=== PATIENT | female | born 1960 | race Caucasian/White ===

== ENCOUNTER 2018-09-04 12:33 | Inpatient (IN) | payer MEDICARE ==
[2018-09-04] MEDS ORDERED: IPRATROPIUM-ALBUTEROL 3 ML NEB INHALATION STA (12:56)
--- NOTE | 2018-09-04 13:01 | ED ---
General Adult HPI - General Chief complaint: Shortness of Breath Stated complaint: SOB Time Seen by Provider: 09/04/18 12:43 Source: patient, family, RN notes reviewed Mode of arrival: wheelchair Limitations: no limitations - History of Present Illness Initial comments: Patient is a pleasant 57-year-old female presenting to the emergency department with difficulty in breathing. Onset of symptoms was several days ago. Patient did see her primary care physician 3 days ago and was prescribed oxygen for home however they have not receiving at. Patient once had a computed tomography scan showing COPD. Otherwise patient has not been chronically diagnosed with COPD. No calf pain. Patient has been coughing however cough has been mild noncolored sputum. No fevers. No chest pain. Patient does have a history of leukemia that was treated in 2014 and is not active. No current chemotherapy. - Related Data Home Medications Medication Instructions Recorded Confirmed Multivitamin/Iron/Folic Acid 1 tab PO DAILY@0800 //16 09/04/18 [Centrum Complete Multivit Tab] Gabriel/D3/Mag11/Zinc/Trade Marker/Kashif/Bor 1 tab PO BID@0800,1700 09/04/18 09/04/18 [Caltrate 600+D Plus Tablet] Cyclobenzaprine [Flexeril] 10 mg PO Q8H PRN 09/04/18 09/04/18 Hydrocortisone 10 mg PO DAILY@1700 09/04/18 09/04/18 Hydrocortisone 20 mg PO DAILY@0800 09/04/18 09/04/18 Ibuprofen [Motrin] 800 mg PO Q8H PRN 09/04/18 09/04/18 Ipratropium/Albuterol Sulfate 1 puff INHALATION RT-BID PRN 09/04/18 09/04/18 [Combivent Respimat Inhaler] LORazepam [Ativan] 0.5 mg PO Q46H PRN 09/04/18 09/04/18 Pentoxifylline [TRENtal] 400 mg PO BID@0800,1700 09/04/18 09/04/18 Vitamin E (Dl,Tocopheryl Acet) 400 unit PO BID@0800,1700 09/04/18 09/04/18 [Vitamin E] Zolpidem [Ambien] 10 mg PO HS PRN 09/04/18 09/04/18 Allergies Allergy/AdvReac Type Severity Reaction Status Date / Time cefepime Allergy Unknown Face Verified 09/04/18 14:06 Swelling, Rash chlorhexidine Allergy Unknown Verified 09/04/18 14:06 Penicillins Allergy Unknown Verified 09/04/18 14:06 Childhood Review of Systems ROS Statement: Those systems with pertinent positive or pertinent negative responses have been documented in the HPI. ROS Other: All systems not noted in ROS Statement are negative. 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 WARD IV ACCESS RIGHT CHEST. RASH ON BACK FROM CHEMO. Grade I Gastric GVHD. History of Any Multi-Drug Resistant Organisms: None Reported Past Surgical History: Orthopedic Surgery, Tubal Ligation Additional Past Surgical History / Comment(s): Cervical fusion 2005, Bilateral carpal tunnel, BONE MARROW BX. 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 Mother Family Medical History: Cancer Additional Family Medical History / Comment(s): Mother at age 49yrs of uterine cancer. Pt's several aunts all had cancers of various origins as well as her grandmother. General Exam Limitations: no limitations General appearance: alert, in no apparent distress Head exam: Present: atraumatic Eye exam: Present: normal appearance, PERRL ENT exam: Present: normal oropharynx Neck exam: Present: normal inspection Respiratory exam: Present: wheezes, rales Cardiovascular Exam: Present: tachycardia GI/Abdominal exam: Present: soft. Absent: tenderness Extremities exam: Present: normal inspection. Absent: pedal edema, calf tenderness Neurological exam: Present: alert Psychiatric exam: Present: normal affect, normal mood Skin exam: Present: normal color Course Vital Signs 09/04/18 09/04/18 09/04/18 12:39 13:32 13:42 Temperature 98.1 F Pulse Rate 117 H 109 H 107 H Respiratory 26 H Rate Blood Pressure 135/82 O2 Sat by Pulse 84 L Oximetry EKG Findings - EKG Comments: EKG Findings:: Sinus tachycardia 106. ME 182. QRS 84. QT 336. QTc 446. Norm al axis. Normal QRS. No acute ST change. Medical Decision Making - Medical Decision Making Patient reevaluated and resting comfortably in bed. Vital signs improving with oxygen. Patient states she did receive some improvement with nebulizer t reatment. Patient family updated on results and need for follow-up. Case was discussed in detail with Dr. Rolle, covering for Dr. Ricci, who will admit. - Lab Data Result diagrams: 09/04/18 13:17 09/04/18 13:17 Lab Results 09/04/18 09/04/18 09/04/18 Range/Units 13:17 13:17 13:17 WBC 13.0 H (3.8-10.6) k/uL RBC 5.10 (3.80-5.40) m/uL Hgb 17.0 H (11.4-16.0) gm/dL Hct 51.4 H (34.0-46.0) % MCV 100.8 H (80.0-100.0) fL MCH 33.3 (25.0-35.0) pg MCHC 33.1 (31.0-37.0) g/dL RDW 15.0 (11.5-15.5) % Plt Count 307 (150-450) k/uL Neutrophils % 90 % Lymphocytes % 5 % Monocytes % 3 % Eosinophils % 1 % Basophils % 0 % Neutrophils # 11.7 H (1.3-7.7) k/uL Lymphocytes # 0.7 L (1.0-4.8) k/uL Monocytes # 0.4 (0-1.0) k/uL Eosinophils # 0.1 (0-0.7) k/uL Basophils # 0.0 (0-0.2) k/uL Macrocytosis Slight PT 9.9 (9.0-12.0) sec INR 0.9 (<1.2) APTT 23.3 (22.0-30.0) sec Sodium 136 L (137-145) mmol/L Potassium 4.5 (3.5-5.1) mmol/L Chloride 95 L (98-107) mmol/L Carbon Dioxide 35 H (22-30) mmol/L Anion Gap 6 mmol/L BUN 12 (7-17) mg/dL Creatinine 0.22 L (0.52-1.04) mg/dL Est GFR (CKD-EPI)AfAm >90 (>60 ml/min/1.73 sqM) Est GFR (CKD-EPI)NonAf >90 (>60 ml/min/1.73 sqM) Glucose 128 H (74-99) mg/dL Calcium 10.1 (8.4-10.2) mg/dL Total Bilirubin 0.8 (0.2-1.3) mg/dL AST 69 H (14-36) U/L ALT 84 H (9-52) U/L Alkaline Phosphatase 372 H (38-126) U/L Troponin I (0.000-0.034) ng/mL NT-Pro-B Natriuret Pep pg/mL Total Protein 7.3 (6.3-8.2) g/dL Albumin 4.0 (3.5-5.0) g/dL 09/04/18 09/04/18 Range/Units 13:17 13:17 WBC (3.8-10.6) k/uL RBC (3.80-5.40) m/uL Hgb (11.4-16.0) gm/dL Hct (34.0-46.0) % MCV (80.0-100.0) fL MCH (25.0-35.0) pg MCHC (31.0-37.0) g/dL RDW (11.5-15.5) % Plt Count (150-450) k/uL Neutrophils % % Lymphocytes % % Monocytes % % Eosinophils % % Basophils % % Neutrophils # (1.3-7.7) k/uL Lymphocytes # (1.0-4.8) k/uL Monocytes # (0-1.0) k/uL Eosinophils # (0-0.7) k/uL Basophils # (0-0.2) k/uL Macrocytosis PT (9.0-12.0) sec INR (<1.2) APTT (22.0-30.0) sec Sodium (137-145) mmol/L Potassium (3.5-5.1) mmol/L Chloride (98-107) mmol/L Carbon Dioxide (22-30) mmol/L Anion Gap mmol/L BUN (7-17) mg/dL Creatinine (0.52-1.04) mg/dL Est GFR (CKD-EPI)AfAm (>60 ml/min/1.73 sqM) Est GFR (CKD-EPI)NonAf (>60 ml/min/1.73 sqM) Glucose (74-99) mg/dL Calcium (8.4-10.2) mg/dL Total Bilirubin (0.2-1.3) mg/dL AST (14-36) U/L ALT (9-52) U/L Alkaline Phosphatase (38-126) U/L Troponin I <0.012 (0.000-0.034) ng/mL NT-Pro-B Natriuret Pep 240 pg/mL Total Protein (6.3-8.2) g/dL Albumin (3.5-5.0) g/dL - Radiology Data Radiology results: image reviewed (Chest x-ray shows large right effusion) Disposition Clinical Impression: Pleural effusion, Dyspnea Disposition: ADMITTED IP TO THIS HOSP Is patient prescribed a controlled substance at d/c from ED?: No Referrals: Kristi Ricci DO [Primary Care Provider] - 1-2 days Decision Time: 14:43
[2018-09-04 13:34] LABS: Basophils % (A) 0 %; Eosinophils # (A) 0.1 k/uL (0-0.7); Eosinophils % (A) 1 %; HCT 51.4 % (34.0-46.0); Lymphocytes # (A) 0.7 k/uL (1.0-4.8); Lymphocytes % (A) 5 %; MCH 33.3 pg (25.0-35.0); MCHC 33.1 g/dL (31.0-37.0); MCV 100.8 fL (80.0-100.0); Macrocytosis Slight; Mean Platelet Volume 7.6; Monocytes # (A) 0.4 k/uL (0-1.0); Monocytes % (A) 3 %; Neutrophils # (A) 11.7 k/uL (1.3-7.7); Neutrophils % (A) 90 %; Platelet Count 307 k/uL (150-450)
[2018-09-04 13:43] LABS: INR 0.9 (<1.2); Partial Thromboplastin Time 23.3 sec (22.0-30.0); Prothrombin Time 9.9 sec (9.0-12.0)
[2018-09-04 13:44] LABS: ALT 84 U/L (9-52); AST 69 U/L (14-36); Alkaline Phosphatase 372 U/L (38-126); Anion Gap 6 mmol/L; Blood Urea Nitrogen 12 mg/dL (7-17); Calcium 10.1 mg/dL (8.4-10.2); Carbon Dioxide 35 mmol/L (22-30); Chloride 95 mmol/L (98-107); Glucose 128 mg/dL (74-99); Potassium 4.5 mmol/L (3.5-5.1); Sodium 136 mmol/L (137-145); Total Bilirubin 0.8 mg/dL (0.2-1.3); Total Protein 7.3 g/dL (6.3-8.2)
--- NOTE | 2018-09-04 14:14 | XR ---
EXAMINATION TYPE: XR chest 2V DATE OF EXAM: 09/04/2018 COMPARISON: 11/06/2015 HISTORY: Short of breath TECHNIQUE: Frontal and lateral views of the chest are obtained. FINDINGS: There is a very large right pleural effusion. Trachea is midline. Left lung is clear of in filtrate. There is no heart failure. Bony thorax is intact. There are chest leads. Mediastinum appear s normal. IMPRESSION: Large right pleural effusion is a change compared to old exam. Follow-up recommended.
[2018-09-04] MEDS: IPRATROPIUM-ALBUTEROL 3 ML NEB INHALATION SCH ×2 (15:13→19:38)
[2018-09-04] MEDS ORDERED: CYCLOBENZAPRINE 10 MG TAB PO PRN (16:37)
--- NOTE | 2018-09-04 16:46 | P.HPIM ---
History of Present Illness Patient is a 57-year-old female known history of smoking used to smoke a pack per day, taking down recent lately came in with compensative short of breath patient was seen in PCPs office is found to have saturations of 84% was given steroids and oxygen was discharged home came back here again with worsening shortness of breath. Patient was hypoxic as well here. Patient denied any fever chills is comparing of cough without any significant sputum production. Patient is found to have large pleural effusion on the right side. Patient does have history of leukemia of for which patient received chemotherapy in 2015. Patient doesn't have any significant wheezing absent breath sounds on the right side which explains pleural effusion decreased air entry into the left side be no significant wheezing was appreciated patient was also told that she has emphysema never has seen a lung doctor. Patient denied any fever chills no evidence of pneumonia although parapneumonic effusion cannot be completely ruled out patient will be started on IV antibiotics. Patient will need a diagnostic and therapeutic thoracocentesis. Patient denied any dysuria Review of Systems REVIEW OF SYSTEMS: CONSTITUTIONAL: No fever, no malaise, no fatigue. HEENT: No recent visual problems or hearing problems. Denied any sore throat. CARDIOVASCULAR: No chest pain, orthopnea, PND, no palpitations, no syncope. PULMONARY: no hemoptysis. GASTROINTESTINAL: No diarrhea, no nausea, no vomiting, no abdominal pain. NEUROLOGICAL: No headaches, no weakness, no numbness. HEMATOLOGICAL: Denies any bleeding or petechiae. GENITOURINARY: Denies any burning micturition, frequency, or urgency. MUSCULOSKELETAL/RHEUMATOLOGICAL: Denies any joint pain, swelling, or any muscle pain. ENDOCRINE: Denies any polyuria or polydipsia. The rest of the 14-point review of systems is negative. 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 WARD IV ACCESS RIGHT CHEST. RASH ON BACK FROM CHEMO. Grade I Gastric GVHD. History of Any Multi-Drug Resistant Organisms: None Reported Past Surgical History: Orthopedic Surgery, Tubal Ligation Additional Past Surgical History / Comment(s): Cervical fusion 2005, Bilateral carpal tunnel, BONE MARROW BX. 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 Mother Family Medical History: Cancer Additional Family Medical History / Comment(s): Mother at age 49yrs of uterine cancer. Pt's several aunts all had cancers of various origins as well as her grandmother. Medications and Allergies Home Medications Medication Instructions Recorded Confirmed Type Multivitamin/Iron/Folic Acid 1 tab PO DAILY@0800 11/06/15 09/04/18 History [Centrum Complete Multivit Tab] Gabriel/D3/Mag11/Zinc/Saddle Lining Stitcher/Kashif/Bor 1 tab PO BID@0800,1700 09/04/18 09/04/18 History [Caltrate 600+D Plus Tablet] Cyclobenzaprine [Flexeril] 10 mg PO Q8H PRN 09/04/18 09/04/18 History Hydrocortisone 10 mg PO DAILY@1700 09/04/18 09/04/18 History Hydrocortisone 20 mg PO DAILY@0800 09/04/18 09/04/18 History Ibuprofen [Motrin] 800 mg PO Q8H PRN 09/04/18 09/04/18 History Ipratropium/Albuterol Sulfate 1 puff INHALATION RT-BID PRN 09/04/18 09/04/18 History [Combivent Respimat Inhaler] LORazepam [Ativan] 0.5 mg PO Q46H PRN 09/04/18 09/04/18 History Pentoxifylline [TRENtal] 400 mg PO BID@0800,1700 09/04/18 09/04/18 History Vitamin E (Dl,Tocopheryl Acet) 400 unit PO BID@0800,1700 09/04/18 09/04/18 History [Vitamin E] Zolpidem [Ambien] 10 mg PO HS PRN 09/04/18 09/04/18 History Allergies Allergy/AdvReac Type Severity Reaction Status Date / Time cefepime Allergy Unknown Face Verified 09/04/18 14:06 Swelling, Rash chlorhexidine Allergy Unknown Verified 09/04/18 14:06 Penicillins Allergy Unknown Verified 09/04/18 14:06 Childhood Physical Exam Vitals: Vital Signs Temp Pulse Resp BP Pulse Ox 09/04/18 15:26 108 H 09/04/18 15:13 107 H 09/04/18 15:00 95 134/84 94 L 09/04/18 14:30 99 28 H 134/84 95 09/04/18 13:42 107 H 09/04/18 13:32 109 H 09/04/18 13:00 105 H 26 H 141/87 96 09/04/18 12:39 98.1 F 117 H 26 H 135/82 84 L Intake and Output 09/04/18 09/04/18 09/04/18 06:59 14:59 22:59 Other: Weight 45.359 kg PHYSICAL EXAMINATION: GENERAL: The patient is alert and oriented x3, not in any acute distress. Thin built her denied any recent weight loss HEENT: Pupils are round and equally reacting to light. EOMI. No scleral icterus. No conjunctival pallor. Normocephalic, atraumatic. No pharyngeal erythema. No thyromegaly. CARDIOVASCULAR: S1 and S2 present. No murmurs, rubs, or gallops. PULMONARY: Absent breath sounds in the right posterior lung rodriguez decreased air entry and left side no wheezing was appreciated no crackles were appreciated ABDOMEN: Soft, nontender, nondistended, normoactive bowel sounds. No palpable organomegaly. MUSCULOSKELETAL: No joint swelling or deformity. EXTREMITIES: No cyanosis, clubbing, or pedal edema. NEUROLOGICAL: Gross neurological examination did not reveal any focal deficits. SKIN: No rashes. Results CBC & Chem 7: 09/04/18 13:17 09/04/18 13:17 Labs: Abnormal Lab Results - Last 24 Hours (Table) 09/04/18 09/04/18 Range/Units 13:17 13:17 WBC 13.0 H (3.8-10.6) k/uL Hgb 17.0 H (11.4-16.0) gm/dL Hct 51.4 H (34.0-46.0) % MCV 100.8 H (80.0-100.0) fL Neutrophils # 11.7 H (1.3-7.7) k/uL Lymphocytes # 0.7 L (1.0-4.8) k/uL Sodium 136 L (137-145) mmol/L Chloride 95 L (98-107) mmol/L Carbon Dioxide 35 H (22-30) mmol/L Creatinine 0.22 L (0.52-1.04) mg/dL Glucose 128 H (74-99) mg/dL AST 69 H (14-36) U/L ALT 84 H (9-52) U/L Alkaline Phosphatase 372 H (38-126) U/L Assessment and Plan Plan: Acute hypoxic respiratory failure and shortness of breath: Secondary to right- sided pleural effusion etiology of pleural effusion is not clear possibly a parapneumonic effusion is low but I cannot completely rule out because of which patient will be started on antibiotics malignant pleural effusion need to be ruled out patient clinically doesn't have any heart failure BNP is only 200. Patient will be started on IV fluids -Tachycardia secondary to hypoxemia patient was started on IV fluids continue with respiratory support breathing treatments and oxygen -COPD with the possible minimal exacerbation although I do not believe patient will need systemic steroids patient will be started on inhaled steroids and in halational treatments -Leukocytosis appears to be reactive in nature -History of leukemia in remission patient last received chemotherapy in 2014 -Severity in the past -Nicotine use: Counseling was provided -Anxiety disorder -Severity in the past Patient will need pharmacologic GI as well as DVT prophylaxis
[2018-09-04] MEDS: SODIUM CHLORIDE 0.9% 1,000 ML IV SCH (17:56)
[2018-09-04] MEDS: HYDROCORTISONE 10 MG TAB PO SCH (18:29)
[2018-09-04] MEDS: PENTOXIFYLLINE 400 MG TABLET.ER PO SCH (18:29)
[2018-09-04] MEDS: NICOTINE 21MG/24HR PATCH TRANSDERM SCH (19:35)
[2018-09-04] MEDS: HEPARIN SODIUM,PORCINE 5,000 UNIT/ML 1 ML VIAL SQ SCH (19:35)
[2018-09-04] MEDS: FAMOTIDINE 20 MG TAB PO SCH (19:35)
[2018-09-04] MEDS: BUDESONIDE 0.5 MG/2 ML NEBU INHALATION SCH (19:38)
[2018-09-05] MEDS: IPRATROPIUM-ALBUTEROL 3 ML NEB INHALATION PRN (02:52)
[2018-09-05 03:02] LABS: Glucose,Whole Blood 102 mg/dL (75-99)
[2018-09-05] MEDS: SODIUM CHLORIDE 0.9% 1,000 ML IV SCH ×3 (03:06→23:01)
[2018-09-05 06:35] LABS: Basophils % (A) 0 %; Eosinophils % (A) 0 %; HCT 47.8 % (34.0-46.0); HGB 15.4 gm/dL (11.4-16.0); Lymphocytes # (A) 1.2 k/uL (1.0-4.8); Lymphocytes % (A) 13 %; MCH 33.1 pg (25.0-35.0); MCHC 32.2 g/dL (31.0-37.0); MCV 102.7 fL (80.0-100.0); Macrocytosis Slight; Mean Platelet Volume 7.8; Monocytes # (A) 0.5 k/uL (0-1.0); Monocytes % (A) 5 %; Neutrophils # (A) 7.9 k/uL (1.3-7.7); Neutrophils % (A) 80 %; Platelet Count 312 k/uL (150-450); RBC 4.65 m/uL (3.80-5.40); RDW 14.8 % (11.5-15.5); WBC 9.9 k/uL (3.8-10.6)
[2018-09-05 06:45] LABS: Anion Gap 1 mmol/L; Blood Urea Nitrogen 8 mg/dL (7-17); Calcium 8.9 mg/dL (8.4-10.2); Carbon Dioxide 37 mmol/L (22-30); Chloride 100 mmol/L (98-107); Glucose 81 mg/dL (74-99); Potassium 4.3 mmol/L (3.5-5.1); Sodium 138 mmol/L (137-145)
[2018-09-05] MEDS: FAMOTIDINE 20 MG TAB PO SCH ×2 (08:08→20:10)
[2018-09-05] MEDS: NICOTINE 21MG/24HR PATCH TRANSDERM SCH (08:08)
[2018-09-05] MEDS: PENTOXIFYLLINE 400 MG TABLET.ER PO SCH ×2 (08:08→17:03)
[2018-09-05] MEDS: HEPARIN SODIUM,PORCINE 5,000 UNIT/ML 1 ML VIAL SQ SCH ×2 (08:08→20:11)
[2018-09-05] MEDS: HYDROCORTISONE 10 MG TAB PO SCH ×2 (08:10→17:04)
[2018-09-05] MEDS: BUDESONIDE 0.5 MG/2 ML NEBU INHALATION SCH ×2 (08:33→19:53)
[2018-09-05] MEDS: IPRATROPIUM-ALBUTEROL 3 ML NEB INHALATION SCH ×4 (08:33→19:53)
--- NOTE | 2018-09-05 10:18 | P.PN ---
Subjective 57-year-old admitted with right-sided pleural effusion etiology of pleural effusion is unknown possibly parapneumonic effusion is low we will order a ultrasound guided thoracocentesis diagnostic and therapeutic. Respiratory status remains the same Constitutional: Denied any fatigue denied any fever. Cardio vascular: denied any chest pain, palpitations Gastrointestinal denied any nausea vomiting Pulmonary: as mentioned in HPI Neurologic denied any new focal deficits All inpatient medications were reviewed and appropriate changes in these med ications as dictated in the interval history and assessment and plan. Objective - Vital Signs Vital signs: Vital Signs Temp 98.1 F 09/05/18 08:00 Pulse 86 09/05/18 08:47 Resp 18 09/05/18 08:00 BP 141/77 09/05/18 08:00 Pulse Ox 97 09/05/18 08:33 Intake & Output 09/04/18 09/05/18 09/05/18 18:59 06:59 18:59 Intake Total 1500 Balance 1500 Weight 45.359 kg 49.4 kg Intake: Intake, IV Titration 1100 Amount Sodium Chloride 0.9% 1, 1100 000 ml @ 100 mls/hr IV . Q10H [facility] Rx#:[id number] Oral 400 Other: Voiding Method Toilet Toilet # Voids 1 3 1 - Exam PHYSICAL EXAMINATION: GENERAL: The patient is alert and oriented x3, not in any acute distress. Thin built her denied any recent weight loss HEENT: Pupils are round and equally reacting to light. EOMI. No scleral icterus. No conjunctival pallor. Normocephalic, atraumatic. No pharyngeal erythema. No thyromegaly. CARDIOVASCULAR: S1 and S2 present. No murmurs, rubs, or gallops. PULMONARY: Absent breath sounds in the right posterior lung rodriguez decreased air entry and left side no wheezing was appreciated no crackles were appreciated ABDOMEN: Soft, nontender, nondistended, normoactive bowel sounds. No palpable organomegaly. MUSCULOSKELETAL: No joint swelling or deformity. EXTREMITIES: No cyanosis, clubbing, or pedal edema. NEUROLOGICAL: Gross neurological examination did not reveal any focal deficits. SKIN: No rashes. - Labs CBC & Chem 7: 09/05/18 05:49 09/05/18 05:49 Labs: Abnormal Lab Results - Last 24 Hours (Table) 09/04/18 09/04/18 09/05/18 Range/Units 13:17 13:17 02:42 WBC 13.0 H (3.8-10.6) k/uL Hgb 17.0 H (11.4-16.0) gm/dL Hct 51.4 H (34.0-46.0) % MCV 100.8 H (80.0-100.0) fL Neutrophils # 11.7 H (1.3-7.7) k/uL Lymphocytes # 0.7 L (1.0-4.8) k/uL Sodium 136 L (137-145) mmol/L Chloride 95 L (98-107) mmol/L Carbon Dioxide 35 H (22-30) mmol/L Creatinine 0.22 L (0.52-1.04) mg/dL Glucose 128 H (74-99) mg/dL POC Glucose (mg/dL) 102 H (75-99) mg/dL AST 69 H (14-36) U/L ALT 84 H (9-52) U/L Alkaline Phosphatase 372 H (38-126) U/L 09/05/18 09/05/18 Range/Units 05:49 05:49 WBC (3.8-10.6) k/uL Hgb (11.4-16.0) gm/dL Hct 47.8 H (34.0-46.0) % MCV 102.7 H (80.0-100.0) fL Neutrophils # 7.9 H (1.3-7.7) k/uL Lymphocytes # (1.0-4.8) k/uL Sodium (137-145) mmol/L Chloride (98-107) mmol/L Carbon Dioxide 37 H (22-30) mmol/L Creatinine 0.22 L (0.52-1.04) mg/dL Glucose (74-99) mg/dL POC Glucose (mg/dL) (75-99) mg/dL AST (14-36) U/L ALT (9-52) U/L Alkaline Phosphatase (38-126) U/L Assessment and Plan Plan: Acute hypoxic respiratory failure and shortness of breath: Secondary to right- sided pleural effusion etiology of pleural effusion is not clear possibly a parapneumonic effusion is low but I cannot completely rule out because of which patient will be started on antibiotics malignant pleural effusion need to be ruled out patient clinically doesn't have any heart failure BNP is only 200. Ultrasound at the -Tachycardia secondary to hypoxemia patient was started on IV fluids continue with respiratory support breathing treatments and oxygen -COPD with the possible minimal exacerbation although I do not believe patient will need systemic steroids patient will be started on inhaled steroids and inhalational treatments -Leukocytosis appears to be reactive in nature -History of leukemia in remission patient last received chemotherapy in 2014 -Severity in the past -Nicotine use: Counseling was provided -Anxiety disorder -Severity in the past Patient will need pharmacologic GI as well as DVT prophylaxis
[2018-09-05] MEDS ORDERED: LIDOCAINE 1% INJ 10MG/ML (20 ML MDV) SQ ONE (11:01)
--- NOTE | 2018-09-05 11:53 | US ---
EXAMINATION TYPE: US chest DATE OF EXAM: 09/05/2018 COMPARISON: Chest x-ray 09/04/2018 CLINICAL HISTORY: Markings for thoracentesis by pulmonary staff. Pleural effusion TECHNIQUE: Targeted ultrasound of the posterior lower bilateral hemithoraces EXAM MEASUREMENTS: Right Pleural Effusion pocket size: 9.5 cm Right skin surface to fluid distance: 1.3 cm Left Pleural Effusion pocket size: 0 cm Right side marked for possible thoracentesis outside the dept. Pulmonologists are able to review the images in the patient?s EMR. IMPRESSIONS: Large right pleural effusion
--- NOTE | 2018-09-05 12:16 | CONS ---
CONSULTATION PULMONARY/CRITICAL CARE CONSULTATION: DATE OF CONSULTATION: September 05, 2018 This is a 57-year-old female who apparently presents to the emergency room with complaints of difficulty breathing. It apparently occurred a couple days prior to her admission there. She apparently did see her primary care physician 3 days ago and oxygen was prescribed. Unfortunately, the patient has not received it as yet. The patient apparently was evaluated and found to have a large right-sided pleural effusion for which we were consulted. She states that she has never had anything like this before. The patient denies chest pain. Denies any fever. She has had a bit of a cough. Not producing much phlegm. No nausea, vomiting. No chest pain or chest discomfort. She has a history of leukemia in the past but was treated and apparently is in remission. Other than the shortness of breath, she really does not have much in the way of complaints. We did ask for ultrasound to do a marking. Our plan is to go ahead and do a right-sided thoracentesis today and send the fluid off for analysis. This may allow us to know why the fluid is there. Her primary care physician is Dr. Silvestre in [place]. HOME MEDICATIONS: Her home medications included multivitamins, Flexeril, hydrocortisone 20 mg in the morning, 10 mg in the evening, ibuprofen, Combivent inhaler, Ativan, Trental, vitamin E, and Ambien. ALLERGIES: Allergies include CEFEPIME, CHLORHEXIDINE, and PENICILLINS. MEDICAL HISTORY: Her medical history is positive for CVA, pneumonia, syncope, acute myeloid leukemia, status post chemotherapy and bone marrow transplant, anemia, Maier catheter insertion, and mild xbonc-zcywap-coeb disease. SURGICAL HISTORY: Surgical history includes among other things, tubal ligation, cervical fusion, bilateral carpal tunnel surgery, bone marrow biopsy, allogeneic stem cell transplant. SOCIAL HISTORY: Social history is positive for ongoing tobacco use. She apparently does not drink alcohol and there is no history of illicit drug use. FAMILY HISTORY: Family history is not too remarkable save for uterine cancer. REVIEW OF SYSTEMS: CONSTITUTIONAL: Weakness. NEUROLOGIC: Negative. HEENT: Negative. CARDIOVASCULAR: Negative. PULMONARY: Shortness of breath. Mild cough, minimal phlegm production. GI: Negative. : Negative. RHEUMATOLOGIC: Negative. IMMUNOLOGIC: Negative. ENDOCRINOLOGIC: Negative. DERMATOLOGIC: Negative. PHYSICAL EXAMINATION: Current vital signs are reviewed. Temperature 98.1, heart rate 86, respiratory rate 18, blood pressure 141/77, mean 98 and 4 L saturation 97%. Appears in no acute distress. HEENT: Examination is grossly unremarkable. Mucous membranes are moist. Nasal O2 in place. NECK: Supple. Full range of motion. No adenopathy. Neck veins are flat. CARDIOVASCULAR: Examination reveals regular rhythm and rate. S1, S2 normal. Heart rate 85 beats per minute. No murmur. LUNGS: Reveal severely diminished breath sounds on the right chest. There is also dullness in the right chest. No wheezes. No crackles. ABDOMEN: Soft. Bowel sounds are heard. EXTREMITIES: Are intact. No cyanosis, clubbing, or edema. SKIN: Without rash. NEUROLOGIC: Examination is brief but nonfocal. Labs are reviewed. White count 9.9, hemoglobin 15.4, hematocrit 47.8, platelet count normal. Sodium and potassium normal. Chloride 100. CO2 of 37. Anion gap is 1. BUN and creatinine were 8 and 0.22. AST 69, ALT 84, alkaline phosphatase 372. Troponins were negative. N terminal proBNP was normal. PT, INR and PTT all normal. Chest x-ray shows a large right-sided pleural effusion that was compared to an exam in October 2015 which apparently was clear. Ultrasound was done but not officially read as yet. The plan is to do a thoracentesis today. Medications are reviewed. She is on Pulmicort, Rocephin and updrafts. ASSESSMENT: 1. Large right-sided pleural effusion, of unclear etiology. With the patient's history of tobacco use, rule out malignancy. 2. Previous history of acute myeloid leukemia, apparently in remission, status post allogeneic bone marrow transplant. 3. Probable chronic obstructive pulmonary disease. 4. Adrenal insufficiency. 5. History of cerebrovascular accident. 6. History of pneumonia. 7. History of syncope. 8. History of degenerative joint disease. PLAN: The plan is to do a thoracentesis later today. Ultrasound was done to landy the right chest. Additional recommendations and suggestions are forthcoming. The fluid will be sent for cytology, chemistry and microbiology. Additional recommendations and suggestions are forthcoming. We counseled the patient about the importance of smoking cessation. MMODL / IJN: [id number] /
--- NOTE | 2018-09-05 13:46 | XR ---
EXAMINATION TYPE: XR chest 1V portable DATE OF EXAM: 09/05/2018 Comparison: 09/04/2018 Clinical History: 57-year-old female status post right sided thoracentesis Findings: Right heart margin remains obscured by adjacent pleural parenchymal opacity. ACDF hardware. A moderat e to large right pleural effusion remains despite decrease as compared to recent prior. A small right apical pneumothorax is demonstrated measuring 1.3 cm from the apical margin. Left lung and pleural s pace appear clear. Impression: 1. Small right apical pneumothorax measuring 1.3 cm following thoracentesis. Finding called to Nurse Bravo on [facility] at 1:44 PM. 2. Residual moderate to large right pleural effusion, decreased from prior.
[2018-09-05 15:31] LABS: Color,BF Orange
[2018-09-05 15:32] LABS: Appearance,BF Hazy
[2018-09-05 15:45] LABS: Nucleated Cells, Body Fluid 315 /uL; RBC, Body Fluid 3620 /uL
[2018-09-05 15:46] LABS: Mononuclear WBC,Body Fluid 28 %; Polynuclear WBC,Body Fluid 71 %; Total Cells Counted,Body Fluid 100
[2018-09-05] MEDS: KETOROLAC 30 MG/ML 1 ML VIAL IVP PRN (19:06)
[2018-09-05 21:41] LABS: Total Protein, Body Fluid 4100 mg/dL
--- NOTE | 2018-09-05 23:05 | PCN ---
PROCEDURE NOTE Indication Pleural effusion. A time-out was completed verifying correct patient, procedure, site, positioning , and implant (s) or special equipment if applicable. Ultrasound guidance was used and appropriate fluid pocket was identified and marked. Patient was positioned, prepped and draped in usual sterile fashion. Lidocaine was used to anesthetize the area. A Thoracentesis catheter was introduced into the pleural space and fluid was removed. Blood loss was none. A chest x-ray was ordered to evaluate for pneumothorax. Total Fluid Removed: 1300 mL Color of Fluid @@ Fluid was sent for appropriate laboratory tests. Patient tolerated the procedure well and there were no complications. The patient tolerated the procedure well. Chest x-ray was ordered to rule out pneumothorax. 1300 mL of fluid was removed. There was informed consent and universal timeout. The patient tolerated the procedure well. Again, a chest x-ray was ordered after the thoracentesis to make sure there was no pneumothorax. MMODL / IJN: [id number] /
[2018-09-06] MEDS: KETOROLAC 30 MG/ML 1 ML VIAL IVP PRN ×2 (03:27→12:15)
[2018-09-06] MEDS: IPRATROPIUM-ALBUTEROL 3 ML NEB INHALATION PRN (04:40)
[2018-09-06 06:44] LABS: Basophils % (A) 0 %; Eosinophils # (A) 0.1 k/uL (0-0.7); Eosinophils % (A) 1 %; HCT 47.9 % (34.0-46.0); HGB 14.7 gm/dL (11.4-16.0); Lymphocytes # (A) 1.2 k/uL (1.0-4.8); Lymphocytes % (A) 13 %; MCH 31.6 pg (25.0-35.0); MCHC 30.6 g/dL (31.0-37.0); MCV 103.3 fL (80.0-100.0); Macrocytosis Slight; Mean Platelet Volume 7.6; Monocytes # (A) 0.5 k/uL (0-1.0); Monocytes % (A) 5 %; Neutrophils # (A) 7.4 k/uL (1.3-7.7); Neutrophils % (A) 80 %; Platelet Count 308 k/uL (150-450); RBC 4.64 m/uL (3.80-5.40); RDW 14.6 % (11.5-15.5); WBC 9.3 k/uL (3.8-10.6)
[2018-09-06 06:50] LABS: Anion Gap 2 mmol/L; Blood Urea Nitrogen 5 mg/dL (7-17); Calcium 8.8 mg/dL (8.4-10.2); Carbon Dioxide 37 mmol/L (22-30); Chloride 102 mmol/L (98-107); Glucose 83 mg/dL (74-99); Sodium 141 mmol/L (137-145)
[2018-09-06] MEDS: IPRATROPIUM-ALBUTEROL 3 ML NEB INHALATION SCH ×4 (08:03→20:53)
[2018-09-06] MEDS: BUDESONIDE 0.5 MG/2 ML NEBU INHALATION SCH ×2 (08:03→20:53)
[2018-09-06] MEDS: NICOTINE 21MG/24HR PATCH TRANSDERM SCH (08:45)
[2018-09-06] MEDS: HEPARIN SODIUM,PORCINE 5,000 UNIT/ML 1 ML VIAL SQ SCH ×2 (08:46→20:17)
[2018-09-06] MEDS: PENTOXIFYLLINE 400 MG TABLET.ER PO SCH ×2 (08:46→16:19)
[2018-09-06] MEDS: HYDROCORTISONE 10 MG TAB PO SCH ×2 (08:46→16:19)
[2018-09-06] MEDS: FAMOTIDINE 20 MG TAB PO SCH ×2 (08:47→20:17)
[2018-09-06] MEDS: SODIUM CHLORIDE 0.9% 1,000 ML IV SCH ×2 (08:48→16:19)
[2018-09-06] MEDS ORDERED: RX INFO: IV CONTRAST WAS GIVEN 1 EACH MISC MISCELLANE PRN (10:12)
--- NOTE | 2018-09-06 10:22 | P.PN ---
Subjective Progress Note Date: 09/06/18 Principal diagnosis: Large right-sided pleural effusion of unclear etiology On 09/06/2018 patient seen in follow-up on selective care unit, she is awake and alert, in no acute distress, she status post right-sided thoracentesis would removal of 1.3 L of pleural fluid, and pleural fluid analysis showed exudative fluid. Today's exam patient remains on supplemental oxygen currently at 3 L with a pulse ox of 96%, hemodynamically stable, patient is afebrile, pleural fluid cytology is pending, cultures are pending, preliminary Gram stain showed no organisms. No acute events overnight, patient is quite cachectic, and weak, but no acute distress, physical examination reveals diminished breath sounds over right lower base, follow-up chest x-ray yesterday after the procedure showed residual moderate to large right pleural effusion which was decreased from prior exam. Today's labs have been reviewed, showed blood cell count of 9.3, hemoglobin 14.7, sodium is 141, potassium is 4.0, chloride is 102, CO2 is 37, BUN is 5, creatinine is 0.19. Remains on breathing treatments, and empiric antibiotics. Objective - Vital Signs Vital signs: Vital Signs Temp 98.3 F 09/06/18 03:29 Pulse 91 09/06/18 08:44 Resp 18 09/06/18 08:44 BP 121/72 09/06/18 08:44 Pulse Ox 96 09/06/18 08:44 Intake & Output 09/05/18 09/06/18 09/06/18 18:59 06:59 18:59 Intake Total 720 1920 180 Balance 720 1920 180 Weight 49.4 kg 49.3 kg Intake: Intake, IV Titration 1100 Amount Sodium Chloride 0.9% 1, 1100 000 ml @ 100 mls/hr IV . Q10H [facility] Rx#:[id number] Oral 720 820 180 Other: Voiding Method Toilet Toilet # Voids 1 1 1 - Exam GENERAL EXAM: Alert, pleasant, 57-year-old white female, cachectic 3 L of o xygen, comfortable in no apparent distress. HEAD: Normocephalic/atraumatic. EYES: Normal reaction of pupils, equal size. Conjunctiva pink, sclera white. NOSE: Clear with pink turbinates. THROAT: No erythema or exudates. NECK: No masses, no JVD, no thyroid enlargement, no adenopathy. CHEST: No chest wall deformity. Symmetrical expansion. LUNGS: Equal air entry with sounds, with dullness at the right base CVS: Regular rate and rhythm, normal S1 and S2, no gallops, no murmurs, no rubs ABDOMEN: Soft, nontender. No hepatosplenomegaly, normal bowel sounds, no guarding or rigidity. EXTREMITIES: No clubbing, no edema, no cyanosis, 2+ pulses and upper and lower extremities. MUSCULOSKELETAL: Muscle strength and tone normal. SPINE: No scoliosis or deformity SKIN: No rashes CENTRAL NERVOUS SYSTEM: Alert and oriented -3. No focal deficits, tone is normal in all 4 extremities. PSYCHIATRIC: Alert and oriented -3. Appropriate affect. Intact judgment and insight. - Labs CBC & Chem 7: 09/06/18 06:00 09/06/18 06:00 Labs: Abnormal Lab Results - Last 24 Hours (Table) 09/06/18 09/06/18 Range/Units 06:00 06:00 Hct 47.9 H (34.0-46.0) % MCV 103.3 H (80.0-100.0) fL MCHC 30.6 L (31.0-37.0) g/dL Carbon Dioxide 37 H (22-30) mmol/L BUN 5 L (7-17) mg/dL Creatinine 0.19 L (0.52-1.04) mg/dL Microbiology - Last 24 Hours (Table) 09/05/18 12:00 Gram Stain - Preliminary Pleural Fluid Body Fluid Culture - Preliminary 09/05/18 12:00 Anaerobic Culture - Preliminary Pleural Fluid Assessment and Plan Plan: Assessment: #1. Large right-sided pleural effusion, of unclear etiology, rule out malignancy, status post right-sided thoracentesis would removal of 1.3 L of pleural fluid which showed exudate, cytology is pending at this time #2. Previous history of acute myeloid leukemia, currently in remission, status post allogeneic bone marrow transplant #3. Probable COPD #4. Renal insufficiency #5. History of CVA #6. Previous history of pneumonia #7. History of syncope #8. History of DJD Plan: We'll obtain a CT chest with contrast to rule out any underlying malignancy, cytology of the pleural fluid is still pending, pleural fluid analysis showed exudate. There is still some residual fluid in the pleural space, but clinically patient is breathing easier. She potentially could be considered for discharge home today, with outpatient follow-up, and potential repeat thoracentesis on an outpatient basis. She will need to follow-up with Dr. Cervantes in 7-10 days I performed a history & physical examination of the patient and discussed their management with my nurse practitioner, Linda Macias. I reviewed the nurse practitioner's note and agree with the documented findings and plan of care. Lung sounds are positive for diminished breath sounds and dullness at the right base. The findings and the impression was discussed with the patient. I attest to the documentation by the nurse practitioner. Time with Patient: Less than 30
--- NOTE | 2018-09-06 12:09 | CT ---
EXAMINATION TYPE: CT chest w con DATE OF EXAM: 09/06/2018 COMPARISON: 05/01/2014 HISTORY: 57-year-old female History of acute myeloid leukemia. Rule out lung malignancy, nodules, mas ses. Difficulty breathing, pleural effusion. TECHNIQUE: Contiguous axial scanning of the chest after the administration of 100 mL of Isovue 300. Coronal/sagittal reconstructions performed. CT DLP: 176.1mGycm. Automatic exposure control utilized for a dose reduction. FINDINGS: Heart normal size with trace pericardial fluid. There seems to be some slight deviation of the heart towards the left. Aorta normal caliber with conventional arch vessel branching anatomy. There is endobronchial opacification involving the bronchus intermedius and subsequent right middle l obe and right lower lobe branches with extensive collapse demonstrated. A well-defined mass is not cl early appreciated though endobronchial lesion is not excluded at this time. Questionable lobulated soft tissue thickening of the visceral pleura versus atelectasis at the level of the right middle lobe, refer to axial image 34 and sagittal image 45. Moderate to large right pleural effusion and a moderate-sized pneumothorax measuring approximately 2. 7 cm at the anterior base and 3.2 cm at the apex. There seems to be some pleural thickening overlying the right hemidiaphragm and some strandy infiltration of the right paracardiac fat, refer to axial i mages 59 and 56. Some strandy atelectasis at the left base. Some mild endobronchial opacification within segmental lef t lower lobe branches. Background of lsbr-rg-[id number] emphysema. Visualized upper abdomen shows no gross abnormality. Bones: ACDF hardware. No osseous destructive process. IMPRESSION: 1. Right-sided hydropneumothorax. The effusion is moderate to large in size with endobronchial opacif ication of the bronchus intermedius and throughout the right middle and right lower lobe branches wit h extensive lobar collapse. Consider mucoid plugging. Bronchoscopy as clinically indicated. 2. Moderate-sized pneumothorax measuring 2.2 cm at the apex and 2.7 cm at the anterior base. Overall mass effect from the effusion and pneumothorax causes leftward deviation of the heart. NO SHE SVC C OLLAPSE. PATIENT SHOULD BE CLOSELY MONITORED FOR TENSION. 3. Questionable pleural thickening along the right hemidiaphragm and also some lobulated thickening a long the anterior visceral pleura of the right middle lobe. Correlate with pleural fluid analysis and cytology. 4. Background of COPD with mild to moderate emphysema.
--- NOTE | 2018-09-06 17:26 | P.PN ---
Subjective 57-year-old admitted with right-sided pleural effusion etiology of pleural effusion is unknown possibly parapneumonic effusion is low we will order a ultrasound guided thoracocentesis diagnostic and therapeutic. Respiratory status remains the same. 09/06/2018 Patient had the thoracocentesis yesterday with removal of around 1.4 L of exudative fluid. Patient felt better but patient is still on 3 L desaturates without oxygen CAT scan was obtained which showed moderate size pneumothorax significant atelectasis and a possible mucous plug along with the some moderate pleural effusion at this time. patient need to be closely monitored and these findings that were made today with 2 pulmonology group when nursing staff. Constitutional: Denied any fatigue denied any fever. Cardio vascular: denied any chest pain, palpitations Gastrointestinal denied any nausea vomiting Pulmonary: as mentioned in HPI Neurologic denied any new focal deficits All inpatient medications were reviewed and appropriate changes in these medications as dictated in the interval history and assessment and plan. Objective - Vital Signs Vital signs: Vital Signs Temp 98.3 F 09/06/18 15:18 Pulse 88 09/06/18 16:47 Resp 18 09/06/18 16:00 BP 148/74 09/06/18 15:18 Pulse Ox 92 L 09/06/18 15:18 Intake & Output 09/05/18 09/06/18 09/06/18 18:59 06:59 18:59 Intake Total 720 1920 920 Balance 720 1920 920 Weight 49.4 kg 49.3 kg Intake: IV 30 Invasive Line 2 30 Intake, IV Titration 1100 Amount Sodium Chloride 0.9% 1, 1100 000 ml @ 100 mls/hr IV . Q10H [facility] Rx#:[id number] Oral 720 820 890 Other: Voiding Method Toilet Toilet Toilet # Voids 1 1 2 - Exam PHYSICAL EXAMINATION: GENERAL: The patient is alert and oriented x3, not in any acute distress. Thin built her denied any recent weight loss HEENT: Pupils are round and equally reacting to light. EOMI. No scleral icterus. No conjunctival pallor. Normocephalic, atraumatic. No pharyngeal erythema. No thyromegaly. CARDIOVASCULAR: S1 and S2 present. No murmurs, rubs, or gallops. PULMONARY: Absent breath sounds in the right posterior lung rodriguez decreased air entry and left side no wheezing was appreciated no crackles were appreciated, I still didn't appreciate much of a movement on the right side posteriorly ABDOMEN: Soft, nontender, nondistended, normoactive bowel sounds. No palpable organomegaly. MUSCULOSKELETAL: No joint swelling or deformity. EXTREMITIES: No cyanosis, clubbing, or pedal edema. NEUROLOGICAL: Gross neurological examination did not reveal any focal deficits. SKIN: No rashes. - Labs CBC & Chem 7: 09/06/18 06:00 09/06/18 06:00 Labs: Abnormal Lab Results - Last 24 Hours (Table) 09/06/18 09/06/18 Range/Units 06:00 06:00 Hct 47.9 H (34.0-46.0) % MCV 103.3 H (80.0-100.0) fL MCHC 30.6 L (31.0-37.0) g/dL Carbon Dioxide 37 H (22-30) mmol/L BUN 5 L (7-17) mg/dL Creatinine 0.19 L (0.52-1.04) mg/dL Microbiology - Last 24 Hours (Table) 09/05/18 12:00 Gram Stain - Preliminary Pleural Fluid Body Fluid Culture - Preliminary 09/05/18 12:00 Anaerobic Culture - Preliminary Pleural Fluid Assessment and Plan Plan: Acute hypoxic respiratory failure and shortness of breath: Secondary to right- sided pleural effusion etiology of pleural effusion is not clear possibly a parapneumonic effusion is low , patient has exudative effusion patient had 1.5 a liter removal of fluid from the right thorax patient had pneumothorax moderate patient does have severe emphysema and very high risk for pneumothorax, patient appears to have a mucous plug with atelectasis and still has moderate effusion after thoracocentesis. Cytology is pending -Tachycardia secondary to hypoxemia patient was started on IV fluids continue with respiratory support breathing treatments and oxygen. Tachycardia improved but patient is still requiring oxygen -COPD with the possible minimal exacerbation although I do not believe patient patient is on inhalational treatments and inhaled steroids -Leukocytosis appears to be reactive in nature -History of leukemia in remission patient last received chemotherapy in 2014 -Severity in the past -Nicotine use: Counseling was provided -Anxiety disorder Patient will need pharmacologic GI as well as DVT prophylaxis
[2018-09-06] MEDS: ZOLPIDEM 10 MG TAB PO PRN (22:44)
[2018-09-07] MEDS: SODIUM CHLORIDE 0.9% 1,000 ML IV SCH ×2 (05:58→15:04)
[2018-09-07] MEDS: KETOROLAC 30 MG/ML 1 ML VIAL IVP PRN ×2 (08:42→21:26)
[2018-09-07] MEDS: HEPARIN SODIUM,PORCINE 5,000 UNIT/ML 1 ML VIAL SQ SCH ×2 (08:42→21:26)
[2018-09-07] MEDS: NICOTINE 21MG/24HR PATCH TRANSDERM SCH (08:42)
[2018-09-07] MEDS: HYDROCORTISONE 10 MG TAB PO SCH ×2 (08:43→17:21)
[2018-09-07] MEDS: FAMOTIDINE 20 MG TAB PO SCH ×2 (08:43→21:26)
[2018-09-07] MEDS: IPRATROPIUM-ALBUTEROL 3 ML NEB INHALATION SCH ×4 (08:44→22:51)
[2018-09-07] MEDS: PENTOXIFYLLINE 400 MG TABLET.ER PO SCH ×2 (08:44→17:21)
[2018-09-07] MEDS: BUDESONIDE 0.5 MG/2 ML NEBU INHALATION SCH ×2 (08:44→22:51)
[2018-09-07] MEDS ORDERED: LIDOCAINE 2% INJ 20 MG/ML (20 ML MDV) ONE (14:10)
--- NOTE | 2018-09-07 14:24 | P.PN ---
Subjective 57-year-old admitted with right-sided pleural effusion etiology of pleural effusion is unknown possibly parapneumonic effusion is low we will order a ultrasound guided thoracocentesis diagnostic and therapeutic. Respiratory status remains the same. 09/06/2018 Patient had the thoracocentesis yesterday with removal of around 1.4 L of exudative fluid. Patient felt better but patient is still on 3 L desaturates without oxygen CAT scan was obtained which showed moderate size pneumothorax significant atelectasis and a possible mucous plug along with the some moderate pleural effusion at this time. patient need to be closely monitored and these findings that were made today with 2 pulmonology group when nursing staff. 09/07/2018 Discussed with pulmonology. We're awaiting on the cytology reports from the pleural fluid and if it turns out to be cancerous patient will need a pigtail catheter or pulmonology is planning another thoracocentesis if cytology is negative for any cancer. Her respiratory status remains the same. Constitutional: Denied any fatigue denied any fever. Cardio vascular: denied any chest pain, palpitations Gastrointestinal denied any nausea vomiting Pulmonary: as mentioned in HPI Neurologic denied any new focal deficits All inpatient medications were reviewed and appropriate changes in these medications as dictated in the interval history and assessment and plan. Objective - Vital Signs Vital signs: Vital Signs Temp 96.7 F L 09/07/18 11:39 Pulse 90 09/07/18 11:56 Resp 20 09/07/18 11:42 BP 126/79 09/07/18 11:39 Pulse Ox 97 09/07/18 11:39 Intake & Output 09/06/18 09/07/18 09/07/18 18:59 06:59 18:59 Intake Total 1160 10 400 Output Total 0 Balance 1160 10 400 Weight 51 kg Intake: IV 30 10 Invasive Line 2 30 10 Oral 1130 400 Output: Urine 0 Other: Voiding Method Toilet Toilet Toilet # Voids 2 - Exam PHYSICAL EXAMINATION: GENERAL: The patient is alert and oriented x3, not in any acute distress. Thin built her denied any recent weight loss HEENT: Pupils are round and equally reacting to light. EOMI. No scleral icterus. No conjunctival pallor. Normocephalic, atraumatic. No pharyngeal erythema. No thyromegaly. CARDIOVASCULAR: S1 and S2 present. No murmurs, rubs, or gallops. PULMONARY: Absent breath sounds in the right posterior lung rodriguez decreased air entry and left side no wheezing was appreciated no crackles were appreciated, I still didn't appreciate much of a movement on the right side posteriorly ABDOMEN: Soft, nontender, nondistended, normoactive bowel sounds. No palpable organomegaly. MUSCULOSKELETAL: No joint swelling or deformity. EXTREMITIES: No cyanosis, clubbing, or pedal edema. NEUROLOGICAL: Gross neurological examination did not reveal any focal deficits. SKIN: No rashes. - Labs CBC & Chem 7: 09/06/18 06:00 09/06/18 06:00 Labs: Microbiology - Last 24 Hours (Table) 09/05/18 12:00 Gram Stain - Preliminary Pleural Fluid Body Fluid Culture - Preliminary Assessment and Plan Plan: Acute hypoxic respiratory failure and shortness of breath: Secondary to right- sided pleural effusion etiology of pleural effusion is not clear possibly a parapneumonic effusion is low , patient has exudative effusion patient had 1.5 a liter removal of fluid from the right thorax patient had pneumothorax moderate patient does have severe emphysema and very high risk for pneumothorax, patient appears to have a mucous plug with atelectasis and still has moderate effusion after thoracocentesis. Cytology is pending. Further plan detail catheter versus repeat thoracocentesis as per cytology results -Tachycardia secondary to hypoxemia patient was started on IV fluids continue with respiratory support breathing treatments and oxygen. Tachycardia improved but patient is still requiring oxygen -COPD with the possible minimal exacerbation although I do not believe patient patient is on inhalational treatments and inhaled steroids -Leukocytosis appears to be reactive in nature -History of leukemia in remission patient last received chemotherapy in 2014 -Severity in the past -Nicotine use: Counseling was provided -Anxiety disorder Patient will need pharmacologic GI as well as DVT prophylaxis
[2018-09-07 14:26] VITALS: BMI 17.1
[2018-09-07] MEDS ORDERED: HYDROmorphone 1 MG/ML 1 ML SYRINGE IVP STA (14:55)
--- NOTE | 2018-09-07 15:17 | XR ---
EXAMINATION TYPE: XR chest 1V portable DATE OF EXAM: 09/07/2018 COMPARISON: 09/05/2018 HISTORY: Follow-up for pneumothorax. Status post thoracentesis. TECHNIQUE: Single frontal view of the chest is obtained. FINDINGS: There is slight interval increase in size of the right apical pneumothorax with loculated component laterally. Previous right apical maximal pleural separation of 1.3 cm with current maximal pleural separation of approximately 1.7 cm and additional new right lateral component. Curvilinear op acity in the right midlung near the right minor fissure indicates partial collapse of the lingula. Sm all layering right pleural effusion is also seen and is overall hydropneumothorax. Left lung remains well aerated and are very minimal atelectasis near the costophrenic angle. Cardiomediastinal silhouet te is within normal limits. Underlying emphysematous changes are suspected. IMPRESSION: Increasing size of the slightly loculated hydropneumothorax with lingular atelectasis an d compressive atelectasis of the right lung base.
--- NOTE | 2018-09-07 15:58 | P.PN ---
Subjective Progress Note Date: 09/07/18 Principal diagnosis: Large right-sided pleural effusion of unclear etiology On 09/06/2018 patient seen in follow-up on selective care unit, she is awake and alert, in no acute distress, she status post right-sided thoracentesis would removal of 1.3 L of pleural fluid, and pleural fluid analysis showed exudative fluid. Today's exam patient remains on supplemental oxygen currently at 3 L with a pulse ox of 96%, hemodynamically stable, patient is afebrile, pleural fluid cytology is pending, cultures are pending, preliminary Gram stain showed no organisms. No acute events overnight, patient is quite cachectic, and weak, but no acute distress, physical examination reveals diminished breath sounds over right lower base, follow-up chest x-ray yesterday after the procedure showed residual moderate to large right pleural effusion which was decreased from prior exam. Today's labs have been reviewed, showed blood cell count of 9.3, hemoglobin 14.7, sodium is 141, potassium is 4.0, chloride is 102, CO2 is 37, BUN is 5, creatinine is 0.19. Remains on breathing treatments, and empiric antibiotics. On 09/07/2016 patient seen in follow-up on selective care unit. She is awake and alert, in no acute distress, lung sounds are very diminished with dullness to percussion over right mid and lower lung, and there has been reaccumulation of the right-sided pleural effusion. We proceeded with repeat right-sided thoracentesis by Dr. Orr today at the bedside, with removal of 1650 mL of pleural fluid. We spoke to the pathology, Dr. Kaur today in regards to the results of the previous pleural fluid cytology, and flow cytometry has been ordered in view of patient's history of AML, results should be available sometime later this afternoon. She tolerated the procedure very well, 7 some right-sided chest comfort, likely related to retention of the right lung, foll ow-up chest x-ray as been reviewed following the procedure, and there has been a sliding interval increase in the size of the right apical pneumothorax with loculated component laterally, with the lingular atelectasis, and compressive atelectasis of the right lung base. Objective - Vital Signs Vital signs: Vital Signs Temp 96.7 F L 09/07/18 11:39 Pulse 90 09/07/18 11:56 Resp 20 09/07/18 11:42 BP 126/79 09/07/18 11:39 Pulse Ox 97 09/07/18 11:39 Intake & Output 09/06/18 09/07/18 09/07/18 18:59 06:59 18:59 Intake Total 1160 10 400 Output Total 1650 Balance 1160 10 -1250 Weight 51 kg 51 kg Intake: IV 30 10 Invasive Line 2 30 10 Oral 1130 400 Output: Urine 0 Other 1650 Other: Voiding Method Toilet Toilet Toilet # Voids 2 - Exam GENERAL EXAM: Alert, pleasant, 57-year-old white female, cachectic 3 L of oxygen, comfortable in no apparent distress. HEAD: Normocephalic/atraumatic. EYES: Normal reaction of pupils, equal size. Conjunctiva pink, sclera white. NOSE: Clear with pink turbinates. THROAT: No erythema or exudates. NECK: No masses, no JVD, no thyroid enlargement, no adenopathy. CHEST: No chest wall deformity. Symmetrical expansion. LUNGS: Equal air entry with sounds, with dullness at the right base CVS: Regular rate and rhythm, normal S1 and S2, no gallops, no murmurs, no rubs ABDOMEN: Soft, nontender. No hepatosplenomegaly, normal bowel sounds, no guarding or rigidity. EXTREMITIES: No clubbing, no edema, no cyanosis, 2+ pulses and upper and lower extremities. MUSCULOSKELETAL: Muscle strength and tone normal. SPINE: No scoliosis or deformity SKIN: No rashes CENTRAL NERVOUS SYSTEM: Alert and oriented -3. No focal deficits, tone is normal in all 4 extremities. PSYCHIATRIC: Alert and oriented -3. Appropriate affect. Intact judgment and insight. - Labs CBC & Chem 7: 09/06/18 06:00 09/06/18 06:00 Labs: Microbiology - Last 24 Hours (Table) 09/05/18 12:00 Gram Stain - Preliminary Pleural Fluid Body Fluid Culture - Preliminary Assessment and Plan Plan: Assessment: #1. Large right-sided pleural effusion, of unclear etiology, rule out malignancy, status post right-sided thoracentesis would removal of 1.3 L of pleural fluid which showed exudate, cytology is pending at this time #2. Previous history of acute myeloid leukemia, currently in remission, status post allogeneic bone marrow transplant #3. Probable COPD #4. Renal insufficiency #5. History of CVA #6. Previous history of pneumonia #7. History of syncope #8. History of DJD Plan: Repeat thoracentesis was done at the bedside today, patient tolerated procedure well, and there has been additional 1650 mL of pleural fluid removed, fluid was sent for analysis again. We spoke to the pathologist, and the results of the previous pleural fluid cytology should be available sometime this afternoon. Chest x-ray results postprocedure were noted, slight interval increase in the size of the right apical pneumothorax, clinically patient is stable, will continue monitoring. Will await the results of the cytology. I performed a history & physical examination of the patient and discussed their management with my nurse practitioner, Linda Macias. I reviewed the nurse jermaine ybarra's note and agree with the documented findings and plan of care. Lung sounds are positive for diminished breath sounds and dullness at the right base. The findings and the impression was discussed with the patient. I attest to the documentation by the nurse practitioner. Time with Patient: Less than 30
[2018-09-07] MEDS: MEGESTROL 40 MG TAB PO SCH ×2 (17:21→21:26)
[2018-09-07 20:53] LABS: Appearance,BF Cloudy; Nucleated Cells, Body Fluid 130 /uL; RBC, Body Fluid 3770 /uL
[2018-09-07 20:55] LABS: Mononuclear WBC,Body Fluid 64 %; Polynuclear WBC,Body Fluid 36 %; Total Cells Counted,Body Fluid 100
[2018-09-07] MEDS: LORazepam 0.5 MG TAB PO PRN (21:26)
[2018-09-07] MEDS: ZOLPIDEM 10 MG TAB PO PRN (23:01)
[2018-09-08 01:09] LABS: Total Protein, Body Fluid 3560 mg/dL
[2018-09-08] MEDS: SODIUM CHLORIDE 0.9% 1,000 ML IV SCH ×3 (02:02→21:33)
[2018-09-08 06:18] LABS: HCT 43.6 % (34.0-46.0); HGB 13.7 gm/dL (11.4-16.0); Hypochromasia Slight; MCH 32.7 pg (25.0-35.0); MCHC 31.5 g/dL (31.0-37.0); MCV 103.8 fL (80.0-100.0); Macrocytosis Slight; Mean Platelet Volume 8.1; Platelet Count 275 k/uL (150-450); RDW 14.4 % (11.5-15.5); WBC 8.4 k/uL (3.8-10.6)
[2018-09-08 06:20] LABS: Blood Urea Nitrogen 7 mg/dL (7-17); Calcium 8.8 mg/dL (8.4-10.2); Chloride 101 mmol/L (98-107); Glucose 78 mg/dL (74-99); Potassium 3.8 mmol/L (3.5-5.1); Sodium 139 mmol/L (137-145)
[2018-09-08 06:26] LABS: Anion Gap 0 mmol/L; Carbon Dioxide 38 mmol/L (22-30)
--- NOTE | 2018-09-08 06:57 | XR ---
EXAM: XR Chest, 2 Views CLINICAL HISTORY: ITS.REASON XR Reason: hydropneumothorax TECHNIQUE: Frontal and lateral views of the chest. COMPARISON: CXR 09/07/18 FINDINGS: Lungs: Compressive right lower lobe atelectasis is seen. Basilar aspect of the right upper lobe, right middle lobe and right lower lobe alveolar opacities may reflect a superimposed process such as pulmonary edema or pneumonia. Pleural space: There is once again a right-sided hydropneumothorax. Accounting for differences in technique, the fluid appears slightly increased in size. The pneumothorax appears stable. No evidence of enlarging pneumothorax. Heart: Unremarkable. No cardiomegaly. Mediastinum: Unremarkable. Bones/joints: Unremarkable. IMPRESSION: 1. There is once again a right-sided hydropneumothorax. Accounting for differences in technique, the fluid appears slightly increased in size. The pneumothorax appears stable. No evidence of enlarging pneumothorax. 2. Compressive right lower lobe atelectasis is seen. Basilar aspect of the right upper lobe, right middle lobe and right lower lobe alveolar opacities may reflect a superimposed process such as pulmonary edema or pneumonia.
--- NOTE | 2018-09-08 07:18 | PCN ---
PROCEDURE NOTE OPERATORS: Dr. Orr and Inge Macias. PROCEDURE: Right thoracentesis. There was informed consent. There was universal timeout. The patient's right chest was previously marked; 1650 mL of fluid was removed. It will be sent for evaluation to the laboratory. There was no immediate complication. A single-view chest x-ray was ordered. The patient tolerated the procedure well. No additional recommendations are made. MMODL / IJN: [id number] /
[2018-09-08] MEDS: BUDESONIDE 0.5 MG/2 ML NEBU INHALATION SCH ×2 (07:44→20:46)
[2018-09-08] MEDS: IPRATROPIUM-ALBUTEROL 3 ML NEB INHALATION SCH ×4 (07:44→20:46)
[2018-09-08] MEDS: FAMOTIDINE 20 MG TAB PO SCH ×2 (08:41→21:57)
[2018-09-08] MEDS: HYDROCORTISONE 10 MG TAB PO SCH ×2 (08:41→18:35)
[2018-09-08] MEDS: NICOTINE 21MG/24HR PATCH TRANSDERM SCH (08:42)
[2018-09-08] MEDS: MEGESTROL 40 MG TAB PO SCH ×4 (08:42→21:57)
--- NOTE | 2018-09-08 10:42 | P.PN ---
Subjective 57-year-old admitted with right-sided pleural effusion etiology of pleural effusion is unknown possibly parapneumonic effusion is low we will order a ultrasound guided thoracocentesis diagnostic and therapeutic. Respiratory status remains the same. 09/06/2018 Patient had the thoracocentesis yesterday with removal of around 1.4 L of exudative fluid. Patient felt better but patient is still on 3 L desaturates without oxygen CAT scan was obtained which showed moderate size pneumothorax significant atelectasis and a possible mucous plug along with the some moderate pleural effusion at this time. patient need to be closely monitored and these findings that were made today with 2 pulmonology group when nursing staff. 09/07/2018 Discussed with pulmonology. We're awaiting on the cytology reports from the pleural fluid and if it turns out to be cancerous patient will need a pigtail catheter or pulmonology is planning another thoracocentesis if cytology is negative for any cancer. Her respiratory status remains the same. 09/08/2018 Patient's fluid is reaccumulating cytologies did not show any malignancy although this cannot be completely ruled out all discussed with oncology regarding any further workup that is needed as an outpatient but patient probably will need outpatient workup. Patient was ordered regarding thoracic surgery they're thinking of pigtail catheter although patient does have pneumothorax as well when the parathoracic surgery was made aware of that has respiratory status remains the same Constitutional: Denied any fatigue denied any fever. Cardio vascular: denied any chest pain, palpitations Gastrointestinal denied any nausea vomiting Pulmonary: as mentioned in HPI Neurologic denied any new focal deficits All inpatient medications were reviewed and appropriate changes in these medications as dictated in the interval history and assessment and plan. Objective - Vital Signs Vital signs: Vital Signs Temp 98.1 F 09/08/18 10:10 Pulse 93 09/08/18 10:10 Resp 20 09/08/18 10:10 BP 138/73 09/08/18 10:10 Pulse Ox 93 L 09/08/18 10:10 Intake & Output 09/07/18 09/08/18 09/08/18 18:59 06:59 18:59 Intake Total 600 580 Output Total 1650 0 Balance -1050 580 Weight 51 kg 49 kg Intake: Intake, IV Titration 100 Amount Sodium Chloride 0.9% 1, 100 000 ml @ 100 mls/hr IV . Q10H [facility] Rx#:[id number] Oral 600 480 Output: Urine 0 0 Other 1650 Other: Voiding Method Toilet Toilet # Voids 2 1 - Exam PHYSICAL EXAMINATION: GENERAL: The patient is alert and oriented x3, not in any acute distress. Thin built her denied any recent weight loss HEENT: Pupils are round and equally reacting to light. EOMI. No scleral icterus. No conjunctival pallor. Normocephalic, atraumatic. No pharyngeal erythema. No thyromegaly. CARDIOVASCULAR: S1 and S2 present. No murmurs, rubs, or gallops. PULMONARY: Absent breath sounds in the right posterior lung rodriguez decreased air entry and left side no wheezing was appreciated no crackles were appreciated, I still didn't appreciate much of a movement on the right side posteriorly ABDOMEN: Soft, nontender, nondistended, normoactive bowel sounds. No palpable or ganomegaly. MUSCULOSKELETAL: No joint swelling or deformity. EXTREMITIES: No cyanosis, clubbing, or pedal edema. NEUROLOGICAL: Gross neurological examination did not reveal any focal deficits. SKIN: No rashes. - Labs CBC & Chem 7: 09/08/18 05:21 09/08/18 05:21 Labs: Abnormal Lab Results - Last 24 Hours (Table) 09/08/18 09/08/18 Range/Units 05:21 05:21 MCV 103.8 H (80.0-100.0) fL Carbon Dioxide 38 H (22-30) mmol/L Creatinine 0.21 L (0.52-1.04) mg/dL Microbiology - Last 24 Hours (Table) 09/07/18 14:20 Gram Stain - Preliminary Pleural Fluid Body Fluid Culture - Preliminary 09/07/18 14:20 Acid Fast Bacilli Culture - Preliminary Pleural Fluid 09/07/18 14:20 Fungal Culture - Preliminary Pleural Fluid 09/05/18 12:00 Anaerobic Culture - Preliminary Pleural Fluid 09/05/18 12:00 Gram Stain - Preliminary Pleural Fluid Body Fluid Culture - Preliminary Assessment and Plan Plan: Acute hypoxic respiratory failure and shortness of breath: Secondary to right- sided pleural effusion etiology of pleural effusion is not clear possibly a parapneumonic effusion is low , patient has exudative effusion patient had 1.5 a liter removal of fluid from the right thorax patient had pneumothorax moderate patient does have severe emphysema and very high risk for pneumothorax, patient appears to have a mucous plug with atelectasis and still has moderate effusion after thoracocentesis. cytologydid not show any malignant cells current thoracic surgery evaluated the patient for possible pleurex catheter placement orchest tube placement -Tachycardia secondary to hypoxemia patient was started on IV fluids continue with respiratory support breathing treatments and oxygen. Tachycardia improved but patient is still requiring oxygen -COPD with the possible minimal exacerbation although I do not believe patient patient is on inhalational treatments and inhaled steroids -Leukocytosis appears to be reactive in nature, improved -History of leukemia in remission patient last received chemotherapy in 2014 -Severity in the past -Nicotine use: Counseling was provided -Anxiety disorder Patient will need pharmacologic GI as well as DVT prophylaxis
[2018-09-08] MEDS ORDERED: CLINDAMYCIN 600 MG in DEXTROSE 5% IN WATER 50 ML IVPB ONE ×2 (12:00)
--- NOTE | 2018-09-08 12:49 | P.PN ---
Subjective Progress Note Date: 09/08/18 Principal diagnosis: Large right-sided pleural effusion of unclear etiology On 09/06/2018 patient seen in follow-up on selective care unit, she is awake and alert, in no acute distress, she status post right-sided thoracentesis would removal of 1.3 L of pleural fluid, and pleural fluid analysis showed exudative fluid. Today's exam patient remains on supplemental oxygen currently at 3 L with a pulse ox of 96%, hemodynamically stable, patient is afebrile, pleural fluid cytology is pending, cultures are pending, preliminary Gram stain showed no organisms. No acute events overnight, patient is quite cachectic, and weak, but no acute distress, physical examination reveals diminished breath sounds over right lower base, follow-up chest x-ray yesterday after the procedure showed residual moderate to large right pleural effusion which was decreased from prior exam. Today's labs have been reviewed, showed blood cell count of 9.3, hemoglobin 14.7, sodium is 141, potassium is 4.0, chloride is 102, CO2 is 37, BUN is 5, creatinine is 0.19. Remains on breathing treatments, and empiric antibiotics. On 09/07/2018 patient seen in follow-up on selective care unit. She is awake and alert, in no acute distress, lung sounds are very diminished with dullness to percussion over right mid and lower lung, and there has been reaccumulation of the right-sided pleural effusion. We proceeded with repeat right-sided thoracentesis by Dr. Orr today at the bedside, with removal of 1650 mL of pleural fluid. We spoke to the pathology, Dr. Kaur today in regards to the results of the previous pleural fluid cytology, and flow cytometry has been ordered in view of patient's history of AML, results should be available sometime later this afternoon. She tolerated the procedure very well, 7 some right-sided chest comfort, likely related to retention of the right lung, foll ow-up chest x-ray as been reviewed following the procedure, and there has been a sliding interval increase in the size of the right apical pneumothorax with loculated component laterally, with the lingular atelectasis, and compressive atelectasis of the right lung base. On 09/08/2018 patient is seen in follow-up on selective care unit, patient is status post repeat right-sided thoracentesis yesterday would removal of 1650 ML of pleural fluid, pleural fluid analysis again showed exudative fluid. Cytology from the right-sided thoracentesis done on Wednesday did not show evidence of a cytologically malignant cells, showed predominantly acute inflammatory cells and scattered mesothelial cells. Cytometry showed no evidence of acute leukemia, and no evidence of a monotypic B-cell population or aberrant T-cell population. Today's chest x-ray shows slightly increased right-sided pleural effusion, no evidence of enlarging pneumothorax, compressive right lower lobe atelectasis. Cardiothoracic surgery has been consulted for placement of right Pleurx catheter. Remains on 3 L of oxygen, with a pulse ox of 93-97%, she is afebrile, hemodynamically stable, lung sounds reveal diminished breath sounds at the right lower base. Patient did bring up the fact that she had a recent fine-needle aspiration biopsy of the right lower lung lesion done at [facility], and she was told that the results were benign. Objective - Vital Signs Vital signs: Vital Signs Temp 98.7 F 09/08/18 11:30 Pulse 84 09/08/18 11:44 Resp 20 09/08/18 11:30 BP 140/82 09/08/18 11:30 Pulse Ox 97 09/08/18 11:30 Intake & Output 09/07/18 09/08/18 09/08/18 18:59 06:59 18:59 Intake Total 600 580 0 Output Total 1650 0 200 Balance -1050 580 -200 Weight 51 kg 49 kg Intake: Intake, IV Titration 100 Amount Sodium Chloride 0.9% 1, 100 000 ml @ 100 mls/hr IV . Q10H [facility] Rx#:[id number] Oral 600 480 0 Output: Urine 0 0 200 Other 1650 Other: Voiding Method Toilet Toilet # Voids 2 1 - Exam GENERAL EXAM: Alert, pleasant, 57-year-old white female, cachectic 3 L of oxygen, comfortable in no apparent distress. HEAD: Normocephalic/atraumatic. EYES: Normal reaction of pupils, equal size. Conjunctiva pink, sclera white. NOSE: Clear with pink turbinates. THROAT: No erythema or exudates. NECK: No masses, no JVD, no thyroid enlargement, no adenopathy. CHEST: No chest wall deformity. Symmetrical expansion. LUNGS: Equal air entry with sounds, with dullness at the right base CVS: Regular rate and rhythm, normal S1 and S2, no gallops, no murmurs, no rubs ABDOMEN: Soft, nontender. No hepatosplenomegaly, normal bowel sounds, no guarding or rigidity. EXTREMITIES: No clubbing, no edema, no cyanosis, 2+ pulses and upper and lower extremities. MUSCULOSKELETAL: Muscle strength and tone normal. SPINE: No scoliosis or deformity SKIN: No rashes CENTRAL NERVOUS SYSTEM: Alert and oriented -3. No focal deficits, tone is normal in all 4 extremities. PSYCHIATRIC: Alert and oriented -3. Appropriate affect. Intact judgment and insight. - Labs CBC & Chem 7: 09/08/18 05:21 09/08/18 05:21 Labs: Abnormal Lab Results - Last 24 Hours (Table) 09/08/18 09/08/18 Range/Units 05:21 05:21 MCV 103.8 H (80.0-100.0) fL Carbon Dioxide 38 H (22-30) mmol/L Creatinine 0.21 L (0.52-1.04) mg/dL Microbiology - Last 24 Hours (Table) 09/05/18 12:00 Gram Stain - Preliminary Pleural Fluid Body Fluid Culture - Preliminary 09/07/18 14:20 Gram Stain - Preliminary Pleural Fluid Body Fluid Culture - Preliminary 09/07/18 14:20 Acid Fast Bacilli Culture - Preliminary Pleural Fluid 09/07/18 14:20 Fungal Culture - Preliminary Pleural Fluid 09/05/18 12:00 Anaerobic Culture - Preliminary Pleural Fluid Assessment and Plan Plan: Assessment: #1. Large right-sided pleural effusion, of unclear etiology, rule out malignancy, status post right-sided thoracentesis would removal of 1.3 L of pleural fluid which showed exudate, cytology results were negative, including the flow cytometry. Patient underwent a repeat right-sided thoracentesis on 09/07/2018 would removal of 1.6 liters of pleural fluid and the cytology is pending. #2. Previous history of acute myeloid leukemia, currently in remission, status post allogeneic bone marrow transplant #3. Probable COPD #4. Renal insufficiency #5. History of CVA #6. Previous history of pneumonia #7. History of syncope #8. History of DJD #9. Recent fine-needle biopsy of the right lower lung lesion done at an outside facility, and were told that biopsy results are negative according to the patient Plan: We'll consult medical oncology in regards to the biopsy results of the fine- needle biopsy and recurrent right-sided pleural effusion. Cardiothoracic surgery has been consulted for placement of Pleurx catheter with the results of the cytology of the repeat right-sided thoracentesis pleural fluid. I performed a history & physical examination of the patient and discussed their management with my nurse practitioner, Linda Macias. I reviewed the nurse practitioner's note and agree with the documented findings and plan of care. Lung sounds are positive for diminished breath sounds and dullness at the right base. The findings and the impression was discussed with the patient. I attest to the documentation by the nurse practitioner. Time with Patient: Less than 30
[2018-09-08] MEDS ORDERED: IV FLUID CONTINUATION 1,000 ML IV ONE (15:34)
[2018-09-08] MEDS ORDERED: LIDOCAINE 1% INJ 10MG/ML (10 ML MDV) SQ ONE ×2 (15:44→16:47)
[2018-09-08] MEDS ORDERED: MIDAZOLAM 2 MG/2 ML VIAL ONE (16:05)
[2018-09-08] MEDS ORDERED: KETAMINE 10 MG/ML 20 ML VIAL ONE (16:05)
[2018-09-08] MEDS ORDERED: PROPOFOL 10 MG/ML 20 ML VIAL IV ONE (16:05)
[2018-09-08] MEDS ORDERED: VECURONIUM 10 MG VIAL IV ONE (16:05)
--- NOTE | 2018-09-08 17:15 | P.GSCN ---
History of Present Illness Consult date: 09/08/18 Reason for Consult: Recurrent right pleural effusion Requesting physician: George Orr History of present illness: This is a 57-year-old female patient who is followed by Dr. Kristi Silvestre on outpatient basis. She has a past medical history significant acute myeloid leukemia status post Maier catheter placement, chemotherapy and bone marrow transplant, CVA/TIA, lung mass status post biopsy, history of syncope, history of degenerative joint disease, chronic nicotine dependence, anemia, and mild [id number] disease. Over the past week the patient has had complaints of shortness of breath, persistent loose cough, a 10 pound weight loss over a 1 month period and chest pain to her right anterior and posterior chest. She reports she has had some bouts of nausea but denies any emesis, recent trauma, d iarrhea or constipation fever or chills. She was recently seen by her primary care physician who prescribed her home oxygen although according to the patient and her they did not receive it prior to presenting to the emergency department. She presented to the emergency department here at [facility] on 09/04/2018 with the above-mentioned symptoms. A chest x-ray was completed which demonstrated a large right pleural effusion and subsequently a chest ultrasound was completed which showed a right pleural effusion pocket measuring 9.5 cm. Due to the patient's presenting symptoms, chest x-ray and ultrasound results Dr. Orr from pulmonary medicine was consulted and the patient underwent a right thoracentesis with 1.3 L of fluid drained. Due to the patient's history of leukemia and her presentation with a right pleural effusion a computed tomography scan of her chest with contrast was ordered post right thoracentesis which demonstrated a right sided hydropneumothorax with a moderate to large right pleural effusion with endobronchial opacification of the bronchus intermedius and throughout the right middle and right lower lobe branches with extensive lobar collapse. It also demonstrated moderate sized pneumothorax measuring 2.2 cm at the apex and 2.7 cm at the anterior base. There was also questionable pleural thickening along the right hemidiaphragm and also some lobulated thickening along the anterior visceral pleura of the right middle lobe. Due to the computed tomography scan results the patient underwent a second right-sided thoracentesis with 1650 mL of fluid drained by Dr. Orr. Subsequently, due to the very collection of the right pleural fluid a consult was placed to Dr. New Adhikari from cardiothoracic surgery for right Pleurx catheter placement. Review of Systems A 14 point review of systems was completed and was negative except as mentioned in the HPI. 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 MAIER IV ACCESS RIGHT CHEST. RASH ON BACK FROM CHEMO. 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 History of Any Multi-Drug Resistant Organisms: None Reported Past Surgical History: Orthopedic Surgery, Tubal Ligation Additional Past Surgical History / Comment(s): Cervical fusion 2005, Bilateral carpal tunnel, BONE MARROW BX. Allogenic stem cell transplant 09/21/14 Past Anesthesia/Blood Transfusion Reactions: No Reported Reaction Additional Past Anesthesia/Blood Transfusion Reaction / Comm: HX- BLOOD TRANSFUSION- NO REACTION Past Psychological History: Anxiety Smoking Status: Current every day smoker Past Alcohol Use History: None Reported Past Drug Use History: None Reported - Past Family History Father Family Medical History: Asthma, Cancer (Lung cancer) Additional Family Medical History / Comment(s): Father is living and is 81 yrs old. Mother Family Medical History: Cancer Additional Family Medical History / Comment(s): Mother at age 49yrs of uterine cancer. Pt's several aunts all had cancers of various origins as well as her grandmother. Medications and Allergies Home Medications Medication Instructions Recorded Confirmed Type Multivitamin/Iron/Folic Acid 1 tab PO DAILY@0800 //16 09/04/18 History [Centrum Complete Multivit Tab] Gabriel/D3/Mag11/Zinc/Superintendent Greens/Kashif/Bor 1 tab PO BID@0800,1700 09/04/18 09/04/18 History [Caltrate 600+D Plus Tablet] Cyclobenzaprine [Flexeril] 10 mg PO Q8H PRN 09/04/18 09/04/18 History Hydrocortisone 10 mg PO DAILY@1700 09/04/18 09/04/18 History Hydrocortisone 20 mg PO DAILY@0800 09/04/18 09/04/18 History Ibuprofen [Motrin] 800 mg PO Q8H PRN 09/04/18 09/04/18 History Ipratropium/Albuterol Sulfate 1 puff INHALATION RT-BID PRN 09/04/18 09/04/18 History [Combivent Respimat Inhaler] LORazepam [Ativan] 0.5 mg PO Q46H PRN 09/04/18 09/04/18 History Pentoxifylline [TRENtal] 400 mg PO BID@0800,1700 09/04/18 09/04/18 History Vitamin E (Dl,Tocopheryl Acet) 400 unit PO BID@0800,1700 09/04/18 09/04/18 History [Vitamin E] Zolpidem [Ambien] 10 mg PO HS PRN 09/04/18 09/04/18 History Allergies Allergy/AdvReac Type Severity Reaction Status Date / Time cefepime Allergy Unknown Face Verified 09/04/18 14:06 Swelling, Rash chlorhexidine Allergy Unknown Verified 09/04/18 14:06 Penicillins Allergy Unknown Verified 09/04/18 14:06 Childhood Surgical - Exam Vital Signs Temp Pulse Resp BP Pulse Ox 98.1 F 117 H 26 H 135/82 84 L 09/04/18 12:39 09/04/18 12:39 09/04/18 12:39 09/04/18 12:39 09/04/18 12:39 - General no pain, cachectic, chronically ill - Eyes PERRL, normal ocular movement - ENT normal pinna, normal nares, normal mucosa, no hearing loss, no congestion - Neck Neck is supple, no lymphadenopathy, no thyroidomegaly no masses, no bruits, trachea midline, no venous distension - Respiratory Lung sounds diminished to her right lower lobe, essentially clear to her left lobes. No wheezing or rhonchi. Respirations are symmetrical and nonlabored. Oxygen saturation are 93% on 3 L nasal cannula. - Cardiovascular Regular rhythm and rate. S1 and S2 present, negative for S3, gallop or murmurs. No edema present. - Abdomen Abdomen is soft, nontender and nondistended. Active bowel sounds all 4 abdominal quadrants. No guarding or rigidity. No organomegaly. - Genitourinary Deferred - Rectum Deferred - Integumentary Skin is warm and dry. No clubbing or cyanosis is present. no rash, no growths, no abnormal pigmentation - Neurologic normal coordination, normal sensation - Musculoskeletal Generalized weakness, strength equally bilaterally - Psychiatric oriented to time, oriented to person, oriented to place, speech is normal, memory intact Results - Labs 09/08/18 05:21 09/08/18 05:21 Abnormal Lab Results - Last 24 Hours (Table) 09/08/18 09/08/18 Range/Units 05:21 05:21 MCV 103.8 H (80.0-100.0) fL Carbon Dioxide 38 H (22-30) mmol/L Creatinine 0.21 L (0.52-1.04) mg/dL Microbiology - Last 24 Hours (Table) 09/07/18 14:20 Gram Stain - Preliminary Pleural Fluid Body Fluid Culture - Preliminary 09/07/18 14:20 Acid Fast Bacilli Culture - Preliminary Pleural Fluid 09/07/18 14:20 Fungal Culture - Preliminary Pleural Fluid 09/05/18 12:00 Anaerobic Culture - Preliminary Pleural Fluid 09/05/18 12:00 Gram Stain - Preliminary Pleural Fluid Body Fluid Culture - Preliminary Diabetes panel 09/08/18 Range/Units 05:21 Sodium 139 (137-145) mmol/L Potassium 3.8 (3.5-5.1) mmol/L Chloride 101 (98-107) mmol/L Carbon Dioxide 38 H (22-30) mmol/L BUN 7 (7-17) mg/dL Creatinine 0.21 L (0.52-1.04) mg/dL Glucose 78 (74-99) mg/dL Calcium 8.8 (8.4-10.2) mg/dL Calcium panel 09/08/18 Range/Units 05:21 Calcium 8.8 (8.4-10.2) mg/dL Pituitary panel 09/08/18 Range/Units 05:21 Sodium 139 (137-145) mmol/L Potassium 3.8 (3.5-5.1) mmol/L Chloride 101 (98-107) mmol/L Carbon Dioxide 38 H (22-30) mmol/L BUN 7 (7-17) mg/dL Creatinine 0.21 L (0.52-1.04) mg/dL Glucose 78 (74-99) mg/dL Calcium 8.8 (8.4-10.2) mg/dL Adrenal panel 09/08/18 Range/Units 05:21 Sodium 139 (137-145) mmol/L Potassium 3.8 (3.5-5.1) mmol/L Chloride 101 (98-107) mmol/L Carbon Dioxide 38 H (22-30) mmol/L BUN 7 (7-17) mg/dL Creatinine 0.21 L (0.52-1.04) mg/dL Glucose 78 (74-99) mg/dL Calcium 8.8 (8.4-10.2) mg/dL - Imaging Chest x-ray: report reviewed, image reviewed CT scan - chest: report reviewed, image reviewed Assessment and Plan Assessment: 1. Large recurrent right-sided pleural effusion 2. History of acute myeloid leukemia, apparently in remission, status post bone marrow transplant 3. Adrenal insufficiency 4. History of cerebrovascular accident 5. History of pneumonia 6. History of syncope 7. History of degenerative joint disease 8. History of right lung mass, status post recent lung biopsy Plan: The patient was seen and examined on the cardiac stepdown unit. Her chart diagnostics were reviewed. Her case was discussed between Dr. Adhikari from cardiothoracic surgery and Dr. Orr from pulmonary medicine. Dr. Adhikari evaluated the patient, discussed the risks and benefits of a Pleurx catheter procedure. The patient wishes to proceed with a Pleurx catheter placement. She has been placed nothing by mouth. The patient will be scheduled for a right Pleurx catheter placement for today 09/08/2018. Thank you Dr. Orr for this consult and we look forward to working with you in the care of your patient. Time with Patient: Greater than 30
--- NOTE | 2018-09-08 17:17 | P.OP ---
Date of Procedure: 09/08/18 Preoperative Diagnosis: Recurrent right pleural effusion Postoperative Diagnosis: Same Procedure(s) Performed: Right Pleurx catheter placement Implants: Pleurx catheter implanted and right chest Anesthesia: MAC Surgeon: New Adhikari Estimated Blood Loss (ml): 3 IV fluids (ml): 100 Pathology: other (1100 mL of right pleural fluid sent for cytology) Condition: stable Disposition: PACU Indications for Procedure: Recurrent right pleural effusion Operative Findings: Large free right pleural effusion encountered, 1100 mL of serous fluid drained Description of Procedure: Patient was brought to the operating room, placed supine on the operating table. Right chest and upper abdomen were sterilely prepped and draped. The area the pleural fluid was identified with percussion. One percent lidocaine was used for anesthesia. IV sedation was also given. The right pleural space was punctured in the anterior axillary line in the sixth interspace and serous fluid was identified. After instillation of lidocaine and 18-gauge needle was placed and a guidewire threaded into the right pleural space under fluoroscopic guidance. Small counterincision was made at the costal margin in the right upper quadrant after instillation of lidocaine and the previous puncture site with the guidewire was enlarged with a knife. Pleurx catheter was tunneled from the counterincision to the primary incision and the cuff of the catheter positioned under the skin at the exit site. Over the guidewire introducer and dilator were placed into the pleural space under fluoroscopic guidance and through the introducer sheath the Pleurx catheter was introduced into the chest under fluoroscopic guidance introducer sheath was removed Pleurx catheter was connected to suction and 1100 mL of serous fluid was drained. This was sent for cytology. The entry site was closed with 4-0 Prolene and skin glue and the Pleurx catheter secured at the exit site with a 2-0 silk and 8 dressing was appl ied. Patient was transported to recovery room in stable condition. Fluoroscopy at completion of the procedure showed near complete reexpansion of the lung with a small residual fluid in the right costophrenic angle.
--- NOTE | 2018-09-08 17:37 | XR ---
EXAMINATION TYPE: XR chest 1V DATE OF EXAM: 09/08/2018 COMPARISON: 09/08/2018 HISTORY: Catheter placement TECHNIQUE: Single frontal view of the chest is obtained. FINDINGS: Heart is enlarged. There is blunting of the costophrenic angles and more on the right side . There is infiltrate right lower lobe. There is apparent right-sided chest tube. There is no pneumot horax. There is no overt heart failure. IMPRESSION: There is decreased right pleural fluid compared to exam earlier today. There is an appar ent right chest tube with the tip in the right midlung field. No pneumothorax. Small left pleural eff usion. 2 cm nodule right midlung unchanged.
[2018-09-08] MEDS: HYDROmorphone 1 MG/ML 1 ML SYRINGE IVP ONE ×2 (17:39→17:46)
[2018-09-08] MEDS: KETOROLAC 30 MG/ML 1 ML VIAL IVP PRN (21:57)
[2018-09-08] MEDS: LORazepam 0.5 MG TAB PO PRN (21:57)
[2018-09-09] MEDS: SODIUM CHLORIDE 0.9% 1,000 ML IV SCH (06:45)
[2018-09-09] MEDS: IPRATROPIUM-ALBUTEROL 3 ML NEB INHALATION SCH ×4 (07:23→19:17)
[2018-09-09] MEDS: BUDESONIDE 0.5 MG/2 ML NEBU INHALATION SCH (07:23)
--- NOTE | 2018-09-09 07:37 | FL ---
EXAMINATION TYPE: FL chest tube insertion DATE OF EXAM: 09/08/2018 COMPARISON: NONE HISTORY: Pleurx catheter insertion Fluoroscopy support supplied to the referring clinician. See dictated report from cardiothoracic jeovany melany, 19 seconds fluoroscopy time, single intraoperative C-arm image documents the procedure
[2018-09-09] MEDS: FAMOTIDINE 20 MG TAB PO SCH ×2 (08:06→22:03)
[2018-09-09] MEDS: NICOTINE 21MG/24HR PATCH TRANSDERM SCH (08:06)
[2018-09-09] MEDS: HYDROCORTISONE 10 MG TAB PO SCH ×2 (08:06→17:07)
[2018-09-09] MEDS: MEGESTROL 40 MG TAB PO SCH ×4 (08:07→22:03)
[2018-09-09] MEDS: KETOROLAC 30 MG/ML 1 ML VIAL IVP PRN ×2 (08:12→15:10)
[2018-09-09] MEDS ORDERED: IOPAMIDOL-300 CONTRAST 30 ML VIAL (ORAL USE) PO PRN (09:40)
--- NOTE | 2018-09-09 11:08 | P.PN ---
Subjective Progress Note Date: 09/09/18 Principal diagnosis: Large right-sided pleural effusion of unclear etiology On 09/06/2018 patient seen in follow-up on selective care unit, she is awake and alert, in no acute distress, she status post right-sided thoracentesis would removal of 1.3 L of pleural fluid, and pleural fluid analysis showed exudative fluid. Today's exam patient remains on supplemental oxygen currently at 3 L with a pulse ox of 96%, hemodynamically stable, patient is afebrile, pleural fluid cytology is pending, cultures are pending, preliminary Gram stain showed no organisms. No acute events overnight, patient is quite cachectic, and weak, but no acute distress, physical examination reveals diminished breath sounds over right lower base, follow-up chest x-ray yesterday after the procedure showed residual moderate to large right pleural effusion which was decreased from prior exam. Today's labs have been reviewed, showed blood cell count of 9.3, hemoglobin 14.7, sodium is 141, potassium is 4.0, chloride is 102, CO2 is 37, BUN is 5, creatinine is 0.19. Remains on breathing treatments, and empiric antibiotics. On 09/07/2018 patient seen in follow-up on selective care unit. She is awake and alert, in no acute distress, lung sounds are very diminished with dullness to percussion over right mid and lower lung, and there has been reaccumulation of the right-sided pleural effusion. We proceeded with repeat right-sided thoracentesis by Dr. Orr today at the bedside, with removal of 1650 mL of pleural fluid. We spoke to the pathology, Dr. Kaur today in regards to the results of the previous pleural fluid cytology, and flow cytometry has been ordered in view of patient's history of AML, results should be available sometime later this afternoon. She tolerated the procedure very well, 7 some right-sided chest comfort, likely related to retention of the right lung, foll ow-up chest x-ray as been reviewed following the procedure, and there has been a sliding interval increase in the size of the right apical pneumothorax with loculated component laterally, with the lingular atelectasis, and compressive atelectasis of the right lung base. On 09/08/2018 patient is seen in follow-up on selective care unit, patient is status post repeat right-sided thoracentesis yesterday would removal of 1650 ML of pleural fluid, pleural fluid analysis again showed exudative fluid. Cytology from the right-sided thoracentesis done on Wednesday did not show evidence of a cytologically malignant cells, showed predominantly acute inflammatory cells and scattered mesothelial cells. Cytometry showed no evidence of acute leukemia, and no evidence of a monotypic B-cell population or aberrant T-cell population. Today's chest x-ray shows slightly increased right-sided pleural effusion, no evidence of enlarging pneumothorax, compressive right lower lobe atelectasis. Cardiothoracic surgery has been consulted for placement of right Pleurx catheter. Remains on 3 L of oxygen, with a pulse ox of 93-97%, she is afebrile, hemodynamically stable, lung sounds reveal diminished breath sounds at the right lower base. Patient did bring up the fact that she had a recent fine-needle aspiration biopsy of the right lower lung lesion done at [facility], and she was told that the results were benign. On 09/09/2018 patient seen in follow-up on selective care unit, she is awake and alert, in no acute distress, sitting up in her bed, remains on supplemental oxygen at 3 L, with a pulse ox of 93%, slightly tachycardic with a heart rate in the 12/25/2009 range, afebrile, patient is status post repeat thoracentesis the day before yesterday, with the removal of 1650 ML of pleural fluid, and pleural fluid analysis again showed a exudate, cytology from the second thoracentesis is pending, yesterday patient underwent placement of the right- sided Pleurx catheter, and there was additional 1100 mL of serous fluid drained. In the cytology is still pending on that fluid as well. This morning there was an additional 550 mL of pleural fluid and by CT surgery [employer]. Yesterday's chest x-ray was reviewed, and there was a small left pleural effusion, no pneumothorax, and there was a 2 cm nodule in the right midlung. Per patient's and her family, this lesion was biopsied last October, and they were told the biopsies were negative, but most recently on the follow-up CAT scan in June 2018 at an outside facility were told that the lesion had increased in size. No repeat biopsy were done according to the family, consulted medical oncology in regards to this lesion. From pulmonary perspective patient is doing fairly well, lung sounds reveal any increased air entry on the right side and right base. Overall patient is debilitated, her appetite is poor, she is very cachectic. His labs have been reviewed, white blood cell count is 8.4, hemoglobin is 13.7, electrolytes are within normal limits with exception of CO2 which is at 38, and feels slightly congested, no significant wheezing was appreciated, nevertheless in view of her smoking history we will add the Symbicort, breathing treatments, patient is on IV antibiotics in the form of Rocephin, she received a dose of Cleocin CT surgery, pleural fluid cultures remain negative thus far. Objective - Vital Signs Vital signs: Vital Signs Temp 98.9 F 09/09/18 10:56 Pulse 110 H 09/09/18 10:56 Resp 16 09/09/18 10:56 BP 140/83 09/09/18 10:56 Pulse Ox 93 L 09/09/18 10:56 Intake & Output 09/08/18 09/09/18 09/09/18 18:59 06:59 18:59 Intake Total 1350 1600 Output Total 203 Balance 1147 1600 Weight 51.1 kg Intake: IV 500 1600 Sodium Chloride 0.9% 1, 1600 000 ml @ 100 mls/hr IV . Q10H [facility] Rx#:[id number] Intake, IV Titration 850 Amount Sodium Chloride 0.9% 1, 800 000 ml @ 100 mls/hr IV . Q10H [facility] Rx#:[id number] cefTRIAXone 1 gm In 50 Sodium Chloride 0.9% 50 ml @ 100 mls/hr IVPB Q24HR [facility] Rx#:[id number] Oral 0 0 Output: Urine 200 Estimated Blood Loss 3 Other: Voiding Method Toilet # Voids 1 - Exam GENERAL EXAM: Alert, pleasant, 57-year-old white female, cachectic 3 L of oxygen, comfortable in no apparent distress. HEAD: Normocephalic/atraumatic. EYES: Normal reaction of pupils, equal size. Conjunctiva pink, sclera white. NOSE: Clear with pink turbinates. THROAT: No erythema or exudates. NECK: No masses, no JVD, no thyroid enlargement, no adenopathy. CHEST: No chest wall deformity. Symmetrical expansion. Right chest Pleurx cath eter is in place LUNGS: Equal air entry with sounds, with diminished breath sounds over right lower lung, but there is improved air entry noted on today's exam CVS: Regular rate and rhythm, normal S1 and S2, no gallops, no murmurs, no rubs ABDOMEN: Soft, nontender. No hepatosplenomegaly, normal bowel sounds, no guarding or rigidity. EXTREMITIES: No clubbing, no edema, no cyanosis, 2+ pulses and upper and lower extremities. MUSCULOSKELETAL: Muscle strength and tone normal. SPINE: No scoliosis or deformity SKIN: No rashes CENTRAL NERVOUS SYSTEM: Alert and oriented -3. No focal deficits, tone is normal in all 4 extremities. PSYCHIATRIC: Alert and oriented -3. Appropriate affect. Intact judgment and insight. - Labs CBC & Chem 7: 09/08/18 05:21 09/08/18 05:21 Labs: Microbiology - Last 24 Hours (Table) 09/05/18 12:00 Gram Stain - Final Pleural Fluid Body Fluid Culture - Final 09/07/18 14:20 Acid Fast Bacilli Smear - Final Pleural Fluid Acid Fast Bacilli Culture - Preliminary 09/07/18 14:20 Gram Stain - Preliminary Pleural Fluid Body Fluid Culture - Preliminary Assessment and Plan Plan: Assessment: #1. Large right-sided pleural effusion, of unclear etiology, rule out malignancy, status post right-sided thoracentesis would removal of 1.3 L of pleu ral fluid which showed exudate, cytology results were negative, including the flow cytometry. Patient underwent a repeat right-sided thoracentesis on 09/07/2018 would removal of 1.6 liters of pleural fluid and the cytology is pending. Patient is status post right Pleurx catheter placement for recurrent pleural effusion postop day 1. There was an additional 1100 mL of pleural fluid drained immediately after Pleurx catheter insertion on 09/08/2018 #2. Previous history of acute myeloid leukemia, currently in remission, status post allogeneic bone marrow transplant #3. Probable COPD #4. Renal insufficiency #5. History of CVA #6. Previous history of pneumonia #7. History of syncope #8. History of DJD #9. Fine-needle biopsy of the right mid lung lesion done at an outside facility in October 2017, and were told that biopsy results are negative according to the patient, but most recently in June 2018 patient was told that the lesion was increasing in size, and no biopsy was done Plan: We will order a CT chest abdomen and pelvis with and without contrast, right midlung lesion according to the patient had recently increased in size as she was told by her treating oncologist in the June 2018, previous FNA biopsy negative in October 2017. We will add Symbicort, will continue breathing treatments. Deep breathing and coughing, patient is very cachectic, she has poor appetite, and the suspicions for underlying malignancy still remains. We will consult medical oncology, and will await the results of the CT chest abdomen and pelvis, and the pleural fluid cytology results. I performed a history & physical examination of the patient and discussed their management with my nurse practitioner, Linda Macias. I reviewed the nurse practitioner's note and agree with the documented findings and plan of care. Lung sounds are positive for diminished breath sounds and dullness at the right base. The findings and the impression was discussed with the patient. I attest to the documentation by the nurse practitioner. Time with Patient: Less than 30
--- NOTE | 2018-09-09 12:37 | CT ---
EXAMINATION TYPE: CT ChestAbdPelvis wo/w con DATE OF EXAM: 09/09/2018 COMPARISON: NONE HISTORY: Follow up scan per patient . Right sided upper abdominal and chest pain CT DLP: 893.2 mGycm. Automated Exposure Control for Dose Reduction was Utilized. CONTRAST: CT scan of the thorax, abdomen and pelvis is performed without and with IV Contrast, patient injected with 100 mL of Isovue 300. FINDINGS: LUNGS: There is a small residual hemopneumothorax with maximal pleural separation at the lung bases o f 2.0 cm, this has improved from the prior although redistribution is seen. There is improved aeratio n of the anterior right upper lobe and underlying pulmonary nodule is now noted measuring 1.0 x 1.9 c m. This is marked on image 29. Other scattered areas of consolidation throughout the lungs have sligh tly improved from the prior with consideration of underlying right basilar pulmonary mass, pulmonary hemorrhage or pneumonia. Small bilateral pleural effusions are present. Mild emphysematous changes th e lungs are noted. Right-sided chest tube is in place terminating towards the right lung apex mediall y. MEDIASTINUM: There are no greater than 1 cm hilar or mediastinal lymph nodes. Again there is slight leftward deviation of the heart however there is no impression upon the superior nor inferior vena ca va from the right-sided pneumothorax. No pericardial effusion is seen. LIVER/GB: The liver is enlarged extending beyond the iliac crest. No suspicious hepatic mass is seen. PANCREAS: There is slight prominence of the pancreatic duct however no discrete pancreatic lesion is seen. SPLEEN: Spleen is slightly atrophic. ADRENALS: No significant abnormality is seen. KIDNEYS: No hydronephrosis. Nonobstructing punctate right upper pole renal calculus is seen.. BOWEL: Duodenal diverticulum is incidentally noted. Large degree fecal stasis limits evaluation of th e bowel. Oral contrast does not extend to the large bowel is somewhat limiting evaluation. No dilated large or small bowel are seen LYMPH NODES: No greater than 1cm abdominal or pelvic lymph nodes are appreciated. OSSEOUS STRUCTURES: Cervical fusion hardware partially visualized. There is mild osseous demineraliza tion appreciated in the pelvis. Sclerotic focus of the left femoral head and right superior pubic juany us are favored to represent small bone islands. Moderate degenerative changes of the femoral acetabul ar joints are seen. Nonspecific sclerotic focus of the left iliac bone is seen on image 102. OTHER: There is small volume ascites collecting dependently within the pelvis and surrounding the abd ominal viscera. Extensive atherosclerosis of the abdominal aorta and its branches are noted. Anasarca is also noted. IMPRESSION: 1. Improved right hydropneumothorax, overall estimated at approximately 20%. 2. Improved right upper lung segmental collapse with right upper lobe 1.8 cm pulmonary nodule now vis ualized suspicious for neoplasm. 3. Although there is slight improved aeration of the right lung base there is a consolidation remaini ng in the represent atelectasis and/or pneumonia and additional underlying pulmonary nodule cannot ap pendectomy excluded. Continued short-term follow-up is recommended. 4. No evidence of metastasis within the abdomen or pelvis.
--- NOTE | 2018-09-09 13:52 | P.CONS ---
History of Present Illness - Reason for Consult Consult date: 09/09/18 hx: AML, Recurrent Effusion Requesting physician: George Orr - Chief Complaint SOB - History of Present Illness Veronika was initially evaluated in April [address] Sarabia found to have pancytopenia after C/O weakness and loss of stamina before routinr exam by Dr Ricci. She was hospitalized at [facility], Bone marrow study done AML Final Bone Marrow : AML. Cytogenetics could not be performed. She was quickly admitted to [facility] inpatient where she underwent inpatient treatment and continued her care through outside hospital. We have not seen her back since. 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 WARD IV ACCESS RIGHT CHEST. RASH ON BACK FROM CHEMO. 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 History of Any Multi-Drug Resistant Organisms: None Reported Past Surgical History: Orthopedic Surgery, Tubal Ligation Additional Past Surgical History / Comment(s): Cervical fusion 2005, Bilateral carpal tunnel, BONE MARROW BX. Allogenic stem cell transplant 09/21/14 Past Anesthesia/Blood Transfusion Reactions: No Reported Reaction Additional Past Anesthesia/Blood Transfusion Reaction / Comm: HX- BLOOD TRANSFUSION- NO REACTION Past Psychological History: Anxiety Smoking Status: Current every day smoker Past Alcohol Use History: None Reported Past Drug Use History: None Reported - Past Family History Father Family Medical History: Asthma, Cancer (Lung cancer) Additional Family Medical History / Comment(s): Father is living and is 81 yrs old. Mother Family Medical History: Cancer Additional Family Medical History / Comment(s): Mother at age 49yrs of uterine cancer. Pt's several aunts all had cancers of various origins as well as her grandmother. Medications and Allergies Home Medications Medication Instructions Recorded Confirmed Type Multivitamin/Iron/Folic Acid 1 tab PO DAILY@0800 11/06/15 09/04/18 History [Centrum Complete Multivit Tab] Gabriel/D3/Mag11/Zinc/Hi Lo Driver/Kashif/Bor 1 tab PO BID@0800,1700 09/04/18 09/04/18 History [Caltrate 600+D Plus Tablet] Cyclobenzaprine [Flexeril] 10 mg PO Q8H PRN 09/04/18 09/04/18 History Hydrocortisone 10 mg PO DAILY@1700 09/04/18 09/04/18 History Hydrocortisone 20 mg PO DAILY@0800 09/04/18 09/04/18 History Ibuprofen [Motrin] 800 mg PO Q8H PRN 09/04/18 09/04/18 History Ipratropium/Albuterol Sulfate 1 puff INHALATION RT-BID PRN 09/04/18 09/04/18 History [Combivent Respimat Inhaler] LORazepam [Ativan] 0.5 mg PO Q46H PRN 09/04/18 09/04/18 History Pentoxifylline [TRENtal] 400 mg PO BID@0800,1700 09/04/18 09/04/18 History Vitamin E (Dl,Tocopheryl Acet) 400 unit PO BID@0800,1700 09/04/18 09/04/18 History [Vitamin E] Zolpidem [Ambien] 10 mg PO HS PRN 09/04/18 09/04/18 History Allergies Allergy/AdvReac Type Severity Reaction Status Date / Time cefepime Allergy Unknown Face Verified 09/04/18 14:06 Swelling, Rash chlorhexidine Allergy Unknown Verified 09/04/18 14:06 Penicillins Allergy Unknown Verified 09/04/18 14:06 Childhood Physical Exam Vitals: Vital Signs Temp Pulse Pulse Pulse Resp BP Pulse Ox 09/09/18 11:34 82 09/09/18 11:27 86 09/09/18 11:12 110 H 16 09/09/18 10:56 98.9 F 110 H 16 140/83 93 L 09/09/18 07:59 109 H 18 09/09/18 07:52 98.4 F 109 H 18 142/79 96 09/09/18 07:42 88 09/09/18 07:23 82 09/09/18 04:00 98.9 F 101 H 17 131/72 98 09/09/18 00:00 98.9 F 102 H 16 128/68 95 09/08/18 21:01 80 09/08/18 20:46 84 09/08/18 20:00 97.8 F 92 19 116/59 97 05/16/19 18:47 93 20 108/60 97 09/08/18 18:32 94 20 118/65 98 09/08/18 18:20 98.5 F 94 20 125/64 96 09/08/18 18:01 90 16 112/70 97 09/08/18 17:46 92 18 118/72 98 09/08/18 17:32 93 16 119/71 98 09/08/18 17:15 92 12 118/73 97 09/08/18 16:58 97.9 F 106 H 16 118/75 97 09/08/18 15:35 97.8 F 104 H 18 127/76 95 Intake and Output 09/08/18 09/09/18 09/09/18 22:59 06:59 14:59 Intake Total 1300 800 Output Total 3 Balance 1297 800 Intake: IV 1300 800 Sodium Chloride 0.9% 1, 800 800 000 ml @ 100 mls/hr IV . Q10H RICO Rx#:[id number] Oral 0 Output: Estimated Blood Loss 3 Other: Voiding Method Toilet Toilet # Voids 1 1 Weight 51.1 kg Gen: Alert: poor historian but a o x3, NAD Head: NCNT Neck: Supple Heart: RRR, S1s2 Lungs: R diminished greaterthan Left, bibasilar bilaterall, mild increase effort Abdomen: S, ND, NT Ext: No Edema Skin No Rash No palpable lymphadenopathy cervical, supraclavicular, axilalry Neuro: No sensory or motor deficits Results CBC & Chem 7: 09/08/18 05:21 09/09/18 14:01 Labs: Microbiology - Last 24 Hours (Table) 09/05/18 12:00 Gram Stain - Final Pleural Fluid Body Fluid Culture - Final 09/07/18 14:20 Acid Fast Bacilli Smear - Final Pleural Fluid Acid Fast Bacilli Culture - Preliminary 09/07/18 14:20 Gram Stain - Preliminary Pleural Fluid Body Fluid Culture - Preliminary Assessment and Plan Plan: Assessment and Recommendation: 1. Recurrent PLeural Effusion: - Awaiting Cytology and sent for FLow with history of AML - Pulmonary Following - Status post right-sided thoracentesis removal of 1.3 L of pleural fluid which showed exudate, cytology results were negative, including the flow cytometry. - Patient underwent a repeat right-sided thoracentesis on 09/07/2018 would removal of 1.6 liters of pleural fluid and the cytology is pending. - Patient is status post right Pleurx catheter placement for recurrent pleural effusion postop day 1. - There was an additional 1100 mL of pleural fluid drained immediately after Pleurx catheter insertion on 09/08/2018 2. Lung Nodule: - Apparently this was biopsied at outside facility in October of 2017, and results were negative, although patient is a poor historian and I have asked for records 3. HX: AML: - Currently Presumed Remission - Induction Chemotherapy followed by Stem Cell Transplant in 2015 4. Increased Liver Function: - Possible component GH, recheck in cmp ordered for am Discussed with Pulmonary and await cytology Bone Scan ordered Physician Attestation: I have completed the full history and physical and developed the complete impression and plan, agree with dictation, dictated as a scribe
--- NOTE | 2018-09-09 13:53 | P.PN ---
Subjective 57-year-old admitted with right-sided pleural effusion etiology of pleural effusion is unknown possibly parapneumonic effusion is low we will order a ultrasound guided thoracocentesis diagnostic and therapeutic. Respiratory status remains the same. 09/06/2018 Patient had the thoracocentesis yesterday with removal of around 1.4 L of exudative fluid. Patient felt better but patient is still on 3 L desaturates without oxygen CAT scan was obtained which showed moderate size pneumothorax significant atelectasis and a possible mucous plug along with the some moderate pleural effusion at this time. patient need to be closely monitored and these findings that were made today with 2 pulmonology group when nursing staff. 09/07/2018 Discussed with pulmonology. We're awaiting on the cytology reports from the pleural fluid and if it turns out to be cancerous patient will need a pigtail catheter or pulmonology is planning another thoracocentesis if cytology is negative for any cancer. Her respiratory status remains the same. 09/08/2018 Patient's fluid is reaccumulating cytologies did not show any malignancy although this cannot be completely ruled out all discussed with oncology regarding any further workup that is needed as an outpatient but patient probably will need outpatient workup. Patient was ordered regarding thoracic surgery they're thinking of pigtail catheter although patient does have pneumothorax as well when the parathoracic surgery was made aware of that has respiratory status remains the same. 09/09/2018 Patient had improvement in hydropneumothorax after Pleurx catheter placement and overall estimated the hydropneumothorax is about 20%. A new pulmonary nodule was appreciable now her pleural effusion is better which was in the right upper lobe about 1.8 cm suspicious for neoplasm. Discussed with the pulmonology pulmonology will evaluate the patient to see if that can be biopsied via bronchoscopy. Patient is still requiring 3 L of oxygen Constitutional: Denied any fatigue denied any fever. Cardio vascular: denied any chest pain, palpitations Gastrointestinal denied any nausea vomiting Pulmonary: as mentioned in HPI Neurologic denied any new focal deficits All inpatient medications were reviewed and appropriate changes in these medications as dictated in the interval history and assessment and plan. Objective - Vital Signs Vital signs: Vital Signs Temp 98.9 F 09/09/18 10:56 Pulse 82 09/09/18 11:34 Resp 16 09/09/18 11:12 BP 140/83 09/09/18 10:56 Pulse Ox 93 L 09/09/18 10:56 Intake & Output 09/08/18 09/09/18 09/09/18 18:59 06:59 18:59 Intake Total 1350 1600 320 Output Total 203 Balance 1147 1600 320 Weight 51.1 kg 51.1 kg Intake: IV 500 1600 Sodium Chloride 0.9% 1, 1600 000 ml @ 100 mls/hr IV . Q10H RICO Rx#:[id number] Intake, IV Titration 850 Amount Sodium Chloride 0.9% 1, 800 000 ml @ 100 mls/hr IV . Q10H RICO Rx#:[id number] cefTRIAXone 1 gm In 50 Sodium Chloride 0.9% 50 ml @ 100 mls/hr IVPB Q24HR RICO Rx#:[id number] Oral 0 0 320 Output: Urine 200 Estimated Blood Loss 3 Other: Voiding Method Toilet # Voids 1 - Exam PHYSICAL EXAMINATION: GENERAL: The patient is alert and oriented x3, not in any acute distress. Thin built her denied any recent weight loss HEENT: Pupils are round and equally reacting to light. EOMI. No scleral icterus. No conjunctival pallor. Normocephalic, atraumatic. No pharyngeal erythema. No thyromegaly. CARDIOVASCULAR: S1 and S2 present. No murmurs, rubs, or gallops. PULMONARY:still diminished air entry into right posterior inferior lung rodriguez better than yesterday ABDOMEN: Soft, nontender, nondistended, normoactive bowel sounds. No palpable organomegaly. MUSCULOSKELETAL: No joint swelling or deformity. EXTREMITIES: No cyanosis, clubbing, or pedal edema. NEUROLOGICAL: Gross neurological examination did not reveal any focal deficits. SKIN: No rashes. - Labs CBC & Chem 7: 09/08/18 05:21 09/08/18 05:21 Labs: Microbiology - Last 24 Hours (Table) 09/05/18 12:00 Gram Stain - Final Pleural Fluid Body Fluid Culture - Final 09/07/18 14:20 Acid Fast Bacilli Smear - Final Pleural Fluid Acid Fast Bacilli Culture - Preliminary 09/07/18 14:20 Gram Stain - Preliminary Pleural Fluid Body Fluid Culture - Preliminary Assessment and Plan Plan: Acute hypoxic respiratory failure and shortness of breath: Secondary to right- sided pleural effusion etiology of pleural effusion VS be secondary to malignancy patient has a nodule of 1.8 cm, per neurology will evaluate if this can be biopsied via bronchoscopy. Patient has a Pleurx catheter placement and the pleural fluid otologyis negative for any malignancysedated 2 no evidence of pneumonia at this time -Tachycardia secondary to hypoxemia patientimproved with IV fluids -COPD with the possible minimal exacerbation although I do not believe patient patient is on inhalational treatments and inhaled steroids -Leukocytosis appears to be reactive in nature, improved -History of leukemia in remission patient last received chemotherapy in 2014 -Severity in the past -Nicotine use: Counseling was provided -Anxiety disorder Patient will need pharmacologic GI as well as DVT prophylaxis
[2018-09-09 14:36] LABS: Potassium 4.2 mmol/L (3.5-5.1)
[2018-09-09 14:37] LABS: ALT 82 U/L (9-52); AST 56 U/L (14-36); Albumin 3.1 g/dL (3.5-5.0); Alkaline Phosphatase 209 U/L (38-126); Blood Urea Nitrogen 8 mg/dL (7-17); Calcium 8.9 mg/dL (8.4-10.2); Chloride 97 mmol/L (98-107); Glucose 141 mg/dL (74-99); Sodium 139 mmol/L (137-145); Total Bilirubin 0.5 mg/dL (0.2-1.3); Total Protein 5.8 g/dL (6.3-8.2)
[2018-09-09 14:43] LABS: Anion Gap 1 mmol/L
[2018-09-09 14:45] LABS: Carbon Dioxide 41 mmol/L (22-30)
--- NOTE | 2018-09-09 16:45 | P.PN ---
Subjective Progress Note Date: 09/09/18 Principal diagnosis: Recurrent right pleural effusion, history of acute myeloid leukemia status post Maier catheter placement, chemotherapy and bone marrow transplant, history of CVA/TIA, lung mass status post fine-needle biopsy, history of degenerative joint disease, chronic nicotine dependence, anemia, and graft versus host disease. The patient is laying in bed in no acute distress. She is awake, alert and oriented 3. Her is at her bedside. Currently the patient denies any complaints of pain or shortness of breath. She had a right-sided Pleurx catheter placed yesterday for recurrent right pleural effusion. Pleurx teaching completed with the patient and her , walk through instructions were talked to the patient and her for Pleurx catheter drainage. She had 500 mL drained from her Pleurx catheter today. Objective - Vital Signs Vital signs: Vital Signs Temp 98.9 F 09/09/18 15:04 Pulse 104 H 09/09/18 15:35 Resp 16 09/09/18 15:23 BP 139/83 09/09/18 15:04 Pulse Ox 91 L 09/09/18 15:04 Intake & Output 09/08/18 09/09/18 09/09/18 18:59 06:59 18:59 Intake Total 1350 1600 320 Output Total 203 Balance 1147 1600 320 Weight 51.1 kg 51.1 kg Intake: IV 500 1600 Sodium Chloride 0.9% 1, 1600 000 ml @ 100 mls/hr IV . Q10H RICO Rx#:[id number] Intake, IV Titration 850 Amount Sodium Chloride 0.9% 1, 800 000 ml @ 100 mls/hr IV . Q10H RICO Rx#:[id number] cefTRIAXone 1 gm In 50 Sodium Chloride 0.9% 50 ml @ 100 mls/hr IVPB Q24HR RICO Rx#:[id number] Oral 0 0 320 Output: Urine 200 Estimated Blood Loss 3 Other: Voiding Method Toilet # Voids 1 3 - Constitutional General appearance: Present: cooperative, no acute distress, thin - Respiratory Details: Lung sounds diminished bilateral bases right greater than left. Few scattered crackles present. Respirations are symmetrical and nonlabored. - Cardiovascular Details: Regular rhythm and rate. S1 and S2 present, negative for S3, gallop or murmurs. No edema present. - Gastrointestinal Gastrointestinal Comment(s): Abdomen is soft, nontender and nondistended. Active bowel sounds all 4 abdominal quadrants. No guarding or rigidity. No organomegaly. - Genitourinary Genitourinary Comment(s): Voiding clear yellow urine. - Integumentary Integumentary Comment(s): Skin is warm and dry. No clubbing or cyanosis is present. Pleurx catheter dressing is clean, dry and intact. - Neurologic Neurologic: Present: CNII-XII intact - Musculoskeletal Musculoskeletal: Present: generalized weakness, strength equal bilaterally - Psychiatric Psychiatric: Present: A&O x's 3, appropriate affect, intact judgment & insight - Allied health notes Allied health notes reviewed: nursing - Labs CBC & Chem 7: 09/08/18 05:21 09/09/18 14:01 Labs: Abnormal Lab Results - Last 24 Hours (Table) 09/09/18 Range/Units 14:01 Chloride 97 L (98-107) mmol/L Carbon Dioxide 41 H* (22-30) mmol/L Creatinine 0.27 L (0.52-1.04) mg/dL Glucose 141 H (74-99) mg/dL AST 56 H (14-36) U/L ALT 82 H (9-52) U/L Alkaline Phosphatase 209 H (38-126) U/L Total Protein 5.8 L (6.3-8.2) g/dL Albumin 3.1 L (3.5-5.0) g/dL Microbiology - Last 24 Hours (Table) 09/05/18 12:00 Anaerobic Culture - Final Pleural Fluid 09/05/18 12:00 Gram Stain - Final Pleural Fluid Body Fluid Culture - Final 09/07/18 14:20 Acid Fast Bacilli Smear - Final Pleural Fluid Acid Fast Bacilli Culture - Preliminary 09/07/18 14:20 Gram Stain - Preliminary Pleural Fluid Body Fluid Culture - Preliminary - Imaging and Cardiology Chest x-ray: report reviewed, image reviewed Assessment and Plan Assessment: 1. Large recurrent right-sided pleural effusion, status post right Pleurx catheter placement 2. History of acute myeloid leukemia, apparently in remission, status post bone marrow transplant 3. Adrenal insufficiency 4. History of cerebrovascular accident 5. History of pneumonia 6. History of syncope 7. History of degenerative joint disease 8. History of right lung mass, status post recent lung biopsy Plan: 1. Pleurx catheter instructions reviewed and demonstrated with the patient and her . 2. Draining Pleurx catheter every other day and as needed for the first week and then twice a week thereafter. 3. Per cardiothoracic surgery service patient may be discharged home when okayed by primary care service. Time with Patient: Greater than 30
[2018-09-09] MEDS ORDERED: ACETAMINOPHEN TAB 500 MG TAB PO PRN (17:28)
[2018-09-09 18:57] LABS: Folate, Serum 14.3 ng/mL
[2018-09-09] MEDS: SYMBICORT 160-4.5 MCG INHALER INHALATION SCH (19:17)
[2018-09-09] MEDS: ZOLPIDEM 10 MG TAB PO PRN (22:03)
[2018-09-10 06:03] VITALS: TEMP 97.6
[2018-09-10 07:34] LABS: Basophils % (A) 0 %; Eosinophils % (A) 0 %; HCT 47.4 % (34.0-46.0); HGB 14.3 gm/dL (11.4-16.0); Hypochromasia Slight; Lymphocytes # (A) 1.2 k/uL (1.0-4.8); Lymphocytes % (A) 12 %; MCH 31.4 pg (25.0-35.0); MCHC 30.2 g/dL (31.0-37.0); MCV 103.8 fL (80.0-100.0); Macrocytosis Slight; Mean Platelet Volume 7.8; Monocytes # (A) 0.5 k/uL (0-1.0); Monocytes % (A) 6 %; Neutrophils # (A) 7.8 k/uL (1.3-7.7); Neutrophils % (A) 80 %; Platelet Count 267 k/uL (150-450); RBC 4.56 m/uL (3.80-5.40); WBC 9.7 k/uL (3.8-10.6)
[2018-09-10 08:04] LABS: Blood Urea Nitrogen 3 mg/dL (7-17); Calcium 8.8 mg/dL (8.4-10.2); Chloride 96 mmol/L (98-107); Glucose 75 mg/dL (74-99); Potassium 3.5 mmol/L (3.5-5.1); Sodium 140 mmol/L (137-145)
[2018-09-10] MEDS: SYMBICORT 160-4.5 MCG INHALER INHALATION SCH (08:04)
[2018-09-10] MEDS: IPRATROPIUM-ALBUTEROL 3 ML NEB INHALATION SCH ×3 (08:04→15:09)
[2018-09-10 08:11] LABS: Anion Gap 1 mmol/L
[2018-09-10 08:12] LABS: Carbon Dioxide 43 mmol/L (22-30)
[2018-09-10] MEDS: HYDROCORTISONE 10 MG TAB PO SCH (08:19)
[2018-09-10] MEDS: NICOTINE 21MG/24HR PATCH TRANSDERM SCH (08:19)
[2018-09-10] MEDS: FAMOTIDINE 20 MG TAB PO SCH (08:20)
[2018-09-10] MEDS: MEGESTROL 40 MG TAB PO SCH ×2 (08:20→12:40)
[2018-09-10] MEDS ORDERED: PANTOPRAZOLE 40 MG TABLET PO SCH (10:45)
[2018-09-10] MEDS ORDERED: ENOXAPARIN 40 MG/0.4 ML SYRINGE SQ SCH (10:45)
--- NOTE | 2018-09-10 10:48 | NM ---
EXAMINATION TYPE: NM bone scan whole body DATE OF EXAM: 09/10/2018 COMPARISON: NONE HISTORY: Pain in right shoulder and spine Delayed whole-body scanning was performed following the injection of 24.8 mCi Tc 99m MDP. Images acq uired 3 hours post injection. FINDINGS: I suspect an ectopic kidney on the right. There is no abnormal uptake of radiopharmaceutical throughout the skeletal. IMPRESSION: 1. Normal bone scan. 2. 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
[2018-09-10 11:16] VITALS: BP 131/81; RESP 16
--- NOTE | 2018-09-10 12:00 | P.PN ---
Subjective Progress Note Date: 09/10/18 Principal diagnosis: Large right-sided pleural effusion of unclear etiology. The patient is seen today in 09/10/2018 in follow-up on the selective care unit. She is currently sitting up at the bedside. Awake and alert in no acute distress. Maintaining good O2 saturations in the 90s on 3 L/m per nasal cannula. Computed tomography scan of the abdomen and pelvis revealed improved right hydropneumothorax, estimated approximately 20%. Improved right upper lung segmental collapse with right upper lobe 1.8 cm pulmonary nodule now visualized and suspicious for neoplasm. There is slight improvement in aeration in the right lung base there is still consolidation and atelectasis versus pneumonia and underlying pulmonary nodule cannot be excluded. No evidence of metastasis within the abdomen or pelvis. Today's bone scan was reported as normal. Right- sided Pleurx catheter was placed yesterday. 500 ML's drained today. Objective - Vital Signs Vital signs: Vital Signs Temp 97.6 F 09/10/18 08:00 Pulse 96 09/10/18 11:49 Resp 16 09/10/18 11:44 BP 131/81 09/10/18 11:13 Pulse Ox 99 09/10/18 11:13 Intake & Output 09/09/18 09/10/18 09/10/18 18:59 06:59 18:59 Intake Total 500 Balance 500 Weight 51.1 kg 51.3 kg Intake: Oral 500 Other: Voiding Method Toilet # Voids 3 1 - Exam GENERAL EXAM: Alert, pleasant, 57-year-old female, cachectic 3 L of oxygen, comfortable in no apparent distress. HEAD: Normocephalic/atraumatic. EYES: Normal reaction of pupils, equal size. Conjunctiva pink, sclera white. NOSE: Clear with pink turbinates. THROAT: No erythema or exudates. NECK: No masses, no JVD, no thyroid enlargement, no adenopathy. CHEST: No chest wall deformity. Symmetrical expansion. Right chest Pleurx catheter is in place LUNGS: Equal air entry with sounds, with diminished breath sounds over right lower lung, but there is improved air entry noted on today's exam CVS: Regular rate and rhythm, normal S1 and S2, no gallops, no murmurs, no rubs ABDOMEN: Soft, nontender. No hepatosplenomegaly, normal bowel sounds, no guarding or rigidity. EXTREMITIES: No clubbing, no edema, no cyanosis, 2+ pulses and upper and lower extremities. MUSCULOSKELETAL: Muscle strength and tone normal. SPINE: No scoliosis or deformity SKIN: No rashes CENTRAL NERVOUS SYSTEM: No focal deficits, tone is normal in all 4 extremities. PSYCHIATRIC: Alert and oriented -3. Appropriate affect. Intact judgment and insight. - Labs CBC & Chem 7: 09/10/18 06:39 09/10/18 06:39 Labs: Abnormal Lab Results - Last 24 Hours (Table) 09/09/18 09/09/18 09/10/18 Range/Units 14:01 14:01 06:39 Hct 47.4 H (34.0-46.0) % MCV 103.8 H (80.0-100.0) fL MCHC 30.2 L (31.0-37.0) g/dL Neutrophils # 7.8 H (1.3-7.7) k/uL Chloride 97 L (98-107) mmol/L Carbon Dioxide 41 H* (22-30) mmol/L BUN (7-17) mg/dL Creatinine 0.27 L (0.52-1.04) mg/dL Glucose 141 H (74-99) mg/dL AST 56 H (14-36) U/L ALT 82 H (9-52) U/L Alkaline Phosphatase 209 H (38-126) U/L Total Protein 5.8 L (6.3-8.2) g/dL Albumin 3.1 L (3.5-5.0) g/dL Vitamin B12 1372.0 H (200.0-944.0) pg/mL 09/10/18 Range/Units 06:39 Hct (34.0-46.0) % MCV (80.0-100.0) fL MCHC (31.0-37.0) g/dL Neutrophils # (1.3-7.7) k/uL Chloride 96 L (98-107) mmol/L Carbon Dioxide 43 H* (22-30) mmol/L BUN 3 L (7-17) mg/dL Creatinine 0.16 L (0.52-1.04) mg/dL Glucose (74-99) mg/dL AST (14-36) U/L ALT (9-52) U/L Alkaline Phosphatase (38-126) U/L Total Protein (6.3-8.2) g/dL Albumin (3.5-5.0) g/dL Vitamin B12 (200.0-944.0) pg/mL Microbiology - Last 24 Hours (Table) 09/07/18 14:20 Gram Stain - Preliminary Pleural Fluid Body Fluid Culture - Preliminary 09/05/18 12:00 Anaerobic Culture - Final Pleural Fluid 09/05/18 12:00 Gram Stain - Final Pleural Fluid Body Fluid Culture - Final Assessment and Plan Assessment: Assessment: #1. Large right-sided pleural effusion, of unclear etiology, rule out malignancy, status post right-sided thoracentesis would removal of 1.3 L of pleural fluid which showed exudate, cytology results were negative, including the flow cytometry. Patient underwent a repeat right-sided thoracentesis on 09/07/2018 would removal of 1.6 liters of pleural fluid and the cytology is pending. Patient is status post right Pleurx catheter placement for recurrent pleural effusion postop day 1. There was an additional 1100 mL of pleural fluid drained immediately after Pleurx catheter insertion on 09/08/2018 #2. Previous history of acute myeloid leukemia, currently in remission, status post allogeneic bone marrow transplant #3. Probable COPD #4. Renal insufficiency #5. History of CVA #6. Previous history of pneumonia #7. History of syncope #8. History of DJD #9. Fine-needle biopsy of the right mid lung lesion done at an outside facility in October 2017, and were told that biopsy results are negative according to the patient, but most recently in June 2018 patient was told that the lesion was increasing in size, and no biopsy was done Plan: The patient was seen and evaluated by Dr. Orr. Bone scan revealed no evidence of metastasis. She is currently stable from the pulmonary standpoint. Her Pleurx catheter is in place. 500 ML's drained today. She could be discharged home once cleared by medicine. She should follow-up in our office in 1-2 weeks' time. We'll repeat a chest x-ray then. She and her are encouraged to call sooner with any recurrence of symptoms or other questions or concerns. I, the cosigning physician, performed a history & physical examination of the patient. Lungs sounds were excellent bases right greater than left, scattered rhonchi.. Maintaining good O2 saturations in the 90s on 3 L/m per nasal cannula. I discussed the assessment and plan of care with my nurse practitioner, Olga Farias. I attest to the above note as dictated by her.
[2018-09-10 15:10] VITALS: PULSE 92
--- NOTE | 2018-09-10 15:40 | P.PN ---
Subjective Progress Note Date: 09/10/18 Principal diagnosis: Acute hypoxic respiratory failure Ms. Willis is a 57-year-old female with a past medical history of COPD, CVA/TIA, acute myeloid leukemia status post chemo and allo graft currently in remission coming in with a chief complaint of acute respiratory failure secondary to right-sided pleural effusion. Patient had Pleurx placed and having fluid drained out every day. As per the she had 500 mL of fluid removed yesterday. Patient had a pulmonary nod ule in the right upper lobe which is about 1.8 cm that is suspicious for neoplasm. So oncology and pulmonary following the patient to see if it can be biopsied. Today the patient is lying comfortably in the bed. She has minimal difficulty in breathing, better when she came in. She just came back from the PET scan. is at the bedside. Patient states that she is eager to go home. On review of systems Constitutional: Denies fatigue or fever. Cardio vascular: denied any chest pain or palpitations Gastrointestinal : denied any nausea vomiting Pulmonary: as mentioned in HPI Neurologic : denied any new focal deficits Active Medications Acetaminophen (Tylenol Tab) 1,000 mg PO Q6HR PRN PRN Reason: Fever and/ or Pain Last Admin: 09/10/18 08:20 Dose: 1,000 mg Documented by: Albuterol/Ipratropium (Duoneb 0.5 Mg-3 Mg/3 Ml Soln) 3 ml INHALATION RT-QID [facility] Last Admin: 09/10/18 11:38 Dose: 3 ml Documented by: Albuterol/Ipratropium (Duoneb 0.5 Mg-3 Mg/3 Ml Soln) 3 ml INHALATION RT-Q4H PRN PRN Reason: Shortness Of Breath Or Wheezing Last Admin: 09/06/18 04:40 Dose: 3 ml Documented by: Budesonide/Formoterol Fumarate (Symbicort 160-4.5 Mcg Inhaler) 2 puff INHALATION RT-BID [facility] Last Admin: 09/10/18 08:04 Dose: 2 puff Documented by: Cyclobenzaprine HCl (Flexeril) 10 mg PO Q8H PRN PRN Reason: CRAMPS Last Admin: 09/06/18 16:26 Dose: 10 mg Documented by: Enoxaparin Sodium (Lovenox) 40 mg SQ DAILY [facility] Last Admin: 09/10/18 11:17 Dose: 40 mg Documented by: Famotidine (Pepcid) 20 mg PO BID [facility] Last Admin: 09/10/18 08:20 Dose: 20 mg Documented by: Hydrocortisone (Cortef) 10 mg PO DAILY@1700 [facility] Last Admin: 09/09/18 17:07 Dose: 10 mg Documented by: Hydrocortisone (Cortef) 20 mg PO DAILY@0800 [facility] Last Admin: 09/10/18 08:19 Dose: 20 mg Documented by: Ceftriaxone Sodium 1 gm/ (Sodium Chloride) 50 mls @ 100 mls/hr IVPB Q24HR [facility] Last Admin: 09/10/18 08:19 Dose: 100 mls/hr Documented by: Lorazepam (Ativan) 0.5 mg PO Q4H PRN PRN Reason: Anxiety Last Admin: 09/08/18 21:57 Dose: 0.5 mg Documented by: Megestrol Acetate (Megace) 40 mg PO QID [facility] Last Admin: 09/10/18 08:20 Dose: 40 mg Documented by: Nicotine (Habitrol 21mg/24hr Patch) 1 patch TRANSDERM DAILY [facility] Last Admin: 09/10/18 08:19 Dose: 1 patch Documented by: Pantoprazole Sodium (Protonix) 40 mg PO AC-BRKFST [facility] Last Admin: 09/10/18 11:18 Dose: 40 mg Documented by: Sodium Chloride (Saline Flush) 10 ml IV BID [facility] Last Admin: 09/10/18 08:20 Dose: 10 ml Documented by: Zolpidem Tartrate (Ambien) 10 mg PO HS PRN PRN Reason: Insomnia Last Admin: 09/09/18 22:03 Dose: 10 mg Documented by: Objective - Vital Signs Vital signs: Vital Signs Temp 97.6 F 09/10/18 08:00 Pulse 102 H 09/10/18 11:44 Resp 16 09/10/18 11:44 BP 131/81 09/10/18 11:13 Pulse Ox 99 09/10/18 11:13 Intake & Output 09/09/18 09/10/18 09/10/18 18:59 06:59 18:59 Intake Total 500 Balance 500 Weight 51.1 kg 51.3 kg Intake: Oral 500 Other: Voiding Method Toilet # Voids 3 1 - Exam GENERAL: The patient is alert and oriented x3, not in any acute distress. Thin built, Cachectic with temporal wasting HEENT: Pupils are round and equally reacting to light. EOMI. No scleral icterus. No conjunctival pallor. Normocephalic, atraumatic. CARDIOVASCULAR: S1 and S2 present. No murmurs, rubs, or gallops. PULMONARY: diminished air entry into right posterior inferior lung rodriguez. Pleurdex in place. ABDOMEN: Soft, nontender, nondistended, normoactive bowel sounds. No palpable organomegaly. MUSCULOSKELETAL: No joint swelling or deformity. EXTREMITIES: No cyanosis, clubbing, or pedal edema. NEUROLOGICAL: Gross neurological examination did not reveal any focal deficits. SKIN: No rashes. - Labs CBC & Chem 7: 09/10/18 06:39 09/10/18 06:39 Labs: Abnormal Lab Results - Last 24 Hours (Table) 09/09/18 09/09/18 09/10/18 Range/Units 14:01 14:01 06:39 Hct 47.4 H (34.0-46.0) % MCV 103.8 H (80.0-100.0) fL MCHC 30.2 L (31.0-37.0) g/dL Neutrophils # 7.8 H (1.3-7.7) k/uL Chloride 97 L (98-107) mmol/L Carbon Dioxide 41 H* (22-30) mmol/L BUN (7-17) mg/dL Creatinine 0.27 L (0.52-1.04) mg/dL Glucose 141 H (74-99) mg/dL AST 56 H (14-36) U/L ALT 82 H (9-52) U/L Alkaline Phosphatase 209 H (38-126) U/L Total Protein 5.8 L (6.3-8.2) g/dL Albumin 3.1 L (3.5-5.0) g/dL Vitamin B12 1372.0 H (200.0-944.0) pg/mL 09/10/18 Range/Units 06:39 Hct (34.0-46.0) % MCV (80.0-100.0) fL MCHC (31.0-37.0) g/dL Neutrophils # (1.3-7.7) k/uL Chloride 96 L (98-107) mmol/L Carbon Dioxide 43 H* (22-30) mmol/L BUN 3 L (7-17) mg/dL Creatinine 0.16 L (0.52-1.04) mg/dL Glucose (74-99) mg/dL AST (14-36) U/L ALT (9-52) U/L Alkaline Phosphatase (38-126) U/L Total Protein (6.3-8.2) g/dL Albumin (3.5-5.0) g/dL Vitamin B12 (200.0-944.0) pg/mL Microbiology - Last 24 Hours (Table) 09/07/18 14:20 Gram Stain - Preliminary Pleural Fluid Body Fluid Culture - Preliminary 09/05/18 12:00 Anaerobic Culture - Final Pleural Fluid 09/05/18 12:00 Gram Stain - Final Pleural Fluid Body Fluid Culture - Final Assessment and Plan Assessment: ASSESSMENT Acute hypoxic respiratory failure secondary to right-sided pleural effusion Pulmonary nodule of 1.8 centimeters in the right lung COPD- not in acute exacerbation History of leukemia status post chemotherapy and allograft in the past Anxiety disorder Nicotine dependence Cachexia PLAN: Patient has Pleurx catheter in place, she gained around 400 mL last night. Continue with ceftriaxone for now. Pulmonary and oncology on on board following the patient. Cytology of the pleural fluid still pending. Patient had a PET scan done today and report is pending. Overall prognosis is poor. Further recommendations to follow depending on the progress of the patient. Treatment plan was discussed in detail with the patient and her at the bedside today.
--- NOTE | 2018-09-10 15:46 | P.DS ---
Providers Date of admission: 09/04/18 14:43 Expected date of discharge: 09/10/18 Attending physician: Curtis Rolle Consults: 09/04/18 14:45 Consult Physician Urgent Consulting Provider: Estrada Rendon Consult Reason/Comments: Dyspnea, large right pleural effusion Do you want consulting provider notified?: Yes 09/08/18 10:06 Consult Physician Routine Consulting Provider: New Adhikari Consult Reason/Comments: right recurrent pleural effusions, Pleurix cath placement Do you want consulting provider notified?: Yes 09/08/18 11:30 Consult Physician Routine Consulting Provider: Rios Garcia Consult Reason/Comments: Hx of AML, recurrent right pleural effusion Do you want consulting provider notified?: Yes Primary care physician: Kristi Silvestre [facility] Course: Ms. Willis is a 57-year-old female with a past medical history of COPD, CVA/TIA, acute myeloid leukemia status post chemo and allo graft currently in remission coming in with a chief complaint of acute respiratory failure secondary to right-sided pleural effusion. Patient has right sided large pleural effusion that is unclear etiology. She is status post right-sided thoracentesis with removal of 1.3 L of fluid which was showing exudate, cytology results are negative including flow cytometry. She underwent a repeat right-sided thoracentesis on 09/07/2018 with 1.6 L of pleural fluid removed. Patient is status post right Pleurx catheter placement for recurrent pleural effusion. She had an additional 1.1 L of fluid drained on 09/08/2018. Patient had Pleurx placed and having fluid drained out every day. As per the she had 500 mL of fluid removed yesterday. Patient had a pulmonary nodule in the right upper lobe which is about 1.8 cm that is suspicious for neoplasm. So oncology and pulmonary following the patient to see if it can be biopsied. Patient was evaluated by both the services and they recommended outpatient follow up for. Today the patient is lying comfortably in the bed. She has minimal difficulty in breathing, better when she came in. She just came back from the PET scan. is at the bedside. Patient states that she is eager to go home. Patient has been cleared by oncology, pulmonary, CT surgery today. - Vital Signs Vital signs: Vital Signs Temp 97.6 F 05/18/19 08:00 Pulse 102 H 09/10/18 11:44 Resp 16 09/10/18 11:44 BP 131/81 09/10/18 11:13 Pulse Ox 99 09/10/18 11:13 Intake & Output 09/09/18 09/10/18 09/10/18 18:59 06:59 18:59 Intake Total 500 Balance 500 Weight 51.1 kg 51.3 kg Intake: Oral 500 Other: Voiding Method Toilet # Voids 3 1 - Exam GENERAL: The patient is alert and oriented x3, not in any acute distress. Thin built, Cachectic with temporal wasting HEENT: Pupils are round and equally reacting to light. EOMI. No scleral icterus. No conjunctival pallor. Normocephalic, atraumatic. CARDIOVASCULAR: S1 and S2 present. No murmurs, rubs, or gallops. PULMONARY: diminished air entry into right posterior inferior lung rodriguez. Pleurdex in place. ABDOMEN: Soft, nontender, nondistended, normoactive bowel sounds. No palpable organomegaly. MUSCULOSKELETAL: No joint swelling or deformity. EXTREMITIES: No cyanosis, clubbing, or pedal edema. NEUROLOGICAL: Gross neurological examination did not reveal any focal deficits. SKIN: No rashes. DISCHARGE DIAGNOSIS Acute hypoxic respiratory failure secondary to right-sided pleural effusion Pulmonary nodule of 1.8 centimeters in the right lung COPD- not in acute exacerbation History of leukemia status post chemotherapy and allograft in the past Anxiety disorder Nicotine dependence Cachexia PLAN: The patient had a bone scan revealing no evidence of metastasis. Her Pleurx catheter is in place. She has been cleared by pulmonary, oncology, CT surgery to be followed up as outpatient. She is being discharged home with her to have outpatient follow-up with pulmonary and her PCP in 3-4 days. More than 30 minutes spent towards the discharge of the patient. CC: Dr. Nirmala Berry. Patient Condition at Discharge: Fair Plan - Discharge Summary Discharge Rx Participant: Yes New Discharge Prescriptions: New Nicotine 21Mg/24Hr Patch [Habitrol] 1 each TRANSDERM DAILY #10 patch Megestrol [Megace] 40 mg PO QID #60 tab Continue Multivitamin/Iron/Folic Acid [Centrum Complete Multivit Tab] 1 tab PO DA GOLDIE@0800 Cyclobenzaprine [Flexeril] 10 mg PO Q8H PRN PRN Reason: CRAMPS Zolpidem [Ambien] 10 mg PO HS PRN PRN Reason: Insomnia Ibuprofen [Motrin] 800 mg PO Q8H PRN PRN Reason: Pain Pentoxifylline [TRENtal] 400 mg PO BID@0800,1700 LORazepam [Ativan] 0.5 mg PO Q46H PRN PRN Reason: Anxiety Ipratropium/Albuterol Sulfate [Combivent Respimat Inhaler] 1 puff INHALATION RT-BID PRN PRN Reason: Wheezing Vitamin E (Dl,Tocopheryl Acet) [Vitamin E] 400 unit PO BID@0800,1700 Gabriel/D3/Mag11/Zinc/Fagot Heater/Kashif/Bor [Caltrate 600+D Plus Tablet] 1 tab PO BID@0800,1700 Hydrocortisone 10 mg PO DAILY@1700 Hydrocortisone 20 mg PO DAILY@0800 Discharge Medication List Multivitamin/Iron/Folic Acid [Centrum Complete Multivit Tab] 1 tab PO DAILY@0800 11/06/15 [History] Gabriel/D3/Mag11/Zinc/Fagot Heater/Kashif/Bor [Caltrate 600+D Plus Tablet] 1 tab PO BID@0800,1700 09/04/18 [History] Cyclobenzaprine [Flexeril] 10 mg PO Q8H PRN 09/04/18 [History] Hydrocortisone 10 mg PO DAILY@1700 09/04/18 [History] Hydrocortisone 20 mg PO DAILY@0800 09/04/18 [History] Ibuprofen [Motrin] 800 mg PO Q8H PRN 09/04/18 [History] Ipratropium/Albuterol Sulfate [Combivent Respimat Inhaler] 1 puff INHALATION RT- BID PRN 09/04/18 [History] LORazepam [Ativan] 0.5 mg PO Q46H PRN 09/04/18 [History] Pentoxifylline [TRENtal] 400 mg PO BID@0800,1700 09/04/18 [History] Vitamin E (Dl,Tocopheryl Acet) [Vitamin E] 400 unit PO BID@0800,1700 09/04/18 [History] Zolpidem [Ambien] 10 mg PO HS PRN 09/04/18 [History] Megestrol [Megace] 40 mg PO QID #60 tab 09/10/18 [Rx] Nicotine 21Mg/24Hr Patch [Habitrol] 1 each TRANSDERM DAILY #10 patch 09/10/18 [Rx] Follow up Appointment(s)/Referral(s): Kristi Silvestre DO [Primary Care Provider] - 09/14/18 2:00 pm (Wednesday) George Orr DO [Doctor of Osteopathic Medicine] - 09/23/18 9:45 am (Wednesday) [facility], [NON-STAFF] - Patient Instructions/Handouts: Pleural Effusion (DC), Thoracentesis (DC) Activity/Diet/Wound Care/Special Instructions: Home Oxygen - [facility] - [phone] Discharge Disposition: HOME SELF-CARE
== END 2018-09-10 17:05 | disposition home health service (06) | DRG 186 ==
LOC: EC 12:33 → 3SCARD 14:43
PROVIDERS: ADMIT Internal Medicine; ATTEND Internal Medicine
PROC: 0W993ZX Drainage of Right Pleural Cavity, Percutaneous Approach, Diagnostic (ICD-10-PCS; 2018-09-05)
PROC: 0W993ZX Drainage of Right Pleural Cavity, Percutaneous Approach, Diagnostic (ICD-10-PCS; 2018-09-08)
PROC: 0W9930Z Drainage of Right Pleural Cavity with Drainage Device, Percutaneous Approach (ICD-10-PCS; principal; 2018-09-08 16:15)
DX: J90 Pleural effusion, not elsewhere classified (principal); J96.01 Acute respiratory failure with hypoxia; D89.813 Graft-versus-host disease, unspecified; E27.40 Unspecified adrenocortical insufficiency; R64 Cachexia; Z68.1 Body mass index [BMI] 19.9 or less, adult; J98.11 Atelectasis; J94.2 Hemothorax; J43.9 Emphysema, unspecified; R91.1 Solitary pulmonary nodule; N28.9 Disorder of kidney and ureter, unspecified; M19.90 Unspecified osteoarthritis, unspecified site; F41.9 Anxiety disorder, unspecified; F17.210 Nicotine dependence, cigarettes, uncomplicated; Z71.6 Tobacco abuse counseling; Z79.52 Long term (current) use of systemic steroids; Z79.899 Other long term (current) drug therapy; Z85.6 Personal history of leukemia; Z92.21 Personal history of antineoplastic chemotherapy; Z86.73 Personal history of transient ischemic attack (TIA), and cerebral infarction without residual deficits; Z87.01 Personal history of pneumonia (recurrent); Z98.1 Arthrodesis status; Z98.51 Tubal ligation status; Z88.1 Allergy status to other antibiotic agents; Z88.3 Allergy status to other anti-infective agents; Z88.0 Allergy status to penicillin; Z80.49 Family history of malignant neoplasm of other genital organs; Z82.5 Family history of asthma and other chronic lower respiratory diseases; Z80.1 Family history of malignant neoplasm of trachea, bronchus and lung
CPT/HCPCS: 32551; 36415; 71045; 71046; 71260; 71270; 74178; 76604; 78306; 80048; 80053; 82042; 82607; 82746; 82945; 83615; 83880; 83921; 84157; 84484; 85025; 85027; 85610; 85730; 87070; 87075; 87102; 87116; 87205; 87206; 87252; 87496; 87498; 87502; 87529; 87634; 87798; 88108; 88305; 88341; 88342; 89050; 93005; 94640; 94760; 99285

== ENCOUNTER 2018-09-13 15:18 | Inpatient (IN) | payer MEDICARE ==
[2018-09-13] MEDS ORDERED: SUCCINYLCHOLINE CHLORIDE VIAL 200 MG/10 ML VIAL IV STA (15:31)
[2018-09-13] MEDS ORDERED: SODIUM CHLORIDE 0.9% 1,000 ML IV ONE (15:39)
[2018-09-13] MEDS ORDERED: LORazepam 2 MG/ML INJ IV PRN (15:40)
--- NOTE | 2018-09-13 15:43 | ED ---
General Adult HPI - General Chief complaint: Altered Mental Status Stated complaint: unresponsive Time Seen by Provider: 09/13/18 15:38 Source: EMS, RN notes reviewed Mode of arrival: EMS Limitations: altered mental status, physical limitation - History of Present Illness Initial comments: Patient is a 57-year-old female presenting to the emergency department for decreased responsiveness. Patient reportedly had a tube placed in her right lung yesterday to drain fluid very to large pleural effusion. They reportedly unclear what type of fluid has been removed. Patient started becoming drowsy about an hour and a half prior to being found unresponsive. Patient is unresponsive at this time and provides no information. EMS states blood sugar was 109. No reported history of similar symptoms previously. History is otherwise limited. - Related Data Home Medications Medication Instructions Recorded Confirmed Multivitamin/Iron/Folic Acid 1 tab PO DAILY@0800 //09/13/18 [Centrum Complete Multivit Tab] Gabriel/D3/Mag11/Zinc/Screwdown Operator/Kashif/Bor 1 tab PO BID@0800,1700 09/04/18 09/13/18 [Caltrate 600+D Plus Tablet] Hydrocortisone 10 mg PO DAILY@1700 09/04/18 09/13/18 Hydrocortisone 20 mg PO DAILY@0800 09/04/18 09/13/18 Ibuprofen [Motrin] 800 mg PO Q8H PRN 09/04/18 09/13/18 Ipratropium/Albuterol Sulfate 1 puff INHALATION RT-BID PRN 09/04/18 09/13/18 [Combivent Respimat Inhaler] LORazepam [Ativan] 0.5 mg PO Q46H PRN 09/04/18 09/13/18 Pentoxifylline [TRENtal] 400 mg PO BID@0800,1700 09/04/18 09/13/18 Vitamin E (Dl,Tocopheryl Acet) 400 unit PO BID@0800,1700 09/04/18 09/13/18 [Vitamin E] Megestrol [Megace] 40 mg PO TID 09/13/18 09/13/18 Allergies Allergy/AdvReac Type Severity Reaction Status Date / Time cefepime Allergy Unknown Face Verified 09/13/18 15:32 Swelling, Rash chlorhexidine Allergy Unknown Verified 09/13/18 15:32 Penicillins Allergy Unknown Verified 05/21/19 15:32 Childhood Review of Systems ROS Statement: Those systems with pertinent positive or pertinent negative responses have been documented in the HPI. ROS Other: All systems not noted in ROS Statement are negative. 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 WARD IV ACCESS RIGHT CHEST. RASH ON BACK FROM CHEMO. 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 History of Any Multi-Drug Resistant Organisms: None Reported Past Surgical History: Orthopedic Surgery, Tubal Ligation Additional Past Surgical History / Comment(s): Cervical fusion 2005, Bilateral carpal tunnel, BONE MARROW BX. 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 Mother Family Medical History: Cancer Additional Family Medical History / Comment(s): Mother at age 49yrs of uterine cancer. Pt's several aunts all had cancers of various origins as well as her grandmother. General Exam Limitations: altered mental status General appearance: obtunded Head exam: Present: normocephalic Eye exam: Present: normal appearance, PERRL ENT exam: Present: normal oropharynx Neck exam: Present: normal inspection Respiratory exam: Present: respiratory distress, rhonchi Cardiovascular Exam: Present: tachycardia GI/Abdominal exam: Present: soft. Absent: tenderness Extremities exam: Present: normal inspection Neurological exam: Present: altered Expanded Neurological exam: Present: other (Mouth is clenched, difficult to assess gag reflex. Nonverbal. Does not follow commands. Minimal withdrawal in all extremities pain.) Eye Response: (1) no response Motor Response: (4) withdraws to pain Verbal Response: (1) no verbal response Psychiatric exam: Present: other (Nonverbal) Skin exam: Present: normal color Course Vital Signs 09/13/18 09/13/1819 15:22 15:30 15:35 Temperature 97.5 F L Pulse Rate 112 H 153 H 126 H Respiratory 30 H 30 H Rate Blood Pressure 153/97 153/92 137/78 O2 Sat by Pulse 97 98 98 Oximetry 09/13/18 09/13/18 09/13/18 15:45 15:55 16:05 Temperature Pulse Rate 140 H 142 H 134 H Respiratory 27 H 26 H 27 H Rate Blood Pressure 129/86 125/94 101/66 O2 Sat by Pulse 96 88 L 86 L Oximetry 09/13/18 09/13/18 09/13/18 16:15 16:25 16:30 Temperature Pulse Rate 131 H 124 H 120 H Respiratory 27 H 27 H 26 H Rate Blood Pressure 100/77 80/57 88/61 O2 Sat by Pulse 89 L 90 L 91 L Oximetry 09/13/18 09/13/18 09/13/18 16:35 17:00 17:10 Temperature Pulse Rate 117 H 115 H 112 H Respiratory 26 H 26 H 24 Rate Blood Pressure 93/68 108/87 104/64 O2 Sat by Pulse 95 97 99 Oximetry 09/13/18 17:25 Temperature Pulse Rate 112 H Respiratory 24 Rate Blood Pressure 101/76 O2 Sat by Pulse 100 Oximetry - Reevaluation(s) Reevaluation #1: 09/13/18 16:09 Patient remains tachycardic. Lung sounds unchanged. Pulse ox is in the upper 80s. Repeat chest x-ray has been ordered. Blood gas done with results. Dr. Wiggins has been paged again. 09/13/18 16:22 . Case was discussed with Dr. 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 Also recommends Nimbex 10 mg and then computed tomography scan of the chest. He will come evaluate the patient 09/13/18 17:20 Patient was reevaluated. Vital signs have improved. Systolic blood pressure 104. Family updated. Dr. boo has been paged again for admission. 09/13/18 17:29 Dr. Wiggins is present and evaluating the patient. 09/13/18 17:31 Computed tomography scan reviewed with Dr. Wiggins. He does not have concern for pulmonary embolism. Radiologist REPORT pending. EKG Findings - EKG Comments: EKG Findings:: Sinus tachycardia 111. GA 164. QRS 78. QT 328. QTC 446. Normal axis. LVH. No acute ST change. Procedures - ABG Interpretation Ph: 7.42 PCO2: 70.4 PO2: 48.2 - Intubation Paralytic: Succinylcholine Laryngoscope: Ordonez Size: 3 ET Tube Size: 7.5 Tube Secured Depth (cm): 23 Tube Secured Location: lips Tube Placement Confirmation: visualized tube passing through cords, equal breath sounds bilaterally, no breath sounds over epigastrium, confirmation by capnometry Patient Tolerated Procedure: well, no complications Intubation Complications: none Medical Decision Making - Lab Data Result diagrams: 09/13/18 15:26 09/13/18 15: Lab Results 09/13/18 09/13/18 09/13/18 Range/Units 15:26 15: 15: WBC 12.7 H (3.8-10.6) k/uL RBC 5.01 (3.80-5.40) m/uL Hgb 16.3 H (11.4-16.0) gm/dL Hct 51.9 H (34.0-46.0) % MCV 103.4 H (80.0-100.0) fL MCH 32.5 (25.0-35.0) pg MCHC 31.4 (31.0-37.0) g/dL RDW 14.4 (11.5-15.5) % Plt Count 276 (150-450) k/uL Neutrophils % 92 % Lymphocytes % 5 % Monocytes % 2 % Eosinophils % 0 % Basophils % 0 % Neutrophils # 11.7 H (1.3-7.7) k/uL Lymphocytes # 0.6 L (1.0-4.8) k/uL Monocytes # 0.3 (0-1.0) k/uL Eosinophils # 0.1 (0-0.7) k/uL Basophils # 0.0 (0-0.2) k/uL Macrocytosis Slight PT 9.6 (9.0-12.0) sec INR 0.9 (<1.2) APTT 22.2 (22.0-30.0) sec Sample Site ABG pH (7.35-7.45) ABG pCO2 (35-45) mmHg ABG pO2 (83-108) mmHg ABG HCO3 (21-25) mmol/L ABG Total CO2 (19-24) mmol/L ABG O2 Saturation (94-97) % ABG Base Excess mmol/L Fadi Test FiO2 % Sodium 142 (137-145) mmol/L Potassium 4.1 (3.5-5.1) mmol/L Chloride 91 L (98-107) mmol/L Carbon Dioxide 45 H* (22-30) mmol/L Anion Gap 6 mmol/L BUN 11 (7-17) mg/dL Creatinine <0.15 L (0.52-1.04) mg/dL Est GFR (CKD-EPI)AfAm >90 (>60 ml/min/1.73 sqM) Est GFR (CKD-EPI)NonAf >90 (>60 ml/min/1.73 sqM) Glucose 119 H (74-99) mg/dL Calcium 10.2 (8.4-10.2) mg/dL Total Bilirubin 0.6 (0.2-1.3) mg/dL AST 48 H (14-36) U/L ALT 63 H (9-52) U/L Alkaline Phosphatase 244 H (38-126) U/L Creatine Kinase <20 L (30-135) U/L Troponin I (0.000-0.034) ng/mL Total Protein 7.2 (6.3-8.2) g/dL Albumin 3.7 (3.5-5.0) g/dL Urine Color Urine Appearance (Clear) Urine pH (5.0-8.0) Ur Specific [place] (1.001-1.035) Urine Protein (Negative) Urine Glucose (UA) (Negative) Urine Ketones (Negative) Urine Blood (Negative) Urine Nitrite (Negative) Urine Bilirubin (Negative) Urine Urobilinogen (<2.0) mg/dL Ur Leukocyte Esterase (Negative) Urine RBC (0-5) /hpf Urine WBC (0-5) /hpf Urine Mucus (None) /hpf Urine Opiates Screen (NotDetected) Ur Oxycodone Screen (NotDetected) Urine Methadone Screen (NotDetected) Ur Propoxyphene Screen (NotDetected) Ur Barbiturates Screen (NotDetected) U Tricyclic Antidepress (NotDetected) Ur Phencyclidine Scrn (NotDetected) Ur Amphetamines Screen (NotDetected) U Methamphetamines Scrn (NotDetected) U Benzodiazepines Scrn (NotDetected) Urine Cocaine Screen (NotDetected) U Marijuana (THC) Screen (NotDetected) 09/13/18 09/13/18 09/13/18 Range/Units 15:26 15:59 16:38 WBC (3.8-10.6) k/uL RBC (3.80-5.40) m/uL Hgb (11.4-16.0) gm/dL Hct (34.0-46.0) % MCV (80.0-100.0) fL MCH (25.0-35.0) pg MCHC (31.0-37.0) g/dL RDW (11.5-15.5) % Plt Count (150-450) k/uL Neutrophils % % Lymphocytes % % Monocytes % % Eosinophils % % Basophils % % Neutrophils # (1.3-7.7) k/uL Lymphocytes # (1.0-4.8) k/uL Monocytes # (0-1.0) k/uL Eosinophils # (0-0.7) k/uL Basophils # (0-0.2) k/uL Macrocytosis PT (9.0-12.0) sec INR (<1.2) APTT (22.0-30.0) sec Sample Site LRA ABG pH 7.42 (7.35-7.45) ABG pCO2 70 H (35-45) mmHg ABG pO2 48 L* (83-108) mmHg ABG HCO3 46 H* (21-25) mmol/L ABG Total CO2 48 H (19-24) mmol/L ABG O2 Saturation 85.7 L (94-97) % ABG Base Excess 21.5 mmol/L Fadi Test Yes FiO2 100 % Sodium (137-145) mmol/L Potassium (3.5-5.1) mmol/L Chloride (98-107) mmol/L Carbon Dioxide (22-30) mmol/L Anion Gap mmol/L BUN (7-17) mg/dL Creatinine (0.52-1.04) mg/dL Est GFR (CKD-EPI)AfAm (>60 ml/min/1.73 sqM) Est GFR (CKD-EPI)NonAf (>60 ml/min/1.73 sqM) Glucose (74-99) mg/dL Calcium (8.4-10.2) mg/dL Total Bilirubin (0.2-1.3) mg/dL AST (14-36) U/L ALT (9-52) U/L Alkaline Phosphatase (38-126) U/L Creatine Kinase (30-135) U/L Troponin I 0.049 H* (0.000-0.034) ng/mL Total Protein (6.3-8.2) g/dL Albumin (3.5-5.0) g/dL Urine Color Yellow Urine Appearance Clear (Clear) Urine pH 5.5 (5.0-8.0) Ur Specific [place] 1.014 (1.001-1.035) Urine Protein 2+ H (Negative) Urine Glucose (UA) Negative (Negative) Urine Ketones Negative (Negative) Urine Blood Trace H (Negative) Urine Nitrite Negative (Negative) Urine Bilirubin Negative (Negative) Urine Urobilinogen <2.0 (<2.0) mg/dL Ur Leukocyte Esterase Negative (Negative) Urine RBC 2 (0-5) /hpf Urine WBC 2 (0-5) /hpf Urine Mucus Rare H (None) /hpf Urine Opiates Screen Not Detected (NotDetected) Ur Oxycodone Screen Not Detected (NotDetected) Urine Methadone Screen Not Detected (NotDetected) Ur Propoxyphene Screen Not Detected (NotDetected) Ur Barbiturates Screen Not Detected (NotDetected) U Tricyclic Antidepress Not Detected (NotDetected) Ur Phencyclidine Scrn Not Detected (NotDetected) Ur Amphetamines Screen Not Detected (NotDetected) U Methamphetamines Scrn Not Detected (NotDetected) U Benzodiazepines Scrn Detected H (NotDetected) Urine Cocaine Screen Not Detected (NotDetected) U Marijuana (THC) Screen Detected H (NotDetected) - Radiology Data Radiology results: report reviewed (Computed tomography scan of the brain shows white matter disease could be related to cerebral anoxia. New oropharyngeal fluid in the posterior nasopharynx.), image reviewed (Chest x-ray shows new endotracheal tube. Persistent right basilar consolidation. Right lung nodule. Right thoracostomy tube. Repeat chest x-ray shows possible small right-sided pneumothorax. Stable basilar consolidation. Stable pulmonary mass.) Critical Care Time Critical Care Time: Yes Total Critical Care Time: 35 Disposition Clinical Impression: Respiratory failure Disposition: ADMITTED IP TO THIS [facility] Condition: Critical Is patient prescribed a controlled substance at d/c from ED?: No Referrals: Kristi Silvestre DO [Primary Care Provider] - 1-2 days Decision Time: 17:32
--- NOTE | 2018-09-13 15:53 | XR ---
EXAMINATION TYPE: XR chest 1V portable DATE OF EXAM: 09/13/2018 COMPARISON: 09/08/2018 HISTORY: Post intubation. Chest pain. TECHNIQUE: Single frontal view of the chest is obtained. FINDINGS: There has been interval insertion of an appropriately placed endotracheal tube terminating approximately 3.7 cm from the [place]. There is also been insertion of an appropriately placed enteri c tube. There is partial visualization of a cervical fusion device. Cardiomediastinal silhouette is e nlarged. Persistent right basilar airspace disease and small layering right pleural effusion with ext ension into the minor fissure are again noted. Right midlung approximately 2 cm pulmonary nodule is s een. Right thoracostomy tube is similar in position. No acute osseous pathology. IMPRESSION: Interval insertion of appropriately placed enteric and endotracheal tubes. Persistent ri ght basilar consolidation, right midlung pulmonary nodule, and small right pleural effusion with alfredo lar positioning of a right thoracostomy tube.
[2018-09-13] MEDS: PROPOFOL 1,000 MG in EMPTY BAG 1 BAG IV SCH (15:57)
[2018-09-13 16:00] LABS: Basophils % (A) 0 %; Eosinophils # (A) 0.1 k/uL (0-0.7); Eosinophils % (A) 0 %; HCT 51.9 % (34.0-46.0); HGB 16.3 gm/dL (11.4-16.0); Lymphocytes # (A) 0.6 k/uL (1.0-4.8); Lymphocytes % (A) 5 %; MCH 32.5 pg (25.0-35.0); MCHC 31.4 g/dL (31.0-37.0); MCV 103.4 fL (80.0-100.0); Macrocytosis Slight; Mean Platelet Volume 8.2; Monocytes # (A) 0.3 k/uL (0-1.0); Monocytes % (A) 2 %; Neutrophils # (A) 11.7 k/uL (1.3-7.7); Neutrophils % (A) 92 %; Platelet Count 276 k/uL (150-450); RBC 5.01 m/uL (3.80-5.40); RDW 14.4 % (11.5-15.5); WBC 12.7 k/uL (3.8-10.6)
[2018-09-13] MEDS: LORazepam 2 MG/ML INJ IV PRN ×2 (16:00→16:03)
[2018-09-13 16:03] LABS: ABG Base Excess 21.5 mmol/L; ABG Oxygen Saturation 85.7 % (94-97); ABG PCO2 70 mmHg (35-45); ABG PH 7.42 (7.35-7.45); ABG TCO2 48 mmol/L (19-24); Allen Test Performed? Yes
[2018-09-13 16:08] LABS: ABG HCO3 46 mmol/L (21-25); ABG PO2 48 mmHg (83-108)
[2018-09-13 16:10] LABS: ALT 63 U/L (9-52); AST 48 U/L (14-36); Albumin 3.7 g/dL (3.5-5.0); Alkaline Phosphatase 244 U/L (38-126); Blood Urea Nitrogen 11 mg/dL (7-17); Calcium 10.2 mg/dL (8.4-10.2); Chloride 91 mmol/L (98-107); Creatine Kinase <20 U/L (30-135); Glucose 119 mg/dL (74-99); INR 0.9 (<1.2); Partial Thromboplastin Time 22.2 sec (22.0-30.0); Potassium 4.1 mmol/L (3.5-5.1); Prothrombin Time 9.6 sec (9.0-12.0); Sodium 142 mmol/L (137-145); Total Bilirubin 0.6 mg/dL (0.2-1.3); Total Protein 7.2 g/dL (6.3-8.2)
[2018-09-13 16:17] LABS: African American GFR (CKD) >90 (>60 ml/min/1.73 sqM); Anion Gap 6 mmol/L
[2018-09-13 16:19] LABS: Carbon Dioxide 45 mmol/L (22-30)
--- NOTE | 2018-09-13 16:22 | XR ---
EXAMINATION TYPE: XR chest 1V portable DATE OF EXAM: 09/13/2018 COMPARISON: 09/13/2018 HISTORY: Shortness of breath TECHNIQUE: Single frontal view of the chest is obtained. FINDINGS: Bilateral consolidation and small right effusion are stable. Nodule right upper lobe stabl e. ET and NG tube and right-sided chest tube stable. Does appear to be a pneumothorax on the right wh ich is reduced in size measuring approximately 5-10%. Postsurgical change overlying the cervical spin e noted. IMPRESSION: 1. There is a small right-sided pneumothorax measuring approximately 5-10%. 2. Stable bilateral consolidation and small right effusion. 3. Stable right upper lobe pulmonary mass.
[2018-09-13 16:47] LABS: Appearance,Urine Clear (Clear); Bilirubin,Urine Negative (Negative); Blood,Urine Trace (Negative); Color,Urine Yellow; Glucose,Urine (UA) Negative (Negative); Ketones,Urine Negative (Negative); Leukocyte Esterase,Urine Negative (Negative); Mucus,Urine Rare /hpf; Nitrite,Urine Negative (Negative); PH, Urine 5.5 (5.0-8.0); Protein,Urine 2+ (Negative); RBC,Urine 2 /hpf (0-5); Specific Gravity,Urine 1.014 (1.001-1.035); Urobilinogen,Urine <2.0 mg/dL (<2.0); WBC,Urine 2 /hpf (0-5)
[2018-09-13] MEDS ORDERED: SODIUM CHLORIDE 0.9% 1,000 ML IV STA (16:51)
[2018-09-13] MEDS ORDERED: SODIUM CHLORIDE 0.9% 500 ML 500 ML IV STA (16:51)
[2018-09-13 17:02] LABS: Amphetamine Screen,Urine Not Detected (NotDetected); Barbiturate Screen,Urine Not Detected (NotDetected); Benzodiazepines Screen,Urine Detected (NotDetected); Cocaine Screen,Urine Not Detected (NotDetected); Methadone Screen, Urine Not Detected (NotDetected); Opiate Screen,Urine Not Detected (NotDetected); Oxycodone Screen, Urine Not Detected (NotDetected); Phencyclidine Screen,Urine Not Detected (NotDetected); Tricyclic Antidepressant,Urine Not Detected (NotDetected); Urn Cannabinoid Scrn Detected (NotDetected)
[2018-09-13] MEDS: CISATRACURIUM 2 MG/ML 5 ML VIAL IV ONE ×2 (17:07→19:07)
--- NOTE | 2018-09-13 17:15 | CT ---
EXAMINATION TYPE: CT brain wo con DATE OF EXAM: 09/13/2018 COMPARISON: 11/06/2015 HISTORY: Altered mental status. CT DLP: 1141.4 mGycm Automated exposure control for dose reduction was used. FINDINGS: There is diffuse hypodensity in the periventricular white matter. There is no mass effect nor midline shift. There is no sign of intracranial hemorrhage. There is extensive fluid density in the posterio r nasopharynx. The calvarium is intact. IMPRESSION: COMPARED TO LAST EXAM THERE IS DEVELOPMENT OF EXTENSIVE WHITE MATTER DISEASE WITH DIFFUSE HYPODENSITY . THIS COULD RELATE TO CEREBRAL ANOXIA SUCH CARBON MONOXIDE POISONING. CLINICAL CORRELATION NEEDED . THERE IS NEW EXTENSIVE RETROPHARYNGEAL FLUID IN THE POSTERIOR NASOPHARYNX COMPARED TO OLD EXAM THAT M AY RELATE TO INFLAMMATORY DISEASE.
[2018-09-13] MEDS ORDERED: NALOXONE 0.4 MG/ML 1 ML VIAL IV PRN (17:32)
--- NOTE | 2018-09-13 17:40 | CT ---
EXAMINATION TYPE: CT angio chest DATE OF EXAM: 09/13/2018 5:04 PM COMPARISON: 09/06/2018 HISTORY: Difficulty breathing. CT DLP: 172.2 mGycm Automated exposure control for dose reduction was used. CONTRAST: CTA scan of the thorax is performed with IV Contrast, patient injected with 79ml mL of Isovue 370, pu lmonary embolism protocol. There are 3-D post processed images.. FINDINGS: There is endotracheal tube. There is small right apical pneumothorax. There is moderate size right pl eural effusion. There is extensive infiltrate and atelectasis in the lower lung rodriguez in the lower l obes. There is 2 cm pleural-based calcification on the right upper lobe anterior chest wall. There is a right chest tube noted. Thoracic aorta shows no aneurysm or dissection. The ascending aorta measures 3.3 cm. There is normal contrast opacification of the pulmonary arteries. I see no filling defects. The bony thorax is intact. IMPRESSION: NO EVIDENCE OF PULMONARY EMBOLISM. MODERATE RIGHT PLEURAL EFFUSION WITH BILATERAL LOWER LOBE PNEUMONI C CONSOLIDATION AND ATELECTASIS. SMALL RIGHT APICAL PNEUMOTHORAX. PLEURAL FLUID DECREASED COMPARED TO OLD CT SCAN. THERE IS IMPROVED AERATION OF RIGHT LUNG COMPARED TO OLD EXAM. LEFT LOWER LOBE CONSOLIDATION AND ATE LECTASIS IS NEW COMPARED TO OLD EXAM.
[2018-09-13 18:00] LABS: ABG Base Excess 17.8 mmol/L; ABG PCO2 49 mmHg (35-45); ABG PH 7.52 (7.35-7.45); ABG PO2 180 mmHg (83-108); ABG TCO2 42 mmol/L (19-24); Allen Test Performed? Yes
[2018-09-13 18:08] LABS: ABG HCO3 41 mmol/L (21-25)
--- NOTE | 2018-09-13 18:18 | P.CNPUL ---
History of Present Illness Consult date: 09/13/18 Chief complaint: Unresponsiveness History of present illness: A 57-year-old female patient presented emergency department unresponsive. Apparently she was getting progressively more lethargic and earlier this morning. Her has been checking her pulse ox and he has noted a drop in her pulse ox down to the 88-89% range. The patient subsequently became completely unresponsive. EMS was called to the scene. The patient had lower pulse ox. Blood sugar was 109. Upon arrival to the emergency department she was completely unresponsive any she was intubated on the spot and placed on mechanical ventilator. Post intubation, the blood gases showed severe hypoxemia with a pH of 7.4 with a pCO2 of 70 and pO2 48. The patient was placed on assist control mode of ventilation at the rate of 18, FiO2 of 100% with a PEEP of 5 and tidal volume of 450. The patient had a CT angiogram of the chest and there was no evidence of any pulmonary embolism. There is a moderate-sized right-sided pleural effusion with bilateral lower lobe consolidation/atelectasis. Small right apical pneumothorax was present. Pleurx catheter is in the right hemithorax and nitroglycerin drip location. There is improved aeration in the right lung compared to the older chest x-ray and CAT scan. There is an ET tube in good location. The patient is hemodynamically stable. No hypotension. She has 2 IV lines and the patient has been on IV fluids for now. Post intubation, she started having some increased movement and activity and restlessness while o n the mechanical ventilator and she was started on propofol infusion. CAT scan of the brain was done that showed increase in white matter changes and this obviously raises concern for hypoxic encephalopathy. Nevertheless the previous CAT scans was compared was back in 2016. No seizure activity. No reported aspiration. No reported chest pain. No fever. No chills. Note that the patient was in the hospital and the patient was discharged home on 09/10/2018 after having 2 different thoracentesis of the pleural fluid coming back positive for poorly differentiated non-small cell lung cancer. The patient for now has a Pleurx catheter in place and the less drainage was done yesterday without a total of 1 L of fluid was taken out at home. Her current Pleurx is attached to a Pleur-evac and output is minimal at this point without evidence of any air leak. The patient has history of COPD. She has a chronic smoker. She has survived AML and she is post chemotherapy and bone marrow transplantation and according to the reported history she has been in remission and the recent flow cytometry was negative for malignancy. The patient is profoundly cachectic and malnourished. She has been meeting her caloric requirements at home. 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 History of Grade I Gastric GVHD. History of Any Multi-Drug Resistant Organisms: None Reported Past Surgical History: Orthopedic Surgery, Tubal Ligation Additional Past Surgical History / Comment(s): Cervical fusion 2005, Bilateral carpal tunnel, BONE MARROW BX. 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 Mother Family Medical History: Cancer Additional Family Medical History / Comment(s): Mother at age 49yrs of uterine cancer. Pt's several aunts all had cancers of various origins as well as her grandmother. Medications and Allergies Home Medications Medication Instructions Recorded Confirmed Type Multivitamin/Iron/Folic Acid 1 tab PO DAILY@0800 07//09/13/18 History [Centrum Complete Multivit Tab] Gabriel/D3/Mag11/Zinc/Picture Frame Maker/Kashif/Bor 1 tab PO BID@0800,1700 09/04/18 09/13/18 History [Caltrate 600+D Plus Tablet] Hydrocortisone 10 mg PO DAILY@1700 09/04/18 09/13/18 History Hydrocortisone 20 mg PO DAILY@0800 09/04/18 09/13/18 History Ibuprofen [Motrin] 800 mg PO Q8H PRN 09/04/18 09/13/18 History Ipratropium/Albuterol Sulfate 1 puff INHALATION RT-BID PRN 09/04/18 09/13/18 History [Combivent Respimat Inhaler] LORazepam [Ativan] 0.5 mg PO Q46H PRN 09/04/18 09/13/18 History Pentoxifylline [TRENtal] 400 mg PO BID@0800,1700 09/04/18 09/13/18 History Vitamin E (Dl,Tocopheryl Acet) 400 unit PO BID@0800,1700 09/04/18 09/13/18 History [Vitamin E] Megestrol [Megace] 40 mg PO TID 09/13/18 09/13/18 History Allergies Allergy/AdvReac Type Severity Reaction Status Date / Time cefepime Allergy Unknown Face Verified 09/13/18 15:32 Swelling, Rash chlorhexidine Allergy Unknown Verified 09/13/18 15:32 Penicillins Allergy Unknown Verified 09/13/18 15:32 Childhood Physical Exam Vitals: Vital Signs Temp Pulse Resp BP Pulse Ox 09/13/18 17:45 105 H 22 97/64 100 09/13/18 17:35 111 H 24 104/71 100 09/13/18 17:25 112 H 24 101/76 100 09/13/18 17:10 112 H 24 104/64 99 09/13/18 17:00 115 H 26 H 108/87 97 09/13/18 16:35 117 H 26 H 93/68 95 09/13/18 16:30 120 H 26 H 88/61 91 L 09/13/18 16:25 124 H 27 H 80/57 90 L 09/13/18 16:15 131 H 27 H 100/77 89 L 09/13/18 16:05 134 H 27 H 101/66 86 L 09/13/18 15:55 142 H 26 H 125/94 88 L 09/13/18 15:45 140 H 27 H 129/86 96 09/13/18 15:35 126 H 137/78 98 09/13/18 15:30 153 H 30 H 153/92 98 09/13/18 15:22 97.5 F L 112 H 30 H 153/97 97 Intake and Output 09/13/18 09/13/18 09/13/18 06:59 14:59 22:59 Intake Total 3.923 Balance 3.923 Intake: Intake, IV Titration 3.923 Amount Propofol 1,000 mg In 3.923 Empty Bag 1 bag @ Titrate IV .Q0M [facility] Rx#: [id number] Other: Weight 49.033 kg The patient is sedated, comfortable mechanical ventilated intubated with an orogastric and orotracheal tube are both in place. She looks profoundly cachectic and emaciated, looks way or other than her stated age. Head exam was generally normal. There was no scleral icterus or corneal arcus. Mucous membranes were moist. Neck was supple and without jugular venous distension, thyromegaly, or carotid bruits. Carotids were easily palpable bilaterally. There was no adenopathy. Orogastric and orotracheal tube are both in place Lungs sounds are diminished bilaterally along with scattered rhonchi and scattered expiratory wheezes throughout the lung rodriguez and there is obvious prolongation of the expiratory phase of breathing. There is a right-sided Pleurx catheter in place attached to a Pleur-evac. No evidence of any air leak at this point in time. Output is minimal. Cardiac exam revealed the PMI to be normally situated and sized. The rhythm was regular and no extrasystoles were noted during several minutes of auscultation. The first and second heart sounds were normal and physiologic splitting of the second heart sound was noted. There were no murmurs, rubs, clicks, or gallops. Abdominal exam revealed normal bowel sounds. The abdomen was soft, non-tender, and without masses, organomegaly, or appreciable enlargement of the abdominal aorta. Examination of the extremities revealed easily palpable radial, femoral and pedal pulses. There was no cyanosis, clubbing or edema. There is significant muscle atrophy in all 4 extremities Examination of the skin revealed no evidence of significant rashes, suspicious appearing nevi or other concerning lesions. Neurologic the patient is sedated and calm and comfortable synchronous the mechanical ventilator. Results - Laboratory Findings CBC and BMP: 09/13/18 15:26 09/13/18 15:26 ABG ABG pH 7.42 (7.35-7.45) 09/13/18 15:59 ABG pCO2 70 mmHg (35-45) H 09/13/18 15:59 ABG pO2 48 mmHg (83-108) L* 09/13/18 15:59 ABG O2 Saturation 85.7 % (94-97) L 09/13/18 15:59 PT/INR, D-dimer PT 9.6 sec (9.0-12.0) 09/13/18 15:26 INR 0.9 (<1.2) 09/13/18 15:26 Abnormal lab findings: Abnormal Labs 09/13/18 09/13/18 09/13/18 15:26 15:26 15:26 WBC 12.7 H Hgb 16.3 H Hct 51.9 H MCV 103.4 H Neutrophils # 11.7 H Lymphocytes # 0.6 L ABG pCO2 ABG pO2 ABG HCO3 ABG Total CO2 ABG O2 Saturation Chloride 91 L Carbon Dioxide 45 H* Creatinine <0.15 L Glucose 119 H AST 48 H ALT 63 H Alkaline Phosphatase 244 H Creatine Kinase <20 L Troponin I 0.049 H* Urine Protein Urine Blood Urine Mucus U Benzodiazepines Scrn U Marijuana (THC) Screen 09/13/18 09/13/18 15:59 16:38 WBC Hgb Hct MCV Neutrophils # Lymphocytes # ABG pCO2 70 H ABG pO2 48 L* ABG HCO3 46 H* ABG Total CO2 48 H ABG O2 Saturation 85.7 L Chloride Carbon Dioxide Creatinine Glucose AST ALT Alkaline Phosphatase Creatine Kinase Troponin I Urine Protein 2+ H Urine Blood Trace H Urine Mucus Rare H U Benzodiazepines Scrn Detected H U Marijuana (THC) Screen Detected H - Diagnostic Findings Chest x-ray: image reviewed CT scan - chest: image reviewed Assessment and Plan Plan: 1 acute on chronic hypoxic respiratory failure, exact etiology is not clear. Suspect COPD exacerbation/pneumonia. Pulmonary embolism was ruled out based on the CT angiogram of the chest. CAT scan showed lower lobe consolidation in the lung bases bilaterally. Rule out also the possibility of an aspiration. 2 acute ventilator-dependent respiratory failure secondary to above 3 stage IV non-small cell lung cancer with poorly differentiated, with a positive pleural fluid. 4 malignant right-sided pleural effusion postthoracentesis subsequent Pleurx catheter insertion 5 severe cachexia and malnourishment 6 COPD exacerbation. 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 Necessary vent changes will be done. Will drop the tidal volume to 400s. Will drop the respiratory rate. Keep the patient sedated for now. Gradually wean down the FiO2 to maintain a saturation above 90%. Keep the patient sedated with propofol. Start the patient on DuoNeb nebulized treatments around the clock. IV Solu Medrol. IV Zosyn. Sputum Gram stain and culture. Attached to Pleurx catheter to a Pleur- evac and monitor the output. No evidence of any air leak and there is no evidence of any significant sizable pneumothorax at this point in time. Obtain blood cultures. IV fluids with normal state rate of 100 mL an hour. Initiate tube feeds with vital high protein. IV Protonix. Heparin subcu for DVT prophylaxis. CAT scan of the chest was noted. CAT scan of the brain was noted. Echocardiogram in a.m. Check cardiac enzymes. Condition is critical. P rognosis poor baseline above-mentioned comorbidities. The patient will be transferred to the ICU and I will continue following up this patient's care lung with aggressive the consultants. Time with Patient: Greater than 30
[2018-09-13 18:30] LABS: Glucose,Whole Blood 106 mg/dL (75-99)
[2018-09-13] MEDS: CLINDAMYCIN 600 MG in DEXTROSE 5% IN WATER 50 ML IVPB SCH ×2 (18:52)
[2018-09-13] MEDS: SODIUM CHLORIDE 0.9% 1,000 ML IV SCH (18:52)
[2018-09-13 19:57] LABS: ABG Base Excess 15.8 mmol/L; ABG HCO3 39 mmol/L (21-25); ABG Oxygen Saturation 92.1 % (94-97); ABG PCO2 48 mmHg (35-45); ABG PH 7.52 (7.35-7.45); ABG TCO2 40 mmol/L (19-24)
[2018-09-13 20:00] LABS: ABG PO2 59 mmHg (83-108)
--- NOTE | 2018-09-13 20:22 | XR ---
EXAMINATION TYPE: XR chest 1V DATE OF EXAM: 09/13/2018 COMPARISON: Today at 4:00 PM HISTORY: Hypoxemia TECHNIQUE: Single frontal view of the chest is obtained. FINDINGS: There is endotracheal tube with the tip 5 cm from the [place]. There is right-sided chest t ube with the tip over the right lung apex. There is small right-sided pneumothorax. There is mild aubrie nting of costophrenic angles. There is no gross heart failure. There is nasogastric tube with the tip in the stomach. IMPRESSION: There is decreased right pleural effusion and right lower lobe infiltrate compared to ex am earlier. There is increasing infiltrate and atelectasis left lung base compared to last exam.
[2018-09-13] MEDS: BUDESONIDE 0.5 MG/2 ML NEBU INHALATION SCH (20:27)
[2018-09-13] MEDS: FORMOTEROL FUMARATE 20 MCG/2 ML NEBU INHALATION SCH (20:27)
[2018-09-13] MEDS: IPRATROPIUM-ALBUTEROL 3 ML NEB INHALATION PRN (20:27)
[2018-09-13] MEDS: LEVOFLOXACIN 750MG-D5W PMX 750 MG in DEXTROSE/WATER 1 150ML.BAG IVPB SCH (20:38)
[2018-09-13] MEDS: methylPREDNISolone SOD SUCCI 125 MG/2 ML VIAL IV SCH (20:39)
[2018-09-13] MEDS: ENOXAPARIN 40 MG/0.4 ML SYRINGE SQ SCH (20:39)
--- NOTE | 2018-09-13 22:17 | PCN ---
PROCEDURE NOTE TRIPLE LUMEN CATHETER PLACEMENT: Indication Hemodynamic monitoring/Intravenous access. PREOPERATIVE DIAGNOSIS: Acute hypoxic respiratory failure. POSTOPERATIVE DIAGNOSIS: Acute hypoxic respiratory failure. PROCEDURE: Insertion of triple-lumen catheter (right femoral vein). A time-out was completed verifying correct patient, procedure, site, positioning, and implant(s) or special equipment if applicable. The patient was placed in a dependent position appropriate for triple lumen catheter placement based on the vein to be cannulated. The patient's right groin was prepped and draped in sterile fashion. 1% Lidocaine was used to anesthetize the surrounding skin area. A triple lumen 9F Cordis catheter was introduced into the femoral vein using Seldinger technique. The catheter was threaded smoothly over the guide wire and appropriate blood return was obtained. Each lumen of the catheter was evacuated of air and flushed with sterile saline. The catheter was then sutured in place to the skin and a sterile dressing applied. Perfusion to the extremity distal to the point of catheter insertion was checked and found to be adequate. No complications. MMODL / IJN: [id number] /
--- NOTE | 2018-09-13 22:18 | PCN ---
PROCEDURE NOTE ARTERIAL LINE PLACEMENT: Indications: Hemodynamic monitoring. A time-out was completed verifying correct patient, procedure, site, positioning, and implant(s) or special equipment if applicable. Fadi's test was performed to ensure adequate perfusion. The patient's right wrist was prepped and draped in sterile fashion. 1% Lidocaine was used to anesthetize the area. An 18G Arrow arterial line was introduced into the radial artery. The catheter was threaded over the guide wire and the needle was removed with appropriate pulsatile blood return. Blood loss was minimal. The catheter was then sutured in place to the skin and a sterile dressing applied. Perfusion to the extremity distal to the point of catheter insertion was checked and found to be adequate. The patient tolerated the procedure well and there were no bedside complications or bleeding. MMODL / IJN: [id number] /
[2018-09-13 23:58] LABS: Glucose,Whole Blood 113 mg/dL (75-99)
[2018-09-14] MEDS: methylPREDNISolone SOD SUCCI 125 MG/2 ML VIAL IV SCH ×5 (00:01→23:53)
[2018-09-14] MEDS: CLINDAMYCIN 600 MG in DEXTROSE 5% IN WATER 50 ML IVPB SCH ×8 (00:01→23:53)
[2018-09-14] MEDS: PROPOFOL 1,000 MG in EMPTY BAG 1 BAG IV SCH ×3 (00:02→19:02)
[2018-09-14] MEDS: LORazepam 2 MG/ML INJ IV PRN (02:26)
[2018-09-14] MEDS: SODIUM CHLORIDE 0.9% 1,000 ML IV SCH ×2 (04:15→16:03)
[2018-09-14 04:22] LABS: ABG Base Excess 12.1 mmol/L; ABG HCO3 37 mmol/L (21-25); ABG Oxygen Saturation 96.9 % (94-97); ABG PCO2 56 mmHg (35-45); ABG PH 7.42 (7.35-7.45); ABG PO2 94 mmHg (83-108); ABG TCO2 38 mmol/L (19-24)
[2018-09-14 04:34] LABS: Basophils % (A) 0 %; Eosinophils # (A) 0.1 k/uL (0-0.7); Eosinophils % (A) 0 %; HCT 42.3 % (34.0-46.0); Lymphocytes # (A) 0.5 k/uL (1.0-4.8); Lymphocytes % (A) 4 %; MCH 31.9 pg (25.0-35.0); MCHC 31.3 g/dL (31.0-37.0); MCV 101.9 fL (80.0-100.0); Macrocytosis Slight; Mean Platelet Volume 8.2; Monocytes # (A) 0.2 k/uL (0-1.0); Monocytes % (A) 2 %; Neutrophils # (A) 12.1 k/uL (1.3-7.7); Neutrophils % (A) 94 %; Platelet Count 259 k/uL (150-450); RBC 4.16 m/uL (3.80-5.40); RDW 14.4 % (11.5-15.5); WBC 12.9 k/uL (3.8-10.6)
[2018-09-14 04:35] LABS: HGB 13.3 gm/dL (11.4-16.0)
[2018-09-14 04:36] LABS: ALT 52 U/L (9-52); AST 30 U/L (14-36); African American GFR (CKD) >90 (>60 ml/min/1.73 sqM); Albumin 2.7 g/dL (3.5-5.0); Alkaline Phosphatase 157 U/L (38-126); Anion Gap 3 mmol/L; Blood Urea Nitrogen 11 mg/dL (7-17); Calcium 8.7 mg/dL (8.4-10.2); Carbon Dioxide 38 mmol/L (22-30); Chloride 101 mmol/L (98-107); Glucose 113 mg/dL (74-99); Potassium 3.2 mmol/L (3.5-5.1); Sodium 142 mmol/L (137-145); Total Bilirubin 0.6 mg/dL (0.2-1.3); Total Protein 5.2 g/dL (6.3-8.2)
[2018-09-14 04:42] LABS: Allen Test Performed? no
[2018-09-14] MEDS ORDERED: Potassium Replacement Protocol 1 EACH MISC MISCELLANE PRN (04:58)
[2018-09-14] MEDS: POTASSIUM BICARBONATE/CIT AC 20 MEQ TABLET.EFF NG-TUBE SCH ×2 (05:18→06:19)
--- NOTE | 2018-09-14 07:14 | P.HPIM ---
History of Present Illness This is a pleasant 57 years old female with past medical history of CVA/TIA, syncope, stage IV non-small cell lung cancer with pleural effusion, malignant in nature status post Pleurx catheter in a Place. 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 And ward IV access in the right chest. Presents with respiratory distress and decreased responsiveness. Patient got intubated in the emergency room. Pulmonary critical care team already evaluated the patient. Currently vital shown blood pressure 105/81, heart rate 101, she is saturating 98% on FiO2 60 and she is breathing rate is 28/m. Patient is afebrile. Labs reviewed showing mild leukocytosis of 12.9 K. Hemoglobin 13.3. Potassium was low at 3.2. Creatinine 0.27. Liver enzymes not elevated. 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 History of Grade I Gastric GVHD. History of Any Multi-Drug Resistant Organisms: None Reported Past Surgical History: Orthopedic Surgery, Tubal Ligation Additional Past Surgical History / Comment(s): Cervical fusion 2005, Bilateral carpal tunnel, BONE MARROW BX. 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 Mother Family Medical History: Cancer Additional Family Medical History / Comment(s): Mother at age 49yrs of uterine cancer. Pt's several aunts all had cancers of various origins as well as her grandmother. Medications and Allergies Home Medications Medication Instructions Recorded Confirmed Type Multivitamin/Iron/Folic Acid 1 tab PO DAILY@0800 11/06/15 09/13/18 History [Centrum Complete Multivit Tab] Gabriel/D3/Mag11/Zinc/Director Payment/Kashif/Bor 1 tab PO BID@0800,1700 09/04/18 09/13/18 History [Caltrate 600+D Plus Tablet] Hydrocortisone 10 mg PO DAILY@1700 09/04/18 09/13/18 History Hydrocortisone 20 mg PO DAILY@0800 09/04/18 09/13/18 History Ibuprofen [Motrin] 800 mg PO Q8H PRN 09/04/18 09/13/18 History Ipratropium/Albuterol Sulfate 1 puff INHALATION RT-BID PRN 09/04/18 09/13/18 History [Combivent Respimat Inhaler] LORazepam [Ativan] 0.5 mg PO Q46H PRN 09/04/18 09/13/18 History Pentoxifylline [TRENtal] 400 mg PO BID@0800,1700 09/04/18 09/13/18 History Vitamin E (Dl,Tocopheryl Acet) 400 unit PO BID@0800,1700 09/04/18 09/13/18 History [Vitamin E] Megestrol [Megace] 40 mg PO TID 09/13/18 09/13/18 History Allergies Allergy/AdvReac Type Severity Reaction Status Date / Time cefepime Allergy Unknown Face Verified 09/13/18 15:32 Swelling, Rash chlorhexidine Allergy Unknown Verified 09/13/18 15:32 Penicillins Allergy Unknown Verified 09/13/18 15:32 Childhood Physical Exam Vitals: Vital Signs Temp Pulse Resp BP Pulse Ox 09/14/18 06:00 107 H 28 H 91/64 97 09/14/18 05:00 106 H 28 H 96/63 96 09/14/18 04:00 99.0 F 109 H 29 H 92/61 97 09/14/18 03:00 107 H 28 H 92/61 96 09/14/18 02:00 110 H 28 H 91/54 95 09/14/18 01:00 105 H 28 H 98 09/14/18 00:08 93 31 H 98 09/14/18 00:00 98.1 F 95 32 H 97 09/13/18 23:00 92 28 H 97 09/13/18 22:00 99 28 H 96 09/13/18 21:02 86 09/13/18 21:00 90 28 H 94 L 09/13/18 20:51 89 09/13/18 20:30 87 09/13/18 20:00 98.2 F 87 28 H 95 09/13/18 19:00 100 29 H 87 L 09/13/18 18:10 105 H 22 112/54 98 09/13/18 18:00 98.6 F 99 18 104/72 100 09/13/18 17:55 99 22 104/72 100 09/13/18 17:45 105 H 22 97/64 100 09/13/18 17:35 111 H 24 104/71 100 09/13/18 17:25 112 H 24 101/76 100 09/13/18 17:10 112 H 24 104/64 99 09/13/18 17:00 115 H 26 H 108/87 97 09/13/18 16:35 117 H 26 H 93/68 95 09/13/18 16:30 120 H 26 H 88/61 91 L 09/13/18 16:25 124 H 27 H 80/57 90 L 09/13/18 16:15 131 H 27 H 100/77 89 L 09/13/18 16:05 134 H 27 H 101/66 86 L 09/13/18 16:00 141 H 35 H 125/94 87 L 09/13/18 15:55 142 H 26 H 125/94 88 L 09/13/18 15:45 140 H 27 H 129/86 96 09/13/18 15:35 126 H 137/78 98 09/13/18 15:30 153 H 30 H 153/92 98 09/13/18 15:24 112 H 11 L 96 09/13/18 15:22 97.5 F L 112 H 30 H 153/97 97 Intake and Output 09/13/18 09/14/18 09/14/18 22:59 06:59 14:59 Intake Total 2700.439 1034.858 Output Total 605 1120 Balance 2095.439 -85.142 Intake: IV 2641 930 Clindamycin 600 mg In 50 50 Dextrose 5% in Water 50 ml @ 50 mls/hr IVPB Q8HR [facility] Rx#:[id number] Levofloxacin 750Mg-D5w 150 Pmx 750 mg In Dextrose/ Water 1 150ml.bag @ 100 mls/hr IVPB Q24H [facility] Rx#: [id number] Sodium Chloride 0.9% 1, 1 000 ml @ 100 mls/hr IV . Q10H [facility] Rx#:[id number] Sodium Chloride 0.9% 1, 440 880 000 ml @ 110 mls/hr IV . Q9H6M [facility] Rx#:[id number] Sodium Chloride 0.9% 1, 2000 000 ml @ 999 mls/hr IV . Q1H1M [facility] Rx#:[id number] Intake, IV Titration 59.439 104.858 Amount Clindamycin 600 mg In 50 Dextrose 5% in Water 50 ml @ 50 mls/hr IVPB Q8HR [facility] Rx#:[id number] Propofol 1,000 mg In 9.439 104.858 Empty Bag 1 bag @ Titrate IV .Q0M [facility] Rx#: [id number] Output: Chest Tube Drainage 230 150 Pleural Catheter Right 230 150 Lower Anterior Chest Gastric Drainage 150 Urine 375 820 Other: Voiding Method Indwelling Catheter Indwelling Catheter Weight 49.033 kg 47.2 kg ABP, PAP, CO, CI - Last 8 Hours Arterial Blood Pressure 106/59 Arterial Blood Pressure 96/58 Arterial Blood Pressure 99/60 Arterial Blood Pressure 97/56 Arterial Blood Pressure 102/58 Arterial Blood Pressure 107/58 Arterial Blood Pressure 112/58 Arterial Blood Pressure 106/54 -GENERAL: The patient is intubated and sedated. She is thin build HEENT: Pupils are round and equally reacting to light. EOMI. No scleral icterus. No conjunctival pallor. Normocephalic, atraumatic. No pharyngeal erythema. No thyromegaly. CARDIOVASCULAR: S1 and S2 present. No murmurs, rubs, or gallops. PULMONARY: Chest is clear to auscultation, no wheezing or crackles. ABDOMEN: Soft, nontender, nondistended, normoactive bowel sounds. No palpable organomegaly. MUSCULOSKELETAL: No joint swelling or deformity. EXTREMITIES: No cyanosis, clubbing, or pedal edema. NEUROLOGICAL: Gross neurological examination did not reveal any focal deficits. SKIN: No rashes. Results CBC & Chem 7: 09/14/18 04:12 09/14/18 04:12 Labs: Abnormal Lab Results - Last 24 Hours (Table) 09/13/18 09/13/18 09/13/18 Range/Units 15:26 15:26 15:26 WBC 12.7 H (3.8-10.6) k/uL Hgb 16.3 H (11.4-16.0) gm/dL Hct 51.9 H (34.0-46.0) % MCV 103.4 H (80.0-100.0) fL Neutrophils # 11.7 H (1.3-7.7) k/uL Lymphocytes # 0.6 L (1.0-4.8) k/uL ABG pH (7.35-7.45) ABG pCO2 (35-45) mmHg ABG pO2 (83-108) mmHg ABG HCO3 (21-25) mmol/L ABG Total CO2 (19-24) mmol/L ABG O2 Saturation (94-97) % Potassium (3.5-5.1) mmol/L Chloride 91 L (98-107) mmol/L Carbon Dioxide 45 H* (22-30) mmol/L Creatinine <0.15 L (0.52-1.04) mg/dL Glucose 119 H (74-99) mg/dL POC Glucose (mg/dL) (75-99) mg/dL AST 48 H (14-36) U/L ALT 63 H (9-52) U/L Alkaline Phosphatase 244 H (38-126) U/L Creatine Kinase <20 L (30-135) U/L Troponin I 0.049 H* (0.000-0.034) ng/mL Total Protein (6.3-8.2) g/dL Albumin (3.5-5.0) g/dL Urine Protein (Negative) Urine Blood (Negative) Urine Mucus (None) /hpf U Benzodiazepines Scrn (NotDetected) U Marijuana (THC) Screen (NotDetected) 09/13/18 09/13/18 09/13/18 Range/Units 15:59 16:38 17:56 WBC (3.8-10.6) k/uL Hgb (11.4-16.0) gm/dL Hct (34.0-46.0) % MCV (80.0-100.0) fL Neutrophils # (1.3-7.7) k/uL Lymphocytes # (1.0-4.8) k/uL ABG pH 7.52 H (7.35-7.45) ABG pCO2 70 H 49 H (35-45) mmHg ABG pO2 48 L* 180 H (83-108) mmHg ABG HCO3 46 H* 41 H* (21-25) mmol/L ABG Total CO2 48 H 42 H (19-24) mmol/L ABG O2 Saturation 85.7 L 98.0 H (94-97) % Potassium (3.5-5.1) mmol/L Chloride (98-107) mmol/L Carbon Dioxide (22-30) mmol/L Creatinine (0.52-1.04) mg/dL Glucose (74-99) mg/dL POC Glucose (mg/dL) (75-99) mg/dL AST (14-36) U/L ALT (9-52) U/L Alkaline Phosphatase (38-126) U/L Creatine Kinase (30-135) U/L Troponin I (0.000-0.034) ng/mL Total Protein (6.3-8.2) g/dL Albumin (3.5-5.0) g/dL Urine Protein 2+ H (Negative) Urine Blood Trace H (Negative) Urine Mucus Rare H (None) /hpf U Benzodiazepines Scrn Detected H (NotDetected) U Marijuana (THC) Screen Detected H (NotDetected) 09/13/18 09/13/18 09/13/18 Range/Units 18:25 19:53 23:56 WBC (3.8-10.6) k/uL Hgb (11.4-16.0) gm/dL Hct (34.0-46.0) % MCV (80.0-100.0) fL Neutrophils # (1.3-7.7) k/uL Lymphocytes # (1.0-4.8) k/uL ABG pH 7.52 H (7.35-7.45) ABG pCO2 48 H (35-45) mmHg ABG pO2 59 L* (83-108) mmHg ABG HCO3 39 H (21-25) mmol/L ABG Total CO2 40 H (19-24) mmol/L ABG O2 Saturation 92.1 L (94-97) % Potassium (3.5-5.1) mmol/L Chloride (98-107) mmol/L Carbon Dioxide (22-30) mmol/L Creatinine (0.52-1.04) mg/dL Glucose (74-99) mg/dL POC Glucose (mg/dL) 106 H 113 H (75-99) mg/dL AST (14-36) U/L ALT (9-52) U/L Alkaline Phosphatase (38-126) U/L Creatine Kinase (30-135) U/L Troponin I (0.000-0.034) ng/mL Total Protein (6.3-8.2) g/dL Albumin (3.5-5.0) g/dL Urine Protein (Negative) Urine Blood (Negative) Urine Mucus (None) /hpf U Benzodiazepines Scrn (NotDetected) U Marijuana (THC) Screen (NotDetected) 09/14/18 09/14/18 09/14/18 Range/Units 04:12 04:12 04:20 WBC 12.9 H (3.8-10.6) k/uL Hgb (11.4-16.0) gm/dL Hct (34.0-46.0) % MCV 101.9 H (80.0-100.0) fL Neutrophils # 12.1 H (1.3-7.7) k/uL Lymphocytes # 0.5 L (1.0-4.8) k/uL ABG pH (7.35-7.45) ABG pCO2 56 H (35-45) mmHg ABG pO2 (83-108) mmHg ABG HCO3 37 H (21-25) mmol/L ABG Total CO2 38 H (19-24) mmol/L ABG O2 Saturation (94-97) % Potassium 3.2 L (3.5-5.1) mmol/L Chloride (98-107) mmol/L Carbon Dioxide 38 H (22-30) mmol/L Creatinine 0.27 L (0.52-1.04) mg/dL Glucose 113 H (74-99) mg/dL POC Glucose (mg/dL) (75-99) mg/dL AST (14-36) U/L ALT (9-52) U/L Alkaline Phosphatase 157 H (38-126) U/L Creatine Kinase (30-135) U/L Troponin I (0.000-0.034) ng/mL Total Protein 5.2 L (6.3-8.2) g/dL Albumin 2.7 L (3.5-5.0) g/dL Urine Protein (Negative) Urine Blood (Negative) Urine Mucus (None) /hpf U Benzodiazepines Scrn (NotDetected) U Marijuana (THC) Screen (NotDetected) Microbiology - Last 24 Hours (Table) 09/13/18 16:38 Gram Stain - Preliminary Sputum Sputum Culture - Preliminary Assessment and Plan Assessment: Acute hypoxic respiratory failure, status post intubation on admission Possible acute COPD exacerbation versus pneumonia. Stage IV non-small cell lung cancers with malignant pleural effusion status post Pleurx catheter. Elevated troponin History of acute myeloid leukemia status post chemotherapy and allograft transplant Calories-protein malnutrition Plan: This is a pleasant 57 years old female who presents with respiratory failure and possible pneumonia versus COPD exacerbation. He knew with a breathing treatment, steroids, antibiotics. Continue with oxygen therapy. Also, cardiology consult and echocardiogram. Oncology consult. Labs and medication were reviewed.. Continue same treatment. Continue with symptomatic treatment. Resume home medication. Monitor lytes and vitals. DVT and GI prophylaxis. Further recommendations of the clinical course of the patient DVT prophylaxis: Subcutaneous heparin GI Prophylaxis: Protonix Prognosis is poor
[2018-09-14] MEDS: FORMOTEROL FUMARATE 20 MCG/2 ML NEBU INHALATION SCH ×2 (07:31→21:18)
[2018-09-14] MEDS: BUDESONIDE 0.5 MG/2 ML NEBU INHALATION SCH ×2 (07:31→21:18)
[2018-09-14] MEDS: IPRATROPIUM-ALBUTEROL 3 ML NEB INHALATION PRN ×4 (07:31→21:18)
--- NOTE | 2018-09-14 07:31 | XR ---
EXAMINATION TYPE: XR chest 1V portable DATE OF EXAM: 09/14/2018 COMPARISON: Prior chest x-ray 09/13/2018 HISTORY: Intubated, chest tube TECHNIQUE: Single frontal view of the chest is obtained on 2 images. FINDINGS: Right-sided chest tube remains in place, there is residual pneumothorax as on prior exam. Endotracheal tube and gastric tube are overlying appropriate positions, side-port of the gastric tube however is in the distal esophagus. Basilar effusion again noted on the right with probable associat ed atelectasis. There is overlying tubing and cardiac leads. Heart size is stable. Aorta is dense. Po stoperative changes noted in the lower cervical spine. IMPRESSION: Side port of the gastric tube has withdrawn slightly and is within the distal thoracic e sophagus.
[2018-09-14] MEDS: ENOXAPARIN 40 MG/0.4 ML SYRINGE SQ SCH (08:26)
[2018-09-14] MEDS: PANTOPRAZOLE 40 MG/10 ML VIAL IV SCH (08:27)
[2018-09-14 12:00] LABS: Glucose,Whole Blood 70 mg/dL (75-99)
[2018-09-14 12:00] LABS: Glucose,Whole Blood 65 mg/dL (75-99)
[2018-09-14] MEDS: INSULIN ASPART (NovoLOG) 100 UNIT/ML VIAL SQ SCH ×2 (12:02→17:38)
--- NOTE | 2018-09-14 15:39 | P.CONS ---
History of Present Illness - Reason for Consult Consult date: 09/14/18 Non-squamous cell malignancy, unknown primary Requesting physician: Pancho Yan - Chief Complaint Respiratory distress - History of Present Illness Mrs. Willis is seen in the intensive care unit, she is sedated and mechanically ventilated, her is at the bedside providing her history. Patient has been seen in our office previously, last time was April 2014. 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 Over the last year patient's COPD and respiratory status has progressively worsened. In September 2017 she did have a biopsy of a right lung mass that was negative for malignancy. Patient presented earlier this month with progressive shortness of breath and found to have pleural effusion. Pleural fluid from 09/05 was negative for blasts, lymphoma or malignancy. Pleural fluid obtained on 09/08 and 09/09 were both positive for a non-small cell malignancy, no further differentiation, lung, pancreatobiliary or upper GI origin. Patient has a right chest tube that's been in place for over a week, yesterday she was noted to be tachypnic, progressive lethargy and then unresponsiveness. denied her having any fevers or chills that he was aware of, her appetite is been poor for quite some time, no vomiting, hemoptysis, abdominal complaints or known acute changes in bowel or bladder habits. 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 History of Grade I Gastric GVHD. History of Any Multi-Drug Resistant Organisms: None Reported Past Surgical History: Orthopedic Surgery, Tubal Ligation Additional Past Surgical History / Comment(s): Cervical fusion 2005, Bilateral carpal tunnel, BONE MARROW BX. Allogenic stem cell transplant 09/21/14, a Pleurx catheter insertion, thoracentesis 2 Past Anesthesia/Blood Transfusion Reactions: No Reported Reaction Additional Past Anesthesia/Blood Transfusion Reaction / Comm: HX- BLOOD TRANSFUSION- NO REACTION Past Psychological History: Anxiety Smoking Status: Current every day smoker Past Alcohol Use History: None Reported Past Drug Use History: None Reported - Past Family History Father Family Medical History: Asthma, Cancer (Lung cancer) Additional Family Medical History / Comment(s): Father is living and is 81 yrs old. Mother Family Medical History: Cancer Additional Family Medical History / Comment(s): Mother at age 49yrs of uterine cancer. Pt's several aunts all had cancers of various origins as well as her grandmother. Medications and Allergies Home Medications Medication Instructions Recorded Confirmed Type Multivitamin/Iron/Folic Acid 1 tab PO DAILY@0800 07//16 09/13/18 History [Centrum Complete Multivit Tab] Gabriel/D3/Mag11/Zinc/Daycare Manager/Kashfi/Bor 1 tab PO BID@0800,1700 09/04/18 09/13/18 History [Caltrate 600+D Plus Tablet] Hydrocortisone 10 mg PO DAILY@1700 09/04/18 09/13/18 History Hydrocortisone 20 mg PO DAILY@0800 09/04/18 09/13/18 History Ibuprofen [Motrin] 800 mg PO Q8H PRN 09/04/18 09/13/18 History Ipratropium/Albuterol Sulfate 1 puff INHALATION RT-BID PRN 09/04/18 09/13/18 History [Combivent Respimat Inhaler] LORazepam [Ativan] 0.5 mg PO Q46H PRN 09/04/18 09/13/18 History Pentoxifylline [TRENtal] 400 mg PO BID@0800,1700 09/04/18 09/13/18 History Vitamin E (Dl,Tocopheryl Acet) 400 unit PO BID@0800,1700 09/04/18 09/13/18 History [Vitamin E] Megestrol [Megace] 40 mg PO TID 09/13/18 09/13/18 History Allergies Allergy/AdvReac Type Severity Reaction Status Date / Time cefepime Allergy Unknown Face Verified 09/14/18 08:09 Swelling, Rash chlorhexidine Allergy Unknown Verified 09/14/18 08:09 Penicillins Allergy Unknown Verified 09/14/18 08:09 Childhood Physical Exam Vitals: Vital Signs Temp Pulse Resp BP Pulse Ox 09/14/18 13:00 107 H 19 95 09/14/18 12:00 97.1 F L 105 H 24 119/78 95 09/14/18 11:38 104 H 09/14/18 11:18 113 H 09/14/18 11:00 115 H 32 H 94 L 09/14/18 10:00 105 H 28 H 103/69 96 09/14/18 09:00 108 H 28 H 97 09/14/18 08:06 96 09/14/18 08:00 98.3 F 109 H 28 H 113/76 96 09/14/18 07:55 103 H 09/14/18 07:34 113 H 09/14/18 07:00 101 H 28 H 105/81 98 09/14/18 06:00 107 H 28 H 91/64 97 09/14/18 05:00 106 H 28 H 96/63 96 09/14/18 04:00 99.0 F 109 H 29 H 92/61 97 09/14/18 03:00 107 H 28 H 92/61 96 09/14/18 02:00 110 H 28 H 91/54 95 09/14/18 01:00 105 H 28 H 98 09/14/18 00:08 93 31 H 98 09/14/18 00:00 98.1 F 95 32 H 97 09/13/18 23:00 92 28 H 97 09/13/18 22:00 99 28 H 96 09/13/18 21:02 86 09/13/18 21:00 90 28 H 94 L 09/13/18 20:51 89 09/13/18 20:30 87 09/13/18 20:00 98.2 F 87 28 H 95 09/13/18 19:00 100 29 H 87 L 09/13/18 18:10 105 H 22 112/54 98 09/13/18 18:00 98.6 F 99 18 104/72 100 09/13/18 17:55 99 22 104/72 100 09/13/18 17:45 105 H 22 97/64 100 09/13/18 17:35 111 H 24 104/71 100 09/13/18 17:25 112 H 24 101/76 100 09/13/18 17:10 112 H 24 104/64 99 09/13/18 17:00 115 H 26 H 108/87 97 09/13/18 16:35 117 H 26 H 93/68 95 09/13/18 16:30 120 H 26 H 88/61 91 L 09/13/18 16:25 124 H 27 H 80/57 90 L 09/13/18 16:15 131 H 27 H 100/77 89 L 09/13/18 16:05 134 H 27 H 101/66 86 L 09/13/18 16:00 141 H 35 H 125/94 87 L 09/13/18 15:55 142 H 26 H 125/94 88 L 09/13/18 15:45 140 H 27 H 129/86 96 09/13/18 15:35 126 H 137/78 98 09/13/18 15:30 153 H 30 H 153/92 98 09/13/18 15:24 112 H 11 L 96 09/13/18 15:22 97.5 F L 112 H 30 H 153/97 97 Intake and Output 09/13/18 09/14/18 09/14/18 22:59 06:59 14:59 Intake Total 2700.439 1034.858 810.758 Output Total 605 1120 195 Balance 2095.439 -85.142 615.758 Intake: IV 2641 930 690 Clindamycin 600 mg In 50 50 100 Dextrose 5% in Water 50 ml @ 50 mls/hr IVPB Q8HR [facility] Rx#:[id number] Levofloxacin 750Mg-D5w 150 Pmx 750 mg In Dextrose/ Water 1 150ml.bag @ 100 mls/hr IVPB Q24H [facility] Rx#: [id number] Sodium Chloride 0.9% 1, 1 000 ml @ 100 mls/hr IV . Q10H ONE Rx#:[id number] Sodium Chloride 0.9% 1, 440 880 590 000 ml @ 50 mls/hr IV . Q20H [facility] Rx#:[id number] Sodium Chloride 0.9% 1, 2000 000 ml @ 999 mls/hr IV . Q1H1M [facility] Rx#:[id number] Intake, IV Titration 59.439 104.858 70.758 Amount Clindamycin 600 mg In 50 Dextrose 5% in Water 50 ml @ 50 mls/hr IVPB Q8HR [facility] Rx#:[id number] Propofol 1,000 mg In 9.439 104.858 70.758 Empty Bag 1 bag @ Titrate IV .Q0M [facility] Rx#: [id number] Tube Feeding 20 Other 30 Output: Chest Tube Drainage 230 150 Pleural Catheter Right 230 150 Lower Anterior Chest Gastric Drainage 150 50 Urine 375 820 145 Other: Voiding Method Indwelling Catheter Indwelling Catheter Indwelling Catheter Weight 49.033 kg 47.2 kg 47.2 kg ABP, PAP, CO, CI - Last 8 Hours Arterial Blood Pressure 150/78 Arterial Blood Pressure 115/63 Arterial Blood Pressure 114/63 Arterial Blood Pressure 116/62 Arterial Blood Pressure 96/58 Arterial Blood Pressure 124/73 Arterial Blood Pressure 115/63 Arterial Blood Pressure 106/59 - Constitutional General appearance: no acute distress, thin - EENT Eyes: anicteric sclerae - Neck Neck: no lymphadenopathy - Respiratory Respiratory: bilateral: CTA - Cardiovascular Rhythm: regular Heart sounds: normal: S1, S2 Abnormal Heart Sounds: no systolic murmur, no diastolic murmur, no rub, no S3 Gallop, no S4 Gallop, no click, no other leg Peripheral Edema: bilateral: 1+, Pitting - Gastrointestinal General gastrointestinal: no absent bowel sounds, no decreased bowel sounds, no distended, no hepatomegaly, no hyperactive bowel sounds, normal bowel sounds, no organomegaly, no rigid, no scaphoid, soft, no splenomegaly, no tenderness, no umbilical hernia, no ventral hernia - Musculoskeletal Musculoskeletal: no gait normal, no generalized weakness, no strength equal bilaterally, no right sided weakness, no left sided weakness - Psychiatric Psychiatric: no A&O x's 3, no appropriate affect, no intact judgment & insight Results CBC & Chem 7: 09/14/18 04:12 09/14/18 13:55 Labs: Abnormal Lab Results - Last 24 Hours (Table) 09/13/18 09/13/18 09/13/18 Range/Units 15:26 15:26 15:26 WBC 12.7 H (3.8-10.6) k/uL Hgb 16.3 H (11.4-16.0) gm/dL Hct 51.9 H (34.0-46.0) % MCV 103.4 H (80.0-100.0) fL Neutrophils # 11.7 H (1.3-7.7) k/uL Lymphocytes # 0.6 L (1.0-4.8) k/uL ABG pH (7.35-7.45) ABG pCO2 (35-45) mmHg ABG pO2 (83-108) mmHg ABG HCO3 (21-25) mmol/L ABG Total CO2 (19-24) mmol/L ABG O2 Saturation (94-97) % Potassium (3.5-5.1) mmol/L Chloride 91 L (98-107) mmol/L Carbon Dioxide 45 H* (22-30) mmol/L Creatinine <0.15 L (0.52-1.04) mg/dL Glucose 119 H (74-99) mg/dL POC Glucose (mg/dL) (75-99) mg/dL AST 48 H (14-36) U/L ALT 63 H (9-52) U/L Alkaline Phosphatase 244 H (38-126) U/L Creatine Kinase <20 L (30-135) U/L Troponin I 0.049 H* (0.000-0.034) ng/mL Total Protein (6.3-8.2) g/dL Albumin (3.5-5.0) g/dL Urine Protein (Negative) Urine Blood (Negative) Urine Mucus (None) /hpf U Benzodiazepines Scrn (NotDetected) U Marijuana (THC) Screen (NotDetected) 09/13/18 09/13/18 09/13/18 Range/Units 15:59 16:38 17:56 WBC (3.8-10.6) k/uL Hgb (11.4-16.0) gm/dL Hct (34.0-46.0) % MCV (80.0-100.0) fL Neutrophils # (1.3-7.7) k/uL Lymphocytes # (1.0-4.8) k/uL ABG pH 7.52 H (7.35-7.45) ABG pCO2 70 H 49 H (35-45) mmHg ABG pO2 48 L* 180 H (83-108) mmHg ABG HCO3 46 H* 41 H* (21-25) mmol/L ABG Total CO2 48 H 42 H (19-24) mmol/L ABG O2 Saturation 85.7 L 98.0 H (94-97) % Potassium (3.5-5.1) mmol/L Chloride (98-107) mmol/L Carbon Dioxide (22-30) mmol/L Creatinine (0.52-1.04) mg/dL Glucose (74-99) mg/dL POC Glucose (mg/dL) (75-99) mg/dL AST (14-36) U/L ALT (9-52) U/L Alkaline Phosphatase (38-126) U/L Creatine Kinase (30-135) U/L Troponin I (0.000-0.034) ng/mL Total Protein (6.3-8.2) g/dL Albumin (3.5-5.0) g/dL Urine Protein 2+ H (Negative) Urine Blood Trace H (Negative) Urine Mucus Rare H (None) /hpf U Benzodiazepines Scrn Detected H (NotDetected) U Marijuana (THC) Screen Detected H (NotDetected) 09/13/18 09/13/18 09/13/18 Range/Units 18:25 19:53 23:56 WBC (3.8-10.6) k/uL Hgb (11.4-16.0) gm/dL Hct (34.0-46.0) % MCV (80.0-100.0) fL Neutrophils # (1.3-7.7) k/uL Lymphocytes # (1.0-4.8) k/uL ABG pH 7.52 H (7.35-7.45) ABG pCO2 48 H (35-45) mmHg ABG pO2 59 L* (83-108) mmHg ABG HCO3 39 H (21-25) mmol/L ABG Total CO2 40 H (19-24) mmol/L ABG O2 Saturation 92.1 L (94-97) % Potassium (3.5-5.1) mmol/L Chloride (98-107) mmol/L Carbon Dioxide (22-30) mmol/L Creatinine (0.52-1.04) mg/dL Glucose (74-99) mg/dL POC Glucose (mg/dL) 106 H 113 H (75-99) mg/dL AST (14-36) U/L ALT (9-52) U/L Alkaline Phosphatase (38-126) U/L Creatine Kinase (30-135) U/L Troponin I (0.000-0.034) ng/mL Total Protein (6.3-8.2) g/dL Albumin (3.5-5.0) g/dL Urine Protein (Negative) Urine Blood (Negative) Urine Mucus (None) /hpf U Benzodiazepines Scrn (NotDetected) U Marijuana (THC) Screen (NotDetected) 09/14/18 09/14/18 09/14/18 Range/Units 04:12 04:12 04:20 WBC 12.9 H (3.8-10.6) k/uL Hgb (11.4-16.0) gm/dL Hct (34.0-46.0) % MCV 101.9 H (80.0-100.0) fL Neutrophils # 12.1 H (1.3-7.7) k/uL Lymphocytes # 0.5 L (1.0-4.8) k/uL ABG pH (7.35-7.45) ABG pCO2 56 H (35-45) mmHg ABG pO2 (83-108) mmHg ABG HCO3 37 H (21-25) mmol/L ABG Total CO2 38 H (19-24) mmol/L ABG O2 Saturation (94-97) % Potassium 3.2 L (3.5-5.1) mmol/L Chloride (98-107) mmol/L Carbon Dioxide 38 H (22-30) mmol/L Creatinine 0.27 L (0.52-1.04) mg/dL Glucose 113 H (74-99) mg/dL POC Glucose (mg/dL) (75-99) mg/dL AST (14-36) U/L ALT (9-52) U/L Alkaline Phosphatase 157 H (38-126) U/L Creatine Kinase (30-135) U/L Troponin I (0.000-0.034) ng/mL Total Protein 5.2 L (6.3-8.2) g/dL Albumin 2.7 L (3.5-5.0) g/dL Urine Protein (Negative) Urine Blood (Negative) Urine Mucus (None) /hpf U Benzodiazepines Scrn (NotDetected) U Marijuana (THC) Screen (NotDetected) 09/14/18 09/14/18 Range/Units 11:58 11:59 WBC (3.8-10.6) k/uL Hgb (11.4-16.0) gm/dL Hct (34.0-46.0) % MCV (80.0-100.0) fL Neutrophils # (1.3-7.7) k/uL Lymphocytes # (1.0-4.8) k/uL ABG pH (7.35-7.45) ABG pCO2 (35-45) mmHg ABG pO2 (83-108) mmHg ABG HCO3 (21-25) mmol/L ABG Total CO2 (19-24) mmol/L ABG O2 Saturation (94-97) % Potassium (3.5-5.1) mmol/L Chloride (98-107) mmol/L Carbon Dioxide (22-30) mmol/L Creatinine (0.52-1.04) mg/dL Glucose (74-99) mg/dL POC Glucose (mg/dL) 65 L 70 L (75-99) mg/dL AST (14-36) U/L ALT (9-52) U/L Alkaline Phosphatase (38-126) U/L Creatine Kinase (30-135) U/L Troponin I (0.000-0.034) ng/mL Total Protein (6.3-8.2) g/dL Albumin (3.5-5.0) g/dL Urine Protein (Negative) Urine Blood (Negative) Urine Mucus (None) /hpf U Benzodiazepines Scrn (NotDetected) U Marijuana (THC) Screen (NotDetected) Microbiology - Last 24 Hours (Table) 09/13/18 16:38 Gram Stain - Preliminary Sputum Sputum Culture - Preliminary Chest x-ray: report reviewed CT Scan - head: report reviewed Assessment and Plan (1) Respiratory failure Narrative/Plan: Defer management to Critical Care team. Review of pulmonary notes, no grossly apparent reason for patient's acute respiratory failure. Pulmonary suspecting a COPD exacerbation/pneumonia. Current Visit: Yes Status: Acute Priority: High Code(s): J96.90 - RESPIRATORY FAILURE, UNSP, UNSP W HYPOXIA OR HYPERCAPNIA SNOMED Code(s): 991858431 (2) Pleural effusion Narrative/Plan: Patient has had a chest tube now for just over a week, for recurrent malignant pleural effusion. The initial pleural fluid cytology was negative but subsequent cytologies, on 09/08 and 09/09, were positive for a non-small cell no further differentiation. Plan was to follow this up with a PET scan and poss ibly an upper GI. Current Visit: Yes Status: Acute Priority: High Code(s): J90 - PLEURAL EFFUSION, NOT ELSEWHERE CLASSIFIED SNOMED Code(s): 10052967 (3) AML (acute myelogenous leukemia) Current Visit: No Status: Chronic Priority: Low Code(s): C92.00 - ACUTE MYELOBLASTIC LEUKEMIA, NOT HAVING ACHIEVED REMISSION SNOMED Code(s): 44074727 (4) History of allogeneic bone marrow transplant Current Visit: No Status: Chronic Priority: Medium Code(s): Z94.81 - BONE MARROW TRANSPLANT STATUS SNOMED Code(s): 691204684 Plan: We will follow with patient during her hospitalization. We'll see how patient recovers from acute respiratory failure
[2018-09-14] MEDS ORDERED: POTASSIUM BICARBONATE/CIT AC 20 MEQ TABLET.EFF NG-TUBE SCH (16:00)
--- NOTE | 2018-09-14 16:13 | CDI ---
Documentation Clarification Form Date: 09/14/2018 3:47:04 PM From: Yissel Allison RN, CCDS Admit Date: 09/13/2018 5:33:00 PM Patient Name: Veronika Willis Visit Number: [id number] Discharge Date: ATTENTION: The Clinical Documentation Specialists (CDI) and [facility] Coding Staff appreciate your assistance in clarifying documentation. Please respond to the clarification below the line at the bottom and electronically sign. The CDI & [facility] Coding staff will review the response and follow-up if needed. Please note: Queries are made part of the Legal Health Record. If you have any questions, please contact the author of this message via ITS. Dr. Ronald Hannon Calorie-protein Malnutrition has been documented in your H/P and further clarification is needed. History/Risk Factors: Stage IV Non-squamous cell lung malignancy, unknown primary, AML, COPD, Current smoker Clinical Indicators: 57-year-old female presenting with decreased responsiveness. altered mental status, obtunded. Labs: Albumin 3.7, 2.7 Total Protein: 7.2, 5.2 Current BMI: 16.8 Insufficient energy intake: Yes Weight Loss: Underweight, Emaciated Loss of subcutaneous fat: Yes Loss of muscle mass: Yes Treatment: Dietary Consult: Yes, intake <50 % of estimated nutritional needs for >5 days, 7 % weight loss of UBW<1 week, fat and muscle wasting. Moderate to severe muscle and fat depletion, visible, protruding clavical bone, depressed temporal region, square shoulders and depression between ribs PPN: Tube feeding Vital High Protein @43ml/hr Lab monitoring: In your professional opinion, can you please clarify if these findings signify one of the following conditions? Mild Protein-Calorie Malnutrition Moderate Protein-Calorie Malnutrition Severe Protein-Calorie Malnutrition Other condition, please specify Unable to determine (Last Revision: July 2017) Moderate Protein-Calorie Malnutrition MTDD
--- NOTE | 2018-09-14 16:29 | P.PN ---
Subjective Progress Note Date: 09/14/18 On 09/14/2018 I'm seeing this patient for a follow-up. The patient easily arouses from sedation. Currently she is on 40 mics of propofol infusion for sedation. The patient is intubated on a mechanical ventilator. I dropped her tidal volume down to 300 and she is on a PEEP of 8 with an FiO2 of 60%. Morning blood gases showed a pH of 7.42 with a pCO2 of 56 and pO2 of 94. Airway pressures have dropped significantly and there are the higher 20s for now. The chest x-ray shows that the ET tube is in a good location. There is a right- sided Pleurx catheter in place. There is a small residual pneumothorax in the right apex. NG tube is in place. There is probably some atelectatic changes in the right lower lung area with small right-sided pleural effusion. No other acute of the masses are noted. The patient remains on a combination of bronchodilators and IV Solu Medrol. The patient on IV Levaquin and clindamycin as broad-spectrum antibiotic coverage. She will feeds will be started today. She is quite cachectic and emaciated as mentioned earlier than she is severely malnourished and she has an underlying stage IV lung cancer based on a positive malignant right-sided pleural effusion. Output from the first catheter is minimal and is in order of 400 mL since she arrived to the ICU. No evidence of any air leak. She is receiving IV fluids with normal saline and we will cut down the effusion down to 50 mL an hour. The patient was given adequate amount of fluids over the past 24 hours. Urine output is adequate for now. The white cell count is at 12.9. No other significant events overnight. The patient is hemodynamically stable. Objective - Vital Signs Vital signs: Vital Signs Temp 99.8 F H 09/14/18 16:00 Pulse 95 09/14/18 16:00 Resp 24 09/14/18 16:00 BP 116/77 09/14/18 16:00 Pulse Ox 94 L 09/14/18 16:00 Intake & Output 09/13/18 09/14/18 09/14/18 18:59 06:59 18:59 Intake Total 9.439 3725.858 1040.758 Output Total 280 1445 295 Balance -419.170 9382.858 745.758 Weight 49.033 kg 47.2 kg 47.2 kg Intake: IV 3571 840 Clindamycin 600 mg In 100 100 Dextrose 5% in Water 50 ml @ 50 mls/hr IVPB Q8HR [facility] Rx#:[id number] Levofloxacin 750Mg-D5w 150 Pmx 750 mg In Dextrose/ Water 1 150ml.bag @ 100 mls/hr IVPB Q24H [facility] Rx#: [id number] Sodium Chloride 0.9% 1, 1 000 ml @ 100 mls/hr IV . Q10H [facility] Rx#:[id number] Sodium Chloride 0.9% 1, 1320 740 000 ml @ 50 mls/hr IV . Q20H [facility] Rx#:[id number] Sodium Chloride 0.9% 1, 2000 000 ml @ 999 mls/hr IV . Q1H1M [facility] Rx#:[id number] Intake, IV Titration 9.439 154.858 70.758 Amount Clindamycin 600 mg In 50 Dextrose 5% in Water 50 ml @ 50 mls/hr IVPB Q8HR [facility] Rx#:[id number] Propofol 1,000 mg In 9.439 104.858 70.758 Empty Bag 1 bag @ Titrate IV .Q0M [facility] Rx#: [id number] Tube Feeding 50 Other 80 Output: Chest Tube Drainage 230 150 35 Pleural Catheter Right 230 150 35 Lower Anterior Chest Gastric Drainage 150 50 Urine 50 1145 210 Other: Voiding Method Indwelling Catheter Indwelling Catheter ABP, PAP, CO, CI - Last Documented Arterial Blood Pressure 129/69 - Exam The patient is sedated, comfortable mechanical ventilated intubated with an orogastric and orotracheal tube are both in place. She looks profoundly cachectic and emaciated, looks way or other than her stated age. Head exam was generally normal. There was no scleral icterus or corneal arcus. Mucous membranes were moist. Neck was supple and without jugular venous distension, thyromegaly, or carotid bruits. Carotids were easily palpable bilaterally. There was no adenopathy. Orogastric and orotracheal tube are both in place Lungs sounds are diminished bilaterally along with scattered rhonchi and scattered expiratory wheezes throughout the lung rodriguez and there is obvious prolongation of the expiratory phase of breathing. There is a right-sided Pleurx catheter in place attached to a Pleur-evac. No evidence of any air leak at this point in time. Output is minimal. Cardiac exam revealed the PMI to be normally situated and sized. The rhythm was regular and no extrasystoles were noted during several minutes of auscultation. The first and second heart sounds were normal and physiologic splitting of the second heart sound was noted. There were no murmurs, rubs, clicks, or gallops. Abdominal exam revealed normal bowel sounds. The abdomen was soft, non-tender, a nd without masses, organomegaly, or appreciable enlargement of the abdominal aorta. Examination of the extremities revealed easily palpable radial, femoral and pedal pulses. There was no cyanosis, clubbing or edema. There is significant muscle atrophy in all 4 extremities Examination of the skin revealed no evidence of significant rashes, suspicious appearing nevi or other concerning lesions. Neurologic the patient is sedated and calm and comfortable synchronous the mechanical ventilator. - Labs CBC & Chem 7: 09/14/18 04:12 09/14/18 13:55 Labs: Abnormal Lab Results - Last 24 Hours (Table) 09/13/18 09/13/18 09/13/18 Range/Units 15:26 16:38 17:56 WBC (3.8-10.6) k/uL MCV (80.0-100.0) fL Neutrophils # (1.3-7.7) k/uL Lymphocytes # (1.0-4.8) k/uL ABG pH 7.52 H (7.35-7.45) ABG pCO2 49 H (35-45) mmHg ABG pO2 180 H (83-108) mmHg ABG HCO3 41 H* (21-25) mmol/L ABG Total CO2 42 H (19-24) mmol/L ABG O2 Saturation 98.0 H (94-97) % Potassium (3.5-5.1) mmol/L Carbon Dioxide (22-30) mmol/L Creatinine (0.52-1.04) mg/dL Glucose (74-99) mg/dL POC Glucose (mg/dL) (75-99) mg/dL Alkaline Phosphatase (38-126) U/L Troponin I 0.049 H* (0.000-0.034) ng/mL Total Protein (6.3-8.2) g/dL Albumin (3.5-5.0) g/dL Urine Protein 2+ H (Negative) Urine Blood Trace H (Negative) Urine Mucus Rare H (None) /hpf U Benzodiazepines Scrn Detected H (NotDetected) U Marijuana (THC) Screen Detected H (NotDetected) 09/13/18 09/13/18 09/13/18 Range/Units 18:25 19:53 23:56 WBC (3.8-10.6) k/uL MCV (80.0-100.0) fL Neutrophils # (1.3-7.7) k/uL Lymphocytes # (1.0-4.8) k/uL ABG pH 7.52 H (7.35-7.45) ABG pCO2 48 H (35-45) mmHg ABG pO2 59 L* (83-108) mmHg ABG HCO3 39 H (21-25) mmol/L ABG Total CO2 40 H (19-24) mmol/L ABG O2 Saturation 92.1 L (94-97) % Potassium (3.5-5.1) mmol/L Carbon Dioxide (22-30) mmol/L Creatinine (0.52-1.04) mg/dL Glucose (74-99) mg/dL POC Glucose (mg/dL) 106 H 113 H (75-99) mg/dL Alkaline Phosphatase (38-126) U/L Troponin I (0.000-0.034) ng/mL Total Protein (6.3-8.2) g/dL Albumin (3.5-5.0) g/dL Urine Protein (Negative) Urine Blood (Negative) Urine Mucus (None) /hpf U Benzodiazepines Scrn (NotDetected) U Marijuana (THC) Screen (NotDetected) 09/14/18 09/14/18 09/14/18 Range/Units 04:12 04:12 04:20 WBC 12.9 H (3.8-10.6) k/uL MCV 101.9 H (80.0-100.0) fL Neutrophils # 12.1 H (1.3-7.7) k/uL Lymphocytes # 0.5 L (1.0-4.8) k/uL ABG pH (7.35-7.45) ABG pCO2 56 H (35-45) mmHg ABG pO2 (83-108) mmHg ABG HCO3 37 H (21-25) mmol/L ABG Total CO2 38 H (19-24) mmol/L ABG O2 Saturation (94-97) % Potassium 3.2 L (3.5-5.1) mmol/L Carbon Dioxide 38 H (22-30) mmol/L Creatinine 0.27 L (0.52-1.04) mg/dL Glucose 113 H (74-99) mg/dL POC Glucose (mg/dL) (75-99) mg/dL Alkaline Phosphatase 157 H (38-126) U/L Troponin I (0.000-0.034) ng/mL Total Protein 5.2 L (6.3-8.2) g/dL Albumin 2.7 L (3.5-5.0) g/dL Urine Protein (Negative) Urine Blood (Negative) Urine Mucus (None) /hpf U Benzodiazepines Scrn (NotDetected) U Marijuana (THC) Screen (NotDetected) 09/14/18 09/14/18 Range/Units 11:58 11:59 WBC (3.8-10.6) k/uL MCV (80.0-100.0) fL Neutrophils # (1.3-7.7) k/uL Lymphocytes # (1.0-4.8) k/uL ABG pH (7.35-7.45) ABG pCO2 (35-45) mmHg ABG pO2 (83-108) mmHg ABG HCO3 (21-25) mmol/L ABG Total CO2 (19-24) mmol/L ABG O2 Saturation (94-97) % Potassium (3.5-5.1) mmol/L Carbon Dioxide (22-30) mmol/L Creatinine (0.52-1.04) mg/dL Glucose (74-99) mg/dL POC Glucose (mg/dL) 65 L 70 L (75-99) mg/dL Alkaline Phosphatase (38-126) U/L Troponin I (0.000-0.034) ng/mL Total Protein (6.3-8.2) g/dL Albumin (3.5-5.0) g/dL Urine Protein (Negative) Urine Blood (Negative) Urine Mucus (None) /hpf U Benzodiazepines Scrn (NotDetected) U Marijuana (THC) Screen (NotDetected) Microbiology - Last 24 Hours (Table) 09/13/18 16:38 Gram Stain - Preliminary Sputum Sputum Culture - Preliminary Assessment and Plan Plan: 1 acute on chronic hypoxic respiratory failure, exact etiology is not clear. Suspect COPD exacerbation/pneumonia. Pulmonary embolism was ruled out based on the CT angiogram of the chest. CAT scan showed lower lobe consolidation in the lung bases bilaterally. Rule out also the possibility of an aspiration. Today's evaluation, the patient is still on a mechanical ventilator. FiO2 has been drop down to 60%. PEEP is at 8. Airway pressures have dropped conside rably and the patient is being ventilated with a found this is a tidal volume. She is a chronic CO2 retainer and her acid base status is improving compared to yesterday. Oxygenation is also improved. Follow-up chest x-ray from today was noted. 2 acute ventilator-dependent respiratory failure secondary to above 3 stage IV non-small cell lung cancer with poorly differentiated, with a positive pleural fluid. 4 malignant right-sided pleural effusion postthoracentesis subsequent Pleurx catheter insertion him output is in order of 400 mL since she arrived to the ICU. 5 severe cachexia and malnourishment 6 COPD exacerbation. 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 Necessary vent changes will be done. Will drop the tidal volume to 300s. Will drop the respiratory rate. There has been improvement and acid base status. The patient has chronic hypercapnic respiratory failure and would like to recheck pCO2 in the range of 50-60 mmHg which I think it's a baseline. Oxidation is also improved. Continue bronchodilators. Continue steroids. Continue antibiotics. Initiate tube feeds. Give the patient has sedation holiday. During an earlier evaluation that the patient can easily aroused from her sedation. Family is at the bedside. No weaning trials for today. We'll reevaluate her condition in a.m. We'll continue to follow. Oncology Is also be requested. 3 care evaluation done more than 30 minutes. Time with Patient: Greater than 30
[2018-09-14 17:39] LABS: Glucose,Whole Blood 128 mg/dL (75-99)
[2018-09-14] MEDS: LEVOFLOXACIN 750MG-D5W PMX 750 MG in DEXTROSE/WATER 1 150ML.BAG IVPB SCH (18:31)
--- NOTE | 2018-09-14 18:46 | CONS ---
CONSULTATION Mrs. Willis is a 57-year-old female who was admitted to the hospital with respiratory failure requiring mechanical ventilation. Cardiology consultation was requested because of an elevation of troponin. The patient became unresponsive with a drop in her oxygenation. She was intubated and was severely hypoxemic. She has a known history of stage IV [id number] lung carcinoma and a history of AML post chemotherapy and bone marrow transplant. She has a history of chronic obstructive lung disease. She is intubated. No history could be obtained at this point. Apparently she had right-sided pleural effusion and subsequent PleurX catheter insertion. She has been seen by Dr. Wiggins. The troponin on admission was 0.049. I am not able to obtain any other cardiac history. MEDICATIONS: Her medications as an outpatient included: 1. Pentoxifylline. 2. Megace. 3. Ativan. 4. Motrin. 5. Hydrocortisone. REVIEW OF SYSTEMS: Not obtainable. PHYSICAL EXAMINATION: She is a 57-year-old female, intubated, sedated. Blood pressure 120/60 with a heart rate in the 90s. HEAD: Normocephalic. Eyes: Sclerae anicteric. NECK: Good carotid upstroke. No bruit. LUNGS: No wheezes or rales anteriorly. HEART: Regular rate, rhythm. S1, S2. No S3. No rub. ABDOMEN: Soft. Positive bowel sounds. No organomegaly. EXTREMITIES: No edema. IMAGING AND LAB DATA: EKG revealed a sinus mechanism, rate of 111, with poor R-wave progression, nonspecific ST-T wave changes and prominent P-waves. Lab data revealed a hemoglobin of 13.3, BUN and creatinine of 11 and 0.27, potassium 3.2. IMPRESSION: 1. Acute respiratory failure with possible exacerbation of chronic obstructive pulmonary disease. 2. History of stage IV [id number] carcinoma. 3. Elevation of troponin, most likely related to the hypoxemia and the respiratory failure. 4. History of AML, status post chemotherapy and bone marrow transplant. 5. Prior history of stroke. RECOMMENDATIONS: From the cardiac standpoint, I will obtain an echocardiogram with Doppler to evaluate left ventricular systolic function. Otherwise, no further cardiac evaluation will be needed at this time. Unfortunately the overall prognosis is guarded. Thank you for this consult. Will follow with you. MMODL / IJN: [id number] /
[2018-09-15] MEDS: LORazepam 2 MG/ML INJ IV PRN
[2018-09-15 00:08] LABS: Glucose,Whole Blood 118 mg/dL (75-99)
[2018-09-15] MEDS: INSULIN ASPART (NovoLOG) 100 UNIT/ML VIAL SQ SCH ×4 (01:45→19:42)
[2018-09-15] MEDS: PROPOFOL 1,000 MG in EMPTY BAG 1 BAG IV SCH (03:03)
[2018-09-15 04:53] LABS: Basophils % (A) 0 %; Eosinophils # (A) 0.1 k/uL (0-0.7); Eosinophils % (A) 1 %; HCT 38.3 % (34.0-46.0); HGB 12.3 gm/dL (11.4-16.0); Lymphocytes # (A) 0.4 k/uL (1.0-4.8); Lymphocytes % (A) 3 %; MCH 32.5 pg (25.0-35.0); MCHC 32.2 g/dL (31.0-37.0); MCV 100.9 fL (80.0-100.0); Macrocytosis Slight; Mean Platelet Volume 8.3; Monocytes # (A) 0.2 k/uL (0-1.0); Monocytes % (A) 2 %; Neutrophils # (A) 10.6 k/uL (1.3-7.7); Neutrophils % (A) 94 %; Platelet Count 270 k/uL (150-450); RDW 14.5 % (11.5-15.5); WBC 11.3 k/uL (3.8-10.6)
[2018-09-15 05:00] LABS: ALT 38 U/L (9-52); AST 27 U/L (14-36); African American GFR (CKD) >90 (>60 ml/min/1.73 sqM); Albumin 2.7 g/dL (3.5-5.0); Alkaline Phosphatase 140 U/L (38-126); Anion Gap 2 mmol/L; Blood Urea Nitrogen 16 mg/dL (7-17); Calcium 9.2 mg/dL (8.4-10.2); Carbon Dioxide 36 mmol/L (22-30); Chloride 99 mmol/L (98-107); Glucose 129 mg/dL (74-99); Magnesium 1.7 mg/dL (1.6-2.3); Phosphorus 3.1 mg/dL (2.5-4.5); Potassium 4.2 mmol/L (3.5-5.1); Sodium 137 mmol/L (137-145); Total Bilirubin 0.4 mg/dL (0.2-1.3); Total Protein 5.3 g/dL (6.3-8.2)
[2018-09-15 05:43] LABS: ABG Base Excess 15.4 mmol/L; ABG HCO3 39 mmol/L (21-25); ABG PCO2 55 mmHg (35-45); ABG PH 7.46 (7.35-7.45); ABG PO2 92 mmHg (83-108); ABG TCO2 41 mmol/L (19-24); Allen Test Performed? Yes
[2018-09-15] MEDS: methylPREDNISolone SOD SUCCI 125 MG/2 ML VIAL IV SCH ×3 (06:53→17:55)
[2018-09-15 06:58] LABS: Glucose,Whole Blood 123 mg/dL (75-99)
[2018-09-15] MEDS ORDERED: Magnesium Replacement Protocol 1 EACH MISC MISCELLANE PRN (07:00)
[2018-09-15] MEDS: MAGNESIUM SULFATE-D5W PMX 1 GM in DEXTROSE/WATER 1 100ML.BAG IVPB SCH ×2 (07:04→08:24)
--- NOTE | 2018-09-15 07:24 | XR ---
EXAMINATION TYPE: XR chest 1V portable DATE OF EXAM: 09/15/2018 COMPARISON: 09/14/2018 HISTORY: Endotracheal tube placement TECHNIQUE: Single frontal view of the chest is obtained. FINDINGS: Persistent loculated right hydropneumothorax with apical separation of 1.4 cm and basilar separation of the pleural surface of 3.3 cm, similar to the prior. Right-sided thoracostomy tube is i n place and similar. Endotracheal tube is unchanged. Cardia mediastinal silhouette is enlarged. Degre e of right basilar atelectasis and pleural effusion have improved, nearly resolved. Scattered atelect asis and underlying COPD is seen. Cervical fusion device is partially visualized. Enteric tube is sub optimally placed. IMPRESSION: 1. Cephalad placement of the endotracheal tube with the fenestrated portion in the distal esophagus. Recommendation is for advancement at least 7 cm. 2. Similar loculated right hydropneumothorax with unchanged positioning of the right thoracostomy tu be. Right basilar atelectasis and pleural effusion that are nearly resolved.
[2018-09-15] MEDS: IPRATROPIUM-ALBUTEROL 3 ML NEB INHALATION PRN ×2 (07:53→12:28)
[2018-09-15] MEDS: FORMOTEROL FUMARATE 20 MCG/2 ML NEBU INHALATION SCH ×2 (07:53→20:30)
[2018-09-15] MEDS: BUDESONIDE 0.5 MG/2 ML NEBU INHALATION SCH ×2 (07:53→20:31)
[2018-09-15] MEDS: ENOXAPARIN 40 MG/0.4 ML SYRINGE SQ SCH (08:24)
[2018-09-15] MEDS: PANTOPRAZOLE 40 MG/10 ML VIAL IV SCH (08:24)
[2018-09-15] MEDS: CLINDAMYCIN 600 MG in DEXTROSE 5% IN WATER 50 ML IVPB SCH ×4 (08:24→16:56)
[2018-09-15] MEDS: SODIUM CHLORIDE 0.9% 1,000 ML IV SCH (08:25)
--- NOTE | 2018-09-15 10:17 | PN ---
PROGRESS NOTE Mrs. Willis is a 57-year-old female who presented with respiratory failure requiring mechanical ventilation. Cardiology consultation was requested because of mild troponin elevation. She has continued to be intubated, sedated. She is in sinus mechanism and hemodynamically stable. There is no evidence of tachycardia or bradycardia. Her medications at this time include Lovenox subcu, propofol, magnesium, methylprednisolone, ipratropium, and clindamycin. PHYSICAL EXAMINATION: Blood pressure 119/70 with the heart rate in the 80s. LUNGS: Clear anteriorly. HEART: Regular rate and rhythm. S1, S2. No S3. No rub appreciated. ABDOMEN: Soft, nontender. EXTREMITIES: No edema. Chest x-ray shows no acute infiltrate. IMPRESSION: 1. Respiratory failure requiring mechanical ventilation with possible exacerbation of chronic obstructive pulmonary disease. 2. Stage IV non-small cell carcinoma. 3. Minimal troponin elevation, most likely related to hypoxemia and respiratory failure representing a type 2 event. 4. History of AML. 5. Prior history of stroke. RECOMMENDATION: From the cardiac standpoint, I see no indication for further cardiac workup. Will review the results of her echocardiogram and if there is no evidence of significant abnormality then no further cardiac workup will be needed. We will see her on as- needed basis. Please feel free to call us for any question. MMODL / IJN: [id number] /
--- NOTE | 2018-09-15 10:19 | ECHOF ---
Referral Reason:ia MEASUREMENTS -------- HEIGHT: 167.6 cm WEIGHT: 47.2 kg BP: 105/77 RVIDd: 2.4 cm (< 3.3) IVSd: 0.9 cm (0.6 - 1.1) LVIDd: 3.0 cm (3.9 - 5.3) LVPWd: 1.1 cm (0.6 - 1.1) IVSs: 1.4 cm LVIDs: 1.9 cm LVPWs: 1.3 cm Ao Diam: 2.9 cm (2.0 - 3.7) AV Cusp: 2.0 cm (1.5 - 2.6) LA Diam: 3.1 cm (2.7 - 3.8) MV EXCURSION: 16.703 mm (> 18.000) MV EF SLOPE: 61 mm/s (70 - 150) EPSS: 0.4 cm MV E Charbel: 0.72 m/s MV DecT: 144 ms MV A Charbel: 0.91 m/s MV E/A Ratio: 0.79 RAP: 20.00 mmHg RVSP: 52.96 mmHg FINDINGS -------- Sinus rhythm with extra systolic beats. This was a technically good study. The left ventricular size is normal. Left ventricular wall thickness is normal. Overall left vent ricular systolic function is normal with, an EF between 55 - 60 %. The right ventricle is normal in size. The left atrial size is normal. The right atrial size is normal. Aneurysmal Interatrial septum. The aortic valve is trileaflet and appears structurally normal. There is trace mitral regurgitation. Moderate to severe tricuspid regurgitation present. There is moderate pulmonary hypertension. The right ventricular systolic pressure, as measured by Doppler, is 52.96mmHg. There is no pulmonic regurgitation present. The aortic root size is normal. The inferior vena cava is dilated with no significant inspiratory collapse which is consistent estima pily right atrial pressure of >20 mmHg. Echo free space indicative of a pericardial fat pad. CONCLUSIONS -------- 1. Sinus rhythm with extra systolic beats. 2. This was a technically good study. 3. The left ventricular size is normal. 4. Left ventricular wall thickness is normal. 5. Overall left ventricular systolic function is normal with, an EF between 55 - 60 %. 6. The right ventricle is normal in size. 7. The left atrial size is normal. 8. The right atrial size is normal. 9. Aneurysmal Interatrial septum. 10. The aortic valve is trileaflet and appears structurally normal. 11. There is trace mitral regurgitation. 12. Moderate to severe tricuspid regurgitation present. 13. There is moderate pulmonary hypertension. 14. The right ventricular systolic pressure, as measured by Doppler, is 52.96mmHg. 15. There is no pulmonic regurgitation present. 16. The aortic root size is normal. 17. The inferior vena cava is dilated with no significant inspiratory collapse which is consistent es timated right atrial pressure of >20 mmHg. 18. Echo free space indicative of a pericardial fat pad. CAR BODY INSPECTOR: Shelly Juarez RDCS
--- NOTE | 2018-09-15 11:43 | P.PN ---
Subjective This is a pleasant 57 years old female with past medical history of CVA/TIA, syncope, stage IV non-small cell lung cancer with pleural effusion, malignant in nature status post Pleurx catheter in a Place. 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 And glover IV access in the right chest. Presents with respiratory distress and decreased responsiveness. Patient got intubated in the emergency room. Pulmonary critical care team already evaluated the patient. Currently vital shown blood pressure 105/81, heart rate 101, she is saturating 98% on FiO2 60 and she is breathing rate is 28/m. Patient is afebrile. Labs reviewed showing mild leukocytosis of 12.9 K. Hemoglobin 13.3. Potassium was low at 3.2. Creatinine 0.27. Liver enzymes not elevated. Troponin is 0.04 09/15/2018 Patient got extubated today, she remains in the ICU. Just some respiratory distress and she feels tired and could not provide information, she is hemodynamically stable. Leukocytosis is improving slightly to 11.3 K. Creatinine 0.24, sugar controlled. Chest x-ray showing right hydro-pneumothorax with a right thoracostomy tube. Echocardiogram is pending. Cardiology evaluation. Objective - Vital Signs Vital signs: Vital Signs Temp 98.1 F 09/15/18 08:00 Pulse 88 09/15/18 10:00 Resp 22 09/15/18 10:00 BP 139/85 09/15/18 09:00 Pulse Ox 96 09/15/18 10:00 Intake & Output 09/14/18 09/15/18 09/15/18 18:59 06:59 18:59 Intake Total 1795.226 8775.405 269.029 Output Total 345 775 90 Balance 915.758 322.405 179.029 Weight 47.2 kg Intake: IV 1040 750 150 Clindamycin 600 mg In 200 Dextrose 5% in Water 50 ml @ 50 mls/hr IVPB Q8HR [facility] Rx#:[id number] Levofloxacin 750Mg-D5w 100 Pmx 750 mg In Dextrose/ Water 1 150ml.bag @ 100 mls/hr IVPB Q24H [facility] Rx#: [id number] Sodium Chloride 0.9% 1, 840 650 150 000 ml @ 50 mls/hr IV . Q20H [facility] Rx#:[id number] Intake, IV Titration 70.758 147.405 69.029 Amount Propofol 1,000 mg In 70.758 147.405 69.029 Empty Bag 1 bag @ Titrate IV .Q0M [facility] Rx#: [id number] Tube Feeding 70 200 20 Other 80 30 Output: Chest Tube Drainage 35 350 Pleural Catheter Right 35 350 Lower Anterior Chest Gastric Drainage 50 Urine 260 425 90 Other: Voiding Method Indwelling Catheter Indwelling Catheter ABP, PAP, CO, CI - Last Documented Arterial Blood Pressure 144/77 - Exam -GENERAL: The patient is alert and oriented x3, she is status post extubation. Some respiratory distress HEENT: Pupils are round and equally reacting to light. EOMI. No scleral icterus. No conjunctival pallor. Normocephalic, atraumatic. No pharyngeal erythema. No thyromegaly. CARDIOVASCULAR: S1 and S2 present. No murmurs, rubs, or gallops. PULMONARY: Chest is clear to auscultation, no wheezing or crackles. ABDOMEN: Soft, nontender, nondistended, normoactive bowel sounds. No palpable organomegaly. MUSCULOSKELETAL: No joint swelling or deformity. EXTREMITIES: No cyanosis, clubbing, or pedal edema. NEUROLOGICAL: Gross neurological examination did not reveal any focal deficits. SKIN: No rashes. - Labs CBC & Chem 7: 09/15/18 04:30 09/15/18 04:30 Labs: Abnormal Lab Results - Last 24 Hours (Table) 09/14/18 09/14/18 09/14/18 Range/Units 11:58 11:59 17:37 WBC (3.8-10.6) k/uL MCV (80.0-100.0) fL Neutrophils # (1.3-7.7) k/uL Lymphocytes # (1.0-4.8) k/uL ABG pH (7.35-7.45) ABG pCO2 (35-45) mmHg ABG HCO3 (21-25) mmol/L ABG Total CO2 (19-24) mmol/L Carbon Dioxide (22-30) mmol/L Creatinine (0.52-1.04) mg/dL Glucose (74-99) mg/dL POC Glucose (mg/dL) 65 L 70 L 128 H (75-99) mg/dL Alkaline Phosphatase (38-126) U/L Total Protein (6.3-8.2) g/dL Albumin (3.5-5.0) g/dL 09/15/18 09/15/18 09/15/18 Range/Units 00:06 04:30 04:30 WBC 11.3 H (3.8-10.6) k/uL MCV 100.9 H (80.0-100.0) fL Neutrophils # 10.6 H (1.3-7.7) k/uL Lymphocytes # 0.4 L (1.0-4.8) k/uL ABG pH (7.35-7.45) ABG pCO2 (35-45) mmHg ABG HCO3 (21-25) mmol/L ABG Total CO2 (19-24) mmol/L Carbon Dioxide 36 H (22-30) mmol/L Creatinine 0.24 L (0.52-1.04) mg/dL Glucose 129 H (74-99) mg/dL POC Glucose (mg/dL) 118 H (75-99) mg/dL Alkaline Phosphatase 140 H (38-126) U/L Total Protein 5.3 L (6.3-8.2) g/dL Albumin 2.7 L (3.5-5.0) g/dL 09/15/18 09/15/18 Range/Units 05:39 06:56 WBC (3.8-10.6) k/uL MCV (80.0-100.0) fL Neutrophils # (1.3-7.7) k/uL Lymphocytes # (1.0-4.8) k/uL ABG pH 7.46 H (7.35-7.45) ABG pCO2 55 H (35-45) mmHg ABG HCO3 39 H (21-25) mmol/L ABG Total CO2 41 H (19-24) mmol/L Carbon Dioxide (22-30) mmol/L Creatinine (0.52-1.04) mg/dL Glucose (74-99) mg/dL POC Glucose (mg/dL) 123 H (75-99) mg/dL Alkaline Phosphatase (38-126) U/L Total Protein (6.3-8.2) g/dL Albumin (3.5-5.0) g/dL Microbiology - Last 24 Hours (Table) 09/13/18 16:38 Gram Stain - Final Sputum Sputum Culture - Final Assessment and Plan Assessment: Acute hypoxic respiratory failure, status post intubation for 1 day followed by extubation Possible acute COPD exacerbation versus pneumonia. Stage IV non-small cell lung cancers with malignant pleural effusion status post Pleurx catheter. Elevated troponin. 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 He knew with a breathing treatment, steroids, antibiotics. Continue with oxygen therapy. Also, cardiology consult and echocardiogram. Oncology consult. Labs and medication were reviewed.. Continue same treatment. Continue with symptomatic treatment. Resume home medication. Monitor lytes and vitals. DVT and GI prophylaxis. Further recommendations of the clinical course of the patient DVT prophylaxis: Subcutaneous heparin GI Prophylaxis: Protonix Prognosis is poor
[2018-09-15 11:54] LABS: Glucose,Whole Blood 110 mg/dL (75-99)
--- NOTE | 2018-09-15 17:24 | P.PN ---
Subjective Progress Note Date: 09/15/18 On today's evaluation of 09/15/2018, the patient is on a lower dose of sedation and she is able to arouse from sedation without any major difficulties. She is still on a mechanical ventilator. Earlier today she was in a PEEP of 8 with an FiO2 of 40% and tidal volume of 300 with a rate of 24. The peak aortic pressure was down to 22. The patient's blood gases from this morning showed a pH of 7.46 with a pCO2 of 35 and pO2 of 91. The chest x-ray showed a small loculated right-sided pneumothorax and the Pleurx catheter is in place is essentially a Pleur-evac and there is evidence of air leak and small amounts. Total amount of output from the Pleurx catheter in order of 350 over the past 8 hours. The left lung is hyperinflated it's clear. The patient is hemodynamically stable. The patient is producing adequate amount of urine output. IV fluid is running at the rate of 50 mL an hour. The patient has an NG tube in place and the patient is receiving enteral feeding for nutritional support. The white cell count is 11.3. She is afebrile. Function is stable at creatinine of 0.2. No other significant events overnight. I was able to gradually wean off the sedation and the patient was quite awake following commands and answering questions. Weaning parameters were checked and following that the patient was extubated to BiPAP at a pressure of 12/5 cm of water. Currently on a BiPAP with a full facemask and she is quite comfortable and sedated the BiPAP machine. The patient is pulling approximately 300 mL of tidal volume 100 BiPAP machine. FiO2 currently is at 40%. Objective - Vital Signs Vital signs: Vital Signs Temp 99.0 F 09/15/18 13:00 Pulse 87 09/15/18 17:00 Resp 20 09/15/18 17:00 BP 139/85 09/15/18 09:00 Pulse Ox 96 09/15/18 17:00 Intake & Output 09/14/18 09/15/18 09/15/18 18:59 06:59 18:59 Intake Total 5580.386 9600.405 669.029 Output Total 345 775 355 Balance 915.758 322.405 314.029 Weight 47.2 kg Intake: IV 1040 750 550 Clindamycin 600 mg In 200 50 Dextrose 5% in Water 50 ml @ 50 mls/hr IVPB Q8HR [facility] Rx#:[id number] Levofloxacin 750Mg-D5w 100 Pmx 750 mg In Dextrose/ Water 1 150ml.bag @ 100 mls/hr IVPB Q24H [facility] Rx#: [id number] Sodium Chloride 0.9% 1, 840 650 500 000 ml @ 50 mls/hr IV . Q20H [facility] Rx#:[id number] Intake, IV Titration 70.758 147.405 69.029 Amount Propofol 1,000 mg In 70.758 147.405 69.029 Empty Bag 1 bag @ Titrate IV .Q0M [facility] Rx#: [id number] Tube Feeding 70 200 20 Other 80 30 Output: Chest Tube Drainage 35 350 Pleural Catheter Right 35 350 Lower Anterior Chest Gastric Drainage 50 Urine 260 425 355 Other: Voiding Method Indwelling Catheter Indwelling Catheter ABP, PAP, CO, CI - Last Documented Arterial Blood Pressure 144/74 - Exam The patient is awake and comfortable currently on a BiPAP at a pressure of 12/5 with an FiO2 of 40%. She looks profoundly cachectic and emaciated, looks way or other than her stated age. Head exam was generally normal. There was no scleral icterus or corneal arcus. Mucous membranes were moist. Neck was supple and without jugular venous distension, thyromegaly, or carotid bruits. Carotids were easily palpable bilaterally. There was no adenopathy. Orogastric and orotracheal tube are both in place Lungs sounds are diminished bilaterally along with scattered rhonchi and scatter ed expiratory wheezes throughout the lung rodriguez and there is obvious prolongation of the expiratory phase of breathing. There is a right-sided Pleurx catheter in place attached to a Pleur-evac. No evidence of any air leak at this point in time. Output is minimal. Cardiac exam revealed the PMI to be normally situated and sized. The rhythm was regular and no extrasystoles were noted during several minutes of auscultation. The first and second heart sounds were normal and physiologic splitting of the second heart sound was noted. There were no murmurs, rubs, clicks, or gallops. Abdominal exam revealed normal bowel sounds. The abdomen was soft, non-tender, and without masses, organomegaly, or appreciable enlargement of the abdominal aorta. Examination of the extremities revealed easily palpable radial, femoral and pedal pulses. There was no cyanosis, clubbing or edema. There is significant muscle atrophy in all 4 extremities Examination of the skin revealed no evidence of significant rashes, suspicious appearing nevi or other concerning lesions. Neurologic the patient is awake and alert and moving all 4 extremities. - Labs CBC & Chem 7: 09/15/18 04:30 09/15/18 04:30 Labs: Abnormal Lab Results - Last 24 Hours (Table) 09/14/18 09/15/18 09/15/18 Range/Units 17:37 00:06 04:30 WBC 11.3 H (3.8-10.6) k/uL MCV 100.9 H (80.0-100.0) fL Neutrophils # 10.6 H (1.3-7.7) k/uL Lymphocytes # 0.4 L (1.0-4.8) k/uL ABG pH (7.35-7.45) ABG pCO2 (35-45) mmHg ABG HCO3 (21-25) mmol/L ABG Total CO2 (19-24) mmol/L Carbon Dioxide (22-30) mmol/L Creatinine (0.52-1.04) mg/dL Glucose (74-99) mg/dL POC Glucose (mg/dL) 128 H 118 H (75-99) mg/dL Alkaline Phosphatase (38-126) U/L Total Protein (6.3-8.2) g/dL Albumin (3.5-5.0) g/dL 09/15/18 09/15/18 09/15/18 Range/Units 04:30 05:39 06:56 WBC (3.8-10.6) k/uL MCV (80.0-100.0) fL Neutrophils # (1.3-7.7) k/uL Lymphocytes # (1.0-4.8) k/uL ABG pH 7.46 H (7.35-7.45) ABG pCO2 55 H (35-45) mmHg ABG HCO3 39 H (21-25) mmol/L ABG Total CO2 41 H (19-24) mmol/L Carbon Dioxide 36 H (22-30) mmol/L Creatinine 0.24 L (0.52-1.04) mg/dL Glucose 129 H (74-99) mg/dL POC Glucose (mg/dL) 123 H (75-99) mg/dL Alkaline Phosphatase 140 H (38-126) U/L Total Protein 5.3 L (6.3-8.2) g/dL Albumin 2.7 L (3.5-5.0) g/dL 09/15/18 Range/Units 11:52 WBC (3.8-10.6) k/uL MCV (80.0-100.0) fL Neutrophils # (1.3-7.7) k/uL Lymphocytes # (1.0-4.8) k/uL ABG pH (7.35-7.45) ABG pCO2 (35-45) mmHg ABG HCO3 (21-25) mmol/L ABG Total CO2 (19-24) mmol/L Carbon Dioxide (22-30) mmol/L Creatinine (0.52-1.04) mg/dL Glucose (74-99) mg/dL POC Glucose (mg/dL) 110 H (75-99) mg/dL Alkaline Phosphatase (38-126) U/L Total Protein (6.3-8.2) g/dL Albumin (3.5-5.0) g/dL Microbiology - Last 24 Hours (Table) 09/13/18 16:38 Gram Stain - Final Sputum Sputum Culture - Final Assessment and Plan Plan: 1 acute on chronic hypoxic respiratory failure, exact etiology is not clear. Suspect COPD exacerbation/pneumonia. Pulmonary embolism was ruled out based on the CT angiogram of the chest. CAT scan showed lower lobe consolidation in the lung bases bilaterally. Rule out also the possibility of an aspiration. The patient is improved considerably. Earlier this morning the patient showed adequate blood gases, and Coumadin the airway pressures and less bronchospasm wheezing. I was able to extubate the patient to a BiPAP and currently she on a BiPAP at a pressure of 12/5 cm of water and FiO2 of 40%. Chest x-ray showing a tiny right-sided pneumothorax, loculated in the Pleurx catheter is in place. 2 acute ventilator-dependent respiratory failure secondary to above 3 stage IV non-small cell lung cancer with poorly differentiated, with a positive pleural fluid. 4 malignant right-sided pleural effusion postthoracentesis subsequent Pleurx catheter insertion him output is in order of 400 mL since she arrived to the ICU. 5 severe cachexia and malnourishment 6 COPD exacerbation. 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 Pleurx catheter is in place. Plan Keep the BiPAP throughout the night today and we will try to gradually wean it off as of tomorrow. Continue the same BiPAP setting for now. Continue the bronchodilators. Continue same antibiotic coverage. Continue IV Solu-Medrol. Monitor the output from the Pleurx catheter monitor the air leak. Repeat chest x-ray in the morning. The patient is quite sick and cachectic and weak and emaciated secondary to have stage IV lung cancer. I updated the family on her condition. She is doing progress pH is currently extubated. We'll continue to follow and make further recommendations based on her progress. His evaluation was done and more than 30 minutes. Time with Patient: Greater than 30
[2018-09-15 18:42] LABS: Glucose,Whole Blood 103 mg/dL (75-99)
[2018-09-15] MEDS: LEVOFLOXACIN 750MG-D5W PMX 750 MG in DEXTROSE/WATER 1 150ML.BAG IVPB SCH (21:03)
[2018-09-16 00:04] LABS: Glucose,Whole Blood 117 mg/dL (75-99)
[2018-09-16] MEDS: CLINDAMYCIN 600 MG in DEXTROSE 5% IN WATER 50 ML IVPB SCH ×6 (00:08→16:29)
[2018-09-16] MEDS: methylPREDNISolone SOD SUCCI 125 MG/2 ML VIAL IV SCH ×4 (00:09→19:41)
[2018-09-16] MEDS: INSULIN ASPART (NovoLOG) 100 UNIT/ML VIAL SQ SCH ×5 (00:10→22:22)
[2018-09-16] MEDS: LORazepam 2 MG/ML INJ IV PRN (00:21)
[2018-09-16 05:28] LABS: Basophils % (A) 0 %; Eosinophils # (A) 0.1 k/uL (0-0.7); Eosinophils % (A) 1 %; HCT 40.3 % (34.0-46.0); HGB 12.8 gm/dL (11.4-16.0); Lymphocytes # (A) 0.5 k/uL (1.0-4.8); Lymphocytes % (A) 4 %; MCH 31.6 pg (25.0-35.0); MCHC 31.9 g/dL (31.0-37.0); MCV 99.1 fL (80.0-100.0); Mean Platelet Volume 7.9; Monocytes # (A) 0.3 k/uL (0-1.0); Monocytes % (A) 3 %; Neutrophils # (A) 10.1 k/uL (1.3-7.7); Neutrophils % (A) 92 %; Platelet Count 295 k/uL (150-450); RBC 4.06 m/uL (3.80-5.40); WBC 10.9 k/uL (3.8-10.6)
[2018-09-16 05:38] LABS: ALT 43 U/L (9-52); AST 37 U/L (14-36); African American GFR (CKD) >90 (>60 ml/min/1.73 sqM); Alkaline Phosphatase 146 U/L (38-126); Anion Gap 1 mmol/L; Blood Urea Nitrogen 13 mg/dL (7-17); Calcium 8.9 mg/dL (8.4-10.2); Carbon Dioxide 38 mmol/L (22-30); Chloride 98 mmol/L (98-107); Glucose 95 mg/dL (74-99); Magnesium 1.8 mg/dL (1.6-2.3); Phosphorus 3.3 mg/dL (2.5-4.5); Sodium 137 mmol/L (137-145); Total Bilirubin 0.5 mg/dL (0.2-1.3); Total Protein 5.6 g/dL (6.3-8.2)
[2018-09-16 06:20] LABS: Glucose,Whole Blood 93 mg/dL (75-99)
[2018-09-16 06:31] LABS: ABG Base Excess 15.2 mmol/L; ABG HCO3 39 mmol/L (21-25); ABG Oxygen Saturation 95.4 % (94-97); ABG PCO2 51 mmHg (35-45); ABG PH 7.49 (7.35-7.45); ABG PO2 76 mmHg (83-108); ABG TCO2 40 mmol/L (19-24); Allen Test Performed? Yes
--- NOTE | 2018-09-16 07:40 | P.PN ---
Subjective Progress Note Date: 09/16/18 Principal diagnosis: Acute non-ST patient myocardial infarction This is a pleasant 57-year-old female patient with stage IV non-small cell lung cancer was admitted to the hospital with shortness of breath and developed acute hypoxic respiratory failure requiring intubation and mechanical ventilation. Subsequently the patient was extubated. We get involved in the care of the patient because of mildly abnormal troponin. On follow-up with the patient today, 09/16/2018, the patient was extubated. She has been maintaining normal sinus mechanism. She has been stable hemodyn amically as well. Objective - Vital Signs Vital signs: Vital Signs Temp 97.7 F 09/16/18 04:00 Pulse 79 09/16/18 07:00 Resp 21 09/16/18 07:00 BP 139/84 09/16/18 07:00 Pulse Ox 96 09/16/18 07:00 Intake & Output 09/15/18 09/16/18 09/16/18 18:59 06:59 18:59 Intake Total 769.029 620 50 Output Total 565 1260 200 Balance 204.029 -640 -150 Intake: IV 650 620 50 Clindamycin 600 mg In 50 50 Dextrose 5% in Water 50 ml @ 50 mls/hr IVPB Q8HR [facility] Rx#:[id number] Levofloxacin 750Mg-D5w 100 Pmx 750 mg In Dextrose/ Water 1 150ml.bag @ 100 mls/hr IVPB Q24H [facility] Rx#: [id number] Sodium Chloride 0.9% 1, 600 470 50 000 ml @ 50 mls/hr IV . Q20H [facility] Rx#:[id number] Intake, IV Titration 69.029 Amount Propofol 1,000 mg In 69.029 Empty Bag 1 bag @ Titrate IV .Q0M [facility] Rx#: [id number] Tube Feeding 20 Other 30 Output: Chest Tube Drainage 110 85 Pleural Catheter Right 110 85 Lower Anterior Chest Urine 455 1175 200 Other: Voiding Method Indwelling Catheter Indwelling Catheter ABP, PAP, CO, CI - Last Documented Arterial Blood Pressure 129/70 - Constitutional General appearance: Present: no acute distress - Respiratory Respiratory: bilateral: wheezing - Cardiovascular Rhythm: regular Heart sounds: normal: S1, S2 - Labs CBC & Chem 7: 09/16/18 04:55 09/16/18 04:55 Labs: Abnormal Lab Results - Last 24 Hours (Table) 09/15/18 09/15/18 09/16/18 Range/Units 11:52 18:40 00:03 WBC (3.8-10.6) k/uL Neutrophils # (1.3-7.7) k/uL Lymphocytes # (1.0-4.8) k/uL ABG pH (7.35-7.45) ABG pCO2 (35-45) mmHg ABG pO2 (83-108) mmHg ABG HCO3 (21-25) mmol/L ABG Total CO2 (19-24) mmol/L Carbon Dioxide (22-30) mmol/L Creatinine (0.52-1.04) mg/dL POC Glucose (mg/dL) 110 H 103 H 117 H (75-99) mg/dL AST (14-36) U/L Alkaline Phosphatase (38-126) U/L Total Protein (6.3-8.2) g/dL Albumin (3.5-5.0) g/dL 09/16/18 09/16/18 09/16/18 Range/Units 04:55 04:55 06:25 WBC 10.9 H (3.8-10.6) k/uL Neutrophils # 10.1 H (1.3-7.7) k/uL Lymphocytes # 0.5 L (1.0-4.8) k/uL ABG pH 7.49 H (7.35-7.45) ABG pCO2 51 H (35-45) mmHg ABG pO2 76 L (83-108) mmHg ABG HCO3 39 H (21-25) mmol/L ABG Total CO2 40 H (19-24) mmol/L Carbon Dioxide 38 H (22-30) mmol/L Creatinine 0.21 L (0.52-1.04) mg/dL POC Glucose (mg/dL) (75-99) mg/dL AST 37 H (14-36) U/L Alkaline Phosphatase 146 H (38-126) U/L Total Protein 5.6 L (6.3-8.2) g/dL Albumin 3.0 L (3.5-5.0) g/dL Microbiology - Last 24 Hours (Table) 09/13/18 16:38 Gram Stain - Final Sputum Sputum Culture - Final Assessment and Plan Assessment: Assessment #1 acute hypoxic respiratory failure which has improved #2 COPD exacerbation #3 stage IV non-small cell carcinoma #4 mildly abnormal troponin #5 multiple comorbid conditions Plan #1 continue the current medical regimen #2 the echocardiogram revealed normal LV function was moderate to severe tricuspid regurgitation and moderate pulmonary hypertension #3 follow-up with the patient
[2018-09-16] MEDS: SODIUM CHLORIDE 0.9% 1,000 ML IV SCH (07:43)
[2018-09-16] MEDS: MAGNESIUM SULFATE-D5W PMX 1 GM in DEXTROSE/WATER 1 100ML.BAG IVPB SCH ×2 (07:52→09:59)
[2018-09-16] MEDS: PANTOPRAZOLE 40 MG/10 ML VIAL IV SCH (08:07)
[2018-09-16] MEDS: ENOXAPARIN 40 MG/0.4 ML SYRINGE SQ SCH (08:08)
--- NOTE | 2018-09-16 08:32 | XR ---
EXAMINATION TYPE: XR chest 1V portable DATE OF EXAM: 09/16/2018 COMPARISON: 09/15/2018 INDICATION: Pneumothorax TECHNIQUE: Single frontal view of the chest is obtained. FINDINGS: The heart size is normal. The pulmonary vasculature is normal. Some mild atelectasis is likely present at the right lung base. Minimal atelectasis at the left base adjacent to the diaphragm. Endotracheal tube and nasogastric tube is been removed. There is a right-sided chest tube present. The right-sided pneumothorax which includes both right api riaz and right costophrenic angle pneumothorax is slightly increased in size from the comparison. Refe rence measurements 1.8 cm from the apex and 3.7 cm from the costophrenic angle. IMPRESSION: 1. Slight increase in size of the right-sided pneumothorax. Chest tube remains in position.
[2018-09-16] MEDS: FORMOTEROL FUMARATE 20 MCG/2 ML NEBU INHALATION SCH ×2 (08:42→21:04)
[2018-09-16] MEDS: IPRATROPIUM-ALBUTEROL 3 ML NEB INHALATION PRN ×4 (08:42→21:04)
[2018-09-16] MEDS: BUDESONIDE 0.5 MG/2 ML NEBU INHALATION SCH ×2 (08:42→21:04)
[2018-09-16 09:36] LABS: Glucose,Whole Blood 100 mg/dL (75-99)
[2018-09-16] MEDS ORDERED: HALOPERIDOL LACTATE 5 MG/ML 1 ML VIAL IVP PRN (10:10)
[2018-09-16] MEDS: NICOTINE 14MG/24HR PATCH TRANSDERM SCH (11:12)
[2018-09-16 11:53] LABS: Glucose,Whole Blood 170 mg/dL (75-99)
--- NOTE | 2018-09-16 13:05 | P.PN ---
Subjective This is a pleasant 57 years old female with past medical history of CVA/TIA, syncope, stage IV non-small cell lung cancer with pleural effusion, malignant in nature status post Pleurx catheter in a Place. 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 And glover IV access in the right chest. Presents with respiratory distress and decreased responsiveness. Patient got intubated in the emergency room. Pulmonary critical care team already evaluated the patient. Currently vital shown blood pressure 105/81, heart rate 101, she is saturating 98% on FiO2 60 and she is breathing rate is 28/m. Patient is afebrile. Labs reviewed showing mild leukocytosis of 12.9 K. Hemoglobin 13.3. Potassium was low at 3.2. Creatinine 0.27. Liver enzymes not elevated. Troponin is 0.04 09/15/2018 Patient got extubated today, she remains in the ICU. Just some respiratory distress and she feels tired and could not provide information, she is hemodynamically stable. Leukocytosis is improving slightly to 11.3 K. Creatinine 0.24, sugar controlled. Chest x-ray showing right hydro-pneumothorax with a right thoracostomy tube. Echocardiogram is pending. Cardiology evaluation. 09/16/2018 Patient breathing is doing better. Patient with no chest pain. Her oxygen saturation is 98% on 5 L nasal cannula. Also patient is on BiPAP. She is a little bit tachypneic. Her rest of vitals are stable. Her WBC is 10.9 K. Creatinine is 0.2. Glucose is 100-117. Liver enzymes mildly elevated. She still have the right-sided pleurx, Chest x-ray: right sided pneumothorax is slightly increased.Patient currently on Levaquin, and Solu-Medrol. And gentle hydration Objective - Vital Signs Vital signs: Vital Signs Temp 98.2 F 09/16/18 11:00 Pulse 96 09/16/18 12:21 Resp 28 H 09/16/18 12:00 BP 123/74 09/16/18 12:00 Pulse Ox 98 09/16/18 12:00 Intake & Output 09/15/18 09/16/18 09/16/18 18:59 06:59 18:59 Intake Total 769.029 620 400 Output Total 565 1260 510 Balance 204.029 -640 -110 Weight 47.2 kg Intake: IV 650 620 300 Clindamycin 600 mg In 50 50 Dextrose 5% in Water 50 ml @ 50 mls/hr IVPB Q8HR [facility] Rx#:[id number] Levofloxacin 750Mg-D5w 100 Pmx 750 mg In Dextrose/ Water 1 150ml.bag @ 100 mls/hr IVPB Q24H [facility] Rx#: [id number] Sodium Chloride 0.9% 1, 600 470 300 000 ml @ 50 mls/hr IV . Q20H [facility] Rx#:[id number] Intake, IV Titration 69.029 100 Amount Magnesium Sulfate-D5w Pmx 100 1 gm In Dextrose/Water 1 100ml.bag @ 100 mls/hr IVPB Q1H [facility] Rx#: [id number] Propofol 1,000 mg In 69.029 Empty Bag 1 bag @ Titrate IV .Q0M [facility] Rx#: [id number] Tube Feeding 20 Other 30 Output: Chest Tube Drainage 110 85 Pleural Catheter Right 110 85 Lower Anterior Chest Urine 455 1175 510 Other: Voiding Method Indwelling Catheter Indwelling Catheter Indwelling Catheter ABP, PAP, CO, CI - Last Documented Arterial Blood Pressure 129/70 - Exam -GENERAL: The patient is alert and oriented x3, she is status post extubation. Some respiratory distress HEENT: Pupils are round and equally reacting to light. EOMI. No scleral icterus. No conjunctival pallor. Normocephalic, atraumatic. No pharyngeal erythema. No thyromegaly. CARDIOVASCULAR: S1 and S2 present. No murmurs, rubs, or gallops. PULMONARY: Chest is clear to auscultation, no wheezing or crackles. ABDOMEN: Soft, nontender, nondistended, normoactive bowel sounds. No palpable organomegaly. MUSCULOSKELETAL: No joint swelling or deformity. EXTREMITIES: No cyanosis, clubbing, or pedal edema. NEUROLOGICAL: Gross neurological examination did not reveal any focal deficits. SKIN: No rashes. - Labs CBC & Chem 7: 09/16/18 04:55 09/16/18 04:55 Labs: Abnormal Lab Results - Last 24 Hours (Table) 09/15/18 09/16/18 09/16/18 Range/Units 18:40 00:03 04:55 WBC 10.9 H (3.8-10.6) k/uL Neutrophils # 10.1 H (1.3-7.7) k/uL Lymphocytes # 0.5 L (1.0-4.8) k/uL ABG pH (7.35-7.45) ABG pCO2 (35-45) mmHg ABG pO2 (83-108) mmHg ABG HCO3 (21-25) mmol/L ABG Total CO2 (19-24) mmol/L Carbon Dioxide (22-30) mmol/L Creatinine (0.52-1.04) mg/dL POC Glucose (mg/dL) 103 H 117 H (75-99) mg/dL AST (14-36) U/L Alkaline Phosphatase (38-126) U/L Total Protein (6.3-8.2) g/dL Albumin (3.5-5.0) g/dL 09/16/18 09/16/18 09/16/18 Range/Units 04:55 06:25 09:35 WBC (3.8-10.6) k/uL Neutrophils # (1.3-7.7) k/uL Lymphocytes # (1.0-4.8) k/uL ABG pH 7.49 H (7.35-7.45) ABG pCO2 51 H (35-45) mmHg ABG pO2 76 L (83-108) mmHg ABG HCO3 39 H (21-25) mmol/L ABG Total CO2 40 H (19-24) mmol/L Carbon Dioxide 38 H (22-30) mmol/L Creatinine 0.21 L (0.52-1.04) mg/dL POC Glucose (mg/dL) 100 H (75-99) mg/dL AST 37 H (14-36) U/L Alkaline Phosphatase 146 H (38-126) U/L Total Protein 5.6 L (6.3-8.2) g/dL Albumin 3.0 L (3.5-5.0) g/dL 09/16/18 Range/Units 11:51 WBC (3.8-10.6) k/uL Neutrophils # (1.3-7.7) k/uL Lymphocytes # (1.0-4.8) k/uL ABG pH (7.35-7.45) ABG pCO2 (35-45) mmHg ABG pO2 (83-108) mmHg ABG HCO3 (21-25) mmol/L ABG Total CO2 (19-24) mmol/L Carbon Dioxide (22-30) mmol/L Creatinine (0.52-1.04) mg/dL POC Glucose (mg/dL) 170 H (75-99) mg/dL AST (14-36) U/L Alkaline Phosphatase (38-126) U/L Total Protein (6.3-8.2) g/dL Albumin (3.5-5.0) g/dL Microbiology - Last 24 Hours (Table) 09/13/18 16:38 Gram Stain - Final Sputum Sputum Culture - Final Assessment and Plan Assessment: Acute hypoxic respiratory failure, status post intubation for 1 day followed by extubation Possible acute COPD exacerbation versus pneumonia. Stage IV non-small cell lung cancers with malignant pleural effusion status post Pleurx catheter. Elevated troponin. 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 He knew with a breathing treatment, steroids, antibiotics. Continue with oxygen therapy. Also, cardiology consult and echocardiogram. Oncology consult. Labs and medication were reviewed.. Continue same treatment. Continue with symptomatic treatment. Resume home medication. Monitor lytes and vitals. DVT and GI prophylaxis. Further recommendations of the clinical course of the patient DVT prophylaxis: Subcutaneous heparin GI Prophylaxis: Protonix Prognosis is poor
--- NOTE | 2018-09-16 14:35 | P.PN ---
Subjective Progress Note Date: 09/16/18 On 09/16/2018 the patient is extubated. The patient is on of being placed on BiPAP at a pressure of 12/5 cm of water with an FiO2 of 30%. I saw her earlier this morning I took her off the BiPAP and put on nasal cannula. She seems to be quite comfortable. No use of excessive muscle breathing. Motion blood gases showed a pH of 7.49 with a pCO2 of 51 and pO2 of 76 and this was on FiO2 of 30% with patient being on a BiPAP. Chest x-ray shows a right-sided pneumothorax. The patient has a Pleurx catheter in place. There is some occasional air leak. Output from the right-sided chest tube is minimal for now. Chest x-ray showed some slight increase in the right-sided pneumothorax which seems to be around 3.7 cm from the costophrenic angle on 1.8 cm from the lung apex. There is also right midlung opacity/mass consistent with malignancy. The patient is following commands and moving all 4 extremities on limitation. On and off she is found to be confused. She is able to talk to her family members. She is able to talk to me. She is aware that she is in the hospital. CAT scan of the brain that was done and I will admission showed diffuse white matter changes and possibility of hypoxic encephalopathy was considered. Note that the patient was quite hypoxic prior to her coming to the hospital her pulse ox was in the low 80s. Echocardiogram showed a preserved LV function with an ejection fraction of 55- 60%. There was a moderate to severe tricuspid regurgitation, right-sided pre ssure was 52. Inferior vena cava was dilated consistent with elevated right atrial pressure. She remains in normal sinus rhythm for now. Objective - Vital Signs Vital signs: Vital Signs Temp 98.2 F 09/16/18 11:00 Pulse 93 09/16/18 14:00 Resp 24 09/16/18 14:00 BP 121/66 09/16/18 14:00 Pulse Ox 98 09/16/18 14:00 Intake & Output 09/15/18 09/16/18 09/16/18 18:59 06:59 18:59 Intake Total 769.029 620 500 Output Total 565 1260 630 Balance 204.029 -640 -130 Weight 47.2 kg Intake: IV 650 620 400 Clindamycin 600 mg In 50 50 Dextrose 5% in Water 50 ml @ 50 mls/hr IVPB Q8HR [facility] Rx#:[id number] Levofloxacin 750Mg-D5w 100 Pmx 750 mg In Dextrose/ Water 1 150ml.bag @ 100 mls/hr IVPB Q24H [facility] Rx#: [id number] Sodium Chloride 0.9% 1, 600 470 400 000 ml @ 50 mls/hr IV . Q20H [facility] Rx#:[id number] Intake, IV Titration 69.029 100 Amount Magnesium Sulfate-D5w Pmx 100 1 gm In Dextrose/Water 1 100ml.bag @ 100 mls/hr IVPB Q1H [facility] Rx#: [id number] Propofol 1,000 mg In 69.029 Empty Bag 1 bag @ Titrate IV .Q0M [facility] Rx#: [id number] Tube Feeding 20 Other 30 Output: Chest Tube Drainage 110 85 Pleural Catheter Right 110 85 Lower Anterior Chest Urine 455 1175 630 Other: Voiding Method Indwelling Catheter Indwelling Catheter Indwelling Catheter ABP, PAP, CO, CI - Last Documented Arterial Blood Pressure 129/70 - Exam The patient is awake and comfortable currently on a BiPAP at a pressure of 12/5 with an FiO2 of 30%. She looks profoundly cachectic and emaciated, looks way or other than her stated age. Head exam was generally normal. There was no scleral icterus or corneal arcus. Mucous membranes were moist. Neck was supple and without jugular venous distension, thyromegaly, or carotid bruits. Carotids were easily palpable bilaterally. There was no adenopathy. Orogastric and orotracheal tube are both in place Lungs sounds are diminished bilaterally along with scattered rhonchi and scattered expiratory wheezes throughout the lung rodriguez and there is obvious prolongation of the expiratory phase of breathing. There is a right-sided Pleurx catheter in place attached to a Pleur-evac. No evidence of any air leak at this point in time. Output is minimal. Cardiac exam revealed the PMI to be normally situated and sized. The rhythm was regular and no extrasystoles were noted during several minutes of auscultation. The first and second heart sounds were normal and physiologic splitting of the second heart sound was noted. There were no murmurs, rubs, clicks, or gallops. Abdominal exam revealed normal bowel sounds. The abdomen was soft, non-tender, and without masses, organomegaly, or appreciable enlargement of the abdominal aorta. Examination of the extremities revealed easily palpable radial, femoral and pedal pulses. There was no cyanosis, clubbing or edema. There is significant muscle atrophy in all 4 extremities Examination of the skin revealed no evidence of significant rashes, suspicious appearing nevi or other concerning lesions. Neurologic the patient is awake and alert and moving all 4 extremities. - Labs CBC & Chem 7: 09/16/18 04:55 09/16/18 04:55 Labs: Abnormal Lab Results - Last 24 Hours (Table) 09/15/18 09/16/18 09/16/18 Range/Units 18:40 00:03 04:55 WBC 10.9 H (3.8-10.6) k/uL Neutrophils # 10.1 H (1.3-7.7) k/uL Lymphocytes # 0.5 L (1.0-4.8) k/uL ABG pH (7.35-7.45) ABG pCO2 (35-45) mmHg ABG pO2 (83-108) mmHg ABG HCO3 (21-25) mmol/L ABG Total CO2 (19-24) mmol/L Carbon Dioxide (22-30) mmol/L Creatinine (0.52-1.04) mg/dL POC Glucose (mg/dL) 103 H 117 H (75-99) mg/dL AST (14-36) U/L Alkaline Phosphatase (38-126) U/L Total Protein (6.3-8.2) g/dL Albumin (3.5-5.0) g/dL 09/16/18 09/16/18 09/16/18 Range/Units 04:55 06:25 09:35 WBC (3.8-10.6) k/uL Neutrophils # (1.3-7.7) k/uL Lymphocytes # (1.0-4.8) k/uL ABG pH 7.49 H (7.35-7.45) ABG pCO2 51 H (35-45) mmHg ABG pO2 76 L (83-108) mmHg ABG HCO3 39 H (21-25) mmol/L ABG Total CO2 40 H (19-24) mmol/L Carbon Dioxide 38 H (22-30) mmol/L Creatinine 0.21 L (0.52-1.04) mg/dL POC Glucose (mg/dL) 100 H (75-99) mg/dL AST 37 H (14-36) U/L Alkaline Phosphatase 146 H (38-126) U/L Total Protein 5.6 L (6.3-8.2) g/dL Albumin 3.0 L (3.5-5.0) g/dL 09/16/18 Range/Units 11:51 WBC (3.8-10.6) k/uL Neutrophils # (1.3-7.7) k/uL Lymphocytes # (1.0-4.8) k/uL ABG pH (7.35-7.45) ABG pCO2 (35-45) mmHg ABG pO2 (83-108) mmHg ABG HCO3 (21-25) mmol/L ABG Total CO2 (19-24) mmol/L Carbon Dioxide (22-30) mmol/L Creatinine (0.52-1.04) mg/dL POC Glucose (mg/dL) 170 H (75-99) mg/dL AST (14-36) U/L Alkaline Phosphatase (38-126) U/L Total Protein (6.3-8.2) g/dL Albumin (3.5-5.0) g/dL Microbiology - Last 24 Hours (Table) 09/13/18 16:38 Gram Stain - Final Sputum Sputum Culture - Final Assessment and Plan Plan: 1 acute on chronic hypoxic respiratory failure, and the patient is post intubation mechanical ventilation and ventilatory dependent respiratory failure from which she has recovered and currently she is extubated on oxygen at 5 L per minute nasal cannula. The blood gases from this morning shows a component of me tabolic alkalosis and post hypercapnic respiratory alkalosis. I think the patient's baseline pCO2 is in the range of 60-65 and based on the blood gases was not 1 the patient on a BiPAP, episodes has been worse down to 51 which has resulted in some respiratory alkalosis. Chest x-ray shows a right-sided pneumothorax with a Pleurx catheter that showing episodic air leaks. Output from the right-sided chest tube is minimal in terms of the pleural fluid in the chest x-ray shows no significant pleural fluid a combination at this point in time. 2 acute ventilator-dependent respiratory failure secondary to above, recovered and the patient is currently on 5 L of oxygen by nasal cannula. 3 stage IV non-small cell lung cancer with poorly differentiated, with a positive pleural fluid. 4 malignant right-sided pleural effusion postthoracentesis subsequent Pleurx catheter insertion 5 severe cachexia and malnourishment 6 COPD exacerbation. 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 Pleurx catheter is in place. 13 episodic confusion/altered mentation. Consider deleting. Consider a component of encephalopathy as the patient was profoundly hypoxic for several hours prior to her coming to the hospital. CAT scan of the brain showed chronic white matter changes consistent with anoxic encephalopathy. No evidence of any malignancy or [employer] metastases. Plan Continue DuoNeb neb regiments on the clock. Continue Pulmicort and Perforomist nebulized treatments twice a day, continue same antibiotic coverage. Continue IV Solu-Medrol. Advance diet. Kept on IV fluids to 50 mL an hour. The patient has a preserved LV function with an ejection fraction of 55-60%. There is a com ponent of secondary pulmonary hypertension with moderate to severe tricuspid regurgitation. The patient has a right-sided pneumothorax with a right Pleurx catheter in place and this is attached to suction. We'll ask her to stop on a chair. Physical therapy has been consulted. We'll keep her off the BiPAP for now. We'll continue to follow.
--- NOTE | 2018-09-16 16:05 | P.PN ---
Subjective Progress Note Date: 09/16/18 The patient has been extubated, and is currently on nasal cannula. She overall looks fairly comfortable though she is mildly short of breath with conversation. No fever or chills. She denies any significant pain at this time. Objective - Vital Signs Vital signs: Vital Signs Temp 98.2 F 09/16/18 11:00 Pulse 93 09/16/18 14:00 Resp 24 09/16/18 14:00 BP 121/66 09/16/18 14:00 Pulse Ox 98 09/16/18 14:00 Intake & Output 09/15/18 09/16/18 09/16/18 18:59 06:59 18:59 Intake Total 769.029 620 500 Output Total 565 1260 630 Balance 204.029 -640 -130 Weight 47.2 kg Intake: IV 650 620 400 Clindamycin 600 mg In 50 50 Dextrose 5% in Water 50 ml @ 50 mls/hr IVPB Q8HR [facility] Rx#:[id number] Levofloxacin 750Mg-D5w 100 Pmx 750 mg In Dextrose/ Water 1 150ml.bag @ 100 mls/hr IVPB Q24H [facility] Rx#: [id number] Sodium Chloride 0.9% 1, 600 470 400 000 ml @ 50 mls/hr IV . Q20H [facility] Rx#:[id number] Intake, IV Titration 69.029 100 Amount Magnesium Sulfate-D5w Pmx 100 1 gm In Dextrose/Water 1 100ml.bag @ 100 mls/hr IVPB Q1H [facility] Rx#: [id number] Propofol 1,000 mg In 69.029 Empty Bag 1 bag @ Titrate IV .Q0M [facility] Rx#: [id number] Tube Feeding 20 Other 30 Output: Chest Tube Drainage 110 85 Pleural Catheter Right 110 85 Lower Anterior Chest Urine 455 1175 630 Other: Voiding Method Indwelling Catheter Indwelling Catheter Indwelling Catheter ABP, PAP, CO, CI - Last Documented Arterial Blood Pressure 129/70 - Constitutional General appearance: Present: mild distress - EENT Eyes: Present: EOMI ENT: Present: hearing grossly normal, normal oropharynx - Respiratory Respiratory: right: diminished - Cardiovascular Rhythm: regular Heart sounds: normal: S1, S2 - Gastrointestinal General gastrointestinal: Present: normal bowel sounds, soft - Integumentary Integumentary: Present: normal - Neurologic Neurologic: Present: CNII-XII intact - Musculoskeletal Musculoskeletal: Present: generalized weakness, strength equal bilaterally - Psychiatric Psychiatric: Present: A&O x's 3, appropriate affect - Labs CBC & Chem 7: 09/16/18 04:55 09/16/18 04:55 Labs: Abnormal Lab Results - Last 24 Hours (Table) 09/15/18 09/16/18 09/16/18 Range/Units 18:40 00:03 04:55 WBC 10.9 H (3.8-10.6) k/uL Neutrophils # 10.1 H (1.3-7.7) k/uL Lymphocytes # 0.5 L (1.0-4.8) k/uL ABG pH (7.35-7.45) ABG pCO2 (35-45) mmHg ABG pO2 (83-108) mmHg ABG HCO3 (21-25) mmol/L ABG Total CO2 (19-24) mmol/L Carbon Dioxide (22-30) mmol/L Creatinine (0.52-1.04) mg/dL POC Glucose (mg/dL) 103 H 117 H (75-99) mg/dL AST (14-36) U/L Alkaline Phosphatase (38-126) U/L Total Protein (6.3-8.2) g/dL Albumin (3.5-5.0) g/dL 09/16/18 09/16/18 09/16/18 Range/Units 04:55 06:25 09:35 WBC (3.8-10.6) k/uL Neutrophils # (1.3-7.7) k/uL Lymphocytes # (1.0-4.8) k/uL ABG pH 7.49 H (7.35-7.45) ABG pCO2 51 H (35-45) mmHg ABG pO2 76 L (83-108) mmHg ABG HCO3 39 H (21-25) mmol/L ABG Total CO2 40 H (19-24) mmol/L Carbon Dioxide 38 H (22-30) mmol/L Creatinine 0.21 L (0.52-1.04) mg/dL POC Glucose (mg/dL) 100 H (75-99) mg/dL AST 37 H (14-36) U/L Alkaline Phosphatase 146 H (38-126) U/L Total Protein 5.6 L (6.3-8.2) g/dL Albumin 3.0 L (3.5-5.0) g/dL 09/16/18 Range/Units 11:51 WBC (3.8-10.6) k/uL Neutrophils # (1.3-7.7) k/uL Lymphocytes # (1.0-4.8) k/uL ABG pH (7.35-7.45) ABG pCO2 (35-45) mmHg ABG pO2 (83-108) mmHg ABG HCO3 (21-25) mmol/L ABG Total CO2 (19-24) mmol/L Carbon Dioxide (22-30) mmol/L Creatinine (0.52-1.04) mg/dL POC Glucose (mg/dL) 170 H (75-99) mg/dL AST (14-36) U/L Alkaline Phosphatase (38-126) U/L Total Protein (6.3-8.2) g/dL Albumin (3.5-5.0) g/dL Assessment and Plan (1) Malignant pleural effusion Narrative/Plan: The patient's pleural effusion on the second and third drainage was positive for metastatic adenocarcinoma. The IHC pattern was consistent with lung versus upper GI versus pancreatobiliary. The pathology report was discussed in detail with the patient, and her today. She was advised that though at this time the primary site is not exactly known, the malignant pleural effusion essentially represents stage IV, incurable disease. Therefore treatment would occur with the objective of inflammation of life and palliation of symptoms. Ideally in this situation we would recommend additional workup to try to narrow down the primary site. This would include EGD, and MRCP. If these were negative it would be reasonable to treat the patient as a primary lung. The patient was understandably upset at the news. She stated that she didn't think she would have any more chemotherapy. I advised her, that at this time with the primary not definitely known, it is difficult to discuss specific treatment options. For example, if she had a primary lung, we would test for appropriate by markers and he may be a candidate for targeted therapy in addition to chemotherapy. Ultimately it was decided to continue current supportive care to the patient is more stable, and moved out of the ICU. At that time we will proceed with ordering MRCP an EGD if the patient was agreeable. Once primary site has been narrow down, then specific treatment recommendations can be discussed, and the patient can then decide as to whether she would like to pursue active treatment versus comfort care She and her were agreeable to the same. We will follow-up once the patient is improved enough to be transferred out of the ICU Current Visit: Yes Status: Acute Code(s): J91.0 - MALIGNANT PLEURAL EFFUSION SNOMED Code(s): 35476422 (2) History of allogeneic bone marrow transplant Narrative/Plan: For AML in the past. No evidence of any recurrence currently. Current Visit: No Status: Chronic Priority: Medium Code(s): Z94.81 - BONE MARROW TRANSPLANT STATUS SNOMED Code(s): 938884599
[2018-09-16 17:11] LABS: Glucose,Whole Blood 96 mg/dL (75-99)
[2018-09-16] MEDS: LEVOFLOXACIN 750MG-D5W PMX 750 MG in DEXTROSE/WATER 1 150ML.BAG IVPB SCH (19:42)
[2018-09-16] MEDS: ACETAMINOPHEN TAB 500 MG TAB PO PRN (22:25)
[2018-09-16 23:59] LABS: Glucose,Whole Blood 105 mg/dL (75-99)
[2018-09-17] MEDS: CLINDAMYCIN 600 MG in DEXTROSE 5% IN WATER 50 ML IVPB SCH ×6 (01:35→21:57)
[2018-09-17] MEDS: methylPREDNISolone SOD SUCCI 125 MG/2 ML VIAL IV SCH ×2 (01:35→09:58)
[2018-09-17] MEDS: SODIUM CHLORIDE 0.9% 1,000 ML IV SCH ×2 (01:36→21:57)
[2018-09-17 05:58] LABS: Basophils % (A) 0 %; Eosinophils # (A) 0.2 k/uL (0-0.7); Eosinophils % (A) 1 %; HCT 41.9 % (34.0-46.0); HGB 13.4 gm/dL (11.4-16.0); Lymphocytes # (A) 0.4 k/uL (1.0-4.8); Lymphocytes % (A) 3 %; MCH 32.2 pg (25.0-35.0); MCHC 31.9 g/dL (31.0-37.0); MCV 100.8 fL (80.0-100.0); Macrocytosis Slight; Monocytes # (A) 0.2 k/uL (0-1.0); Monocytes % (A) 2 %; Neutrophils # (A) 12.2 k/uL (1.3-7.7); Neutrophils % (A) 94 %; Platelet Count 308 k/uL (150-450); RBC 4.15 m/uL (3.80-5.40); RDW 14.4 % (11.5-15.5); WBC 12.9 k/uL (3.8-10.6)
[2018-09-17 06:07] LABS: ALT 52 U/L (9-52); AST 48 U/L (14-36); African American GFR (CKD) >90 (>60 ml/min/1.73 sqM); Alkaline Phosphatase 149 U/L (38-126); Anion Gap 0 mmol/L; Blood Urea Nitrogen 8 mg/dL (7-17); Calcium 9.1 mg/dL (8.4-10.2); Carbon Dioxide 40 mmol/L (22-30); Chloride 98 mmol/L (98-107); Glucose 113 mg/dL (74-99); Magnesium 1.9 mg/dL (1.6-2.3); Phosphorus 3.3 mg/dL (2.5-4.5); Potassium 4.1 mmol/L (3.5-5.1); Sodium 138 mmol/L (137-145); Total Bilirubin 0.6 mg/dL (0.2-1.3); Total Protein 5.7 g/dL (6.3-8.2)
[2018-09-17] MEDS: IPRATROPIUM-ALBUTEROL 3 ML NEB INHALATION PRN ×2 (07:25→18:46)
[2018-09-17] MEDS: BUDESONIDE 0.5 MG/2 ML NEBU INHALATION SCH ×2 (07:25→18:46)
[2018-09-17] MEDS: FORMOTEROL FUMARATE 20 MCG/2 ML NEBU INHALATION SCH ×2 (07:25→18:46)
--- NOTE | 2018-09-17 07:34 | P.PN ---
Subjective Progress Note Date: 09/17/18 Principal diagnosis: Acute non-ST patient myocardial infarction This is a pleasant 57-year-old female patient with stage IV non-small cell lung cancer was admitted to the hospital with shortness of breath and developed acute hypoxic respiratory failure requiring intubation and mechanical ventilation. Subsequently the patient was extubated. We get involved in the care of the patient because of mildly abnormal troponin. On follow-up with the patient today, 09/17/2018, she seems to be doing good clinically. She denies any chest pain or chest discomfort at this point. Objective - Vital Signs Vital signs: Vital Signs Temp 97.8 F 09/17/18 05:00 Pulse 93 09/17/18 07:28 Resp 18 09/17/18 07:00 BP 138/83 09/17/18 07:00 Pulse Ox 98 09/17/18 07:28 Intake & Output 09/16/18 09/17/18 09/17/18 18:59 06:59 18:59 Intake Total 700 860 50 Output Total 880 2635 210 Balance -180 -1775 -160 Weight 47.2 kg 48.8 kg Intake: IV 600 800 50 Clindamycin 600 mg In 50 Dextrose 5% in Water 50 ml @ 50 mls/hr IVPB Q8HR [facility] Rx#:[id number] Levofloxacin 750Mg-D5w 150 Pmx 750 mg In Dextrose/ Water 1 150ml.bag @ 100 mls/hr IVPB Q24H [facility] Rx#: [id number] Sodium Chloride 0.9% 1, 600 600 50 000 ml @ 50 mls/hr IV . Q20H [facility] Rx#:[id number] Intake, IV Titration 100 Amount Magnesium Sulfate-D5w Pmx 100 1 gm In Dextrose/Water 1 100ml.bag @ 100 mls/hr IVPB Q1H [facility] Rx#: [id number] Oral 60 Output: Chest Tube Drainage 140 Pleural Catheter Right 140 Lower Anterior Chest Urine 880 2495 210 Other: Voiding Method Indwelling Catheter Indwelling Catheter ABP, PAP, CO, CI - Last Documented Arterial Blood Pressure 129/70 - Constitutional General appearance: Present: no acute distress - Respiratory Respiratory: bilateral: diminished - Cardiovascular Rhythm: regular - Labs CBC & Chem 7: 09/17/18 05:45 09/17/18 05:45 Labs: Abnormal Lab Results - Last 24 Hours (Table) 09/16/18 09/16/18 09/16/18 Range/Units 09:35 11:51 23:57 WBC (3.8-10.6) k/uL MCV (80.0-100.0) fL Neutrophils # (1.3-7.7) k/uL Lymphocytes # (1.0-4.8) k/uL Carbon Dioxide (22-30) mmol/L Creatinine (0.52-1.04) mg/dL Glucose (74-99) mg/dL POC Glucose (mg/dL) 100 H 170 H 105 H (75-99) mg/dL AST (14-36) U/L Alkaline Phosphatase (38-126) U/L Total Protein (6.3-8.2) g/dL Albumin (3.5-5.0) g/dL 09/17/18 09/17/18 Range/Units 05:45 05:45 WBC 12.9 H (3.8-10.6) k/uL MCV 100.8 H (80.0-100.0) fL Neutrophils # 12.2 H (1.3-7.7) k/uL Lymphocytes # 0.4 L (1.0-4.8) k/uL Carbon Dioxide 40 H (22-30) mmol/L Creatinine 0.18 L (0.52-1.04) mg/dL Glucose 113 H (74-99) mg/dL POC Glucose (mg/dL) (75-99) mg/dL AST 48 H (14-36) U/L Alkaline Phosphatase 149 H (38-126) U/L Total Protein 5.7 L (6.3-8.2) g/dL Albumin 3.0 L (3.5-5.0) g/dL Assessment and Plan Assessment: Assessment #1 acute hypoxic respiratory failure which has improved #2 COPD exacerbation #3 stage IV non-small cell carcinoma #4 mildly abnormal troponin #5 multiple comorbid conditions Plan #1 continue the current medical regimen #2 the echocardiogram revealed normal LV function was moderate to severe tricuspid regurgitation and moderate pulmonary hypertension
[2018-09-17 07:39] LABS: Glucose,Whole Blood 115 mg/dL (75-99)
--- NOTE | 2018-09-17 07:53 | XR ---
EXAMINATION TYPE: XR chest 1V portable DATE OF EXAM: 09/17/2018 COMPARISON: 09/16/2018 INDICATION: Tube placement, pneumothorax TECHNIQUE: Single frontal view of the chest is obtained. FINDINGS: The heart size is normal. The pulmonary vasculature is normal. There is some slight increased density within the right lower lung field which is aerated likely rela pily to some worsening atelectasis. There is increasing right-sided pneumothorax which appears to be moderate at this time. Reference corey surements compared to the prior examination from the apex to the pleural margin of 3.6 cm, increased from 1.8 cm, and at the right lung base 4.2 cm increased from 3.7 cm. Some increasing lateral pneumot horax is evident on the lower lateral right chest. The right-sided chest tube remains stable in position. EKG leads overlie the chest. IMPRESSION: 1. Increasing size of a moderate right pneumothorax. Report was called to Dr. Wiggins by Dr. Guerra by telephone at the time of interpretation. 0750 09/17/2018.
[2018-09-17] MEDS: NICOTINE 14MG/24HR PATCH TRANSDERM SCH (09:58)
[2018-09-17] MEDS: PANTOPRAZOLE 40 MG/10 ML VIAL IV SCH (09:58)
[2018-09-17] MEDS: ENOXAPARIN 40 MG/0.4 ML SYRINGE SQ SCH (10:02)
--- NOTE | 2018-09-17 10:33 | XR ---
EXAMINATION TYPE: XR chest 1V portable DATE OF EXAM: 09/17/2018 COMPARISON: 09/17/2018 INDICATION: Pneumothorax TECHNIQUE: Single frontal view of the chest is obtained. FINDINGS: The heart size is normal. The pulmonary vasculature is normal. There is improved aeration of the inflated right lower lobe. Pneumothorax size has diminished over e interval. Reference measurements 1.9 cm to the pleural margin at the right apex, diminished from 3 .6 cm and 3.4 cm at the right costophrenic angle, diminished from 4.2 cm. Right-sided chest tube appears stable in position. IMPRESSION: 1. Diminished right-sided pneumothorax.
[2018-09-17] MEDS: INSULIN ASPART (NovoLOG) 100 UNIT/ML VIAL SQ SCH ×4 (11:24→21:33)
[2018-09-17 11:37] LABS: Glucose,Whole Blood 101 mg/dL (75-99)
[2018-09-17] MEDS: ACETAMINOPHEN TAB 500 MG TAB PO PRN (11:38)
--- NOTE | 2018-09-17 12:39 | XR ---
EXAMINATION TYPE: XR chest 1V DATE OF EXAM: 09/17/2018 COMPARISON: Prior chest x-ray same dated earlier time HISTORY: Pneumothorax, status post chest tube placement TECHNIQUE: Single frontal view of the chest is obtained. FINDINGS: Thoracic that has been placed and is superimposed over the right upper chest. Basilar pneu mothorax and consolidation persists. Apical pneumothorax thought to be decreased somewhat in the inte rval. Heart size is stable. Right-sided chest tube remains in place. Subcutaneous emphysema present a long the right lateral chest wall. No other significant interval change. IMPRESSION: Interval thoracic vent placement.
--- NOTE | 2018-09-17 13:32 | P.PN ---
Subjective Progress Note Date: 09/17/18 On 09/17/2018 the patient remains extubated and she is doing well. She denies having any significant respiratory distress. This morning, the patient is on 4 L of oxygen by nasal cannula with pulse ox of 97-98%. Nevertheless, the chest x-ray showed enlarging right-sided pneumothorax and for that reason I inserted a Thoravent over the anterior chest hoping to the expanded right lung. Is very much likely the patient had collapsed or had a worsening in the small right apical pneumothorax as the patient was intubated on a mechanical ventilator and she was quite bronchospastic and wheezy at time of admission. The Thoravent was inserted successfully. No significant chest pain. She has a congested cough. Unable to bring up much sputum. Masses status is good. She is on of confusion for the most part she is doing very well and she is talking and following commands and answering questions appropriately. Echocardiogram was within normal limits. She has moderate to severe tricuspid regurgitation and moderate pulmonary hypertension. She is tolerating her diet. No nausea. No vomiting. No abdominal pain. No other complaints otherwise. Objective - Vital Signs Vital signs: Vital Signs Temp 97.8 F 09/17/18 11:00 Pulse 101 H 09/17/18 11:00 Resp 25 H 09/17/18 11:00 BP 137/86 09/17/18 11:00 Pulse Ox 97 09/17/18 11:00 Intake & Output 09/16/18 09/17/18 09/17/18 18:59 06:59 18:59 Intake Total 700 860 250 Output Total 880 7005 1055 Balance -180 -1775 -805 Weight 47.2 kg 48.8 kg Intake: IV 600 800 250 Clindamycin 600 mg In 50 Dextrose 5% in Water 50 ml @ 50 mls/hr IVPB Q8HR [facility] Rx#:[id number] Levofloxacin 750Mg-D5w 150 Pmx 750 mg In Dextrose/ Water 1 150ml.bag @ 100 mls/hr IVPB Q24H [facility] Rx#: [id number] Sodium Chloride 0.9% 1, 600 600 250 000 ml @ 50 mls/hr IV . Q20H [facility] Rx#:[id number] Intake, IV Titration 100 Amount Magnesium Sulfate-D5w Pmx 100 1 gm In Dextrose/Water 1 100ml.bag @ 100 mls/hr IVPB Q1H [facility] Rx#: [id number] Oral 60 Output: Chest Tube Drainage 140 120 Pleural Catheter Right 140 120 Lower Anterior Chest Urine [phone] Other: Voiding Method Indwelling Catheter Indwelling Catheter ABP, PAP, CO, CI - Last Documented Arterial Blood Pressure 129/70 - Exam The patient is awake and comfortable currently on a BiPAP at a pressure of 12/5 with an FiO2 of 30%. She looks profoundly cachectic and emaciated, looks way or other than her stated age. Head exam was generally normal. There was no scleral icterus or corneal arcus. Mucous membranes were moist. Neck was supple and without jugular venous distension, thyromegaly, or carotid bruits. Carotids were easily palpable bilaterally. There was no adenopathy. Orogastric and orotracheal tube are both in place Lungs sounds are diminished bilaterally along with scattered rhonchi and scattered expiratory wheezes throughout the lung rodriguez and there is obvious prolongation of the expiratory phase of breathing. There is a right-sided Pleurx catheter in place attached to a Pleur-evac. No evidence of any air leak at this point in time. Output is minimal. The patient also has a fluoroscopy v ent over the anterior chest area. There is positive air leak. Cardiac exam revealed the PMI to be normally situated and sized. The rhythm was regular and no extrasystoles were noted during several minutes of auscultation. The first and second heart sounds were normal and physiologic splitting of the second heart sound was noted. There were no murmurs, rubs, clicks, or gallops. Abdominal exam revealed normal bowel sounds. The abdomen was soft, non-tender, and without masses, organomegaly, or appreciable enlargement of the abdominal aorta. Examination of the extremities revealed easily palpable radial, femoral and pedal pulses. There was no cyanosis, clubbing or edema. There is significant m uscle atrophy in all 4 extremities Examination of the skin revealed no evidence of significant rashes, suspicious appearing nevi or other concerning lesions. Neurologic the patient is awake and alert and moving all 4 extremities. - Labs CBC & Chem 7: 09/17/18 05:45 09/17/18 05:45 Labs: Abnormal Lab Results - Last 24 Hours (Table) 09/16/18 09/17/18 09/17/18 Range/Units 23:57 05:45 05:45 WBC 12.9 H (3.8-10.6) k/uL MCV 100.8 H (80.0-100.0) fL Neutrophils # 12.2 H (1.3-7.7) k/uL Lymphocytes # 0.4 L (1.0-4.8) k/uL Carbon Dioxide 40 H (22-30) mmol/L Creatinine 0.18 L (0.52-1.04) mg/dL Glucose 113 H (74-99) mg/dL POC Glucose (mg/dL) 105 H (75-99) mg/dL AST 48 H (14-36) U/L Alkaline Phosphatase 149 H (38-126) U/L Total Protein 5.7 L (6.3-8.2) g/dL Albumin 3.0 L (3.5-5.0) g/dL 09/17/18 09/17/18 Range/Units 07:36 11:35 WBC (3.8-10.6) k/uL MCV (80.0-100.0) fL Neutrophils # (1.3-7.7) k/uL Lymphocytes # (1.0-4.8) k/uL Carbon Dioxide (22-30) mmol/L Creatinine (0.52-1.04) mg/dL Glucose (74-99) mg/dL POC Glucose (mg/dL) 115 H 101 H (75-99) mg/dL AST (14-36) U/L Alkaline Phosphatase (38-126) U/L Total Protein (6.3-8.2) g/dL Albumin (3.5-5.0) g/dL Assessment and Plan Plan: 1 acute on chronic hypoxic respiratory failure, and the patient is post intubation mechanical ventilation and ventilatory dependent respiratory failure from which she has recovered and currently she is extubated on oxygen at 4 is of oxygen by nasal cannula 2 right-sided pneumothorax post Thoravent insertion. The patient also has a Pleurx catheter in the right chest that was not showing any significant air leak. The patient had a Thoravent insertion with significantly especially the right side with improvement in the right-sided pneumothorax. 3 stage IV non-small cell lung cancer with poorly differentiated, with a positiv e pleural fluid. 4 malignant right-sided pleural effusion postthoracentesis subsequent Pleurx cat heter insertion 5 severe cachexia and malnourishment 6 COPD exacerbation. 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 Pleurx catheter is in place. 13 episodic confusion/altered mentation. Consider deleting. Consider a component of encephalopathy as the patient was profoundly hypoxic for several hours prior to her coming to the hospital. CAT scan of the brain showed chronic white matter changes consistent with anoxic encephalopathy. No evidence of any malignancy or [employer] metastases. Plan Keep the Thoravent attached to a Pleur-evac. Continue draining the Pleurx catheter. Continue current antibiotic coverage. Continue the IV Solu-Medrol and tapered the dose to 40 mg every 12 hours. Continue DuoNeb nebulized treatments around the clock. Advance diet. We'll keep the patient ICU. We'll continue to follow.
--- NOTE | 2018-09-17 14:47 | PCN ---
PROCEDURE NOTE PREOPERATIVE DIAGNOSIS: Right-sided pneumothorax. POSTOPERATIVE DIAGNOSIS: Right-sided pneumothorax. PROCEDURE: Insertion of a Thoravent catheter. This is a bedside procedure. The procedure, including the potential complications, was explained to the patient. The procedure was done for a right-sided pneumothorax. The patient was placed in bed with the head of the bed elevated at around 20 degrees. The right chest was cleaned using ChloraPrep. Following that, the intercostal space between the second and the third ribs anteriorly was infiltrated with 1% lidocaine. An incision was done using a scalpel. Following that, a 15-gauge Thoravent catheter was inserted successfully into the right pleural space. There was adequate air leak post insertion. The catheter was secured in place. Chest x-ray showed re-expansion of the right lung. The Thoravent was attached to a Pleur-Evac. No complications. No bleeding. MMODL / IJN: [id number] /
[2018-09-17] MEDS: KETOROLAC 30 MG/ML 1 ML VIAL IVP SCH ×2 (14:49→18:22)
[2018-09-17 17:04] LABS: Glucose,Whole Blood 140 mg/dL (75-99)
[2018-09-17] MEDS: LEVOFLOXACIN 750MG-D5W PMX 750 MG in DEXTROSE/WATER 1 150ML.BAG IVPB SCH (18:22)
[2018-09-17 20:49] LABS: Glucose,Whole Blood 116 mg/dL (75-99)
[2018-09-17] MEDS ORDERED: methylPREDNISolone SOD SUCCI 40 MG/ML 1 ML VIAL IV SCH (21:00)
[2018-09-18] MEDS: KETOROLAC 30 MG/ML 1 ML VIAL IVP SCH ×4 (01:28→17:29)
[2018-09-18] MEDS: CLINDAMYCIN 600 MG in DEXTROSE 5% IN WATER 50 ML IVPB SCH ×6 (03:31→20:11)
[2018-09-18 05:27] LABS: HCT 42.9 % (34.0-46.0); HGB 13.6 gm/dL (11.4-16.0); MCH 32.2 pg (25.0-35.0); MCHC 31.7 g/dL (31.0-37.0); MCV 101.6 fL (80.0-100.0); Macrocytosis Slight; Mean Platelet Volume 7.9; Platelet Count 310 k/uL (150-450); RBC 4.23 m/uL (3.80-5.40); RDW 14.3 % (11.5-15.5); WBC 14.8 k/uL (3.8-10.6)
[2018-09-18 05:40] LABS: African American GFR (CKD) >90 (>60 ml/min/1.73 sqM); Blood Urea Nitrogen 8 mg/dL (7-17); Calcium 9.2 mg/dL (8.4-10.2); Chloride 96 mmol/L (98-107); Glucose 99 mg/dL (74-99); Magnesium 1.8 mg/dL (1.6-2.3); Phosphorus 3.6 mg/dL (2.5-4.5); Sodium 138 mmol/L (137-145)
[2018-09-18 05:46] LABS: Anion Gap 1 mmol/L
[2018-09-18 05:51] LABS: Carbon Dioxide 41 mmol/L (22-30)
--- NOTE | 2018-09-18 06:58 | P.PN ---
Subjective This is a pleasant 57 years old female with past medical history of CVA/TIA, syncope, stage IV non-small cell lung cancer with pleural effusion, malignant in nature status post Pleurx catheter in a Place. 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 And glover IV access in the right chest. Presents with respiratory distress and decreased responsiveness. Patient got intubated in the emergency room. Pulmonary critical care team already evaluated the patient. Currently vital shown blood pressure 105/81, heart rate 101, she is saturating 98% on FiO2 60 and she is breathing rate is 28/m. Patient is afebrile. Labs reviewed showing mild leukocytosis of 12.9 K. Hemoglobin 13.3. Potassium was low at 3.2. Creatinine 0.27. Liver enzymes not elevated. Troponin is 0.04 09/15/2018 Patient got extubated today, she remains in the ICU. Just some respiratory distress and she feels tired and could not provide information, she is hemodynamically stable. Leukocytosis is improving slightly to 11.3 K. Creatinine 0.24, sugar controlled. Chest x-ray showing right hydro-pneumothorax with a right thoracostomy tube. Echocardiogram is pending. Cardiology evaluation. 09/16/2018 Patient breathing is doing better. Patient with no chest pain. Her oxygen saturation is 98% on 5 L nasal cannula. Also patient is on BiPAP. She is a little bit tachypneic. Her rest of vitals are stable. Her WBC is 10.9 K. Creatinine is 0.2. Glucose is 100-117. Liver enzymes mildly elevated. She still have the right-sided pleurx, Chest x-ray: right sided pneumothorax is slightly increased.Patient currently on Levaquin, and Solu-Medrol. And gentle hydration 09/17/2018, date of service Patient seen and examined by me at bedside on the date of service. Patient is a status post extubation. She has right pleural effusion, status post femoral vent insertion. Vitals stable. WBC 14.8 K. Creatinine 0.2. Sugar control. Objective - Vital Signs Vital signs: Vital Signs Temp 97.8 F 09/18/18 04:00 Pulse 94 09/18/18 06:00 Resp 18 09/18/18 06:00 BP 136/77 09/18/18 06:00 Pulse Ox 95 09/18/18 06:00 Intake & Output 09/17/18 09/17/18 09/18/18 06:59 18:59 06:59 Intake Total 499 023 9429 Output Total 2635 2495 2270 Balance -1775 -1845 -1230 Weight 48.8 kg Intake: IV 800 650 800 Clindamycin 600 mg In 50 50 Dextrose 5% in Water 50 ml @ 50 mls/hr IVPB Q8HR [facility] Rx#:[id number] Levofloxacin 750Mg-D5w 150 150 Pmx 750 mg In Dextrose/ Water 1 150ml.bag @ 100 mls/hr IVPB Q24H [facility] Rx#: [id number] Sodium Chloride 0.9% 1, 600 650 600 000 ml @ 50 mls/hr IV . Q20H [facility] Rx#:[id number] Oral 60 240 Output: Chest Tube Drainage 140 270 80 Pleural Catheter Right 140 270 80 Lower Anterior Chest Thora-Vent Right Upper 0 Anterior Chest Urine 2495 2225 2190 Other: Voiding Method Indwelling Catheter Indwelling Catheter Indwelling Catheter ABP, PAP, CO, CI - Last Documented Arterial Blood Pressure 129/70 - Exam -GENERAL: The patient is alert and oriented x3, she is status post extubation. Some respiratory distress HEENT: Pupils are round and equally reacting to light. EOMI. No scleral icterus. No conjunctival pallor. Normocephalic, atraumatic. No pharyngeal erythema. No thyromegaly. CARDIOVASCULAR: S1 and S2 present. No murmurs, rubs, or gallops. PULMONARY: Chest is clear to auscultation, no wheezing or crackles. ABDOMEN: Soft, nontender, nondistended, normoactive bowel sounds. No palpable organomegaly. MUSCULOSKELETAL: No joint swelling or deformity. EXTREMITIES: No cyanosis, clubbing, or pedal edema. NEUROLOGICAL: Gross neurological examination did not reveal any focal deficits. SKIN: No rashes. - Labs CBC & Chem 7: 09/18/18 05:15 09/18/18 05:15 Labs: Abnormal Lab Results - Last 24 Hours (Table) 09/17/18 09/17/18 09/17/18 Range/Units 07:36 11:35 17:02 WBC (3.8-10.6) k/uL MCV (80.0-100.0) fL Chloride (98-107) mmol/L Carbon Dioxide (22-30) mmol/L Creatinine (0.52-1.04) mg/dL POC Glucose (mg/dL) 115 H 101 H 140 H (75-99) mg/dL 09/17/18 09/18/18 09/18/18 Range/Units 20:47 05:15 05:15 WBC 14.8 H (3.8-10.6) k/uL MCV 101.6 H (80.0-100.0) fL Chloride 96 L (98-107) mmol/L Carbon Dioxide 41 H* (22-30) mmol/L Creatinine 0.21 L (0.52-1.04) mg/dL POC Glucose (mg/dL) 116 H (75-99) mg/dL Assessment and Plan Assessment: Acute hypoxic respiratory failure, status post intubation for 1 day followed by extubation Possible acute COPD exacerbation versus pneumonia. Stage IV non-small cell lung cancers with malignant pleural effusion status post Pleurx catheter. Elevated troponin. 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 He knew with a breathing treatment, steroids, antibiotics. Continue with oxygen therapy. Also, cardiology consult and echocardiogram. Oncology consult. Labs and medication were reviewed.. Continue same treatment. Continue with symptomatic treatment. Resume home medication. Monitor lytes and vitals. DVT and GI prophylaxis. Further recommendations of the clinical course of the patient DVT prophylaxis: Subcutaneous heparin GI Prophylaxis: Protonix Prognosis is poor
[2018-09-18 07:02] LABS: Glucose,Whole Blood 127 mg/dL (75-99)
[2018-09-18] MEDS: INSULIN ASPART (NovoLOG) 100 UNIT/ML VIAL SQ SCH ×4 (07:05→20:44)
[2018-09-18] MEDS: BUDESONIDE 0.5 MG/2 ML NEBU INHALATION SCH ×2 (07:58→20:53)
[2018-09-18] MEDS: IPRATROPIUM-ALBUTEROL 3 ML NEB INHALATION PRN ×3 (07:58→20:53)
[2018-09-18] MEDS: FORMOTEROL FUMARATE 20 MCG/2 ML NEBU INHALATION SCH ×2 (07:58→20:53)
--- NOTE | 2018-09-18 08:18 | XR ---
EXAMINATION TYPE: XR chest 1V portable DATE OF EXAM: 09/18/2018 COMPARISON: Prior chest x-ray 09/17/2018 HISTORY: Chest tube TECHNIQUE: Single frontal view of the chest is obtained. FINDINGS: Thoracic vent and right-sided chest tube remain in place. Pneumothorax has nearly entirely resolved. There is persistent basilar density on the right. Heart size is stable. There are overlyin g cardiac leads. IMPRESSION: Improvement in patient's pneumothorax.
--- NOTE | 2018-09-18 09:09 | P.PN ---
Subjective Progress Note Date: 09/18/18 Principal diagnosis: Acute non-ST patient myocardial infarction This is a pleasant 57-year-old female patient with stage IV non-small cell lung cancer was admitted to the hospital with shortness of breath and developed acute hypoxic respiratory failure requiring intubation and mechanical ventilation. Subsequently the patient was extubated. We get involved in the care of the patient because of mildly abnormal troponin. On follow-up with the patient today, September 182018, she is doing good clinically. Hemodynamically she continues to be stable beside sinus tachycardia with a resting heart rate around 110 beats per minutes. The blood pressure seems to be good. I'm going to start the patient on small dose of metoprolol to get her heart rate under control. And also follow-up with the patient. Objective - Vital Signs Vital signs: Vital Signs Temp 97.8 F 09/18/18 04:00 Pulse 112 H 09/18/18 08:25 Resp 27 H 09/18/18 07:00 BP 139/77 09/18/18 07:00 Pulse Ox 95 09/18/18 08:01 Intake & Output 09/17/18 09/18/18 09/18/18 18:59 06:59 18:59 Intake Total 650 1040 50 Output Total 2495 2270 125 Balance -1845 -1230 -75 Intake: IV 650 800 50 Clindamycin 600 mg In 50 Dextrose 5% in Water 50 ml @ 50 mls/hr IVPB Q8HR [facility] Rx#:[id number] Levofloxacin 750Mg-D5w 150 Pmx 750 mg In Dextrose/ Water 1 150ml.bag @ 100 mls/hr IVPB Q24H [facility] Rx#: [id number] Sodium Chloride 0.9% 1, 650 600 50 000 ml @ 50 mls/hr IV . Q20H [facility] Rx#:[id number] Oral 240 Output: Chest Tube Drainage 270 80 Pleural Catheter Right 270 80 Lower Anterior Chest Thora-Vent Right Upper 0 Anterior Chest Urine 2225 2190 125 Other: Voiding Method Indwelling Catheter Indwelling Catheter ABP, PAP, CO, CI - Last Documented Arterial Blood Pressure 129/70 - Constitutional General appearance: Present: no acute distress - Respiratory Respiratory: bilateral: diminished - Cardiovascular Rhythm: regular - Labs CBC & Chem 7: 09/18/18 05:15 09/18/18 05:15 Labs: Abnormal Lab Results - Last 24 Hours (Table) 05/25/19 05/25/19 05/25/19 Range/Units 11:35 17:02 20:47 WBC (3.8-10.6) k/uL MCV (80.0-100.0) fL Chloride (98-107) mmol/L Carbon Dioxide (22-30) mmol/L Creatinine (0.52-1.04) mg/dL POC Glucose (mg/dL) 101 H 140 H 116 H (75-99) mg/dL 09/18/18 09/18/18 09/18/18 Range/Units 05:15 05:15 07:00 WBC 14.8 H (3.8-10.6) k/uL MCV 101.6 H (80.0-100.0) fL Chloride 96 L (98-107) mmol/L Carbon Dioxide 41 H* (22-30) mmol/L Creatinine 0.21 L (0.52-1.04) mg/dL POC Glucose (mg/dL) 127 H (75-99) mg/dL Assessment and Plan Assessment: Assessment #1 acute hypoxic respiratory failure which has improved #2 COPD exacerbation #3 stage IV non-small cell carcinoma #4 mildly abnormal troponin #5 multiple comorbid conditions Plan #1 continue the current medical regimen #2 start the patient on small dose of metoprolol #3 follow-up with the patient
[2018-09-18] MEDS: PANTOPRAZOLE 40 MG/10 ML VIAL IV SCH (09:37)
[2018-09-18] MEDS: NICOTINE 14MG/24HR PATCH TRANSDERM SCH (09:37)
[2018-09-18] MEDS: ENOXAPARIN 40 MG/0.4 ML SYRINGE SQ SCH (09:37)
[2018-09-18] MEDS: predniSONE 10 MG TAB PO SCH (09:37)
[2018-09-18 11:59] LABS: Glucose,Whole Blood 99 mg/dL (75-99)
--- NOTE | 2018-09-18 12:00 | P.PN ---
Subjective Progress Note Date: 09/18/18 On today's evaluation of 09/18/2018, seeing this patient for a follow-up. Noted the patient had a right-sided pneumothorax for which a thoravent was inserted yesterday without any major issues and on today's chest x-ray there is a especially of the right lung. The Thoravent is in a good location. There is positive air leak and the Pleur-evac. There is also some drainage of the pleural fluid. Clinically she is doing well. She has a congested cough. She is on a combination of Levaquin and clindamycin. She is also on IV Solu Medrol which will be tapered down to prednisone burst taper. No nausea. No vomiting. No altered mentation. She is tolerating her diet. She is hemodynamically stable. No other significant events otherwise for now. Note that the patient for now has a Pleurx catheter and the Thoravent catheter on the right side of the chest. Chest x-ray from today was noted.chocardiogram was within normal limits. She has moderate to severe tricuspid regurgitation and moderate pulmonary hypertension. She is tolerating her diet. No nausea. No vomiting. No abdominal pain. No other complaints otherwise. The patient is on oxygen 3 L per minute nasal cannula. Objective - Vital Signs Vital signs: Vital Signs Temp 97.6 F 09/18/18 08:00 Pulse 103 H 09/18/18 11:00 Resp 22 09/18/18 11:00 BP 124/85 09/18/18 11:00 Pulse Ox 89 L 09/18/18 11:00 Intake & Output 09/17/18 09/18/18 09/18/18 18:59 06:59 18:59 Intake Total 650 1040 150 Output Total 2495 2270 631 Balance -1845 -1230 -481 Intake: IV 650 800 150 Clindamycin 600 mg In 50 Dextrose 5% in Water 50 ml @ 50 mls/hr IVPB Q8HR [facility] Rx#:[id number] Levofloxacin 750Mg-D5w 150 Pmx 750 mg In Dextrose/ Water 1 150ml.bag @ 100 mls/hr IVPB Q24H [facility] Rx#: [id number] Sodium Chloride 0.9% 1, 650 600 150 000 ml @ 10 mls/hr IV . Q24H [facility] Rx#:[id number] Oral 240 Output: Chest Tube Drainage 270 80 286 Pleural Catheter Right 270 80 110 Lower Anterior Chest Thora-Vent Right Upper 0 176 Anterior Chest Urine 2225 2190 345 Other: Voiding Method Indwelling Catheter Indwelling Catheter ABP, PAP, CO, CI - Last Documented Arterial Blood Pressure 129/70 - Exam The patient is awake and comfortable currently on a 3 liters of oxygen nasal cannula She looks profoundly cachectic and emaciated, looks way or other than her stated age. Head exam was generally normal. There was no scleral icterus or corneal arcus. Mucous membranes were moist. Neck was supple and without jugular venous distension, thyromegaly, or carotid bruits. Carotids were easily palpable bilaterally. There was no adenopathy. Orogastric and orotracheal tube are both in place Lungs sounds are diminished bilaterally along with scattered rhonchi and scattered expiratory wheezes throughout the lung rodriguez and there is obvious prolongation of the expiratory phase of breathing. There is a right-sided Pleurx catheter in place attached to a Pleur-evac. No evidence of any air leak at this point in time. Output is minimal. The patient also has a thoravent over the anterior chest area. There is positive air leak. Cardiac exam revealed the PMI to be normally situated and sized. The rhythm was regular and no extrasystoles were noted during several minutes of auscultation. The first and second heart sounds were normal and physiologic splitting of the second heart sound was noted. There were no murmurs, rubs, clicks, or gallops. Abdominal exam revealed normal bowel sounds. The abdomen was soft, non-tender, and without masses, organomegaly, or appreciable enlargement of the abdominal aorta. Examination of the extremities revealed easily palpable radial, femoral and pedal pulses. There was no cyanosis, clubbing or edema. There is significant muscle atrophy in all 4 extremities Examination of the skin revealed no evidence of significant rashes, suspicious appearing nevi or other concerning lesions. Neurologic the patient is awake and alert and moving all 4 extremities. - Labs CBC & Chem 7: 09/18/18 05:15 09/18/18 05:15 Labs: Abnormal Lab Results - Last 24 Hours (Table) 09/17/18 09/17/18 09/18/18 Range/Units 17:02 20:47 05:15 WBC 14.8 H (3.8-10.6) k/uL MCV 101.6 H (80.0-100.0) fL Chloride (98-107) mmol/L Carbon Dioxide (22-30) mmol/L Creatinine (0.52-1.04) mg/dL POC Glucose (mg/dL) 140 H 116 H (75-99) mg/dL 09/18/18 09/18/18 Range/Units 05:15 07:00 WBC (3.8-10.6) k/uL MCV (80.0-100.0) fL Chloride 96 L (98-107) mmol/L Carbon Dioxide 41 H* (22-30) mmol/L Creatinine 0.21 L (0.52-1.04) mg/dL POC Glucose (mg/dL) 127 H (75-99) mg/dL Assessment and Plan Plan: 1 acute on chronic hypoxic respiratory failure, and the patient is post intubation mechanical ventilation and ventilatory dependent respiratory failure from which she has recovered and currently she is extubated on oxygen at 3 is of oxygen by nasal cannula 2 right-sided pneumothorax post Thoravent insertion. The patient also has a Pleurx catheter in the right chest that was not showing any significant air leak. The patient had a Thoravent insertion with significantly especially the right side with improvement in the right-sided pneumothorax. The subsequent chest x-ray from today shows reexpansion of the right lung and there is minimal amount of air leak as noted on the Thoravent Pleur-evac. Clinically she is doing well. She has no specific complaints. She is improving. She is less short of breath. 3 stage IV non-small cell lung cancer with poorly differentiated, with a posi tive pleural fluid. 4 malignant right-sided pleural effusion postthoracentesis subsequent Pleurx catheter insertion 5 severe cachexia and malnourishment 6 COPD exacerbation. 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 Pleurx catheter is in place. 13 episodic confusion/altered mentation, improved Plan Keep the Thoravent attached to a Pleur-evac. Continue draining the Pleurx florencia ter. Continue current antibiotic coverage. This continued IV Solu Medrol and put the patient prednisone burst taper. Monitor the output from the tubes. Advance diet. Keep in ICU for 24 hours.
[2018-09-18 16:07] LABS: Glucose,Whole Blood 152 mg/dL (75-99)
[2018-09-18] MEDS: SODIUM CHLORIDE 0.9% 1,000 ML IV SCH (17:28)
[2018-09-18] MEDS: LEVOFLOXACIN 750MG-D5W PMX 750 MG in DEXTROSE/WATER 1 150ML.BAG IVPB SCH (18:10)
[2018-09-18 20:37] LABS: Glucose,Whole Blood 125 mg/dL (75-99)
[2018-09-18] MEDS ORDERED: METOPROLOL TARTRATE 12.5 MG TAB PO SCH (21:00)
[2018-09-19] MEDS: KETOROLAC 30 MG/ML 1 ML VIAL IVP SCH ×5 (00:50→23:10)
--- NOTE | 2018-09-19 01:49 | P.PN ---
Subjective This is a pleasant 57 years old female with past medical history of CVA/TIA, syncope, stage IV non-small cell lung cancer with pleural effusion, malignant in nature status post Pleurx catheter in a Place. 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 And glover IV access in the right chest. Presents with respiratory distress and decreased responsiveness. Patient got intubated in the emergency room. Pulmonary critical care team already evaluated the patient. Currently vital shown blood pressure 105/81, heart rate 101, she is saturating 98% on FiO2 60 and she is breathing rate is 28/m. Patient is afebrile. Labs reviewed showing mild leukocytosis of 12.9 K. Hemoglobin 13.3. Potassium was low at 3.2. Creatinine 0.27. Liver enzymes not elevated. Troponin is 0.04 09/15/2018 Patient got extubated today, she remains in the ICU. Just some respiratory distress and she feels tired and could not provide information, she is hemodynamically stable. Leukocytosis is improving slightly to 11.3 K. Creatinine 0.24, sugar controlled. Chest x-ray showing right hydro-pneumothorax with a right thoracostomy tube. Echocardiogram is pending. Cardiology evaluation. 09/16/2018 Patient breathing is doing better. Patient with no chest pain. Her oxygen saturation is 98% on 5 L nasal cannula. Also patient is on BiPAP. She is a little bit tachypneic. Her rest of vitals are stable. Her WBC is 10.9 K. Creatinine is 0.2. Glucose is 100-117. Liver enzymes mildly elevated. She still have the right-sided pleurx, Chest x-ray: right sided pneumothorax is slightly increased.Patient currently on Levaquin, and Solu-Medrol. And gentle hydration 09/17/2018, date of service Patient seen and examined by me at bedside on the date of service. Patient is a status post extubation. She has right pleural effusion, status post femoral vent insertion. Vitals stable. WBC 14.8 K. Creatinine 0.2. Sugar control. 09/18/2018 pt is still in ICU , she is with NSTEMI, and metoprolol was added today , pt is being followed closely by cardiology team . her repeat chest xray from today showing significant improvement and expansion of her right lung compared to her previous chest xray , also Pleurx is draining minimal malignant fluid, pt is cachectic but she is improving . Objective - Vital Signs Vital signs: Vital Signs Temp 97.9 F 09/18/18 20:00 Pulse 108 H 09/18/18 21:18 Resp 33 H 09/18/18 20:00 BP 128/77 09/18/18 20:00 Pulse Ox 93 L 09/18/18 20:54 Intake & Output 09/18/18 09/18/18 09/19/18 06:59 18:59 06:59 Intake Total 1040 720 70 Output Total 2270 1796 340 Balance -1230 -1076 -270 Intake: IV 800 720 70 Clindamycin 600 mg In 50 50 Dextrose 5% in Water 50 ml @ 50 mls/hr IVPB Q8H [facility] Rx#:[id number] Clindamycin 600 mg In 50 Dextrose 5% in Water 50 ml @ 50 mls/hr IVPB Q8HR [facility] Rx#:[id number] Levofloxacin 750Mg-D5w 150 150 Pmx 750 mg In Dextrose/ Water 1 150ml.bag @ 100 mls/hr IVPB Q24H [facility] Rx#: [id number] Sodium Chloride 0.9% 1, 600 520 20 000 ml @ 10 mls/hr IV . Q24H [facility] Rx#:[id number] Oral 240 Output: Chest Tube Drainage 80 356 30 Pleural Catheter Right 80 110 20 Lower Anterior Chest Thora-Vent Right Upper 246 10 Anterior Chest Urine 2190 1440 310 Other: Voiding Method Indwelling Catheter Indwelling Catheter ABP, PAP, CO, CI - Last Documented Arterial Blood Pressure 129/70 - Exam -GENERAL: The patient is alert and oriented x3, she is status post extubation. Some respiratory distress HEENT: Pupils are round and equally reacting to light. EOMI. No scleral icterus. No conjunctival pallor. Normocephalic, atraumatic. No pharyngeal erythema. No thyromegaly. CARDIOVASCULAR: S1 and S2 present. No murmurs, rubs, or gallops. PULMONARY: Chest is clear to auscultation, no wheezing or crackles. ABDOMEN: Soft, nontender, nondistended, normoactive bowel sounds. No palpable organomegaly. MUSCULOSKELETAL: No joint swelling or deformity. EXTREMITIES: No cyanosis, clubbing, or pedal edema. NEUROLOGICAL: Gross neurological examination did not reveal any focal deficits. SKIN: No rashes. - Labs CBC & Chem 7: 09/18/18 05:15 09/18/18 05:15 Labs: Abnormal Lab Results - Last 24 Hours (Table) 09/18/18 09/18/18 09/18/18 Range/Units 05:15 05:15 07:00 WBC 14.8 H (3.8-10.6) k/uL MCV 101.6 H (80.0-100.0) fL Chloride 96 L (98-107) mmol/L Carbon Dioxide 41 H* (22-30) mmol/L Creatinine 0.21 L (0.52-1.04) mg/dL POC Glucose (mg/dL) 127 H (75-99) mg/dL 09/18/18 09/18/18 Range/Units 16:04 20:35 WBC (3.8-10.6) k/uL MCV (80.0-100.0) fL Chloride (98-107) mmol/L Carbon Dioxide (22-30) mmol/L Creatinine (0.52-1.04) mg/dL POC Glucose (mg/dL) 152 H 125 H (75-99) mg/dL Assessment and Plan Assessment: Acute hypoxic respiratory failure, status post intubation for 1 day followed by extubation Possible acute COPD exacerbation versus pneumonia. Stage IV non-small cell lung cancers with malignant pleural effusion status post Pleurx catheter. Elevated troponin. 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 He knew with a breathing treatment, steroids, antibiotics. Continue with oxygen therapy. Also, cardiology consult and echocardiogram. Oncology consult. Labs and medication were reviewed.. Continue same treatment. Continue with symptomatic treatment. Resume home medication. Monitor lytes and vitals. DVT and GI prophylaxis. Further recommendations of the clinical course of the patient DVT prophylaxis: Subcutaneous heparin GI Prophylaxis: Protonix Prognosis is poor
[2018-09-19] MEDS: ACETAMINOPHEN TAB 500 MG TAB PO PRN (03:32)
[2018-09-19] MEDS: CLINDAMYCIN 600 MG in DEXTROSE 5% IN WATER 50 ML IVPB SCH ×2 (03:33)
--- NOTE | 2018-09-19 04:03 | XR ---
EXAM: XR Chest, 1 View CLINICAL HISTORY: Tube placement TECHNIQUE: Frontal view of the chest. COMPARISON: 09/18/18 FINDINGS: Lungs: Small amount of airspace opacities in right lung, predominantly lower lung zone, similar. Pleural space: Persistent small right pneumothorax, with about 10-20% loss in volume, worse than on prior study. Small right pleural effusion, similar. Heart: Unremarkable. No cardiomegaly. Mediastinum: Unremarkable. Bones/joints: Fusion hardware lower cervical spine. Tubes, lines and devices: Left upper chest catheter placement overlying left lung apex. Tip of lower approaching left chest tube projects over the medial aspect of right upper lung zone. These are unchanged IMPRESSION: Persistent small right pneumothorax, with about 10-20% loss in volume, worse than on prior study. <MYCVCSECTION> Critical Value Communications 09/19/18 04:11 Verify Receipt Verified receipt with Nurse Chester in ICU on 09/19 04:10 (-04:00)
[2018-09-19 05:01] LABS: HCT 46.3 % (34.0-46.0); HGB 14.3 gm/dL (11.4-16.0); MCH 31.4 pg (25.0-35.0); MCHC 30.9 g/dL (31.0-37.0); MCV 101.7 fL (80.0-100.0); Macrocytosis Slight; Mean Platelet Volume 7.9; Platelet Count 320 k/uL (150-450); RBC 4.55 m/uL (3.80-5.40); RDW 14.7 % (11.5-15.5); WBC 16.5 k/uL (3.8-10.6)
[2018-09-19 05:16] LABS: African American GFR (CKD) >90 (>60 ml/min/1.73 sqM); Blood Urea Nitrogen 8 mg/dL (7-17); Calcium 9.1 mg/dL (8.4-10.2); Chloride 95 mmol/L (98-107); Glucose 93 mg/dL (74-99); Magnesium 1.7 mg/dL (1.6-2.3); Phosphorus 3.2 mg/dL (2.5-4.5); Potassium 3.6 mmol/L (3.5-5.1); Sodium 140 mmol/L (137-145)
[2018-09-19 05:22] LABS: Anion Gap 1 mmol/L
[2018-09-19 05:33] LABS: Carbon Dioxide 44 mmol/L (22-30)
[2018-09-19] MEDS ORDERED: POTASSIUM CHLORIDE ER 20 MEQ TAB.ER PO SCH (06:00)
[2018-09-19] MEDS: MAGNESIUM SULFATE-D5W PMX 1 GM in DEXTROSE/WATER 1 100ML.BAG IVPB SCH ×2 (06:50→08:55)
[2018-09-19] MEDS: FORMOTEROL FUMARATE 20 MCG/2 ML NEBU INHALATION SCH ×2 (07:09→20:49)
[2018-09-19] MEDS: IPRATROPIUM-ALBUTEROL 3 ML NEB INHALATION PRN ×4 (07:09→20:49)
[2018-09-19] MEDS: BUDESONIDE 0.5 MG/2 ML NEBU INHALATION SCH ×2 (07:09→20:49)
[2018-09-19 07:25] LABS: Glucose,Whole Blood 95 mg/dL (75-99)
--- NOTE | 2018-09-19 08:11 | P.PN ---
Subjective Progress Note Date: 09/19/18 Principal diagnosis: Acute non-ST patient myocardial infarction This is a pleasant 57-year-old female patient with stage IV non-small cell lung cancer was admitted to the hospital with shortness of breath and developed acute hypoxic respiratory failure requiring intubation and mechanical ventilation. Subsequently the patient was extubated. We get involved in the care of the patient because of mildly abnormal troponin. On follow-up with the patient today, 09/19/2018, the patient seems to be stable clinically. Yesterday I did add small dose of metoprolol to control the heart rate and the heart rate is better. From the cardiac vascular standpoint overview, we'll follow-up with the patient on when necessary case. Objective - Vital Signs Vital signs: Vital Signs Temp 97.8 F 09/19/18 04:00 Pulse 110 H 09/19/18 08:00 Resp 19 09/19/18 08:00 BP 119/70 09/19/18 08:00 Pulse Ox 87 L 09/19/18 08:00 Intake & Output 09/18/18 09/19/18 09/19/18 18:59 06:59 18:59 Intake Total 720 330 Output Total 1796 2570 Balance -1076 -2240 Weight 45.1 kg Intake: IV 720 330 Clindamycin 600 mg In 50 100 Dextrose 5% in Water 50 ml @ 50 mls/hr IVPB Q8H [facility] Rx#:[id number] Levofloxacin 750Mg-D5w 150 Pmx 750 mg In Dextrose/ Water 1 150ml.bag @ 100 mls/hr IVPB Q24H [facility] Rx#: [id number] Magnesium Sulfate-D5w Pmx 100 1 gm In Dextrose/Water 1 100ml.bag @ 100 mls/hr IVPB Q1H [facility] Rx#: [id number] Sodium Chloride 0.9% 1, 520 130 000 ml @ 10 mls/hr IV . Q24H [facility] Rx#:[id number] Output: Chest Tube Drainage 356 30 Pleural Catheter Right 110 20 Lower Anterior Chest Thora-Vent Right Upper 246 10 Anterior Chest Urine 1440 2540 Other: Voiding Method Indwelling Catheter Indwelling Catheter ABP, PAP, CO, CI - Last Documented Arterial Blood Pressure 129/70 - Constitutional General appearance: Present: no acute distress - Respiratory Respiratory: bilateral: diminished - Cardiovascular Rhythm: regular - Labs CBC & Chem 7: 09/19/18 04:45 09/19/18 04:45 Labs: Abnormal Lab Results - Last 24 Hours (Table) 09/18/18 09/18/18 09/19/18 Range/Units 16:04 20:35 04:45 WBC 16.5 H (3.8-10.6) k/uL Hct 46.3 H (34.0-46.0) % MCV 101.7 H (80.0-100.0) fL MCHC 30.9 L (31.0-37.0) g/dL Chloride (98-107) mmol/L Carbon Dioxide (22-30) mmol/L Creatinine (0.52-1.04) mg/dL POC Glucose (mg/dL) 152 H 125 H (75-99) mg/dL 09/19/18 Range/Units 04:45 WBC (3.8-10.6) k/uL Hct (34.0-46.0) % MCV (80.0-100.0) fL MCHC (31.0-37.0) g/dL Chloride 95 L (98-107) mmol/L Carbon Dioxide 44 H* (22-30) mmol/L Creatinine 0.21 L (0.52-1.04) mg/dL POC Glucose (mg/dL) (75-99) mg/dL Assessment and Plan Assessment: Assessment #1 acute hypoxic respiratory failure which has improved #2 COPD exacerbation #3 stage IV non-small cell carcinoma #4 mildly abnormal troponin #5 multiple comorbid conditions Plan #1 continue the current medical regimen #2 continue the small dose of metoprolol #3 follow-up with the patient on when necessary case
[2018-09-19] MEDS: INSULIN ASPART (NovoLOG) 100 UNIT/ML VIAL SQ SCH ×5 (08:51→23:06)
[2018-09-19] MEDS: NICOTINE 14MG/24HR PATCH TRANSDERM SCH ×2 (08:55→08:56)
[2018-09-19] MEDS: predniSONE 10 MG TAB PO SCH (08:57)
[2018-09-19] MEDS: ENOXAPARIN 40 MG/0.4 ML SYRINGE SQ SCH (08:57)
[2018-09-19] MEDS: METOPROLOL TARTRATE 25 MG TAB PO SCH ×2 (08:57→22:03)
[2018-09-19] MEDS: PANTOPRAZOLE 40 MG TABLET PO SCH (08:58)
[2018-09-19 12:05] LABS: Glucose,Whole Blood 100 mg/dL (75-99)
--- NOTE | 2018-09-19 12:17 | P.PN ---
Subjective Progress Note Date: 09/19/18 On 09/19/2018, the patient is awake and alert. Overnight she does have some limited chest pain. Chest x-ray from today shows a small pneumothorax in the right lung base. Right lung is adequately expanded otherwise. Thoravent is showing some minimal amount of air leak. Output from the Pleurx catheter was also noted. She is using incentive spirometer. No nausea. No vomiting. No chest pain for now. She was covered with accommodation Levaquin and clindamycin and this will be simplified to oral Levaquin. IV Solu Medrol will be also tapered down to prednisone. She is hemodynamically stable. Cardiac rhythm is sinus. She is quite cachectic. He is trying to encourage to improve her oral intake. Otherwise, no other significant events overnight. The patient is currently on 3 L of oxygen nasal cannula. Should be able to transfer out of the intensive care unit to oncology floor today. There is tubes will be kept in place specially the Thoravent. Objective - Vital Signs Vital signs: Vital Signs Temp 97.8 F 09/19/18 04:00 Pulse 87 09/19/18 11:27 Resp 28 H 09/19/18 10:00 BP 94/55 09/19/18 10:00 Pulse Ox 94 L 09/19/18 10:00 Intake & Output 09/18/18 09/19/18 09/19/18 18:59 06:59 18:59 Intake Total 720 330 30 Output Total 1796 2570 400 Balance -1076 -2240 -370 Weight 45.1 kg Intake: IV 720 330 30 Clindamycin 600 mg In 50 100 Dextrose 5% in Water 50 ml @ 50 mls/hr IVPB Q8H [facility] Rx#:[id number] Levofloxacin 750Mg-D5w 150 Pmx 750 mg In Dextrose/ Water 1 150ml.bag @ 100 mls/hr IVPB Q24H [facility] Rx#: [id number] Magnesium Sulfate-D5w Pmx 100 1 gm In Dextrose/Water 1 100ml.bag @ 100 mls/hr IVPB Q1H [facility] Rx#: [id number] Sodium Chloride 0.9% 1, 520 130 30 000 ml @ 10 mls/hr IV . Q24H [facility] Rx#:[id number] Output: Chest Tube Drainage 356 30 Pleural Catheter Right 110 20 Lower Anterior Chest Thora-Vent Right Upper 246 10 Anterior Chest Urine 1440 2540 400 Other: Voiding Method Indwelling Catheter Indwelling Catheter Indwelling Catheter ABP, PAP, CO, CI - Last Documented Arterial Blood Pressure 129/70 - Exam The patient is awake and comfortable currently on a 3 liters of oxygen nasal cannula She looks profoundly cachectic and emaciated, looks way or other than her stated age. Head exam was generally normal. There was no scleral icterus or corneal arcus. Mucous membranes were moist. Neck was supple and without jugular venous distension, thyromegaly, or carotid bruits. Carotids were easily palpable bilaterally. There was no adenopathy. Orogastric and orotracheal tube are both in place Lungs sounds are diminished bilaterally along with scattered rhonchi and scatt ered expiratory wheezes throughout the lung rodriguez and there is obvious prolongation of the expiratory phase of breathing. There is a right-sided Pleurx catheter in place attached to a Pleur-evac. No evidence of any air leak at this point in time. Output is minimal. The patient also has a thoravent over the anterior chest area. There is positive air leak. Cardiac exam revealed the PMI to be normally situated and sized. The rhythm was regular and no extrasystoles were noted during several minutes of auscultation. The first and second heart sounds were normal and physiologic splitting of the second heart sound was noted. There were no murmurs, rubs, clicks, or gallops. Abdominal exam revealed normal bowel sounds. The abdomen was soft, non-tender, and without masses, organomegaly, or appreciable enlargement of the abdominal aorta. Examination of the extremities revealed easily palpable radial, femoral and pedal pulses. There was no cyanosis, clubbing or edema. There is significant m uscle atrophy in all 4 extremities Examination of the skin revealed no evidence of significant rashes, suspicious appearing nevi or other concerning lesions. Neurologic the patient is awake and alert and moving all 4 extremities. - Labs CBC & Chem 7: 09/19/18 04:45 09/19/18 04:45 Labs: Abnormal Lab Results - Last 24 Hours (Table) 09/18/18 09/18/18 09/19/18 Range/Units 16:04 20:35 04:45 WBC 16.5 H (3.8-10.6) k/uL Hct 46.3 H (34.0-46.0) % MCV 101.7 H (80.0-100.0) fL MCHC 30.9 L (31.0-37.0) g/dL Chloride (98-107) mmol/L Carbon Dioxide (22-30) mmol/L Creatinine (0.52-1.04) mg/dL POC Glucose (mg/dL) 152 H 125 H (75-99) mg/dL 09/19/18 09/19/18 Range/Units 04:45 11:54 WBC (3.8-10.6) k/uL Hct (34.0-46.0) % MCV (80.0-100.0) fL MCHC (31.0-37.0) g/dL Chloride 95 L (98-107) mmol/L Carbon Dioxide 44 H* (22-30) mmol/L Creatinine 0.21 L (0.52-1.04) mg/dL POC Glucose (mg/dL) 100 H (75-99) mg/dL Assessment and Plan Plan: 1 acute on chronic hypoxic respiratory failure, and the patient is post intubation mechanical ventilation and ventilatory dependent respiratory failure from which she has recovered and currently she is extubated on oxygen at 3 is of oxygen by nasal cannula 2 right-sided pneumothorax post Thoravent insertion. Tiny loculated right lower lobe pneumothorax with minimal amount of episodic in leak as noted on today's evaluation. Clinically stable however. No significant hypoxemia or decompensation since yesterday. 3 stage IV non-small cell lung cancer with poorly differentiated, with a positive pleural fluid. 4 malignant right-sided pleural effusion postthoracentesis subsequent Pleurx catheter insertion 5 severe cachexia and malnourishment 6 COPD exacerbation. 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 Pleurx catheter is in place. 13 episodic confusion/altered mentation, improved 14 metabolic alkalosis, currently on Diamox Plan Keep the Thoravent attached to a Pleur-evac. Continue draining the Pleurx cath eter. Discontinue the clindamycin and switch this patient to oral Levaquin. Start the patient on the Toprol 25 mg by mouth twice a day for a better rate control. The patient is found to be alkalotic and the patient will be given to dose of Diamox to counteract this metabolic alkalosis. Serum bicarbonate of 44. The patient be transferred today to an oncology floor to be followed up with the pulmonary team. Keep the Pleurx catheter in place. Keep the Thoravent in place for now.
[2018-09-19 16:48] LABS: Glucose,Whole Blood 130 mg/dL (75-99)
[2018-09-19] MEDS: LEVOFLOXACIN 750 MG TAB PO SCH (17:36)
[2018-09-19] MEDS: SODIUM CHLORIDE 0.9% 1,000 ML IV SCH (17:36)
[2018-09-19 20:27] LABS: Glucose,Whole Blood 125 mg/dL (75-99)
[2018-09-19] MEDS: methylPREDNISolone SOD SUCCI 125 MG/2 ML VIAL IV SCH (23:06)
--- NOTE | 2018-09-19 23:41 | XR ---
EXAM: XR Chest, 1 View CLINICAL HISTORY: ITS.REASON XR Reason: Shortness of breath TECHNIQUE: Frontal view of the chest. COMPARISON: 09/19/18, at 342 hour FINDINGS: Lungs: Airspace opacities in of the right lung and right pleural effusion are similar. Pleural space: Persistent small right pneumothorax, similar in size compared to prior study. Heart: Unremarkable. No cardiomegaly. Mediastinum: Unremarkable. Bones/joints: Fusion hardware over the lower cervical spine Tubes, lines and devices: Right chest tube and catheter aren't changed in positions. IMPRESSION: No substantial change.
[2018-09-20] MEDS: KETOROLAC 30 MG/ML 1 ML VIAL IVP SCH ×4 (05:24→23:24)
--- NOTE | 2018-09-20 06:49 | P.PN ---
Subjective This is a pleasant 57 years old female with past medical history of CVA/TIA, syncope, stage IV non-small cell lung cancer with pleural effusion, malignant in nature status post Pleurx catheter in a Place. 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 And glover IV access in the right chest. Presents with respiratory distress and decreased responsiveness. Patient got intubated in the emergency room. Pulmonary critical care team already evaluated the patient. Currently vital shown blood pressure 105/81, heart rate 101, she is saturating 98% on FiO2 60 and she is breathing rate is 28/m. Patient is afebrile. Labs reviewed showing mild leukocytosis of 12.9 K. Hemoglobin 13.3. Potassium was low at 3.2. Creatinine 0.27. Liver enzymes not elevated. Troponin is 0.04 09/15/2018 Patient got extubated today, she remains in the ICU. Just some respiratory distress and she feels tired and could not provide information, she is hemodynamically stable. Leukocytosis is improving slightly to 11.3 K. Creatinine 0.24, sugar controlled. Chest x-ray showing right hydro-pneumothorax with a right thoracostomy tube. Echocardiogram is pending. Cardiology evaluation. 09/16/2018 Patient breathing is doing better. Patient with no chest pain. Her oxygen saturation is 98% on 5 L nasal cannula. Also patient is on BiPAP. She is a little bit tachypneic. Her rest of vitals are stable. Her WBC is 10.9 K. Creatinine is 0.2. Glucose is 100-117. Liver enzymes mildly elevated. She still have the right-sided pleurx, Chest x-ray: right sided pneumothorax is slightly increased.Patient currently on Levaquin, and Solu-Medrol. And gentle hydration 09/17/2018, date of service Patient seen and examined by me at bedside on the date of service. Patient is a status post extubation. She has right pleural effusion, status post femoral vent insertion. Vitals stable. WBC 14.8 K. Creatinine 0.2. Sugar control. 09/18/2018 pt is still in ICU , she is with NSTEMI, and metoprolol was added today , pt is being followed closely by cardiology team . her repeat chest xray from today showing significant improvement and expansion of her right lung compared to her previous chest xray , also Pleurx is draining minimal malignant fluid, pt is cachectic but she is improving . 09/19/2018 Patient is doing well and she is clinically more stable. Patient is transferred out of the ICU today. She still have Thoravent on the right side with improvement of her pneumothorax as evident on the chest x-ray. This chest x-ray showing also right pleural effusion was possible some elements of infection. She has worsened leukocytosis at 16 K. no fever., Also she is on prednisone. Clindamycin was stopped and continue with oral Levaquin. Metoprolol 25 mg was added for better heart rate control Objective - Vital Signs Vital signs: Vital Signs Temp 98.2 F 09/19/18 15:46 Pulse 104 H 09/19/18 15:46 Resp 20 09/19/18 15:46 BP 128/82 09/19/18 15:46 Pulse Ox 94 L 09/19/18 15:46 Intake & Output 09/19/18 09/19/18 09/20/18 06:59 18:59 06:59 Intake Total 330 50 Output Total 2570 1930 Balance -2240 -1880 Weight 45.1 kg 45.1 kg Intake: IV 330 50 Clindamycin 600 mg In 100 Dextrose 5% in Water 50 ml @ 50 mls/hr IVPB Q8H [facility] Rx#:[id number] Magnesium Sulfate-D5w Pmx 100 1 gm In Dextrose/Water 1 100ml.bag @ 100 mls/hr IVPB Q1H [facility] Rx#: [id number] Sodium Chloride 0.9% 1, 130 50 000 ml @ 10 mls/hr IV . Q24H [facility] Rx#:[id number] Output: Chest Tube Drainage 30 30 Pleural Catheter Right 20 30 Lower Anterior Chest Thora-Vent Right Upper 10 0 Anterior Chest Urine 2540 1900 Other: Voiding Method Indwelling Catheter Indwelling Catheter ABP, PAP, CO, CI - Last Documented Arterial Blood Pressure 129/70 - Exam -GENERAL: The patient is alert and oriented x3, she is status post extubation. Some respiratory distress HEENT: Pupils are round and equally reacting to light. EOMI. No scleral icterus. No conjunctival pallor. Normocephalic, atraumatic. No pharyngeal erythema. No thyromegaly. CARDIOVASCULAR: S1 and S2 present. No murmurs, rubs, or gallops. PULMONARY: Chest is clear to auscultation, no wheezing or crackles. ABDOMEN: Soft, nontender, nondistended, normoactive bowel sounds. No palpable organomegaly. MUSCULOSKELETAL: No joint swelling or deformity. EXTREMITIES: No cyanosis, clubbing, or pedal edema. NEUROLOGICAL: Gross neurological examination did not reveal any focal deficits. SKIN: No rashes. - Labs CBC & Chem 7: 09/19/18 04:45 09/19/18 04:45 Labs: Abnormal Lab Results - Last 24 Hours (Table) 09/18/18 09/19/18 09/19/18 Range/Units 20:35 04:45 04:45 WBC 16.5 H (3.8-10.6) k/uL Hct 46.3 H (34.0-46.0) % MCV 101.7 H (80.0-100.0) fL MCHC 30.9 L (31.0-37.0) g/dL Chloride 95 L (98-107) mmol/L Carbon Dioxide 44 H* (22-30) mmol/L Creatinine 0.21 L (0.52-1.04) mg/dL POC Glucose (mg/dL) 125 H (75-99) mg/dL 09/19/18 09/19/18 Range/Units 11:54 16:45 WBC (3.8-10.6) k/uL Hct (34.0-46.0) % MCV (80.0-100.0) fL MCHC (31.0-37.0) g/dL Chloride (98-107) mmol/L Carbon Dioxide (22-30) mmol/L Creatinine (0.52-1.04) mg/dL POC Glucose (mg/dL) 100 H 130 H (75-99) mg/dL Assessment and Plan Assessment: Acute hypoxic respiratory failure, status post intubation for 1 day followed by extubation Possible acute COPD exacerbation versus pneumonia. Stage IV non-small cell lung cancers with malignant pleural effusion status post Pleurx catheter. Elevated troponin. 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 He knew with a breathing treatment, steroids, antibiotics. Continue with oxygen therapy. Also, cardiol ogy consult and echocardiogram. Oncology consult. Labs and medication were reviewed.. Continue same treatment. Continue with symptomatic treatment. Resume home medication. Monitor lytes and vitals. DVT and GI prophylaxis. Further recommendations of the clinical course of the patient DVT prophylaxis: Subcutaneous heparin GI Prophylaxis: Protonix Prognosis is poor
[2018-09-20] MEDS: FORMOTEROL FUMARATE 20 MCG/2 ML NEBU INHALATION SCH ×2 (07:26→18:57)
[2018-09-20] MEDS: IPRATROPIUM-ALBUTEROL 3 ML NEB INHALATION PRN ×3 (07:26→18:57)
[2018-09-20] MEDS: BUDESONIDE 0.5 MG/2 ML NEBU INHALATION SCH ×2 (07:26→18:57)
[2018-09-20 07:29] LABS: Glucose,Whole Blood 131 mg/dL (75-99)
[2018-09-20] MEDS: INSULIN ASPART (NovoLOG) 100 UNIT/ML VIAL SQ SCH ×4 (07:50→20:35)
[2018-09-20] MEDS: METOPROLOL TARTRATE 25 MG TAB PO SCH ×2 (09:10→20:41)
[2018-09-20] MEDS: PANTOPRAZOLE 40 MG TABLET PO SCH (09:11)
[2018-09-20] MEDS: predniSONE 10 MG TAB PO SCH (09:11)
[2018-09-20] MEDS: NICOTINE 14MG/24HR PATCH TRANSDERM SCH (09:11)
[2018-09-20] MEDS: ENOXAPARIN 40 MG/0.4 ML SYRINGE SQ SCH (09:11)
[2018-09-20 11:38] LABS: Glucose,Whole Blood 123 mg/dL (75-99)
--- NOTE | 2018-09-20 13:22 | P.PN ---
Subjective Progress Note Date: 09/20/18 Principal diagnosis: acute on chronic hypoxemic respiratory failure related to right-sided pneumothorax on 09/20/2018 patient seen in follow-up on medical surgical floor. She is throat is of oxygen with a pulse ox of 95%, afebrile, hemodynamically stable, right-sided third event remains in place, connected to Pleur-evac and wall suction and right-sided Pleurx catheter to pleuravac and wall suction, and there has been on 110 mL the Pleurx catheter, and only 60 mL out of the right-sided 4 events in the last 24 hours, no air leak noted, and today's chest x-ray shows airspace opacities in the right lung and right pleural effusion with no significant change since yesterday's exam, persistent small right pneumothorax, with no significant change since yesterday.sputum culture showed no growth, patient is working on her incentive spirometer, achieving 500 mL on the today, l harjit sounds are diminished over right base, no wheezing, no rhonchi.abiotic coverage in the form of Levaquin, and is receiving oral prednisone, and nebulized bronchodilators Objective - Vital Signs Vital signs: Vital Signs Temp 97.8 F 09/20/18 07:24 Pulse 104 H 09/20/18 10:54 Resp 16 09/20/18 09:50 BP 111/77 09/20/18 07:24 Pulse Ox 95 09/20/18 07:24 Intake & Output 09/19/18 09/20/18 09/20/18 18:59 06:59 18:59 Intake Total 50 80 Output Total 1930 1390 500 Balance -1880 -1310 -500 Weight 45.1 kg 44.5 kg Intake: IV 50 80 Sodium Chloride 0.9% 1, 50 80 000 ml @ 10 mls/hr IV . Q24H [facility] Rx#:[id number] Output: Chest Tube Drainage 30 140 Pleural Catheter Right 30 80 Lower Anterior Chest Thora-Vent Right Upper 0 60 Anterior Chest Urine 1900 1250 500 Uretheral (Bellamy) 500 Other: Voiding Method Indwelling Catheter Indwelling Catheter Indwelling Catheter ABP, PAP, CO, CI - Last Documented Arterial Blood Pressure 129/70 - Exam GENERAL EXAM: Alert, very pleasant cachectic 57-year-old white female 3 L of oxygen comfortable in no apparent distress. HEAD: Normocephalic/atraumatic. EYES: Normal reaction of pupils, equal size. Conjunctiva pink, sclera white. NOSE: Clear with pink turbinates. THROAT: No erythema or exudates. NECK: No masses, no JVD, no thyroid enlargement, no adenopathy. CHEST: No chest wall deformity. Symmetrical expansion. right upper chest Thoravent in place to Pleur-evac and wall suction, with no air leak, right sided Pleurix catheter in place, to Pleur-evac and wall suction and serous drainage in the Pleur-evac LUNGS: Equal air entry with no crackles, wheeze, rhonchi or dullness. CVS: Regular rate and rhythm, normal S1 and S2, no gallops, no murmurs, no rubs ABDOMEN: Soft, nontender. No hepatosplenomegaly, normal bowel sounds, no guarding or rigidity. EXTREMITIES: No clubbing, no edema, no cyanosis, 2+ pulses and upper and lower extremities. MUSCULOSKELETAL: Muscle strength and tone normal. SPINE: No scoliosis or deformity SKIN: No rashes CENTRAL NERVOUS SYSTEM: Alert and oriented -3. No focal deficits, tone is normal in all 4 extremities. PSYCHIATRIC: Alert and oriented -3. Appropriate affect. Intact judgment and insight. - Labs CBC & Chem 7: 09/19/18 04:45 09/19/18 04:45 Labs: Abnormal Lab Results - Last 24 Hours (Table) 09/19/18 09/19/18 09/20/18 Range/Units 16:45 20:26 07:25 POC Glucose (mg/dL) 130 H 125 H 131 H (75-99) mg/dL 09/20/18 Range/Units 11:34 POC Glucose (mg/dL) 123 H (75-99) mg/dL Assessment and Plan Plan: 1 acute on chronic hypoxic respiratory failure, and the patient is post intubation mechanical ventilation and ventilatory dependent respiratory failure from which she has recovered and currently she is extubated on oxygen at 3 is of oxygen by nasal cannula 2 right-sided pneumothorax post Thoravent insertion. Tiny loculated right lower lobe pneumothorax with minimal amount of episodic in leak as noted on today's evaluation. Clinically stable however. No significant hypoxemia or decompensation since yesterday. 3 stage IV non-small cell lung cancer with poorly differentiated, with a positive pleural fluid. 4 malignant right-sided pleural effusion postthoracentesis subsequent Pleurx catheter insertion 5 severe cachexia and malnourishment 6 COPD exacerbation. 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 Pleurx catheter is in place. 13 episodic confusion/altered mentation, improved 14 metabolic alkalosis, currently on Diamox Plan: We'll take the Thoravent of Pleur-evac and wall suction, repeat chest x-ray tomorrow, keep Pleurx catheter connected to Pleur-evac. continue current antibiotics, oral prednisone, nebulized bronchodilators, encourage deep breathing and coughing. increase activity as tolerated, encourage incentive spirometer use. I performed a history & physical examination of the patient and discussed their management with my nurse practitioner, Linda Macias. I reviewed the nurse practitioner's note and agree with the documented findings and plan of care. Lung sounds are positive for diminished breath sounds on the right. The findings and the impression was discussed with the patient. I attest to the documentation by the nurse practitioner. Time with Patient: Less than 30
[2018-09-20 13:56] LABS: HCT 50.4 % (34.0-46.0); Hypochromasia Marked; MCH 31.3 pg (25.0-35.0); MCHC 29.9 g/dL (31.0-37.0); MCV 104.8 fL (80.0-100.0); Macrocytosis Slight; Mean Platelet Volume 9.3; Platelet Count 400 k/uL (150-450); RBC 4.81 m/uL (3.80-5.40); RDW 14.5 % (11.5-15.5)
[2018-09-20 14:08] LABS: African American GFR (CKD) >90 (>60 ml/min/1.73 sqM); Anion Gap 6 mmol/L; Blood Urea Nitrogen 16 mg/dL (7-17); Calcium 10.3 mg/dL (8.4-10.2); Carbon Dioxide 36 mmol/L (22-30); Chloride 98 mmol/L (98-107); Glucose 128 mg/dL (74-99); Potassium 4.2 mmol/L (3.5-5.1); Sodium 140 mmol/L (137-145)
[2018-09-20] MEDS: SODIUM CHLORIDE 0.9% 1,000 ML IV SCH (15:20)
[2018-09-20 16:43] LABS: Glucose,Whole Blood 184 mg/dL (75-99)
--- NOTE | 2018-09-20 19:29 | P.PN ---
Subjective Progress Note Date: 09/20/18 Principal diagnosis: Hypoxia, altered mental status In follow-up today patient is sitting up in bed, she does remember me, she has a congested sounding cough, short of breath with minimal exertion, she is weak, not able to do much at her own, states small amounts of liquids, no nausea or vomiting, she is denying pain at this time Objective - Vital Signs Vital signs: Vital Signs Temp 98.7 F 09/20/18 14:01 Pulse 98 09/20/18 19:23 Resp 16 09/20/18 14:01 BP 108/72 09/20/18 14:01 Pulse Ox 97 09/20/18 18:57 Intake & Output 09/20/18 09/20/18 09/21/18 06:59 18:59 06:59 Intake Total 80 470 Output Total 1390 900 Balance -1310 -430 Weight 44.5 kg Intake: IV 80 70 Sodium Chloride 0.9% 1, 80 70 000 ml @ 10 mls/hr IV . Q24H [facility] Rx#:[id number] Oral 400 Output: Chest Tube Drainage 140 Pleural Catheter Right 80 Lower Anterior Chest Thora-Vent Right Upper 60 Anterior Chest Urine 1250 900 Uretheral (Bellamy) 900 Other: Voiding Method Indwelling Catheter Indwelling Catheter ABP, PAP, CO, CI - Last Documented Arterial Blood Pressure 129/70 - Exam Thin, cachectic, frail female sitting up in bed, she is in no acute distress, she is alert and oriented to self, place, time and situation, no gross focal or motor or neuro deficits are visible, respirations are even and unlabored, shallow, patient is not able to move very much independently without becoming significantly short of breath, new swelling in the extremities is noted. - Labs CBC & Chem 7: 09/20/18 07:30 09/20/18 07:30 Labs: Abnormal Lab Results - Last 24 Hours (Table) 09/19/18 09/20/18 09/20/18 Range/Units 20:26 07:25 07:30 WBC 19.0 H (3.8-10.6) k/uL Hct 50.4 H (34.0-46.0) % MCV 104.8 H (80.0-100.0) fL MCHC 29.9 L (31.0-37.0) g/dL Carbon Dioxide (22-30) mmol/L Creatinine (0.52-1.04) mg/dL Glucose (74-99) mg/dL POC Glucose (mg/dL) 125 H 131 H (75-99) mg/dL Calcium (8.4-10.2) mg/dL 09/20/18 09/20/18 09/20/18 Range/Units 07:30 11:34 16:42 WBC (3.8-10.6) k/uL Hct (34.0-46.0) % MCV (80.0-100.0) fL MCHC (31.0-37.0) g/dL Carbon Dioxide 36 H (22-30) mmol/L Creatinine 0.36 L (0.52-1.04) mg/dL Glucose 128 H (74-99) mg/dL POC Glucose (mg/dL) 123 H 184 H (75-99) mg/dL Calcium 10.3 H (8.4-10.2) mg/dL Assessment and Plan (1) Respiratory failure Current Visit: Yes Status: Acute Priority: High Code(s): J96.90 - RESPIRATORY FAILURE, UNSP, UNSP W HYPOXIA OR HYPERCAPNIA SNOMED Code(s): 856634644 (2) Pleural effusion Current Visit: Yes Status: Acute Priority: High Code(s): J90 - PLEURAL EFFUSION, NOT ELSEWHERE CLASSIFIED SNOMED Code(s): 88006059 (3) AML (acute myelogenous leukemia) Current Visit: No Status: Chronic Priority: Low Code(s): C92.00 - ACUTE MYELOBLASTIC LEUKEMIA, NOT HAVING ACHIEVED REMISSION SNOMED Code(s): 53079502 (4) History of allogeneic bone marrow transplant Current Visit: No Status: Chronic Priority: Medium Code(s): Z94.81 - BONE MARROW TRANSPLANT STATUS SNOMED Code(s): 280659463 Plan: I spoke with patient today about her malignancy of unknown primary. We discussed the additional testing that would be needed. Patient is not sure that she wants to go through that at this time. I do want her to be with her review the prognosis irregardless of primary (patient has widespread metastatic disease on imaging). I'm also very concerned for her performance status. We plan on meeting up sometime tomorrow to discuss the aforementioned information. Patient is agreeable. We'll follow up in the a.m.
[2018-09-20 20:06] LABS: Glucose,Whole Blood 113 mg/dL (75-99)
[2018-09-20] MEDS: LEVOFLOXACIN 750 MG TAB PO SCH (20:41)
--- NOTE | 2018-09-20 22:43 | P.PN ---
Subjective This is a pleasant 57 years old female with past medical history of CVA/TIA, syncope, stage IV non-small cell lung cancer with pleural effusion, malignant in nature status post Pleurx catheter in a Place. 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 And glover IV access in the right chest. Presents with respiratory distress and decreased responsiveness. Patient got intubated in the emergency room. Pulmonary critical care team already evaluated the patient. Currently vital shown blood pressure 105/81, heart rate 101, she is saturating 98% on FiO2 60 and she is breathing rate is 28/m. Patient is afebrile. Labs reviewed showing mild leukocytosis of 12.9 K. Hemoglobin 13.3. Potassium was low at 3.2. Creatinine 0.27. Liver enzymes not elevated. Troponin is 0.04 09/15/2018 Patient got extubated today, she remains in the ICU. Just some respiratory distress and she feels tired and could not provide information, she is hemodynamically stable. Leukocytosis is improving slightly to 11.3 K. Creatinine 0.24, sugar controlled. Chest x-ray showing right hydro-pneumothorax with a right thoracostomy tube. Echocardiogram is pending. Cardiology evaluation. 09/16/2018 Patient breathing is doing better. Patient with no chest pain. Her oxygen saturation is 98% on 5 L nasal cannula. Also patient is on BiPAP. She is a little bit tachypneic. Her rest of vitals are stable. Her WBC is 10.9 K. Creatinine is 0.2. Glucose is 100-117. Liver enzymes mildly elevated. She still have the right-sided pleurx, Chest x-ray: right sided pneumothorax is slightly increased.Patient currently on Levaquin, and Solu-Medrol. And gentle hydration 09/17/2018, date of service Patient seen and examined by me at bedside on the date of service. Patient is a status post extubation. She has right pleural effusion, status post femoral vent insertion. Vitals stable. WBC 14.8 K. Creatinine 0.2. Sugar control. 09/18/2018 pt is still in ICU , she is with NSTEMI, and metoprolol was added today , pt is being followed closely by cardiology team . her repeat chest xray from today showing significant improvement and expansion of her right lung compared to her previous chest xray , also Pleurx is draining minimal malignant fluid, pt is cachectic but she is improving . 09/19/2018 Patient is doing well and she is clinically more stable. Patient is transferred out of the ICU today. She still have Thoravent on the right side with improvement of her pneumothorax as evident on the chest x-ray. This chest x-ray showing also right pleural effusion was possible some elements of infection. She has worsened leukocytosis at 16 K. no fever., Also she is on prednisone. Clindamycin was stopped and continue with oral Levaquin. Metoprolol 25 mg was added for better heart rate control 09/20/2018 pt is awake with mild dyspnea at rest , some epical right chest pain mostly related to her pneumothorax, she is on thoravent and pleurx. she is tackycardic a little bit, she has leukocytosis but she is on steroid, bmp is unremarkable but glucose is controlled. pulmonary team are following the case closely and their input is appreciated. oncologist team are currently discussing the plan of care for her cancer of unknown primary source. repeat chest xray in the am Objective - Vital Signs Vital signs: Vital Signs Temp 98.7 F 09/20/18 14:01 Pulse 98 09/20/18 19:23 Resp 16 09/20/18 14:01 BP 108/72 09/20/18 14:01 Pulse Ox 97 09/20/18 18:57 Intake & Output 09/20/18 09/20/18 09/21/18 06:59 18:59 06:59 Intake Total 80 470 Output Total 1390 900 Balance -1310 -430 Weight 44.5 kg Intake: IV 80 70 Sodium Chloride 0.9% 1, 80 70 000 ml @ 10 mls/hr IV . Q24H [facility] Rx#:[id number] Oral 400 Output: Chest Tube Drainage 140 Pleural Catheter Right 80 Lower Anterior Chest Thora-Vent Right Upper 60 Anterior Chest Urine 1250 900 Uretheral (Bellamy) 900 Other: Voiding Method Indwelling Catheter Indwelling Catheter ABP, PAP, CO, CI - Last Documented Arterial Blood Pressure 129/70 - Exam -GENERAL: The patient is alert and oriented x3, she is status post extubation. Some respiratory distress HEENT: Pupils are round and equally reacting to light. EOMI. No scleral icterus. No conjunctival pallor. Normocephalic, atraumatic. No pharyngeal erythema. No thyromegaly. CARDIOVASCULAR: S1 and S2 present. No murmurs, rubs, or gallops. PULMONARY: Chest is clear to auscultation, no wheezing or crackles. ABDOMEN: Soft, nontender, nondistended, normoactive bowel sounds. No palpable organomegaly. MUSCULOSKELETAL: No joint swelling or deformity. EXTREMITIES: No cyanosis, clubbing, or pedal edema. NEUROLOGICAL: Gross neurological examination did not reveal any focal deficits. SKIN: No rashes. - Labs CBC & Chem 7: 09/20/18 07:30 09/20/18 07:30 Labs: Abnormal Lab Results - Last 24 Hours (Table) 09/20/18 09/20/18 09/20/18 Range/Units 07:25 07:30 07:30 WBC 19.0 H (3.8-10.6) k/uL Hct 50.4 H (34.0-46.0) % MCV 104.8 H (80.0-100.0) fL MCHC 29.9 L (31.0-37.0) g/dL Carbon Dioxide 36 H (22-30) mmol/L Creatinine 0.36 L (0.52-1.04) mg/dL Glucose 128 H (74-99) mg/dL POC Glucose (mg/dL) 131 H (75-99) mg/dL Calcium 10.3 H (8.4-10.2) mg/dL 09/20/18 09/20/18 09/20/18 Range/Units 11:34 16:42 20:05 WBC (3.8-10.6) k/uL Hct (34.0-46.0) % MCV (80.0-100.0) fL MCHC (31.0-37.0) g/dL Carbon Dioxide (22-30) mmol/L Creatinine (0.52-1.04) mg/dL Glucose (74-99) mg/dL POC Glucose (mg/dL) 123 H 184 H 113 H (75-99) mg/dL Calcium (8.4-10.2) mg/dL Assessment and Plan Assessment: Acute hypoxic respiratory failure, status post intubation for 1 day followed by extubation Possible acute COPD exacerbation versus pneumonia. Stage IV non-small cell lung cancers with malignant pleural effusion status post Pleurx catheter. Elevated troponin. 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 He knew with a breathing treatment, steroids, antibiotics. Continue with oxygen therapy. Also, cardiology consult and echocardiogram. Oncology consult. Labs and medication were reviewed.. Continue same treatment. Continue with symptomatic treatment. Resume home medication. Monitor lytes and vitals. DVT and GI prophylaxis. Further recommendations of the clinical course of the patient DVT prophylaxis: Subcutaneous heparin GI Prophylaxis: Protonix Prognosis is poor
[2018-09-21] MEDS: KETOROLAC 30 MG/ML 1 ML VIAL IVP SCH ×4 (05:09→23:39)
[2018-09-21 07:00] LABS: Glucose,Whole Blood 82 mg/dL (75-99)
--- NOTE | 2018-09-21 07:49 | XR ---
EXAMINATION TYPE: XR chest 2V DATE OF EXAM: 09/21/2018 COMPARISON: 09/19/2018 HISTORY: Shortness of breath TECHNIQUE: Frontal and lateral views of the chest are obtained. FINDINGS: Right-sided pleural catheter is unchanged in position as is a right-sided chest tube. Pneumothorax ap pears to have progressed with right apical distance of 2.9 cm versus an estimated 1.3 cm previously. Persistent right basilar infiltrate and effusion. Heart size is stable. Mediastinal structures are stable and grossly unremarkable. No evidence for hilar prominence. Degenerative changes dorsal spine. IMPRESSION: 1. There is progressive right-sided pneumothorax. A [place] level critical message alert has been initiated for Lokesh Scruggs MD via the [employer] Critical Results System on 09/21/2018 7:47 AM. This message alert has been sent to Lokesh Scruggs MD via the preferences provided by the clinician for the receipt of Radiology Critical Findings. Message ID [id number].
[2018-09-21] MEDS: INSULIN ASPART (NovoLOG) 100 UNIT/ML VIAL SQ SCH ×4 (07:53→20:35)
[2018-09-21] MEDS: FORMOTEROL FUMARATE 20 MCG/2 ML NEBU INHALATION SCH ×2 (08:07→18:57)
[2018-09-21] MEDS: BUDESONIDE 0.5 MG/2 ML NEBU INHALATION SCH ×2 (08:07→18:57)
[2018-09-21] MEDS: PANTOPRAZOLE 40 MG TABLET PO SCH (09:24)
[2018-09-21] MEDS: METOPROLOL TARTRATE 25 MG TAB PO SCH ×2 (09:24→21:02)
[2018-09-21] MEDS: ENOXAPARIN 40 MG/0.4 ML SYRINGE SQ SCH (09:24)
[2018-09-21] MEDS: predniSONE 10 MG TAB PO SCH (09:24)
[2018-09-21 10:49] LABS: HCT 46.8 % (34.0-46.0); HGB 14.4 gm/dL (11.4-16.0); MCH 31.4 pg (25.0-35.0); MCHC 30.7 g/dL (31.0-37.0); MCV 102.3 fL (80.0-100.0); Macrocytosis Slight; Mean Platelet Volume 8.2; Platelet Count 417 k/uL (150-450); RBC 4.58 m/uL (3.80-5.40); RDW 14.7 % (11.5-15.5); WBC 17.4 k/uL (3.8-10.6)
[2018-09-21 10:59] LABS: African American GFR (CKD) >90 (>60 ml/min/1.73 sqM); Blood Urea Nitrogen 18 mg/dL (7-17); Calcium 9.6 mg/dL (8.4-10.2); Chloride 95 mmol/L (98-107); Glucose 111 mg/dL (74-99); Potassium 4.2 mmol/L (3.5-5.1); Sodium 139 mmol/L (137-145)
[2018-09-21 11:06] LABS: Anion Gap 5 mmol/L; Carbon Dioxide 39 mmol/L (22-30)
[2018-09-21 11:46] LABS: Glucose,Whole Blood 104 mg/dL (75-99)
[2018-09-21] MEDS: POLYETHYLENE GLYCOL 3350 17 GM POWD.PACK PO SCH (11:54)
[2018-09-21] MEDS: IPRATROPIUM-ALBUTEROL 3 ML NEB INHALATION PRN (12:12)
--- NOTE | 2018-09-21 12:18 | P.PN ---
Subjective Progress Note Date: 09/21/18 Principal diagnosis: acute on chronic hypoxemic respiratory failure related to right-sided pneumothorax on 09/20/2018 patient seen in follow-up on medical surgical floor. She is throat is of oxygen with a pulse ox of 95%, afebrile, hemodynamically stable, right-sided third event remains in place, connected to Pleur-evac and wall suction and right-sided Pleurx catheter to pleuravac and wall suction, and there has been on 110 mL the Pleurx catheter, and only 60 mL out of the right-sided 4 events in the last 24 hours, no air leak noted, and today's chest x-ray shows airspace opacities in the right lung and right pleural effusion with no significant change since yesterday's exam, persistent small right pneumothorax, with no significant change since yesterday.sputum culture showed no growth, patient is working on her incentive spirometer, achieving 500 mL on the today, l harjit sounds are diminished over right base, no wheezing, no rhonchi.abiotic coverage in the form of Levaquin, and is receiving oral prednisone, and nebulized bronchodilators. On 09/21/2018 patient seen in follow-up on medical surgical floor. Yesterday we took the right Thoravent of suction, and on today's chest x-ray there is a progressive right-sided pneumothorax, and in addition patient became symptomatic, hypoxemic, and the pulse ox dropping to 88% on 5 L, we'll placed the right Thoravent back to wall suction, and we will repeat a chest x-ray 12 PM. She is currently up to 10 L on high flow nasal cannula with a pulse ox of 92%, she is afebrile, hemodynamically she is stable, right sided Pleurix cath remains to Pleura-Vac and suction, and there has been very minimal drainage out of it in last 24 hours only 20 mL, and 30 mL out of the Thora-vent. Patient remains on oral prednisone, nebulized bronchodilators, and oral antibiotics, there has been no fever or chills. Sputum culture showed no growth. Today's labs have been reviewed, blood blood cell count is 17.4, hemoglobin is 14.4, sodium is 139, potassium is 4.2, chloride is 95, CO2 is 39, BUN is 18 creatinine 0.40. Patient still has the Bellamy catheter in place, and she is making large amounts of urine. Lung sounds reveal a few scattered rhonchi, minimal wheezing, overall she is in no distress, no complaints of chest pain, her incentive spirometer effort is 500 mL Objective - Vital Signs Vital signs: Vital Signs Temp 97.5 F L 09/21/18 00:20 Pulse 116 H 09/21/18 09:40 Resp 20 09/21/18 09:40 BP 119/79 09/21/18 00:20 Pulse Ox 92 L 09/21/18 09:40 Intake & Output 09/20/18 09/21/18 09/21/18 18:59 06:59 18:59 Intake Total 470 100 Output Total 900 350 0 Balance -430 -250 0 Weight 45.2 kg Intake: IV 70 100 Sodium Chloride 0.9% 1, 70 100 000 ml @ 10 mls/hr IV . Q24H [facility] Rx#:[id number] Oral 400 Output: Chest Tube Drainage 50 0 Pleural Catheter Right 20 0 Lower Anterior Chest Thora-Vent Right Upper 30 0 Anterior Chest Urine 900 300 Uretheral (Bellamy) 900 Other: Voiding Method Indwelling Catheter Indwelling Catheter Indwelling Catheter ABP, PAP, CO, CI - Last Documented Arterial Blood Pressure 129/70 - Exam GENERAL EXAM: Alert, very pleasant cachectic 57-year-old white female on 10 L of oxygen comfortable in no apparent distress. HEAD: Normocephalic/atraumatic. EYES: Normal reaction of pupils, equal size. Conjunctiva pink, sclera white. NOSE: Clear with pink turbinates. THROAT: No erythema or exudates. NECK: No masses, no JVD, no thyroid enlargement, no adenopathy. CHEST: No chest wall deformity. Symmetrical expansion. right upper chest Thoravent in place to Pleur-evac and wall suction, with no air leak, right sided Pleurix catheter in place, to Pleur-evac and wall suction and serous drainage in the Pleur-evac LUNGS: Equal air entry with scattered rhonchi CVS: Regular rate and rhythm, normal S1 and S2, no gallops, no murmurs, no rubs ABDOMEN: Soft, nontender. No hepatosplenomegaly, normal bowel sounds, no guarding or rigidity. EXTREMITIES: No clubbing, no edema, no cyanosis, 2+ pulses and upper and lower extremities. MUSCULOSKELETAL: Muscle strength and tone normal. SPINE: No scoliosis or deformity SKIN: No rashes CENTRAL NERVOUS SYSTEM: Alert and oriented -3. No focal deficits, tone is normal in all 4 extremities. PSYCHIATRIC: Alert and oriented -3. Appropriate affect. Intact judgment and insight. - Labs CBC & Chem 7: 09/21/18 10:01 09/21/18 10:01 Labs: Abnormal Lab Results - Last 24 Hours (Table) 09/20/18 09/20/18 09/20/18 Range/Units 07:30 07:30 16:42 WBC 19.0 H (3.8-10.6) k/uL Hct 50.4 H (34.0-46.0) % MCV 104.8 H (80.0-100.0) fL MCHC 29.9 L (31.0-37.0) g/dL Chloride (98-107) mmol/L Carbon Dioxide 36 H (22-30) mmol/L BUN (7-17) mg/dL Creatinine 0.36 L (0.52-1.04) mg/dL Glucose 128 H (74-99) mg/dL POC Glucose (mg/dL) 184 H (75-99) mg/dL Calcium 10.3 H (8.4-10.2) mg/dL 09/20/18 09/21/18 09/21/18 Range/Units 20:05 10:01 10:01 WBC 17.4 H (3.8-10.6) k/uL Hct 46.8 H (34.0-46.0) % MCV 102.3 H (80.0-100.0) fL MCHC 30.7 L (31.0-37.0) g/dL Chloride 95 L (98-107) mmol/L Carbon Dioxide 39 H (22-30) mmol/L BUN 18 H (7-17) mg/dL Creatinine 0.40 L (0.52-1.04) mg/dL Glucose 111 H (74-99) mg/dL POC Glucose (mg/dL) 113 H (75-99) mg/dL Calcium (8.4-10.2) mg/dL 09/21/18 Range/Units 11:45 WBC (3.8-10.6) k/uL Hct (34.0-46.0) % MCV (80.0-100.0) fL MCHC (31.0-37.0) g/dL Chloride (98-107) mmol/L Carbon Dioxide (22-30) mmol/L BUN (7-17) mg/dL Creatinine (0.52-1.04) mg/dL Glucose (74-99) mg/dL POC Glucose (mg/dL) 104 H (75-99) mg/dL Calcium (8.4-10.2) mg/dL Assessment and Plan Plan: 1 acute on chronic hypoxic respiratory failure, and the patient is post intubation mechanical ventilation and ventilatory dependent respiratory failure from which she has recovered 2 right-sided pneumothorax post Thoravent insertion. 3 stage IV non-small cell lung cancer with poorly differentiated, with a positive pleural fluid. 4 malignant right-sided pleural effusion postthoracentesis subsequent Pleurx catheter insertion 5 severe cachexia and malnourishment 6 COPD exacerbation. 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 Pleurx catheter is in place. 13 episodic confusion/altered mentation, improved 14 metabolic alkalosis, currently on Diamox Plan: Patient developed progressing right apical pneumothorax on today's chest x-ray, and Thoravent has been placed to wall suction, we'll repeat chest x-ray 12 PM, continue with oral prednisone, nebulized bronchodilators, continue with daily chest x-rays. I performed a history & physical examination of the patient and discussed their management with my nurse practitioner, Linda Macias. I reviewed the nurse practitioner's note and agree with the documented findings and plan of care. Lung sounds are positive for diminished breath sounds on the right. The findings and the impression was discussed with the patient. I attest to the doc umentation by the nurse practitioner. Time with Patient: Less than 30
--- NOTE | 2018-09-21 12:25 | XR ---
EXAMINATION TYPE: XR chest 1V portable DATE OF EXAM: 09/21/2018 HISTORY: Pneumothorax follow-up COMPARISON: 09/21/2018 TECHNIQUE: Single view of the chest is submitted. FINDINGS: Right apical pneumothorax persists although is improved relative to the prior study. Apical pleural m easurement is currently 1.5 cm versus 2.9 cm. Pleural catheter and right-sided chest tube are in plac e. Right basilar infiltrate and pleural effusion persists. Left lung is clear. The heart is stable. Hilar and mediastinal structures are within normal limits. Degenerative changes are seen of the dorsal spine. IMPRESSION: 1. Persistent but improved right apical pneumothorax. Subcutaneous air noted. Right basilar infiltra te and effusion.
[2018-09-21] MEDS ORDERED: LORazepam 2 MG/ML INJ IV STA (14:28)
[2018-09-21] MEDS: SODIUM CHLORIDE 0.9% 1,000 ML IV SCH (15:08)
[2018-09-21 16:58] LABS: Glucose,Whole Blood 122 mg/dL (75-99)
--- NOTE | 2018-09-21 17:10 | P.PN ---
Subjective Progress Note Date: 09/21/18 Principal diagnosis: Hypoxia, altered mental status In follow-up today patient is sitting up in bed, she does remember me, she has a congested sounding cough, short of breath with minimal exertion, she is weak, not able to do much at her own, she didn't tolerate a yogurt in combination with the Magic cup and some other liquids today, no nausea or vomiting, she is denying pain at this time. Objective - Vital Signs Vital signs: Vital Signs Temp 98 F 09/21/18 15:00 Pulse 111 H 09/21/18 15:00 Resp 16 09/21/18 15:00 BP 109/75 09/21/18 15:00 Pulse Ox 95 09/21/18 15:00 Intake & Output 09/20/18 09/21/18 09/21/18 18:59 06:59 18:59 Intake Total 470 100 Output Total 900 350 0 Balance -430 -250 0 Weight 45.2 kg Intake: IV 70 100 Sodium Chloride 0.9% 1, 70 100 000 ml @ 10 mls/hr IV . Q24H [facility] Rx#:[id number] Oral 400 Output: Chest Tube Drainage 50 0 Pleural Catheter Right 20 0 Lower Anterior Chest Thora-Vent Right Upper 30 0 Anterior Chest Urine 900 300 Uretheral (Bellamy) 900 Other: Voiding Method Indwelling Catheter Indwelling Catheter Indwelling Catheter ABP, PAP, CO, CI - Last Documented Arterial Blood Pressure 129/70 - Exam Thin, cachectic, frail female sitting up in bed, she is in mild distress, she is alert and oriented to self, place, time, no gross focal or motor or neuro deficits are visible, respirations are even and unlabored, shallow, patient is not able to move very much independently without becoming significantly short of breath, there is no swelling in the lower extremities. - Labs CBC & Chem 7: 09/21/18 10:01 09/21/18 10:01 Labs: Abnormal Lab Results - Last 24 Hours (Table) 09/20/18 09/21/18 09/21/18 Range/Units 20:05 10:01 10:01 WBC 17.4 H (3.8-10.6) k/uL Hct 46.8 H (34.0-46.0) % MCV 102.3 H (80.0-100.0) fL MCHC 30.7 L (31.0-37.0) g/dL Chloride 95 L (98-107) mmol/L Carbon Dioxide 39 H (22-30) mmol/L BUN 18 H (7-17) mg/dL Creatinine 0.40 L (0.52-1.04) mg/dL Glucose 111 H (74-99) mg/dL POC Glucose (mg/dL) 113 H (75-99) mg/dL 09/21/18 Range/Units 11:45 WBC (3.8-10.6) k/uL Hct (34.0-46.0) % MCV (80.0-100.0) fL MCHC (31.0-37.0) g/dL Chloride (98-107) mmol/L Carbon Dioxide (22-30) mmol/L BUN (7-17) mg/dL Creatinine (0.52-1.04) mg/dL Glucose (74-99) mg/dL POC Glucose (mg/dL) 104 H (75-99) mg/dL Assessment and Plan (1) Pleural effusion Narrative/Plan: Chest tubes in place. 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 Pt stated she sent her home because he was stressed. When I asked her if they spoke and what the plan was she stated to me that she was going to "go home for a few mon ths" with the impression that she was going to "get over this" and then decide what she was going to do. It was at this point that I stopped the patient and I asked her what she exactly understood about her recent diagnosis of cancer. She states that she knows about "2 small spots", she remembered the to pleural fluid cytologies that were negative, she did not remember the pleural fluid that came back positive for malignant cells consistent with metastatic poorly differentiated non-small cell carcinoma of unknown primary. She did at that point change the subject. I told her that I was going to contact her . She said that she did not want me to discuss this with him, I said that I am not able to do that. I told her that whatever questions he has I need to answer them. She did verbalize understanding. Prior to me leaving the room she asked me if she has stage IV cancer and I confirmed that yes, she does. I contacted the patient's . 's understanding of the situation is correct, he understands unknown primary and stage IV malignancy. He also understands that additional testing is necessary before recommendation of a treatment option or prognosis. When I told him about the discussion with his , he confirmed that she has had trouble remembering things and that she has been confused. He agreed that we should have a meeting in the morning to clarif y diagnosis, prognosis, need for additional testing, and to make decisions about how pt is going to proceed. Patient had CT of the brain on 09/13.
--- NOTE | 2018-09-21 17:44 | P.PN ---
Subjective This is a pleasant 57 years old female with past medical history of CVA/TIA, syncope, stage IV non-small cell lung cancer with pleural effusion, malignant in nature status post Pleurx catheter in a Place. 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 And glover IV access in the right chest. Presents with respiratory distress and decreased responsiveness. Patient got intubated in the emergency room. Pulmonary critical care team already evaluated the patient. Currently vital shown blood pressure 105/81, heart rate 101, she is saturating 98% on FiO2 60 and she is breathing rate is 28/m. Patient is afebrile. Labs reviewed showing mild leukocytosis of 12.9 K. Hemoglobin 13.3. Potassium was low at 3.2. Creatinine 0.27. Liver enzymes not elevated. Troponin is 0.04 09/15/2018 Patient got extubated today, she remains in the ICU. Just some respiratory distress and she feels tired and could not provide information, she is hemodynamically stable. Leukocytosis is improving slightly to 11.3 K. Creatinine 0.24, sugar controlled. Chest x-ray showing right hydro-pneumothorax with a right thoracostomy tube. Echocardiogram is pending. Cardiology evaluation. 09/16/2018 Patient breathing is doing better. Patient with no chest pain. Her oxygen saturation is 98% on 5 L nasal cannula. Also patient is on BiPAP. She is a little bit tachypneic. Her rest of vitals are stable. Her WBC is 10.9 K. Creatinine is 0.2. Glucose is 100-117. Liver enzymes mildly elevated. She still have the right-sided pleurx, Chest x-ray: right sided pneumothorax is slightly increased.Patient currently on Levaquin, and Solu-Medrol. And gentle hydration 09/17/2018, date of service Patient seen and examined by me at bedside on the date of service. Patient is a status post extubation. She has right pleural effusion, status post femoral vent insertion. Vitals stable. WBC 14.8 K. Creatinine 0.2. Sugar control. 09/18/2018 pt is still in ICU , she is with NSTEMI, and metoprolol was added today , pt is being followed closely by cardiology team . her repeat chest xray from today showing significant improvement and expansion of her right lung compared to her previous chest xray , also Pleurx is draining minimal malignant fluid, pt is cachectic but she is improving . 09/19/2018 Patient is doing well and she is clinically more stable. Patient is transferred out of the ICU today. She still have Thoravent on the right side with improvement of her pneumothorax as evident on the chest x-ray. This chest x-ray showing also right pleural effusion was possible some elements of infection. She has worsened leukocytosis at 16 K. no fever., Also she is on prednisone. Clindamycin was stopped and continue with oral Levaquin. Metoprolol 25 mg was added for better heart rate control 09/20/2018 pt is awake with mild dyspnea at rest , some epical right chest pain mostly related to her pneumothorax, she is on thoravent and pleurx. she is tackycardic a little bit, she has leukocytosis but she is on steroid, bmp is unremarkable but glucose is controlled. pulmonary team are following the case closely and their input is appreciated. oncologist team are currently discussing the plan of care for her cancer of unknown primary source. repeat chest xray in the am 09/21/2018 Patient is awake, minimal dyspnea. No chest pain. No abdominal complaint. She is tachycardic around 110, a febrile, she is on 10 L oxygen via high flow nasal cannula and saturating 95%. Repeat chest x-ray today showing worsening pneumothorax. WBC 17.4 K while she is on steroids. Creatinine 0.4. I discu ssed the case with oncology team and they going to discuss patient diagnosis and treatment plan with the patient today. Pulmonary follow-up is appreciated, patient currently on Serevent and recommended to repeat chest x-ray. Objective - Vital Signs Vital signs: Vital Signs Temp 98 F 09/21/18 15:00 Pulse 111 H 09/21/18 15:00 Resp 16 09/21/18 15:00 BP 109/75 09/21/18 15:00 Pulse Ox 95 09/21/18 15:00 Intake & Output 09/20/18 09/21/18 09/21/18 18:59 06:59 18:59 Intake Total 470 100 Output Total 900 350 625 Balance -430 -961 -152 Weight 45.2 kg Intake: IV 70 100 Sodium Chloride 0.9% 1, 70 100 000 ml @ 10 mls/hr IV . Q24H [facility] Rx#:[id number] Oral 400 Output: Chest Tube Drainage 50 25 Pleural Catheter Right 20 5 Lower Anterior Chest Thora-Vent Right Upper 30 20 Anterior Chest Urine 900 300 600 Uretheral (Bellamy) 900 Other: Voiding Method Indwelling Catheter Indwelling Catheter Indwelling Catheter ABP, PAP, CO, CI - Last Documented Arterial Blood Pressure 129/70 - Exam -GENERAL: The patient is alert and oriented x3, she is status post extubation. Some respiratory distress HEENT: Pupils are round and equally reacting to light. EOMI. No scleral icterus. No conjunctival pallor. Normocephalic, atraumatic. No pharyngeal erythema. No thyromegaly. CARDIOVASCULAR: S1 and S2 present. No murmurs, rubs, or gallops. PULMONARY: Chest is clear to auscultation, no wheezing or crackles. ABDOMEN: Soft, nontender, nondistended, normoactive bowel sounds. No palpable organomegaly. MUSCULOSKELETAL: No joint swelling or deformity. EXTREMITIES: No cyanosis, clubbing, or pedal edema. NEUROLOGICAL: Gross neurological examination did not reveal any focal deficits. SKIN: No rashes. - Labs CBC & Chem 7: 09/21/18 10:01 09/21/18 10:01 Labs: Abnormal Lab Results - Last 24 Hours (Table) 09/20/18 09/21/18 09/21/18 Range/Units 20:05 10:01 10:01 WBC 17.4 H (3.8-10.6) k/uL Hct 46.8 H (34.0-46.0) % MCV 102.3 H (80.0-100.0) fL MCHC 30.7 L (31.0-37.0) g/dL Chloride 95 L (98-107) mmol/L Carbon Dioxide 39 H (22-30) mmol/L BUN 18 H (7-17) mg/dL Creatinine 0.40 L (0.52-1.04) mg/dL Glucose 111 H (74-99) mg/dL POC Glucose (mg/dL) 113 H (75-99) mg/dL 09/21/18 09/21/18 Range/Units 11:45 16:56 WBC (3.8-10.6) k/uL Hct (34.0-46.0) % MCV (80.0-100.0) fL MCHC (31.0-37.0) g/dL Chloride (98-107) mmol/L Carbon Dioxide (22-30) mmol/L BUN (7-17) mg/dL Creatinine (0.52-1.04) mg/dL Glucose (74-99) mg/dL POC Glucose (mg/dL) 104 H 122 H (75-99) mg/dL Assessment and Plan Assessment: Acute hypoxic respiratory failure, status post intubation for 1 day followed by extubation Possible acute COPD exacerbation versus pneumonia. Stage IV non-small cell lung cancers with malignant pleural effusion status post Pleurx catheter. Elevated troponin. 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 He knew with a breathing treatment, steroids, antibiotics. Continue with oxygen therapy. Also, cardiology consult and echocardiogram. Oncology consult. Labs and medication were reviewed.. Continue same treatment. Continue with symptomatic treatment. Resume home medication. Monitor lytes and vitals. DVT and GI prophylaxis. Further recommendations of the clinical course of the patient DVT prophylaxis: Subcutaneous heparin GI Prophylaxis: Protonix Prognosis is poor
[2018-09-21] MEDS: LEVOFLOXACIN 750 MG TAB PO SCH ×2 (18:00→21:02)
[2018-09-21 20:04] LABS: Glucose,Whole Blood 109 mg/dL (75-99)
[2018-09-22] MEDS: KETOROLAC 30 MG/ML 1 ML VIAL IVP SCH ×4 (05:07→23:02)
[2018-09-22 07:40] LABS: Glucose,Whole Blood 122 mg/dL (75-99)
[2018-09-22] MEDS: INSULIN ASPART (NovoLOG) 100 UNIT/ML VIAL SQ SCH ×4 (07:45→20:20)
[2018-09-22] MEDS: IPRATROPIUM-ALBUTEROL 3 ML NEB INHALATION PRN ×4 (08:39→20:09)
[2018-09-22] MEDS: FORMOTEROL FUMARATE 20 MCG/2 ML NEBU INHALATION SCH ×2 (08:39→20:09)
[2018-09-22] MEDS: BUDESONIDE 0.5 MG/2 ML NEBU INHALATION SCH ×2 (08:39→20:09)
[2018-09-22] MEDS: PANTOPRAZOLE 40 MG TABLET PO SCH (08:52)
[2018-09-22] MEDS: METOPROLOL TARTRATE 25 MG TAB PO SCH ×2 (08:52→20:44)
[2018-09-22] MEDS: NICOTINE 14MG/24HR PATCH TRANSDERM SCH (08:52)
[2018-09-22] MEDS: predniSONE 10 MG TAB PO SCH (08:52)
[2018-09-22] MEDS: ENOXAPARIN 40 MG/0.4 ML SYRINGE SQ SCH (08:53)
[2018-09-22] MEDS: POLYETHYLENE GLYCOL 3350 17 GM POWD.PACK PO SCH (08:53)
[2018-09-22 08:55] LABS: Basophils % (A) 0 %; Eosinophils # (A) 0.1 k/uL (0-0.7); Eosinophils % (A) 1 %; HCT 47.4 % (34.0-46.0); HGB 14.6 gm/dL (11.4-16.0); Hypochromasia Slight; Lymphocytes % (A) 7 %; MCH 31.7 pg (25.0-35.0); MCHC 30.7 g/dL (31.0-37.0); MCV 103.4 fL (80.0-100.0); Macrocytosis Slight; Mean Platelet Volume 7.9; Monocytes # (A) 0.6 k/uL (0-1.0); Monocytes % (A) 4 %; Neutrophils # (A) 13.1 k/uL (1.3-7.7); Neutrophils % (A) 88 %; Platelet Count 424 k/uL (150-450); RBC 4.59 m/uL (3.80-5.40); RDW 14.5 % (11.5-15.5); WBC 14.9 k/uL (3.8-10.6)
--- NOTE | 2018-09-22 10:22 | XR ---
EXAMINATION TYPE: XR chest 1V portable DATE OF EXAM: 09/22/2018 COMPARISON: 09/21/2018 INDICATION: Pneumothorax TECHNIQUE: Single frontal view of the chest is obtained. FINDINGS: The heart size is normal. The pulmonary vasculature is normal. Right lower lobe infiltrate is present. A small right pleural effusion is likely present. There is a right-sided chest tube along the right base directed towards the right apex stable positio n. There is a chest tube in the right apex. Small apical pneumothorax is present currently estimated at 1.4 cm from the lung apex which is similar in appearance to the 1.5 cm the prior exam. Subcutaneou s emphysema is present. Catheter positioning may be changed from prior exam IMPRESSION: 1. Small right apical pneumothorax. 2. Increasing small right pleural effusion with adjacent infiltrate. Correlate for atelectasis and pn eumonia.
--- NOTE | 2018-09-22 11:20 | P.PN ---
Subjective This is a pleasant 57 years old female with past medical history of CVA/TIA, syncope, stage IV non-small cell lung cancer with pleural effusion, malignant in nature status post Pleurx catheter in a Place. 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 And glover IV access in the right chest. Presents with respiratory distress and decreased responsiveness. Patient got intubated in the emergency room. Pulmonary critical care team already evaluated the patient. Currently vital shown blood pressure 105/81, heart rate 101, she is saturating 98% on FiO2 60 and she is breathing rate is 28/m. Patient is afebrile. Labs reviewed showing mild leukocytosis of 12.9 K. Hemoglobin 13.3. Potassium was low at 3.2. Creatinine 0.27. Liver enzymes not elevated. Troponin is 0.04 09/15/2018 Patient got extubated today, she remains in the ICU. Just some respiratory distress and she feels tired and could not provide information, she is hemodynamically stable. Leukocytosis is improving slightly to 11.3 K. Creatinine 0.24, sugar controlled. Chest x-ray showing right hydro-pneumothorax with a right thoracostomy tube. Echocardiogram is pending. Cardiology evaluation. 09/16/2018 Patient breathing is doing better. Patient with no chest pain. Her oxygen saturation is 98% on 5 L nasal cannula. Also patient is on BiPAP. She is a little bit tachypneic. Her rest of vitals are stable. Her WBC is 10.9 K. Creatinine is 0.2. Glucose is 100-117. Liver enzymes mildly elevated. She still have the right-sided pleurx, Chest x-ray: right sided pneumothorax is slightly increased.Patient currently on Levaquin, and Solu-Medrol. And gentle hydration 09/17/2018, date of service Patient seen and examined by me at bedside on the date of service. Patient is a status post extubation. She has right pleural effusion, status post femoral vent insertion. Vitals stable. WBC 14.8 K. Creatinine 0.2. Sugar control. 09/18/2018 pt is still in ICU , she is with NSTEMI, and metoprolol was added today , pt is being followed closely by cardiology team . her repeat chest xray from today showing significant improvement and expansion of her right lung compared to her previous chest xray , also Pleurx is draining minimal malignant fluid, pt is cachectic but she is improving . 09/19/2018 Patient is doing well and she is clinically more stable. Patient is transferred out of the ICU today. She still have Thoravent on the right side with improvement of her pneumothorax as evident on the chest x-ray. This chest x-ray showing also right pleural effusion was possible some elements of infection. She has worsened leukocytosis at 16 K. no fever., Also she is on prednisone. Clindamycin was stopped and continue with oral Levaquin. Metoprolol 25 mg was added for better heart rate control 09/20/2018 pt is awake with mild dyspnea at rest , some epical right chest pain mostly related to her pneumothorax, she is on thoravent and pleurx. she is tackycardic a little bit, she has leukocytosis but she is on steroid, bmp is unremarkable but glucose is controlled. pulmonary team are following the case closely and their input is appreciated. oncologist team are currently discussing the plan of care for her cancer of unknown primary source. repeat chest xray in the am 09/21/2018 Patient is awake, minimal dyspnea. No chest pain. No abdominal complaint. She is tachycardic around 110, a febrile, she is on 10 L oxygen via high flow nasal cannula and saturating 95%. Repeat chest x-ray today showing worsening pneumothorax. WBC 17.4 K while she is on steroids. Creatinine 0.4. I discu ssed the case with oncology team and they going to discuss patient diagnosis and treatment plan with the patient today. Pulmonary follow-up is appreciated, patient currently on Serevent and recommended to repeat chest x-ray. 09/05/2018 patient is awake, with no respiratory distress. No dyspnea. She still have some pain at the right shoulder,could be stemming from her pneumothorax.she is saturating 88-99% on ventilator oxygen via high flow nasal cannula. She is mildly tachycardic around 110-112.repeat chest x-ray: Right apical pneumothorax which, with increasing a small right pleural effusion and adjacent infiltrates, indicating atelectasis versus pneumonia. Pulmonary team R following the case closely.I discussed the planned for chemotherapy with the patient and at bedside, they told jo-ann want to pursuewith chemotherapy once her pulmonary issue has been ssalt and they have told there wishes to the oncology team who follow-up with the patient as well. Objective - Vital Signs Vital signs: Vital Signs Temp 97.7 F 09/22/18 07:28 Pulse 112 H 09/22/18 09:02 Resp 20 09/22/18 07:28 BP 111/72 09/22/18 07:28 Pulse Ox 88 L 09/22/18 07:28 Intake & Output 09/21/18 09/22/18 09/22/18 18:59 06:59 18:59 Intake Total 45 Output Total 625 500 Balance -625 -455 Weight 45 kg Intake: IV 45 Sodium Chloride 0.9% 1, 45 000 ml @ 10 mls/hr IV . Q24H [facility] Rx#:[id number] Output: Chest Tube Drainage 25 100 Pleural Catheter Right 5 20 Lower Anterior Chest Thora-Vent Right Upper 20 80 Anterior Chest Urine 600 400 Other: Voiding Method Indwelling Catheter Indwelling Catheter Indwelling Catheter ABP, PAP, CO, CI - Last Documented Arterial Blood Pressure 129/70 - Exam -GENERAL: The patient is alert and oriented x3, she is status post extubation. Some respiratory distress HEENT: Pupils are round and equally reacting to light. EOMI. No scleral icterus. No conjunctival pallor. Normocephalic, atraumatic. No pharyngeal erythema. No thyromegaly. CARDIOVASCULAR: S1 and S2 present. No murmurs, rubs, or gallops. PULMONARY: Chest is clear to auscultation, no wheezing or crackles. ABDOMEN: Soft, nontender, nondistended, normoactive bowel sounds. No palpable organomegaly. MUSCULOSKELETAL: No joint swelling or deformity. EXTREMITIES: No cyanosis, clubbing, or pedal edema. NEUROLOGICAL: Gross neurological examination did not reveal any focal deficits. SKIN: No rashes. - Labs CBC & Chem 7: 09/22/18 08:01 09/21/18 10:01 Labs: Abnormal Lab Results - Last 24 Hours (Table) 09/21/18 09/21/18 09/21/18 Range/Units 10:01 11:45 16:56 WBC (3.8-10.6) k/uL Hct (34.0-46.0) % MCV (80.0-100.0) fL MCHC (31.0-37.0) g/dL Neutrophils # (1.3-7.7) k/uL Chloride 95 L (98-107) mmol/L Carbon Dioxide 39 H (22-30) mmol/L BUN 18 H (7-17) mg/dL Creatinine 0.40 L (0.52-1.04) mg/dL Glucose 111 H (74-99) mg/dL POC Glucose (mg/dL) 104 H 122 H (75-99) mg/dL 09/21/18 09/22/18 09/22/18 Range/Units 19:59 07:31 08:01 WBC 14.9 H (3.8-10.6) k/uL Hct 47.4 H (34.0-46.0) % MCV 103.4 H (80.0-100.0) fL MCHC 30.7 L (31.0-37.0) g/dL Neutrophils # 13.1 H (1.3-7.7) k/uL Chloride (98-107) mmol/L Carbon Dioxide (22-30) mmol/L BUN (7-17) mg/dL Creatinine (0.52-1.04) mg/dL Glucose (74-99) mg/dL POC Glucose (mg/dL) 109 H 122 H (75-99) mg/dL Assessment and Plan Assessment: Acute hypoxic respiratory failure, status post intubation for 1 day followed by extubation Possible acute COPD exacerbation versus pneumonia. Stage IV non-small cell lung cancers with malignant pleural effusion status post Pleurx catheter. Elevated troponin. 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 He knew with a breathing treatment, steroids, antibiotics. Continue with oxygen therapy. Also, cardiology consult and echocardiogram. Oncology consult. Labs and medication were reviewed.. Continue same treatment. Continue with symptomatic treatment. Resume home medication. Monitor lytes and vitals. DVT and GI prophylaxis. Further recommendations of the clinical course of the patient DVT prophylaxis: Subcutaneous heparin GI Prophylaxis: Protonix Prognosis is poor
[2018-09-22 12:16] LABS: Glucose,Whole Blood 104 mg/dL (75-99)
--- NOTE | 2018-09-22 12:22 | P.PN ---
Subjective Progress Note Date: 09/22/18 Principal diagnosis: acute on chronic hypoxemic respiratory failure related to right-sided pneumothorax on 09/20/2018 patient seen in follow-up on medical surgical floor. She is throat is of oxygen with a pulse ox of 95%, afebrile, hemodynamically stable, right-sided third event remains in place, connected to Pleur-evac and wall suction and right-sided Pleurx catheter to pleuravac and wall suction, and there has been on 110 mL the Pleurx catheter, and only 60 mL out of the right-sided 4 events in the last 24 hours, no air leak noted, and today's chest x-ray shows airspace opacities in the right lung and right pleural effusion with no significant change since yesterday's exam, persistent small right pneumothorax, with no significant change since yesterday.sputum culture showed no growth, patient is working on her incentive spirometer, achieving 500 mL on the today, l harjit sounds are diminished over right base, no wheezing, no rhonchi.abiotic coverage in the form of Levaquin, and is receiving oral prednisone, and nebulized bronchodilators. On 09/21/2018 patient seen in follow-up on medical surgical floor. Yesterday we took the right Thoravent of suction, and on today's chest x-ray there is a progressive right-sided pneumothorax, and in addition patient became symptomatic, hypoxemic, and the pulse ox dropping to 88% on 5 L, we'll placed the right Thoravent back to wall suction, and we will repeat a chest x-ray 12 PM. She is currently up to 10 L on high flow nasal cannula with a pulse ox of 92%, she is afebrile, hemodynamically she is stable, right sided Pleurix cath remains to Pleura-Vac and suction, and there has been very minimal drainage out of it in last 24 hours only 20 mL, and 30 mL out of the Thora-vent. Patient remains on oral prednisone, nebulized bronchodilators, and oral antibiotics, there has been no fever or chills. Sputum culture showed no growth. Today's labs have been reviewed, blood blood cell count is 17.4, hemoglobin is 14.4, sodium is 139, potassium is 4.2, chloride is 95, CO2 is 39, BUN is 18 creatinine 0.40. Patient still has the Bellamy catheter in place, and she is making large amounts of urine. Lung sounds reveal a few scattered rhonchi, minimal wheezing, overall she is in no distress, no complaints of chest pain, her incentive spirometer effort is 500 mL On 09/22/2018 patient seen in follow-up on medical surgical floor. She is resting comfortably in bed, she remains on high flow oxygen currently at 10 L an d the recorded pulse ox from this morning was 88%, although other readings were in the high 90s, she is afebrile, hemodynamically stable, follow-up chest x-ray was obtained showing decreasing small right apical pneumothorax, and increasing small right pleural effusion with adjacent infiltrate. Right chest thoravent remains to suction,Pleurix cath remains to suction, and there has been 25 mL out of the Pleurix cath, and 100 cc out of the Thoravent in the last 24 hours. On sounds reveal diminished breath sounds on the right, patient is working on her incentive spirometer, but she is only able to achieve 500 mL on the today. These labs have been reviewed, showing red blood cell, 14.9, hemoglobin of 14.6. No BMP was done. Sputum culture showed no growth. He remains on oral prednisone, antibiotics, breathing treatments. Objective - Vital Signs Vital signs: Vital Signs Temp 97.7 F 09/22/18 07:28 Pulse 112 H 09/22/18 09:02 Resp 20 09/22/18 07:28 BP 111/72 09/22/18 07:28 Pulse Ox 88 L 09/22/18 07:28 Intake & Output 09/21/18 09/22/18 09/22/18 18:59 06:59 18:59 Intake Total 45 Output Total 625 500 Balance -625 -455 Weight 45 kg Intake: IV 45 Sodium Chloride 0.9% 1, 45 000 ml @ 10 mls/hr IV . [facility] Rx#:[id number] Output: Chest Tube Drainage 25 100 Pleural Catheter Right 5 20 Lower Anterior Chest Thora-Vent Right Upper 20 80 Anterior Chest Urine 600 400 Other: Voiding Method Indwelling Catheter Indwelling Catheter Indwelling Catheter ABP, PAP, CO, CI - Last Documented Arterial Blood Pressure 129/70 - Exam GENERAL EXAM: Alert, very pleasant cachectic 57-year-old white female on 10 L of oxygen comfortable in no apparent distress. HEAD: Normocephalic/atraumatic. EYES: Normal reaction of pupils, equal size. Conjunctiva pink, sclera white. NOSE: Clear with pink turbinates. THROAT: No erythema or exudates. NECK: No masses, no JVD, no thyroid enlargement, no adenopathy. CHEST: No chest wall deformity. Symmetrical expansion. right upper chest Thoravent in place to Pleur-evac and wall suction, with no air leak, right sided Pleurix catheter in place, to Pleur-evac and wall suction and serous drainage in the Pleur-evac LUNGS: Equal air entry with scattered rhonchi CVS: Regular rate and rhythm, normal S1 and S2, no gallops, no murmurs, no rubs ABDOMEN: Soft, nontender. No hepatosplenomegaly, normal bowel sounds, no guarding or rigidity. EXTREMITIES: No clubbing, no edema, no cyanosis, 2+ pulses and upper and lower extremities. MUSCULOSKELETAL: Muscle strength and tone normal. SPINE: No scoliosis or deformity SKIN: No rashes CENTRAL NERVOUS SYSTEM: Alert and oriented -3. No focal deficits, tone is normal in all 4 extremities. PSYCHIATRIC: Alert and oriented -3. Appropriate affect. Intact judgment and insight. - Labs CBC & Chem 7: 09/22/18 08:01 09/21/18 10:01 Labs: Abnormal Lab Results - Last 24 Hours (Table) 09/21/18 09/21/18 09/22/18 Range/Units 16:56 19:59 07:31 WBC (3.8-10.6) k/uL Hct (34.0-46.0) % MCV (80.0-100.0) fL MCHC (31.0-37.0) g/dL Neutrophils # (1.3-7.7) k/uL POC Glucose (mg/dL) 122 H 109 H 122 H (75-99) mg/dL 09/22/18 09/22/18 Range/Units 08:01 12:10 WBC 14.9 H (3.8-10.6) k/uL Hct 47.4 H (34.0-46.0) % MCV 103.4 H (80.0-100.0) fL MCHC 30.7 L (31.0-37.0) g/dL Neutrophils # 13.1 H (1.3-7.7) k/uL POC Glucose (mg/dL) 104 H (75-99) mg/dL Assessment and Plan Plan: 1 acute on chronic hypoxic respiratory failure, and the patient is post intubation mechanical ventilation and ventilatory dependent respiratory failure from which she has recovered 2 right-sided pneumothorax post Thoravent insertion. 3 stage IV non-small cell lung cancer with poorly differentiated, with a positive pleural fluid. 4 malignant right-sided pleural effusion postthoracentesis subsequent Pleurx catheter insertion 5 severe cachexia and malnourishment 6 COPD exacerbation. 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 Pleurx catheter is in place. 13 episodic confusion/altered mentation, improved 14 metabolic alkalosis, currently on Diamox Plan: Today's chest x-ray shows improving small right apical pneumothorax, keep Thoravent and Pleurix cath to wall suction, continue daily chest x-rays, weaning FiO2, encourage deep breathing and coughing, pain control. Oncology is discussing possibility of MRCP, and EGD, however patient is still requiring high amounts of oxygen, and her pulmonary status is marginal, we'll have to wean down FiO2, and optimize her pulmonary status before procedure I performed a history & physical examination of the patient and discussed their management with my nurse practitioner, Linda Macias. I reviewed the nurse practitioner's note and agree with the documented findings and plan of care. Lung sounds are positive for diminished breath sounds on the right. The findi ngs and the impression was discussed with the patient. I attest to the documentation by the nurse practitioner. Time with Patient: Less than 30
--- NOTE | 2018-09-22 15:48 | P.CONS ---
History of Present Illness - Reason for Consult Consult date: 09/22/18 MRCP EGD evaluation Requesting physician: Rios Garcia - Chief Complaint Respiratory distress - History of Present Illness 47-year-old female admitted 9 days ago with respiratory distress intubated thoravent insertion, right-sided pneumothorax pleurex catheter in place. Extub ated. Patient is has a past medical history of AML breast cancer status post bone marrow transplant with underlying COPD. Recent thoracentesis pleural fluid indicated positivity for non-small cell malignancy no further differentiation unknown primary possible pancreatobiliary or upper GI origin. Consult requested for EGD/MRCP evaluation to assist with primary carcinoma diagnosis. Presently white count 14.9. Hemoglobin 14.6. LFTs from 09/17/2018 total bilirubin 0.6. AST 40. ALT 52. AP 149. CT chest abdomen and pelvis enlarged liver no suspicious hepatic mass seen. No evidence of metastasis within the abdomen or pelvis. Patient is unsure if she's had an EGD in the past may be a few years ago at [facility] she is unsure. No history of colonoscopy. Denies hematemesis hematochezia or melena. Review of Systems RConstitutional: Denies fever, chills, sweats, weight gain, or loss. HEENT: Negative for migraines, blurred vision or loss, earaches, drainage, tinnitus, oral mucosal lesions, dysphagia, or odynophagia. CARDIAC: Negative for chest pain, arrhythmias, or palpitation. RESPIRATORY: Negative for shortness of breath, hemoptysis, cough, or sputum production. GI: See HPI for pertinent findings. : Negative for hematuria, urgency, frequency, polyuria, or dysuria. GYNc: Denies possibility of . Negative vaginal discharge. MUSCULOSKELETAL: Negative for muscle aches, swelling, arthritis, and arthralgias. NEUROLOGIC: Negative for stroke or TIA. ENDOCRINE: Negative for thyroid problems. SKIN: Negative for rash or itching. 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 History of Grade I Gastric GVHD. History of Any Multi-Drug Resistant Organisms: None Reported Past Surgical History: Orthopedic Surgery, Tubal Ligation Additional Past Surgical History / Comment(s): Cervical fusion 2005, Bilateral carpal tunnel, BONE MARROW BX. Allogenic stem cell transplant 09/21/14, a Pleurx catheter insertion, thoracentesis 2 Past Anesthesia/Blood Transfusion Reactions: No Reported Reaction Additional Past Anesthesia/Blood Transfusion Reaction / Comm: HX- BLOOD TRANSFUSION- NO REACTION Past Psychological History: Anxiety Smoking Status: Current every day smoker Past Alcohol Use History: None Reported Past Drug Use History: None Reported - Past Family History Father Family Medical History: Asthma, Cancer (Lung cancer) Additional Family Medical History / Comment(s): Father is living and is 81 yrs old. Mother Family Medical History: Cancer Additional Family Medical History / Comment(s): Mother at age 49yrs of uterine cancer. Pt's several aunts all had cancers of various origins as well as her grandmother. Medications and Allergies Home Medications Medication Instructions Recorded Confirmed Type Multivitamin/Iron/Folic Acid 1 tab PO DAILY@0800 //09/13/18 History [Centrum Complete Multivit Tab] Gabriel/D3/Mag11/Zinc/Perforator Typist/Kashif/Bor 1 tab PO BID@0800,1700 09/04/18 09/13/18 History [Caltrate 600+D Plus Tablet] Hydrocortisone 10 mg PO DAILY@1700 09/04/18 09/13/18 History Hydrocortisone 20 mg PO DAILY@0800 09/04/18 09/13/18 History Ibuprofen [Motrin] 800 mg PO Q8H PRN 09/04/18 09/13/18 History Ipratropium/Albuterol Sulfate 1 puff INHALATION RT-BID PRN 09/04/18 09/13/18 History [Combivent Respimat Inhaler] LORazepam [Ativan] 0.5 mg PO Q46H PRN 09/04/18 09/13/18 History Pentoxifylline [TRENtal] 400 mg PO BID@0800,1700 09/04/18 09/13/18 History Vitamin E (Dl,Tocopheryl Acet) 400 unit PO BID@0800,1700 09/04/18 09/13/18 History [Vitamin E] Megestrol [Megace] 40 mg PO TID 09/13/18 09/13/18 History Allergies Allergy/AdvReac Type Severity Reaction Status Date / Time cefepime Allergy Unknown Face Verified 09/14/18 08:09 Swelling, Rash chlorhexidine Allergy Unknown Verified 09/14/18 08:09 Penicillins Allergy Unknown Verified 09/14/18 08:09 Childhood Physical Exam Vitals: Vital Signs Temp Pulse Pulse Resp BP Pulse Ox 09/22/18 12:21 108 H 09/22/18 09:02 112 H 09/22/18 08:54 110 H 09/22/18 08:53 109 H 09/22/18 08:39 112 H 09/22/18 07:28 97.7 F 100 20 111/72 88 L 09/22/18 00:44 98.0 F 89 14 107/69 99 09/21/18 19:45 100 14 120/81 99 09/21/18 15:00 98 F 111 H 16 109/75 95 Intake and Output 09/21/18 09/22/18 09/22/18 22:59 06:59 14:59 Intake Total 45 Output Total 645 480 Balance -645 435 Intake: IV 45 Sodium Chloride 0.9% 1, 45 000 ml @ 10 mls/hr IV . Q24H [facility] Rx#:[id number] Output: Chest Tube Drainage 45 80 Pleural Catheter Right 25 0 Lower Anterior Chest Thora-Vent Right Upper 20 80 Anterior Chest Urine 600 400 Other: Voiding Method Indwelling Catheter Indwelling Catheter Indwelling Catheter Weight 45 kg General appearance: The patient is alert, oriented, in no acute distress. HET: Head is normocephalic and atraumatic. Pupils are equal and reactive. Oropharynx is clear without lesions. Neck: Supple without lymphadenopathy. Trachea midline. Heart: S1 S2. Regular rate and rhythm. Lungs: No crackles or wheezes are heard. Chest tubes present with thoravent and pleurex catheter. Abdomen: Soft, nontender, nondistended with bowel sounds. No peritoneal signs. Hepatomegaly present felt 3 fingerbreadths below the right subcostal line. Extremities: Normal skin color and turgor. No cyanosis, rash, ulceration, clubbing, or edema. Radial and pedal pulses are 2/4 bilaterally. Neurological: No focal deficits. Strength and sensation are grossly intact. Results CBC & Chem 7: 09/22/18 08:01 09/21/18 10:01 Labs: Abnormal Lab Results - Last 24 Hours (Table) 09/21/18 09/21/18 09/22/18 Range/Units 16:56 19:59 07:31 WBC (3.8-10.6) k/uL Hct (34.0-46.0) % MCV (80.0-100.0) fL MCHC (31.0-37.0) g/dL Neutrophils # (1.3-7.7) k/uL POC Glucose (mg/dL) 122 H 109 H 122 H (75-99) mg/dL 09/22/18 09/22/18 Range/Units 08:01 12:10 WBC 14.9 H (3.8-10.6) k/uL Hct 47.4 H (34.0-46.0) % MCV 103.4 H (80.0-100.0) fL MCHC 30.7 L (31.0-37.0) g/dL Neutrophils # 13.1 H (1.3-7.7) k/uL POC Glucose (mg/dL) 104 H (75-99) mg/dL CT scan - abdomen: report reviewed (CT chest abdomen and pelvis 09/09/[address] Clarke) Assessment and Plan (1) Malignant pleural effusion Narrative/Plan: 57-year-old female admitted with acute respiratory hypoxemic failure pneumothorax with malignant pleural effusion unknown primary possible GI possible pancreaticobiliary in origin. Current Visit: Yes Status: Acute Code(s): J91.0 - MALIGNANT PLEURAL EFFUSION SNOMED Code(s): 90839683 (2) AML (acute myelogenous leukemia) Current Visit: No Status: Chronic Priority: Low Code(s): C92.00 - ACUTE MYELOBLASTIC LEUKEMIA, NOT HAVING ACHIEVED REMISSION SNOMED Code(s): 50013632 Plan: 1. Oncology has requested assistance with possible EGD possible MRI abdomen imaging to assist with primary origin of malignant pleural effusion. At this time patient is not medically stable to undergo anesthesia for EGD however MRI abdomen has been ordered. Will review results and make recommendations acco rdingly. Possible EGD if clinically indicated and clearance from pulmonology service. We'll follow closely with you. Thank you for this kind referral and the opportunity to participate in the care of your patient. This consultation was discussed with Dr. Clarke. The impression and plan of care have been directed as dictated.
[2018-09-22] MEDS: SODIUM CHLORIDE 0.9% 1,000 ML IV SCH (16:06)
[2018-09-22 16:53] LABS: Glucose,Whole Blood 107 mg/dL (75-99)
--- NOTE | 2018-09-22 19:04 | P.PN ---
Subjective Progress Note Date: 09/22/18 Principal diagnosis: Hypoxia, altered mental status Patient and are present for a family meeting with Dr. Garcia today. Patient states persistent difficulty in breathing, right shoulder and arm pain, is noting altered mental status Objective - Vital Signs Vital signs: Vital Signs Temp 98.2 F 09/22/18 13:55 Pulse 108 H 09/22/18 16:24 Resp 22 09/22/18 13:55 BP 114/71 09/22/18 13:55 Pulse Ox 93 L 09/22/18 13:55 Intake & Output 09/21/18 09/22/18 09/22/18 18:59 06:59 18:59 Intake Total 45 320 Output Total 625 500 775 Balance -992 -139 -627 Weight 45 kg Intake: IV 45 Sodium Chloride 0.9% 1, 45 000 ml @ 10 mls/hr IV . Q24H [facility] Rx#:[id number] Oral 320 Output: Chest Tube Drainage 25 100 Pleural Catheter Right 5 20 Lower Anterior Chest Thora-Vent Right Upper 20 80 Anterior Chest Urine 600 400 775 Other: Voiding Method Indwelling Catheter Indwelling Catheter Indwelling Catheter # Bowel Movements 1 ABP, PAP, CO, CI - Last Documented Arterial Blood Pressure 129/70 - Exam Thin, cachectic, frail female sitting up in bed, she is in mild distress, she is alert and oriented to self, place, time, no gross focal or motor or neuro deficits are visible, respirations are even, labored, shallow, patient is not able to move very much independently without becoming significantly short of breath, there is no swelling in the lower extremities. - Labs CBC & Chem 7: 09/22/18 08:01 09/21/18 10:01 Labs: Abnormal Lab Results - Last 24 Hours (Table) 09/21/18 09/22/18 09/22/18 Range/Units 19:59 07:31 08:01 WBC 14.9 H (3.8-10.6) k/uL Hct 47.4 H (34.0-46.0) % MCV 103.4 H (80.0-100.0) fL MCHC 30.7 L (31.0-37.0) g/dL Neutrophils # 13.1 H (1.3-7.7) k/uL POC Glucose (mg/dL) 109 H 122 H (75-99) mg/dL 09/22/18 09/22/18 Range/Units 12:10 16:51 WBC (3.8-10.6) k/uL Hct (34.0-46.0) % MCV (80.0-100.0) fL MCHC (31.0-37.0) g/dL Neutrophils # (1.3-7.7) k/uL POC Glucose (mg/dL) 104 H 107 H (75-99) mg/dL Assessment and Plan (1) Pleural effusion Narrative/Plan: Chest tubes in place. Confirmed malignant, non-small cell of unknown primary Current Visit: Yes Status: Acute Priority: High Code(s): J90 - PLEURAL EFFUSION, NOT ELSEWHERE CLASSIFIED SNOMED Code(s): 43866155 (2) Respiratory failure Current Visit: Yes Status: Resolved Priority: High Code(s): J96.90 - RESPI RATORY FAILURE, UNSP, UNSP W HYPOXIA OR HYPERCAPNIA SNOMED Code(s): 580166517 (3) AML (acute myelogenous leukemia) Current Visit: No Status: Chronic Priority: Low Code(s): C92.00 - ACUTE MYELOBLASTIC LEUKEMIA, NOT HAVING ACHIEVED REMISSION SNOMED Code(s): 96919100 (4) History of allogeneic bone marrow transplant Current Visit: No Status: Chronic Priority: Medium Code(s): Z94.81 - BONE MARROW TRANSPLANT STATUS SNOMED Code(s): 469013837 Plan: Dr. Garcia, once again, reviewed all of the details of patient's case up to this point. Reinforced stage for malignancy of unknown primary. Recommendation, If patient would like to pursue treatment, is to proceed with MRI abd and GI consult for endoscopy to see if a primary can be identified. It was reinforced that even despite this testing we may not find the primary. Knowing the primary would provide a better treatment options. This also helps with prognosis. If patient was not interested in pursuing treatment, then the testing would not be of any significant benefit. Patient has decided that she would like to pursue testing. Order has been placed for an MRI of the abdomen. GI has been consulted, case was discussed with GI EVENT PRODUCER. Doctor attests: I performed a history and physical examination of this patient, developed impression and plan of care, discussed with dictator. I agree with dictators note, documented as a scribe. Time with Patient: Greater than 30 (counseling and coordinating care >50% of time)
[2018-09-22 20:17] LABS: Glucose,Whole Blood 125 mg/dL (75-99)
[2018-09-22] MEDS: LEVOFLOXACIN 750 MG TAB PO SCH (20:44)
[2018-09-22] MEDS ORDERED: LORazepam 2 MG/ML INJ IV STA (21:06)
[2018-09-23] MEDS: KETOROLAC 30 MG/ML 1 ML VIAL IVP SCH ×4 (05:13→23:22)
[2018-09-23 06:51] LABS: Glucose,Whole Blood 82 mg/dL (75-99)
[2018-09-23] MEDS: INSULIN ASPART (NovoLOG) 100 UNIT/ML VIAL SQ SCH (07:07)
[2018-09-23] MEDS: POLYETHYLENE GLYCOL 3350 17 GM POWD.PACK PO SCH (07:53)
[2018-09-23] MEDS: ENOXAPARIN 40 MG/0.4 ML SYRINGE SQ SCH (07:56)
[2018-09-23] MEDS: predniSONE 10 MG TAB PO SCH (07:57)
[2018-09-23] MEDS: METOPROLOL TARTRATE 25 MG TAB PO SCH ×2 (07:57→21:10)
[2018-09-23] MEDS: NICOTINE 14MG/24HR PATCH TRANSDERM SCH (07:57)
[2018-09-23] MEDS: PANTOPRAZOLE 40 MG TABLET PO SCH (07:57)
[2018-09-23] MEDS: FORMOTEROL FUMARATE 20 MCG/2 ML NEBU INHALATION SCH ×2 (08:02→19:42)
[2018-09-23] MEDS: BUDESONIDE 0.5 MG/2 ML NEBU INHALATION SCH ×2 (08:02→19:42)
[2018-09-23 08:23] LABS: Basophils % (A) 0 %; Eosinophils # (A) 0.1 k/uL (0-0.7); Eosinophils % (A) 0 %; HCT 43.9 % (34.0-46.0); HGB 13.5 gm/dL (11.4-16.0); Lymphocytes % (A) 5 %; MCHC 30.7 g/dL (31.0-37.0); MCV 100.9 fL (80.0-100.0); Macrocytosis Slight; Mean Platelet Volume 7.7; Monocytes # (A) 0.7 k/uL (0-1.0); Monocytes % (A) 4 %; Neutrophils % (A) 90 %; Platelet Count 402 k/uL (150-450); RBC 4.35 m/uL (3.80-5.40); RDW 14.3 % (11.5-15.5); WBC 18.9 k/uL (3.8-10.6)
--- NOTE | 2018-09-23 09:29 | XR ---
EXAMINATION TYPE: XR chest 1V portable DATE OF EXAM: 09/23/2018 COMPARISON: 09/22/2018 INDICATION: Pneumothorax TECHNIQUE: Single frontal view of the chest is obtained. FINDINGS: The heart size is indistinct. The pulmonary vasculature is normal. There is a right pleural effusion. Right lung infiltrate is present, likely atelectasis. The patient's pneumothorax has increased in size over the interval currently estimated at 3.2 cm from the lung apex which is increased from 1.4 cm previously. The chest tube remains in position. A large -bore chest tube on the inferior and medial aspect of the right lung is stable in position. Subcutane ous emphysema is present. Report was called to Colleen, the patient's nurse by Dr. Guerra by telephone at 0925 hours 09/23/2018 . IMPRESSION: 1. Increasing size right apical pneumothorax, pleural margin now 3.2 cm from the lung apex. 2. Chest tubes remain stable in position. 3. Small right pleural effusion. 4. Probable atelectasis within the collapsing lung.
[2018-09-23] MEDS: SODIUM CHLORIDE 0.9% 1,000 ML IV SCH (11:30)
--- NOTE | 2018-09-23 11:47 | P.PN ---
Subjective Progress Note Date: 09/23/18 Principal diagnosis: acute on chronic hypoxemic respiratory failure related to right-sided pneumothorax on 09/20/2018 patient seen in follow-up on medical surgical floor. She is throat is of oxygen with a pulse ox of 95%, afebrile, hemodynamically stable, right-sided third event remains in place, connected to Pleur-evac and wall suction and right-sided Pleurx catheter to pleuravac and wall suction, and there has been on 110 mL the Pleurx catheter, and only 60 mL out of the right-sided 4 events in the last 24 hours, no air leak noted, and today's chest x-ray shows airspace opacities in the right lung and right pleural effusion with no significant change since yesterday's exam, persistent small right pneumothorax, with no significant change since yesterday.sputum culture showed no growth, patient is working on her incentive spirometer, achieving 500 mL on the today, l harjit sounds are diminished over right base, no wheezing, no rhonchi.abiotic coverage in the form of Levaquin, and is receiving oral prednisone, and nebulized bronchodilators. On 09/21/2018 patient seen in follow-up on medical surgical floor. Yesterday we took the right Thoravent of suction, and on today's chest x-ray there is a progressive right-sided pneumothorax, and in addition patient became symptomatic, hypoxemic, and the pulse ox dropping to 88% on 5 L, we'll placed the right Thoravent back to wall suction, and we will repeat a chest x-ray 12 PM. She is currently up to 10 L on high flow nasal cannula with a pulse ox of 92%, she is afebrile, hemodynamically she is stable, right sided Pleurix cath remains to Pleura-Vac and suction, and there has been very minimal drainage out of it in last 24 hours only 20 mL, and 30 mL out of the Thora-vent. Patient remains on oral prednisone, nebulized bronchodilators, and oral antibiotics, there has been no fever or chills. Sputum culture showed no growth. Today's labs have been reviewed, blood blood cell count is 17.4, hemoglobin is 14.4, sodium is 139, potassium is 4.2, chloride is 95, CO2 is 39, BUN is 18 creatinine 0.40. Patient still has the Bellamy catheter in place, and she is making large amounts of urine. Lung sounds reveal a few scattered rhonchi, minimal wheezing, overall she is in no distress, no complaints of chest pain, her incentive spirometer effort is 500 mL On 09/22/2018 patient seen in follow-up on medical surgical floor. She is resting comfortably in bed, she remains on high flow oxygen currently at 10 L an d the recorded pulse ox from this morning was 88%, although other readings were in the high 90s, she is afebrile, hemodynamically stable, follow-up chest x-ray was obtained showing decreasing small right apical pneumothorax, and increasing small right pleural effusion with adjacent infiltrate. Right chest thoravent remains to suction,Pleurix cath remains to suction, and there has been 25 mL out of the Pleurix cath, and 100 cc out of the Thoravent in the last 24 hours. On sounds reveal diminished breath sounds on the right, patient is working on her incentive spirometer, but she is only able to achieve 500 mL on the today. These labs have been reviewed, showing red blood cell, 14.9, hemoglobin of 14.6. No BMP was done. Sputum culture showed no growth. He remains on oral prednisone, antibiotics, breathing treatments. On 09/23/2018 patient seen in follow-up on medical surgical floor. She is resting in bed, remains on 10 L of oxygen, with a pulse ox of 96%, will wean the oxygen. Right-sided Thoravent remains in place, to wall suction, and follow-up chest x-ray today shows increasing right apical pneumothorax, measuring 3.2 cm from the lung apex, from previously 1.4 cm on yesterday's exam. No air leak, there has been 10 mL from the thoravent , and no drainage from the Pleurx catheter over the last 24 hours. No worsening dyspnea, though composite chest pain, lung sounds reveal diminished breath sounds over right lower lobe, and lower crackles over left base. No significant rhonchi or wheezing, remains on oral prednisone, breathing treatments, today's labs reviewed. Patient is scheduled to undergo MRI of the abdomen with and without contrast, patient has been evaluated by the GI service for possibility of EGD to determine primary origin of malignant pleural effusion. Objective - Vital Signs Vital signs: Vital Signs Temp 98.3 F 09/23/18 07:00 Pulse 104 H 09/23/18 07:00 Resp 16 09/23/18 08:06 BP 105/67 09/23/18 07:00 Pulse Ox 96 09/23/18 07:00 Intake & Output 09/22/18 09/23/18 09/23/18 18:59 06:59 18:59 Intake Total 320 110 Output Total 775 10 0 Balance -455 100 0 Weight 45.7 kg Intake: IV 20 Sodium Chloride 0.9% 1, 20 000 ml @ 10 mls/hr IV . Q24H [facility] Rx#:[id number] Intake, IV Titration 90 Amount Sodium Chloride 0.9% 1, 90 000 ml @ 10 mls/hr IV . Q24H RICO Rx#:[id number] Oral 320 Output: Chest Tube Drainage 10 0 Pleural Catheter Right 0 0 Lower Anterior Chest Thora-Vent Right Upper 10 0 Anterior Chest Urine 775 Other: Voiding Method Indwelling Catheter Indwelling Catheter Indwelling Catheter # Bowel Movements 1 ABP, PAP, CO, CI - Last Documented Arterial Blood Pressure 129/70 - Exam GENERAL EXAM: Alert, very pleasant cachectic 57-year-old white female on 10 L of oxygen comfortable in no apparent distress. HEAD: Normocephalic/atraumatic. EYES: Normal reaction of pupils, equal size. Conjunctiva pink, sclera white. NOSE: Clear with pink turbinates. THROAT: No erythema or exudates. NECK: No masses, no JVD, no thyroid enlargement, no adenopathy. CHEST: No chest wall deformity. Symmetrical expansion. right upper chest Thoravent in place to Pleur-evac and wall suction, with no air leak, right sided Pleurix catheter in place, to Pleur-evac and wall suction and serous drainage in the Pleur-evac LUNGS: Equal air entry with scattered rhonchi CVS: Regular rate and rhythm, normal S1 and S2, no gallops, no murmurs, no rubs ABDOMEN: Soft, nontender. No hepatosplenomegaly, normal bowel sounds, no guarding or rigidity. EXTREMITIES: No clubbing, no edema, no cyanosis, 2+ pulses and upper and lower extremities. MUSCULOSKELETAL: Muscle strength and tone normal. SPINE: No scoliosis or deformity SKIN: No rashes CENTRAL NERVOUS SYSTEM: Alert and oriented -3. No focal deficits, tone is normal in all 4 extremities. PSYCHIATRIC: Alert and oriented -3. Appropriate affect. Intact judgment and insight. - Labs CBC & Chem 7: 09/23/18 07:35 09/21/18 10:01 Labs: Abnormal Lab Results - Last 24 Hours (Table) 09/22/18 09/22/18 09/22/18 Range/Units 12:10 16:51 20:14 WBC (3.8-10.6) k/uL MCV (80.0-100.0) fL MCHC (31.0-37.0) g/dL Neutrophils # (1.3-7.7) k/uL POC Glucose (mg/dL) 104 H 107 H 125 H (75-99) mg/dL 09/23/18 Range/Units 07:35 WBC 18.9 H (3.8-10.6) k/uL MCV 100.9 H (80.0-100.0) fL MCHC 30.7 L (31.0-37.0) g/dL Neutrophils # 17.0 H (1.3-7.7) k/uL POC Glucose (mg/dL) (75-99) mg/dL Assessment and Plan Plan: 1 acute on chronic hypoxic respiratory failure, and the patient is post i ntubation mechanical ventilation and ventilatory dependent respiratory failure from which she has recovered 2 right-sided pneumothorax post Thoravent insertion. 3 stage IV non-small cell lung cancer with poorly differentiated, with a positive pleural fluid. 4 malignant right-sided pleural effusion postthoracentesis subsequent Pleurx catheter insertion 5 severe cachexia and malnourishment 6 COPD exacerbation. 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 Pleurx catheter is in place. 13 episodic confusion/altered mentation, improved 14 metabolic alkalosis, currently on Diamox Plan: Today's chest x-ray has been reviewed, shows a increasing apical pneumothorax on the right, consult CT surgery. Continue with current medical treatment, encourage deep breathing and coughing, wean FiO2. Possible MRI of the abdomen today, GI service evaluation has been noted, patient is quite marginal from pulmonary perspective, probably will get intubated in the event she has to go for the EGD, would wait with the EGD for now. I performed a history & physical examination of the patient and discussed their management with my nurse practitioner, Linda Macias. I reviewed the nurse practitioner's note and agree with the documented findings and plan of care. Lung sounds are positive for diminished breath sounds on the right. The findings and the impression was discussed with the patient. I attest to the documentation by the nurse practitioner. Time with Patient: Less than 30
[2018-09-23] MEDS: guaiFENesin 600 MG TABLET.ER PO SCH ×2 (14:52→21:10)
--- NOTE | 2018-09-23 17:23 | MR ---
EXAMINATION TYPE: MR abdomen wo/w con DATE OF EXAM: 09/23/2018 COMPARISON: HISTORY: Hypoxia, malignancy, unknown primary-upper GI/pancreatobiliary CONTRAST: Standard multiplanar, multisequence MRI departmental protocol utilizing 4.5 mL intravenous Gadavist g adolinium contrast. FINDINGS: There is a moderate-sized right pleural effusion with some apparent air bubbles anteriorly consistent with hydropneumothorax. Liver shows no focal defect. Bile ducts are not dilated. Exam is limited slightly by motion. There is no evidence of a splenic mass. Stomach appears normal. P ancreatic duct is not dilated. There is no evidence of pancreatic mass. There is no adrenal mass. Kidneys show normal size and contour. There is no hydronephrosis. There is no sign of retroperitoneal adenopathy. There is no sign of abdominal ascites. There is no evidence of a bowel obstruction. I see no dilated bowel. Contrast images show normal renal contrast opacificatio n. There is normal vascular enhancement. There is patency of the hepatic and portal vein. There is pa tency of the superior mesenteric vein. There is arterial flow in the superior mesenteric artery and t he celiac artery. I see no bony destructive process. Lumbar spine is intact. IMPRESSION: No acute abnormality within the abdomen and pelvis. Right-sided hydropneumothorax similar to old CT s can of 09/09/2018. There is clearing of small left pleural effusion compared to old exam. Consolidatio n and atelectasis right lower lobe. There is progression of the atelectasis compared to old exam.
--- NOTE | 2018-09-23 17:38 | P.GSCN ---
History of Present Illness Consult date: 09/23/18 Reason for Consult: Right pneumothorax Requesting physician: Estrada Rendon History of present illness: This a 57-year-old female patient who is followed by Dr. Kristi Ricci on an outpatient basis. 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 She is status post right Pleurx catheter placement on 09/08/2018, she was subsequently discharged home with home health care on 09/10/2018 and presented back to the emergency department here at [facility] on 09/13/2018 for some drowsiness and decreased responsiveness. In the emergency department here [facility] due to her unresponsiveness with the patient was subsequently intubated with mechanical ventilator support. She did make some improvements in her pulmonary status and was extubated on 09/15/2018. Due to the patient's respiratory status on presentation a CT angiogram of her chest was completed which demonstrated a moderate-sized right sided pleural effusion with bilateral lower lobe consolidation, a small right apical pneumothorax and a right Pleurx catheter in the right hemithorax. Due to the moderate right-sided pleural effusion her Pleurx catheter was placed to a [place] I Pleur-evac with 1 L of fluid drained. On 09/17/2018 she developed a moderate right-sided pneumothorax with subsequent right-sided Thoravent placement which was placed to low continuous wall suction. On 09/22/2018 the patient x-ray demonstrated a small right apical pneumothorax and today on a repeat chest x-ray it demonstrated an increasing right apical pneumothorax. Due to the patient's persistent right sided pneumothorax a consult was placed to Dr. Merle Clark from cardiothoracic surgery for further evaluation and treatment recommendations. The patient continues to have a list productive cough although reports that her breathing has been improving in the last 24 hours. Her oxygen has been titrated down to 6 L high flow nasal cannula from 8-10 L high flow nasal cannula. She denies any fever, nausea or vomiting. Review of Systems A 14 point review of systems was completed and was negative except as mentioned in HPI. Past Medical History Past Medical History: Cancer, CVA/TIA, Pneumonia, Syncope Additional Past Medical History / Comment(s): Stage IV non-small cell lung cancer of the lung, right-sided pleural effusion, malignant in nature and the pa tient has a Pleurx catheter in place, DJD, Acute Myeloid leukemia s/p chemo and allo transplant, MAIER IV ACCESS RIGHT CHEST. History of Grade I Gastric GVHD. History of Any Multi-Drug Resistant Organisms: None Reported Past Surgical History: Orthopedic Surgery, Tubal Ligation Additional Past Surgical History / Comment(s): Cervical fusion 2005, Bilateral carpal tunnel, BONE MARROW BX. Allogenic stem cell transplant 09/21/14, a Pleurx catheter insertion Sep 08 2018, thoracentesis 2, Thoravent placement to her right chest. Past Anesthesia/Blood Transfusion Reactions: No Reported Reaction Additional Past Anesthesia/Blood Transfusion Reaction / Comm: HX- BLOOD TRANSFUSION- NO REACTION Past Psychological History: Anxiety Smoking Status: Current every day smoker Past Alcohol Use History: None Reported Past Drug Use History: None Reported - Past Family History Father Family Medical History: Asthma, Cancer (Lung cancer) Additional Family Medical History / Comment(s): Father is living and is 81 yrs old. Mother Family Medical History: Cancer Additional Family Medical History / Comment(s): Mother at age 49yrs of negra rine cancer. Pt's several aunts all had cancers of various origins as well as her grandmother. Medications and Allergies Home Medications Medication Instructions Recorded Confirmed Type Multivitamin/Iron/Folic Acid 1 tab PO DAILY@0800 //09/13/18 History [Centrum Complete Multivit Tab] Gabriel/D3/Mag11/Zinc/Information Broker/Kashif/Bor 1 tab PO BID@0800,1700 09/04/18 09/13/18 History [Caltrate 600+D Plus Tablet] Hydrocortisone 10 mg PO DAILY@1700 09/04/18 09/13/18 History Hydrocortisone 20 mg PO DAILY@0800 09/04/18 09/13/18 History Ibuprofen [Motrin] 800 mg PO Q8H PRN 09/04/18 09/13/18 History Ipratropium/Albuterol Sulfate 1 puff INHALATION RT-BID PRN 09/04/18 09/13/18 History [Combivent Respimat Inhaler] LORazepam [Ativan] 0.5 mg PO Q46H PRN 09/04/18 09/13/18 History Pentoxifylline [TRENtal] 400 mg PO BID@0800,1700 09/04/18 09/13/18 History Vitamin E (Dl,Tocopheryl Acet) 400 unit PO BID@0800,1700 09/04/18 09/13/18 Hi story [Vitamin E] Megestrol [Megace] 40 mg PO TID 09/13/18 09/13/18 History Allergies Allergy/AdvReac Type Severity Reaction Status Date / Time cefepime Allergy Unknown Face Verified 09/14/18 08:09 Swelling, Rash chlorhexidine Allergy Unknown Verified 09/14/18 08:09 Penicillins Allergy Unknown Verified 09/14/18 08:09 Childhood Surgical - Exam Vital Signs Temp Pulse Resp BP Pulse Ox 97.5 F L 112 H 30 H 153/97 97 09/13/18 15:22 09/13/18 15:22 09/13/18 15:22 09/13/18 15:22 09/13/18 15:22 - General no distress, no pain, cachectic, chronically ill - Eyes PERRL, normal ocular movement - ENT normal pinna, normal nares, normal mucosa, no congestion - Neck Neck is supple, no lymphadenopathy. no masses, no bruits, trachea midline, no venous distension - Respiratory Lung sounds with scattered rhonchi throughout, diminished to her right lower lobe. Respirations are symmetrical and nonlabored. Right Thoravent chest tube in place to low continuous wall suction. Intermittent air leak is present. Draining thin serous drainage. Right Pleurx catheter in place to low continuous wall suction -20 cm H2O. Draining thin serous drainage. Intermittent air leak is present. - Cardiovascular Regular rhythm and rate. S1 and S2 present, negative for S3, gallop or murmurs. - Abdomen Abdomen is soft, nontender and nondistended. No megaly. No guarding or rigidity. Hypoactive bowel sounds all 4 abdominal quadrants. - Genitourinary Bellamy catheter for accurate I&O. - Rectum Deferred - Integumentary no rash, no growths, no abnormal pigmentation - Neurologic normal coordination, normal sensation - Musculoskeletal Generalized weakness, strength equal bilaterally. - Psychiatric oriented to time, oriented to person, oriented to place, speech is normal, memory intact Results - Labs 09/23/18 07:35 09/21/18 10:01 Abnormal Lab Results - Last 24 Hours (Table) 09/22/18 09/23/18 Range/Units 20:14 07:35 WBC 18.9 H (3.8-10.6) k/uL MCV 100.9 H (80.0-100.0) fL MCHC 30.7 L (31.0-37.0) g/dL Neutrophils # 17.0 H (1.3-7.7) k/uL POC Glucose (mg/dL) 125 H (75-99) mg/dL - Imaging Chest x-ray: report reviewed, image reviewed Assessment and Plan Assessment: 1. Acute on chronic respiratory failure, post intubation with mechanical ventilator support. 2. Persistent right-sided pneumothorax status post Thoravent insertion 3. Stage IV non-small cell lung cancer poorly differentiated, with positive pleural fluid 4. Malignant recurrent right-sided pleural effusion, status post thoracentesis and Pleurx catheter insertion 5. Severe cachexia and malnutrition 6. Chronic obstructive pulmonary disease 7. History of AML post chemotherapy with subsequent bone marrow transplantation in 2014 8. Previous CVA/TIA 9. History of cervical spine fusion back in 2005 10. Current everyday nicotine dependence Plan: The patient was seen and examined on the 4 S. medical surgical unit. Her chart and diagnostics were reviewed. She was seen and examined by Dr. Merle Clark. Dr. Clark discussed with the patient and her family present at her bedside that his recommendations are to keep her right Thoravent and right Pleurx catheter to the [place] I Pleur-evac system with low continuous wall suction. Further recommendations are to follow with daily chest x-rays, and chest physiotherapy. Medical management and comorbidities per primary care service. Bronchodilator management per pulmonary care service. More recommendations to follow based on patient's clinical course. Thank you Dr. Rendon for this consult and we'll look forward to working with you in the care of your patient. Time with Patient: Greater than 30
[2018-09-23] MEDS: IPRATROPIUM-ALBUTEROL 3 ML NEB INHALATION PRN (19:42)
[2018-09-23] MEDS: LEVOFLOXACIN 750 MG TAB PO SCH (21:10)
--- NOTE | 2018-09-23 22:51 | P.PN ---
Subjective Progress Note Date: 09/23/18 ATTEMPTED TO SEE PATIENT TODAY BUT SHE WAS OFF THE FLOOR GI WILL CONTINUE TO FOLLOW Objective - Vital Signs Vital signs: Vital Signs Temp 98.3 F 09/23/18 14:41 Pulse 74 09/23/18 14:41 Resp 16 09/23/18 14:41 BP 93/60 09/23/18 14:41 Pulse Ox 100 09/23/18 14:41 Intake & Output 09/22/18 09/23/18 09/23/18 18:59 06:59 18:59 Intake Total 320 110 450 Output Total 775 10 0 Balance -455 100 450 Weight 45.7 kg 45.7 kg Intake: IV 20 50 Sodium Chloride 0.9% 1, 20 50 000 ml @ 10 mls/hr IV . Q24H [facility] Rx#:[id number] Intake, IV Titration 90 Amount Sodium Chloride 0.9% 1, 90 000 ml @ 10 mls/hr IV . Q24H [facility]ICO Rx#:[id number] Oral 320 400 Output: Chest Tube Drainage 10 0 Pleural Catheter Right 0 0 Lower Anterior Chest Thora-Vent Right Upper 10 0 Anterior Chest Urine 775 Other: Voiding Method Indwelling Catheter Indwelling Catheter Indwelling Catheter # Bowel Movements 1 ABP, PAP, CO, CI - Last Documented Arterial Blood Pressure 129/70 - Labs CBC & Chem 7: 09/23/18 07:35 09/21/18 10:01 Labs: Abnormal Lab Results - Last 24 Hours (Table) 09/22/18 09/22/18 09/23/18 Range/Units 16:51 20:14 07:35 WBC 18.9 H (3.8-10.6) k/uL MCV 100.9 H (80.0-100.0) fL MCHC 30.7 L (31.0-37.0) g/dL Neutrophils # 17.0 H (1.3-7.7) k/uL POC Glucose (mg/dL) 107 H 125 H (75-99) mg/dL
[2018-09-24] MEDS: KETOROLAC 30 MG/ML 1 ML VIAL IVP SCH (05:11)
[2018-09-24 06:49] LABS: Glucose,Whole Blood 94 mg/dL (75-99)
--- NOTE | 2018-09-24 07:22 | XR ---
EXAMINATION TYPE: XR chest 1V portable DATE OF EXAM: 09/24/2018 HISTORY: right pneumothorax. REFERENCE: Previous study dated 09/23/2018. FINDINGS: Right pleural drain is in place. There is improving right-sided pneumothorax which is now o nly approximately 5% by volume. There is worsening opacity of the right lung. The left lung is clear. Heart size is obscured. IMPRESSION: 1. IMPROVING RIGHT-SIDED PNEUMOTHORAX. 2. WORSENING OPACITY OF THE RIGHT HEMITHORAX.
[2018-09-24 08:20] LABS: Basophils % (A) 0 %; Eosinophils # (A) 0.1 k/uL (0-0.7); Eosinophils % (A) 1 %; HCT 41.6 % (34.0-46.0); HGB 12.8 gm/dL (11.4-16.0); Lymphocytes % (A) 6 %; MCH 31.1 pg (25.0-35.0); MCHC 30.8 g/dL (31.0-37.0); MCV 100.7 fL (80.0-100.0); Macrocytosis Slight; Mean Platelet Volume 7.9; Monocytes # (A) 0.6 k/uL (0-1.0); Monocytes % (A) 3 %; Neutrophils # (A) 15.8 k/uL (1.3-7.7); Neutrophils % (A) 90 %; Platelet Count 374 k/uL (150-450); RBC 4.14 m/uL (3.80-5.40); WBC 17.6 k/uL (3.8-10.6)
[2018-09-24] MEDS: IPRATROPIUM-ALBUTEROL 3 ML NEB INHALATION PRN (08:39)
[2018-09-24] MEDS: BUDESONIDE 0.5 MG/2 ML NEBU INHALATION SCH ×2 (08:39→19:36)
[2018-09-24] MEDS: FORMOTEROL FUMARATE 20 MCG/2 ML NEBU INHALATION SCH ×2 (08:39→19:36)
[2018-09-24] MEDS: POLYETHYLENE GLYCOL 3350 17 GM POWD.PACK PO SCH (08:56)
[2018-09-24] MEDS: NICOTINE 14MG/24HR PATCH TRANSDERM SCH (08:59)
[2018-09-24] MEDS: PANTOPRAZOLE 40 MG TABLET PO SCH (08:59)
[2018-09-24] MEDS: predniSONE 10 MG TAB PO SCH (08:59)
[2018-09-24] MEDS: METOPROLOL TARTRATE 25 MG TAB PO SCH ×2 (08:59→20:15)
[2018-09-24] MEDS: ENOXAPARIN 40 MG/0.4 ML SYRINGE SQ SCH (08:59)
[2018-09-24] MEDS: guaiFENesin 600 MG TABLET.ER PO SCH ×2 (09:00→20:15)
--- NOTE | 2018-09-24 09:12 | P.PN ---
Subjective This is a pleasant 57 years old female with past medical history of CVA/TIA, syncope, stage IV non-small cell lung cancer with pleural effusion, malignant in nature status post Pleurx catheter in a Place. 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 And glover IV access in the right chest. Presents with respiratory distress and decreased responsiveness. Patient got intubated in the emergency room. Pulmonary critical care team already evaluated the patient. Currently vital shown blood pressure 105/81, heart rate 101, she is saturating 98% on FiO2 60 and she is breathing rate is 28/m. Patient is afebrile. Labs reviewed showing mild leukocytosis of 12.9 K. Hemoglobin 13.3. Potassium was low at 3.2. Creatinine 0.27. Liver enzymes not elevated. Troponin is 0.04 09/15/2018 Patient got extubated today, she remains in the ICU. Just some respiratory distress and she feels tired and could not provide information, she is hemodynamically stable. Leukocytosis is improving slightly to 11.3 K. Creatinine 0.24, sugar controlled. Chest x-ray showing right hydro-pneumothorax with a right thoracostomy tube. Echocardiogram is pending. Cardiology evaluation. 09/16/2018 Patient breathing is doing better. Patient with no chest pain. Her oxygen saturation is 98% on 5 L nasal cannula. Also patient is on BiPAP. She is a little bit tachypneic. Her rest of vitals are stable. Her WBC is 10.9 K. Creatinine is 0.2. Glucose is 100-117. Liver enzymes mildly elevated. She still have the right-sided pleurx, Chest x-ray: right sided pneumothorax is slightly increased.Patient currently on Levaquin, and Solu-Medrol. And gentle hydration 09/17/2018, date of service Patient seen and examined by me at bedside on the date of service. Patient is a status post extubation. She has right pleural effusion, status post femoral vent insertion. Vitals stable. WBC 14.8 K. Creatinine 0.2. Sugar control. 09/18/2018 pt is still in ICU , she is with NSTEMI, and metoprolol was added today , pt is being followed closely by cardiology team . her repeat chest xray from today showing significant improvement and expansion of her right lung compared to her previous chest xray , also Pleurx is draining minimal malignant fluid, pt is cachectic but she is improving . 09/19/2018 Patient is doing well and she is clinically more stable. Patient is transferred out of the ICU today. She still have Thoravent on the right side with improvement of her pneumothorax as evident on the chest x-ray. This chest x-ray showing also right pleural effusion was possible some elements of infection. She has worsened leukocytosis at 16 K. no fever., Also she is on prednisone. Clindamycin was stopped and continue with oral Levaquin. Metoprolol 25 mg was added for better heart rate control 09/20/2018 pt is awake with mild dyspnea at rest , some epical right chest pain mostly related to her pneumothorax, she is on thoravent and pleurx. she is tackycardic a little bit, she has leukocytosis but she is on steroid, bmp is unremarkable but glucose is controlled. pulmonary team are following the case closely and their input is appreciated. oncologist team are currently discussing the plan of care for her cancer of unknown primary source. repeat chest xray in the am 09/21/2018 Patient is awake, minimal dyspnea. No chest pain. No abdominal complaint. She is tachycardic around 110, a febrile, she is on 10 L oxygen via high flow nasal cannula and saturating 95%. Repeat chest x-ray today showing worsening pneumothorax. WBC 17.4 K while she is on steroids. Creatinine 0.4. I discu ssed the case with oncology team and they going to discuss patient diagnosis and treatment plan with the patient today. Pulmonary follow-up is appreciated, patient currently on Serevent and recommended to repeat chest x-ray. 09/05/2018 patient is awake, with no respiratory distress. No dyspnea. She still have some pain at the right shoulder,could be stemming from her pneumothorax.she is saturating 88-99% on ventilator oxygen via high flow nasal cannula. She is mildly tachycardic around 110-112.repeat chest x-ray: Right apical pneumothorax which, with increasing a small right pleural effusion and adjacent infiltrates, indicating atelectasis versus pneumonia. Pulmonary team R following the case closely.I discussed the planned for chemotherapy with the patient and at bedside, they told jo-ann want to pursuewith chemotherapy once her pulmonary issue has been ssalt and they have told there wishes to the oncology team who follow-up with the patient as well. 09/23/2018 pt is breathing quietly in bed, right thoravent is in place, her pain feels better on her shoulder. pt oxygen requirement is down to 8 L/min today while keeping good saturation. MRI of abd is done showing no acute abnormality . pt could not get EGD now for her resp state. cardiothoracic team were consulted for her right pneumonthorax Objective - Vital Signs Vital signs: Vital Signs Temp 98.3 F 09/23/18 14:41 Pulse 106 H 09/23/18 20:03 Resp 16 09/23/18 14:41 BP 93/60 09/23/18 14:41 Pulse Ox 93 L 09/23/18 19:43 Intake & Output 09/23/18 09/23/18 09/24/18 06:59 18:59 06:59 Intake Total 110 450 Output Total 10 700 Balance 100 -250 Weight 45.7 kg 45.7 kg Intake: IV 20 50 Sodium Chloride 0.9% 1, 20 50 000 ml @ 10 mls/hr IV . Q24H [facility] Rx#:[id number] Intake, IV Titration 90 Amount Sodium Chloride 0.9% 1, 90 000 ml @ 10 mls/hr IV . Q24H [facility] Rx#:[id number] Oral 400 Output: Chest Tube Drainage 10 0 Pleural Catheter Right 0 0 Lower Anterior Chest Thora-Vent Right Upper 10 0 Anterior Chest Urine 700 Other: Voiding Method Indwelling Catheter Indwelling Catheter ABP, PAP, CO, CI - Last Documented Arterial Blood Pressure 129/70 - Exam -GENERAL: The patient is alert and oriented x3, she is status post extubation. Some respiratory distress HEENT: Pupils are round and equally reacting to light. EOMI. No scleral icterus. No conjunctival pallor. Normocephalic, atraumatic. No pharyngeal erythema. No thyromegaly. CARDIOVASCULAR: S1 and S2 present. No murmurs, rubs, or gallops. PULMONARY: Chest is clear to auscultation, no wheezing or crackles. ABDOMEN: Soft, nontender, nondistended, normoactive bowel sounds. No palpable organomegaly. MUSCULOSKELETAL: No joint swelling or deformity. EXTREMITIES: No cyanosis, clubbing, or pedal edema. NEUROLOGICAL: Gross neurological examination did not reveal any focal deficits. SKIN: No rashes. - Labs CBC & Chem 7: 09/24/18 07:26 09/21/18 10:01 Labs: Abnormal Lab Results - Last 24 Hours (Table) 09/23/18 Range/Units 07:35 WBC 18.9 H (3.8-10.6) k/uL MCV 100.9 H (80.0-100.0) fL MCHC 30.7 L (31.0-37.0) g/dL Neutrophils # 17.0 H (1.3-7.7) k/uL Assessment and Plan Assessment: Acute hypoxic respiratory failure, status post intubation for 1 day followed by extubation Possible acute COPD exacerbation versus pneumonia. Stage IV non-small cell lung cancers with malignant pleural effusion status post Pleurx catheter. Elevated troponin. 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 He knew with a breathing treatment, steroids, antibiotics. Continue with oxygen therapy. Also, cardiology consult and echocardiogram. Oncology consult. Labs and medication were reviewed.. Continue same treatment. Continue with symptomatic treatment. Resume home medication. Monitor lytes and vitals. DVT and GI prophylaxis. Further recommendations of the clinical course of the patient DVT prophylaxis: Subcutaneous heparin GI Prophylaxis: Protonix Prognosis is poor
--- NOTE | 2018-09-24 09:31 | P.PN ---
Subjective Progress Note Date: 09/24/18 Principal diagnosis: Right-sided pneumothorax, status post thoravent placement by pulmonology. 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 The patient is currently sitting up in bed in no acute distress. States her pain is mostly controlled at rest, however it is too painful to take deep breaths and cough effectively. Patient remains in good spirits, no new complaints except she wants to get better with her incentive spirometry use. Objective - Vital Signs Vital signs: Vital Signs Temp 97.9 F 09/24/18 07:50 Pulse 100 09/24/18 09:00 Resp 18 09/24/18 07:50 BP 110/73 09/24/18 08:58 Pulse Ox 92 L 09/24/18 07:50 Intake & Output 09/23/18 09/24/18 09/24/18 18:59 06:59 18:59 Intake Total 450 Output Total 700 350 Balance -250 -350 Weight 45.7 kg 45.5 kg Intake: IV 50 Sodium Chloride 0.9% 1, 50 000 ml @ 10 mls/hr IV . Q24H [facility] Rx#:[id number] Oral 400 Output: Chest Tube Drainage 0 50 Pleural Catheter Right 0 Lower Anterior Chest Thora-Vent Right Upper 0 50 Anterior Chest Urine 700 300 Other: Voiding Method Indwelling Catheter Indwelling Catheter # Voids 2 # Bowel Movements 1 ABP, PAP, CO, CI - Last Documented Arterial Blood Pressure 129/70 - Constitutional General appearance: Present: cooperative, no acute distress - Respiratory Details: lungs sounds diminished bilaterally, right greater than left. Respirations e bianca, nonlabored. Remains on 5 L nasal cannula with oxygen saturation 92%. Only able to achieve 500 mL on her incentive spirometry. Right sided thoravent remains to continuous wall suction, 50 mL serous drainage overnight, 60 mL last 24 hours. Right-sided Pleurx catheter connected to continuous wall suction, no drainage in the last 24 hours. No air leak present in either tube. - Cardiovascular Details: S1, S2 present. Regular rate and rhythm, sinus rhythm on telemetry. Palpable peripheral pulses bilaterally. No edema present. No calf pain or tenderness noted. - Gastrointestinal Gastrointestinal Comment(s): Abdomen soft, nontender, nondistended. Active bowel sounds present 4 quadrants. Tolerating diet minimally. - Genitourinary Genitourinary Comment(s): Bellamy present draining clear, yellow urine. - Integumentary Integumentary Comment(s): Skin is warm and dry with evidence of good perfusion. - Neurologic Neurologic: Present: CNII-XII intact - Musculoskeletal Musculoskeletal: Present: generalized weakness, strength equal bilaterally - Psychiatric Psychiatric: Present: A&O x's 3, appropriate affect, intact judgment & insight - Allied health notes Allied health notes reviewed: nursing - Labs CBC & Chem 7: 09/24/18 07:26 09/21/18 10:01 Labs: Abnormal Lab Results - Last 24 Hours (Table) 09/24/18 Range/Units 07:26 WBC 17.6 H (3.8-10.6) k/uL MCV 100.7 H (80.0-100.0) fL MCHC 30.8 L (31.0-37.0) g/dL Neutrophils # 15.8 H (1.3-7.7) k/uL - Imaging and Cardiology Chest x-ray: report reviewed, image reviewed Assessment and Plan Assessment: 1. Acute on chronic respiratory failure, post intubation with mechanical ventilator support. 2. Persistent right-sided pneumothorax status post Thoravent insertion 3. Stage IV non-small cell lung cancer poorly differentiated, with positive pleural fluid 4. Malignant recurrent right-sided pleural effusion, status post thoracentesis and Pleurx catheter insertion 5. Severe cachexia and malnutrition 6. Chronic obstructive pulmonary disease 7. History of AML post chemotherapy with subsequent bone marrow transplantation in 2014 8. Previous CVA/TIA 9. History of cervical spine fusion back in 2005 10. Current everyday nicotine dependence Plan: 1. Continue thoravent and Pleurx catheter to continuous wall suction with Pleur-evac system. 2. Will continue to monitor daily x-rays. 3. Wean O2 as tolerated. Encourage incentive spirometry 10 times every hour while awake. 4. Increase activity, up in chair, ambulate as tolerated. 5. Bronchodilators, steroids, antibiotics per pulmonology. 6. Medical management per primary care service. 7. More recommendations to follow to based on patient's progress. Time with Patient: Greater than 30
[2018-09-24 11:39] LABS: Glucose,Whole Blood 186 mg/dL (75-99)
--- NOTE | 2018-09-24 12:30 | P.PN ---
Subjective Progress Note Date: 09/24/18 Principal diagnosis: Acute on chronic hypoxemic respiratory failure secondary to right-sided pneumothorax. The patient is seen today 09/24/2018 in follow-up on the regular medical floor. She is currently sitting up in a chair at the bedside. Awake and alert in no acute distress. Maintaining O2 saturations in the 90s on 5 L high flow nasal cannula. She's afebrile. Sputum culture revealed no growth. White count 17.6. Hemoglobin 12.8. Chest x-ray reveals improving right-sided pneumothorax. Now only approximate 5% by volume. There is worsening opacity of the right hem ithorax. Left lung is clear. Thora-Vent and Pleurx catheter remains in place to wall suction. Objective - Vital Signs Vital signs: Vital Signs Temp 97.9 F 09/24/18 07:50 Pulse 100 09/24/18 09:00 Resp 18 09/24/18 07:50 BP 110/73 09/24/18 08:58 Pulse Ox 92 L 09/24/18 07:50 Intake & Output 09/23/18 09/24/18 09/24/18 18:59 06:59 18:59 Intake Total 450 Output Total 700 350 0 Balance -250 -350 0 Weight 45.7 kg 45.5 kg Intake: IV 50 Sodium Chloride 0.9% 1, 50 000 ml @ 10 mls/hr IV . Q24H [facility] Rx#:[id number] Oral 400 Output: Chest Tube Drainage 0 50 0 Pleural Catheter Right 0 Lower Anterior Chest Thora-Vent Right Upper 0 50 0 Anterior Chest Urine 700 300 Other: Voiding Method Indwelling Catheter Indwelling Catheter Indwelling Catheter # Voids 2 # Bowel Movements 1 ABP, PAP, CO, CI - Last Documented Arterial Blood Pressure 129/70 - Exam GENERAL EXAM: Alert, very pleasant cachectic 57-year-old female on 5 L of oxygen comfortable in no apparent distress. HEAD: Normocephalic/atraumatic. EYES: Normal reaction of pupils, equal size. Conjunctiva pink, sclera white. NOSE: Clear with pink turbinates. THROAT: No erythema or exudates. NECK: No masses, no JVD, no thyroid enlargement, no adenopathy. CHEST: No chest wall deformity. Symmetrical expansion. right upper chest Thoravent in place to Pleur-evac and wall suction, with no air leak, right sided Pleurix catheter in place, to Pleur-evac and wall suction and serous drainage in the Pleur-evac LUNGS: Equal air entry with scattered rhonchi CVS: Regular rate and rhythm, normal S1 and S2, no gallops, no murmurs, no rubs ABDOMEN: Soft, nontender. No hepatosplenomegaly, normal bowel sounds, no guarding or rigidity. EXTREMITIES: No clubbing, no edema, no cyanosis, 2+ pulses and upper and lower extremities. MUSCULOSKELETAL: Muscle strength and tone normal. SPINE: No scoliosis or deformity SKIN: No rashes CENTRAL NERVOUS SYSTEM: Alert and oriented -3. No focal deficits, tone is normal in all 4 extremities. PSYCHIATRIC: Alert and oriented -3. Appropriate affect. Intact judgment and insight. - Labs CBC & Chem 7: 09/24/18 07:26 09/21/18 10:01 Labs: Abnormal Lab Results - Last 24 Hours (Table) 09/24/18 09/24/18 Range/Units 07:26 11:37 WBC 17.6 H (3.8-10.6) k/uL MCV 100.7 H (80.0-100.0) fL MCHC 30.8 L (31.0-37.0) g/dL Neutrophils # 15.8 H (1.3-7.7) k/uL POC Glucose (mg/dL) 186 H (75-99) mg/dL Assessment and Plan Assessment: Impression: 1 acute on chronic hypoxic respiratory failure, and the patient is post intubation mechanical ventilation and ventilatory dependent respiratory failure from which she has recovered 2 right-sided pneumothorax post Thoravent insertion. 3 stage IV non-small cell lung cancer with poorly differentiated, with a positive pleural fluid. 4 malignant right-sided pleural effusion postthoracentesis subsequent Pleurx catheter insertion 5 severe cachexia and malnourishment 6 COPD exacerbation. 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 Pleurx catheter is in place. 13 episodic confusion/altered mentation, improved 14 metabolic alkalosis, currently on Diamox Plan: The patient was seen and evaluated by Dr. Rendon. Chest x-ray and labs reviewed. Thora-Vent and Pleurx catheters remain in place. To need to encourage increased use the incentive spirometer and cough and deep breathing e xercises. Increase her activity as tolerated. Continue the current treatment plan. We'll continue to follow. I, the cosigning physician, performed a history & physical examination of the patient. Lungs sounds with crackles in the right posterior base, diminished. Maintaining good O2 saturations in the 90s on 5 L high flow nasal cannula. I discussed the assessment and plan of care with my nurse practitioner, Olga Farias. I attest to the above note as dictated by her.
[2018-09-24] MEDS: traMADol 50 MG TAB PO PRN ×2 (14:50→20:15)
[2018-09-24] MEDS: SODIUM CHLORIDE 0.9% 1,000 ML IV SCH (17:19)
[2018-09-24] MEDS: LEVOFLOXACIN 750 MG TAB PO SCH (20:15)
--- NOTE | 2018-09-25 06:48 | XR ---
EXAMINATION TYPE: XR chest 1V portable DATE OF EXAM: 09/25/2018 HISTORY: right pneumothorax. REFERENCE: Previous study dated 09/24/2018. FINDINGS: A right pleural drain remains in place. A definite pneumothorax is not seen at this time. There is been a previous ACDF of the lower cervical spine. There is improved appearance of the patient's right-sided pleural effusion. The left lung is clear. H eart size is obscured. IMPRESSION: 1. NO DEFINITE PNEUMOTHORAX AT THIS TIME. 2. IMPROVEMENT IN THE SIZE OF THE PATIENT'S RIGHT-SIDED PLEURAL EFFUSION..
[2018-09-25] MEDS: METOPROLOL TARTRATE 25 MG TAB PO SCH ×2 (08:46→20:31)
[2018-09-25] MEDS: guaiFENesin 600 MG TABLET.ER PO SCH ×2 (08:46→20:31)
[2018-09-25] MEDS: PANTOPRAZOLE 40 MG TABLET PO SCH (08:46)
[2018-09-25] MEDS: predniSONE 10 MG TAB PO SCH (08:46)
[2018-09-25] MEDS: ENOXAPARIN 40 MG/0.4 ML SYRINGE SQ SCH (08:47)
[2018-09-25] MEDS: NICOTINE 14MG/24HR PATCH TRANSDERM SCH ×2 (08:47→08:48)
[2018-09-25] MEDS: FORMOTEROL FUMARATE 20 MCG/2 ML NEBU INHALATION SCH ×2 (08:48→20:58)
[2018-09-25] MEDS: BUDESONIDE 0.5 MG/2 ML NEBU INHALATION SCH ×2 (08:48→20:58)
[2018-09-25] MEDS: IPRATROPIUM-ALBUTEROL 3 ML NEB INHALATION PRN ×2 (08:48→16:45)
[2018-09-25] MEDS: POLYETHYLENE GLYCOL 3350 17 GM POWD.PACK PO SCH (08:48)
[2018-09-25 09:16] LABS: Basophils % (A) 0 %; Eosinophils # (A) 0.1 k/uL (0-0.7); Eosinophils % (A) 0 %; HGB 13.2 gm/dL (11.4-16.0); Hypochromasia Slight; Lymphocytes # (A) 0.9 k/uL (1.0-4.8); Lymphocytes % (A) 4 %; MCH 32.5 pg (25.0-35.0); MCHC 31.3 g/dL (31.0-37.0); MCV 103.7 fL (80.0-100.0); Macrocytosis Slight; Mean Platelet Volume 8.5; Monocytes # (A) 0.7 k/uL (0-1.0); Monocytes % (A) 3 %; Neutrophils # (A) 21.4 k/uL (1.3-7.7); Neutrophils % (A) 92 %; Platelet Count 323 k/uL (150-450); RBC 4.05 m/uL (3.80-5.40); RDW 14.3 % (11.5-15.5); WBC 23.2 k/uL (3.8-10.6)
--- NOTE | 2018-09-25 09:40 | P.PN ---
Subjective Progress Note Date: 09/25/18 Principal diagnosis: acute on chronic hypoxemic respiratory failure related to right-sided pneumothorax on 09/20/2018 patient seen in follow-up on medical surgical floor. She is throat is of oxygen with a pulse ox of 95%, afebrile, hemodynamically stable, right-sided third event remains in place, connected to Pleur-evac and wall suction and right-sided Pleurx catheter to pleuravac and wall suction, and there has been on 110 mL the Pleurx catheter, and only 60 mL out of the right-sided 4 events in the last 24 hours, no air leak noted, and today's chest x-ray shows airspace opacities in the right lung and right pleural effusion with no significant change since yesterday's exam, persistent small right pneumothorax, with no significant change since yesterday.sputum culture showed no growth, patient is working on her incentive spirometer, achieving 500 mL on the today, l harjit sounds are diminished over right base, no wheezing, no rhonchi.abiotic coverage in the form of Levaquin, and is receiving oral prednisone, and nebulized bronchodilators. On 09/21/2018 patient seen in follow-up on medical surgical floor. Yesterday we took the right Thoravent of suction, and on today's chest x-ray there is a progressive right-sided pneumothorax, and in addition patient became symptomatic, hypoxemic, and the pulse ox dropping to 88% on 5 L, we'll placed the right Thoravent back to wall suction, and we will repeat a chest x-ray 12 PM. She is currently up to 10 L on high flow nasal cannula with a pulse ox of 92%, she is afebrile, hemodynamically she is stable, right sided Pleurix cath remains to Pleura-Vac and suction, and there has been very minimal drainage out of it in last 24 hours only 20 mL, and 30 mL out of the Thora-vent. Patient remains on oral prednisone, nebulized bronchodilators, and oral antibiotics, there has been no fever or chills. Sputum culture showed no growth. Today's labs have been reviewed, blood blood cell count is 17.4, hemoglobin is 14.4, sodium is 139, potassium is 4.2, chloride is 95, CO2 is 39, BUN is 18 creatinine 0.40. Patient still has the Bellamy catheter in place, and she is making large amounts of urine. Lung sounds reveal a few scattered rhonchi, minimal wheezing, overall she is in no distress, no complaints of chest pain, her incentive spirometer effort is 500 mL On 09/22/2018 patient seen in follow-up on medical surgical floor. She is resting comfortably in bed, she remains on high flow oxygen currently at 10 L an d the recorded pulse ox from this morning was 88%, although other readings were in the high 90s, she is afebrile, hemodynamically stable, follow-up chest x-ray was obtained showing decreasing small right apical pneumothorax, and increasing small right pleural effusion with adjacent infiltrate. Right chest thoravent remains to suction,Pleurix cath remains to suction, and there has been 25 mL out of the Pleurix cath, and 100 cc out of the Thoravent in the last 24 hours. On sounds reveal diminished breath sounds on the right, patient is working on her incentive spirometer, but she is only able to achieve 500 mL on the today. These labs have been reviewed, showing red blood cell, 14.9, hemoglobin of 14.6. No BMP was done. Sputum culture showed no growth. He remains on oral prednisone, antibiotics, breathing treatments. On 09/23/2018 patient seen in follow-up on medical surgical floor. She is resting in bed, remains on 10 L of oxygen, with a pulse ox of 96%, will wean the oxygen. Right-sided Thoravent remains in place, to wall suction, and follow-up chest x-ray today shows increasing right apical pneumothorax, measuring 3.2 cm from the lung apex, from previously 1.4 cm on yesterday's exam. No air leak, there has been 10 mL from the thoravent , and no drainage from the Pleurx catheter over the last 24 hours. No worsening dyspnea, though composite chest pain, lung sounds reveal diminished breath sounds over right lower lobe, and lower crackles over left base. No significant rhonchi or wheezing, remains on oral prednisone, breathing treatments, today's labs reviewed. Patient is scheduled to undergo MRI of the abdomen with and without contrast, patient has been evaluated by the GI service for possibility of EGD to determine primary origin of malignant pleural effusion. On 09/25/2018 patient seen in follow-up on medical surgical floor. She is awake and alert, in no acute distress, she is resting quietly in bed, currently on 6 L of oxygen with a pulse ox of 93 percent. Afebrile, hemodynamically stable, today's chest x-ray shows no definite pneumothorax, and improvement in the size of the patient's right-sided pleural effusion. Right chest Thoravent and right Pleurix in place to suction, no airleak, and there has been no output from the Pleurx catheter, and 79 mL of serous fluid from the right anterior chest thoravent. Sputum culture showed no growth. Still has a congested cough, and she is quite weak, and is difficult for her to clear any secretions. Mucinex has been added, antibiotic coverage in the form of Levaquin. Objective - Vital Signs Vital signs: Vital Signs Temp 98.2 F 09/25/18 08:01 Pulse 92 09/25/18 09:20 Resp 13 09/25/18 00:41 BP 122/79 09/25/18 08:01 Pulse Ox 93 L 09/25/18 08:01 Intake & Output 09/24/18 09/25/18 09/25/18 18:59 06:59 18:59 Intake Total 560 Output Total 75 904 Balance -75 -344 Weight 46.9 kg Intake: Oral 560 Output: Chest Tube Drainage 75 4 Pleural Catheter Right 0 0 Lower Anterior Chest Thora-Vent Right Upper 75 4 Anterior Chest Urine 900 Other: Voiding Method Indwelling Catheter Indwelling Catheter ABP, PAP, CO, CI - Last Documented Arterial Blood Pressure 129/70 - Exam GENERAL EXAM: Alert, very pleasant cachectic 57-year-old white female on 5 L of oxygen comfortable in no apparent distress. HEAD: Normocephalic/atraumatic. EYES: Normal reaction of pupils, equal size. Conjunctiva pink, sclera white. NOSE: Clear with pink turbinates. THROAT: No erythema or exudates. NECK: No masses, no JVD, no thyroid enlargement, no adenopathy. CHEST: No chest wall deformity. Symmetrical expansion. right upper chest Thoravent in place to Pleur-evac and wall suction, with no air leak, right sided Pleurix catheter in place, to Pleur-evac and wall suction and serous drainage in the Pleur-evac LUNGS: Equal air entry with scattered rhonchi CVS: Regular rate and rhythm, normal S1 and S2, no gallops, no murmurs, no rubs ABDOMEN: Soft, nontender. No hepatosplenomegaly, normal bowel sounds, no guarding or rigidity. EXTREMITIES: No clubbing, no edema, no cyanosis, 2+ pulses and upper and lower extremities. MUSCULOSKELETAL: Muscle strength and tone normal. SPINE: No scoliosis or deformity SKIN: No rashes CENTRAL NERVOUS SYSTEM: Alert and oriented -3. No focal deficits, tone is normal in all 4 extremities. PSYCHIATRIC: Alert and oriented -3. Appropriate affect. Intact judgment and insight. - Labs CBC & Chem 7: 09/25/18 07:11 09/21/18 10:01 Labs: Abnormal Lab Results - Last 24 Hours (Table) 09/24/18 09/25/18 Range/Units 11:37 07:11 WBC 23.2 H (3.8-10.6) k/uL MCV 103.7 H (80.0-100.0) fL Neutrophils # 21.4 H (1.3-7.7) k/uL Lymphocytes # 0.9 L (1.0-4.8) k/uL POC Glucose (mg/dL) 186 H (75-99) mg/dL Assessment and Plan Plan: 1 acute on chronic hypoxic respiratory failure, and the patient is post intubation mechanical ventilation and ventilatory dependent respiratory failure from which she has recovered 2 right-sided pneumothorax post Thoravent insertion. 3 stage IV non-small cell lung cancer with poorly differentiated, with a positiv e pleural fluid. 4 malignant right-sided pleural effusion postthoracentesis subsequent Pleurx cat heter insertion 5 severe cachexia and malnourishment 6 COPD exacerbation. 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 Pleurx catheter is in place. 13 episodic confusion/altered mentation, improved 14 metabolic alkalosis, currently on Diamox Plan: Continue encouraging deep breathing and coughing, incentive spirometry, encouraged patient to sit up in the chair, cough and clear secretions. Today's chest x-ray shows no definite pneumothorax on the right, and improvement in the appearance of the right pleural effusion. No acute events overnight, may consider bronchoscopy with BAL in the next 24 hours. For now continue with current antibiotics, breathing treatments, weaning FiO2, and continue aggressive pulmonary toileting. I performed a history & physical examination of the patient and discussed their management with my nurse practitioner, Linda Macias. I reviewed the nurse practitioner's note and agree with the documented findings and plan of care. Lung sounds are positive for diminished breath sounds on the right. The findings and the impression was discussed with the patient. I attest to the documentation by the nurse practitioner. Time with Patient: Less than 30
--- NOTE | 2018-09-25 12:22 | P.PN ---
Subjective Progress Note Date: 09/24/18 Principal diagnosis: acute on chronic hypoxemic respiratory failure related to right-sided pneumothorax 09/24/2018 patient seen and evaluated in room in follow-up on the regular medical floor. She is currently sitting up in a chair at the bedside. Awake and alert in no acute distress. Maintaining O2 saturations in the 90s on 5 L high flow nasal cannula. She's afebrile. Sputum culture revealed no growth. White count 17.6. Hemoglobin 12.8. Chest x-ray reveals improving right-sided pneumothorax. Now only approximate 5% by volume. There is worsening opacity of the right hemithorax. Left lung is clear. Thora-Vent and Pleurx catheter remains in place to wall suction Objective - Vital Signs Vital signs: Vital Signs Temp 97.9 F 09/24/18 07:50 Pulse 100 09/24/18 09:00 Resp 18 09/24/18 07:50 BP 110/73 09/24/18 08:58 Pulse Ox 92 L 09/24/18 07:50 Intake & Output 09/23/18 09/24/18 09/24/18 18:59 06:59 18:59 Intake Total 450 Output Total 700 350 0 Balance -250 -350 0 Weight 45.7 kg 45.5 kg Intake: IV 50 Sodium Chloride 0.9% 1, 50 000 ml @ 10 mls/hr IV . Q24H [facility] Rx#:[id number] Oral 400 Output: Chest Tube Drainage 0 50 0 Pleural Catheter Right 0 Lower Anterior Chest Thora-Vent Right Upper 0 50 0 Anterior Chest Urine 700 300 Other: Voiding Method Indwelling Catheter Indwelling Catheter Indwelling Catheter # Voids 2 # Bowel Movements 1 ABP, PAP, CO, CI - Last Documented Arterial Blood Pressure 129/70 - Exam HEAD: Normocephalic/atraumatic. EYES: Normal reaction of pupils, equal size. Conjunctiva pink, sclera white. NOSE: Clear with pink turbinates. THROAT: No erythema or exudates. NECK: No masses, no JVD, no thyroid enlargement, no adenopathy. CHEST: No chest wall deformity. Symmetrical expansion. right upper chest Thoravent in place to Pleur-evac and wall suction, with no air leak, right sided Pleurix catheter in place, to Pleur-evac and wall suction and serous drainage in the Pleur-evac LUNGS: Equal air entry with scattered rhonchi CVS: Regular rate and rhythm, normal S1 and S2, no gallops, no murmurs, no rubs ABDOMEN: Soft, nontender. No hepatosplenomegaly, normal bowel sounds, no guard ing or rigidity. EXTREMITIES: No clubbing, no edema, no cyanosis, 2+ pulses and upper and lower extremities. MUSCULOSKELETAL: Muscle strength and tone normal. - Labs CBC & Chem 7: 09/25/18 07:11 09/21/18 10:01 Labs: Abnormal Lab Results - Last 24 Hours (Table) 09/24/18 09/24/18 Range/Units 07:26 11:37 WBC 17.6 H (3.8-10.6) k/uL MCV 100.7 H (80.0-100.0) fL MCHC 30.8 L (31.0-37.0) g/dL Neutrophils # 15.8 H (1.3-7.7) k/uL POC Glucose (mg/dL) 186 H (75-99) mg/dL Assessment and Plan Assessment: 1. Acute on chronic hypoxic respiratory failure, and the patient is post intubation mechanical ventilation and ventilatory dependent respiratory failure from which she has recovered 2. Right-sided pneumothorax/ Pleural Effusin post Thoravent insertion. 3. Stage IV non-small cell lung cancer with poorly differentiated, with a positive pleural fluid. 4. Malignant right-sided pleural effusion postthoracentesis subsequent Pleurx catheter insertion 5. Severe cachexia and malnourishment 6. COPD exacerbation. There are pressures are quite elevated and the patient bronchospastic and wheezy, likely secondary underlying pneumonia/aspiration 7. Chronic hypercapnic respiratory failure 8. History of AML post chemotherapy with subsequent bone marrow transplantation back in 2014 9. Metabolic alkalosis, currently on Diamox Code Status; full Code Time with Patient: Greater than 30
[2018-09-25] MEDS: traMADol 50 MG TAB PO PRN ×2 (12:57→20:31)
--- NOTE | 2018-09-25 14:53 | P.PN ---
Subjective Progress Note Date: 09/25/18 Principal diagnosis: acute on chronic hypoxemic respiratory failure related to right-sided pneumothorax 09/24/2018 patient seen and evaluated in room in follow-up on the regular medical floor. She is currently sitting up in a chair at the bedside. Awake and alert in no acute distress. Maintaining O2 saturations in the 90s on 5 L high flow nasal cannula. She's afebrile. Sputum culture revealed no growth. White count 17.6. Hemoglobin 12.8. Chest x-ray reveals improving right-sided pneumothorax. Now only approximate 5% by volume. There is worsening opacity of the right hemithorax. Left lung is clear. Thora-Vent and Pleurx catheter remains in place to wall suction 09/25/2018 patient seen in follow-up on medical surgical floor. She is awake and alert, in no acute distress, she is resting quietly in bed, currently on 6 L of oxygen with a pulse ox of 93 percent. Afebrile, hemodynamically stable, today's chest x-ray shows no definite pneumothorax, and improvement in the size of the patient's right-sided pleural effusion. Right chest Thoravent and right Pleurix in place to suction, no airleak, and there has been no output from the Pleurx catheter, and 79 mL of serous fluid from the right anterior chest thoravent. Sputum culture showed no growth. Still has a congested cough, and she is quite weak, and is difficult for her to clear any secretions. Mucinex has been added, antibiotic coverage in the form of Levaquin. Objective - Vital Signs Vital signs: Vital Signs Temp 98.2 F 09/25/18 08:01 Pulse 92 09/25/18 09:20 Resp 13 09/25/18 00:41 BP 122/79 09/25/18 08:01 Pulse Ox 93 L 09/25/18 08:01 Intake & Output 09/24/18 09/25/18 09/25/18 18:59 06:59 18:59 Intake Total 560 Output Total 75 904 0 Balance -75 -344 0 Weight 46.9 kg Intake: Oral 560 Output: Chest Tube Drainage 75 4 0 Pleural Catheter Right 0 0 0 Lower Anterior Chest Thora-Vent Right Upper 75 4 0 Anterior Chest Urine 900 Other: Voiding Method Indwelling Catheter Indwelling Catheter Indwelling Catheter ABP, PAP, CO, CI - Last Documented Arterial Blood Pressure 129/70 - Exam HEAD: Normocephalic/atraumatic. EYES: Normal reaction of pupils, equal size. Conjunctiva pink, sclera white. NOSE: Clear with pink turbinates. THROAT: No erythema or exudates. NECK: No masses, no JVD, no thyroid enlargement, no adenopathy. CHEST: No chest wall deformity. Symmetrical expansion. right upper chest Thoravent in place to Pleur-evac and wall suction, with no air leak, right sided Pleurix catheter in place, to Pleur-evac and wall suction and serous drainage in the Pleur-evac LUNGS: Equal air entry with scattered rhonchi CVS: Regular rate and rhythm, normal S1 and S2, no gallops, no murmurs, no rubs ABDOMEN: Soft, nontender. No hepatosplenomegaly, normal bowel sounds, no guarding or rigidity. EXTREMITIES: No clubbing, no edema, no cyanosis, 2+ pulses and upper and lower extremities. MUSCULOSKELETAL: Muscle strength and tone normal. - Labs CBC & Chem 7: 09/25/18 07:11 09/21/18 10:01 Labs: Abnormal Lab Results - Last 24 Hours (Table) 09/25/18 Range/Units 07:11 WBC 23.2 H (3.8-10.6) k/uL MCV 103.7 H (80.0-100.0) fL Neutrophils # 21.4 H (1.3-7.7) k/uL Lymphocytes # 0.9 L (1.0-4.8) k/uL Assessment and Plan Assessment: 1. Acute on chronic hypoxic respiratory failure, and the patient is post intubation mechanical ventilation and ventilatory dependent respiratory failure from which she has recovered 2. Right-sided pneumothorax/ Pleural Effusin post Thoravent insertion. 3. Stage IV non-small cell lung cancer with poorly differentiated, with a positive pleural fluid. 4. Malignant right-sided pleural effusion postthoracentesis subsequent Pleurx catheter insertion 5. Severe cachexia and malnourishment 6. COPD exacerbation. There are pressures are quite elevated and the patient bronchospastic and wheezy, likely secondary underlying pneumonia/aspiration 7. Chronic hypercapnic respiratory failure 8. History of AML post chemotherapy with subsequent bone marrow transplantation back in 2014 9. Metabolic alkalosis, currently on Diamox Code Status; full Code
[2018-09-25] MEDS: SODIUM CHLORIDE 0.9% 1,000 ML IV SCH (16:38)
[2018-09-25] MEDS: LEVOFLOXACIN 750 MG TAB PO SCH (20:31)
--- NOTE | 2018-09-26 07:07 | XR ---
EXAMINATION TYPE: XR chest 1V portable DATE OF EXAM: 09/26/2018 COMPARISON: 09/25/2018 HISTORY: Right-sided pneumothorax. TECHNIQUE: Single frontal view of the chest is obtained. FINDINGS: There is a right-sided thoravent in place. There is a new right upper lung opacity that ma y represent a loculated portion of the pleural effusion or atelectasis given its short-term interval development with pneumonia less likely. There remains a moderate layering right pleural effusion and right basilar atelectasis. No residual pneumothorax is seen. Cardiomediastinal silhouette is partiall y obscured but stable and enlarged. Left lung remains well aerated. Right-sided thoracostomy tube is also in place. Prior cervical fusion has been performed. Right axillary subcutaneous emphysema is sim ilar. IMPRESSION: New right upper lung opacity that given its short-term development likely represents loc ulated portion of an increasing pleural effusion or atelectasis. Similar-appearing moderate right ple ural effusion and right basilar airspace disease is seen in the remainder the lung with no residual p neumothorax.
[2018-09-26 07:52] LABS: Basophils % (A) 0 %; Eosinophils # (A) 0.1 k/uL (0-0.7); Eosinophils % (A) 1 %; HCT 42.6 % (34.0-46.0); HGB 13.2 gm/dL (11.4-16.0); Lymphocytes # (A) 0.9 k/uL (1.0-4.8); Lymphocytes % (A) 5 %; MCH 31.3 pg (25.0-35.0); MCHC 30.9 g/dL (31.0-37.0); MCV 101.4 fL (80.0-100.0); Macrocytosis Slight; Mean Platelet Volume 7.7; Monocytes # (A) 0.7 k/uL (0-1.0); Monocytes % (A) 4 %; Neutrophils # (A) 17.5 k/uL (1.3-7.7); Neutrophils % (A) 91 %; Platelet Count 369 k/uL (150-450); RBC 4.21 m/uL (3.80-5.40); RDW 14.6 % (11.5-15.5); WBC 19.3 k/uL (3.8-10.6)
[2018-09-26] MEDS: guaiFENesin 600 MG TABLET.ER PO SCH ×2 (08:04→20:09)
[2018-09-26] MEDS: ENOXAPARIN 40 MG/0.4 ML SYRINGE SQ SCH (08:04)
[2018-09-26] MEDS: traMADol 50 MG TAB PO PRN ×2 (08:04→20:10)
[2018-09-26] MEDS: METOPROLOL TARTRATE 25 MG TAB PO SCH ×2 (08:04→20:09)
[2018-09-26] MEDS: predniSONE 10 MG TAB PO SCH (08:05)
[2018-09-26] MEDS: PANTOPRAZOLE 40 MG TABLET PO SCH (08:05)
[2018-09-26] MEDS: POLYETHYLENE GLYCOL 3350 17 GM POWD.PACK PO SCH (08:06)
[2018-09-26] MEDS: FORMOTEROL FUMARATE 20 MCG/2 ML NEBU INHALATION SCH ×2 (08:32→20:43)
[2018-09-26] MEDS: IPRATROPIUM-ALBUTEROL 3 ML NEB INHALATION PRN ×3 (08:32→16:28)
[2018-09-26] MEDS: BUDESONIDE 0.5 MG/2 ML NEBU INHALATION SCH ×2 (08:36→20:43)
--- NOTE | 2018-09-26 09:42 | P.PN ---
Subjective Progress Note Date: 09/26/18 Principal diagnosis: Right-sided pneumothorax, status post thoravent placement by pulmonology. 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 The patient is currently sitting up in bed in no acute distress. States her pain is not completely controlled with current medication regimen, however patient is not asking for her pain meds as often as she may have some. Thoravent site continues to drain serous fluid, Pleurx site without any drainage for greater than 24 hours. Objective - Vital Signs Vital signs: Vital Signs Temp 97.6 F 09/26/18 07:24 Pulse 101 H 09/26/18 08:58 Resp 16 09/26/18 07:24 BP 113/74 09/26/18 07:24 Pulse Ox 91 L 09/26/18 08:32 Intake & Output 09/25/18 09/26/18 09/26/18 18:59 06:59 18:59 Intake Total 560 Output Total 1220 650 Balance -1220 -90 Weight 46.7 kg Intake: Oral 560 Output: Chest Tube Drainage 20 0 Pleural Catheter Right 0 0 Lower Anterior Chest Thora-Vent Right Upper 20 0 Anterior Chest Urine 1200 650 Other: Voiding Method Indwelling Catheter ABP, PAP, CO, CI - Last Documented Arterial Blood Pressure 129/70 - Constitutional General appearance: Present: cooperative, no acute distress - Respiratory Details: Lungs sounds diminished bilaterally, right greater than left. Respirations even, nonlabored. Remains on 5 L nasal cannula with oxygen saturation 98%. Only able to achieve 500 mL on her incentive spirometry. Right sided thoravent remains to continuous wall suction, continues to drain thin serous fluid. Right-sided Pleurx catheter connected to continuous wall suction, no drainage for greater then 24 hours. No air leak present in either tube. - Cardiovascular Details: S1, S2 present. Regular rate and rhythm, sinus rhythm on telemetry. Palpable peripheral pulses bilaterally. No edema present. No calf pain or tenderness noted. - Gastrointestinal Gastrointestinal Comment(s): Abdomen soft, nontender, nondistended. Active bowel sounds present 4 quadrants. Tolerating diet minimally. - Genitourinary Genitourinary Comment(s): Bellamy present draining clear, yellow urine. - Integumentary Integumentary Comment(s): Skin is warm and dry with evidence of good perfusion. - Neurologic Neurologic: Present: CNII-XII intact - Musculoskeletal Musculoskeletal: Present: generalized weakness, strength equal bilaterally - Psychiatric Psychiatric: Present: A&O x's 3, appropriate affect, intact judgment & insight - Allied health notes Allied health notes reviewed: nursing - Labs CBC & Chem 7: 09/26/18 07:26 09/21/18 10:01 Labs: Abnormal Lab Results - Last 24 Hours (Table) 09/26/18 Range/Units 07:26 WBC 19.3 H (3.8-10.6) k/uL MCV 101.4 H (80.0-100.0) fL MCHC 30.9 L (31.0-37.0) g/dL Neutrophils # 17.5 H (1.3-7.7) k/uL Lymphocytes # 0.9 L (1.0-4.8) k/uL - Imaging and Cardiology Chest x-ray: report reviewed, image reviewed Assessment and Plan Assessment: 1. Acute on chronic respiratory failure, post intubation with mechanical ventilator support. 2. Persistent right-sided pneumothorax status post Thoravent insertion 3. Stage IV non-small cell lung cancer poorly differentiated, with positive pleural fluid 4. Malignant recurrent right-sided pleural effusion, status post thoracentesis and Pleurx catheter insertion 5. Severe cachexia and malnutrition 6. Chronic obstructive pulmonary disease 7. History of AML post chemotherapy with subsequent bone marrow transplantation in 2014 8. Previous CVA/TIA 9. History of cervical spine fusion back in 2005 10. Current everyday nicotine dependence Plan: 1. Continue thoravent to continuous wall suction with Pleur-evac system. Will cap Pleurx catheter as it has not drained in more than 24 hours. 2. Will continue to monitor daily x-rays. 3. Wean O2 as tolerated. Encourage incentive spirometry 10 times every hour while awake. 4. Increase activity, up in chair, ambulate as tolerated. 5. Bronchodilators, steroids, antibiotics per pulmonology. 6. Medical management per primary care service. 7. More recommendations to follow to based on patient's progress. Time with Patient: Greater than 30
--- NOTE | 2018-09-26 12:27 | P.PN ---
Subjective Progress Note Date: 09/26/18 Principal diagnosis: acute on chronic hypoxemic respiratory failure related to right-sided pneumothorax on 09/20/2018 patient seen in follow-up on medical surgical floor. She is throat is of oxygen with a pulse ox of 95%, afebrile, hemodynamically stable, right-sided third event remains in place, connected to Pleur-evac and wall suction and right-sided Pleurx catheter to pleuravac and wall suction, and there has been on 110 mL the Pleurx catheter, and only 60 mL out of the right-sided 4 events in the last 24 hours, no air leak noted, and today's chest x-ray shows airspace opacities in the right lung and right pleural effusion with no significant change since yesterday's exam, persistent small right pneumothorax, with no significant change since yesterday.sputum culture showed no growth, patient is working on her incentive spirometer, achieving 500 mL on the today, l harjit sounds are diminished over right base, no wheezing, no rhonchi.abiotic coverage in the form of Levaquin, and is receiving oral prednisone, and nebulized bronchodilators. On 09/21/2018 patient seen in follow-up on medical surgical floor. Yesterday we took the right Thoravent of suction, and on today's chest x-ray there is a progressive right-sided pneumothorax, and in addition patient became symptomatic, hypoxemic, and the pulse ox dropping to 88% on 5 L, we'll placed the right Thoravent back to wall suction, and we will repeat a chest x-ray 12 PM. She is currently up to 10 L on high flow nasal cannula with a pulse ox of 92%, she is afebrile, hemodynamically she is stable, right sided Pleurix cath remains to Pleura-Vac and suction, and there has been very minimal drainage out of it in last 24 hours only 20 mL, and 30 mL out of the Thora-vent. Patient remains on oral prednisone, nebulized bronchodilators, and oral antibiotics, there has been no fever or chills. Sputum culture showed no growth. Today's labs have been reviewed, blood blood cell count is 17.4, hemoglobin is 14.4, sodium is 139, potassium is 4.2, chloride is 95, CO2 is 39, BUN is 18 creatinine 0.40. Patient still has the Bellamy catheter in place, and she is making large amounts of urine. Lung sounds reveal a few scattered rhonchi, minimal wheezing, overall she is in no distress, no complaints of chest pain, her incentive spirometer effort is 500 mL On 09/22/2018 patient seen in follow-up on medical surgical floor. She is resting comfortably in bed, she remains on high flow oxygen currently at 10 L an d the recorded pulse ox from this morning was 88%, although other readings were in the high 90s, she is afebrile, hemodynamically stable, follow-up chest x-ray was obtained showing decreasing small right apical pneumothorax, and increasing small right pleural effusion with adjacent infiltrate. Right chest thoravent remains to suction,Pleurix cath remains to suction, and there has been 25 mL out of the Pleurix cath, and 100 cc out of the Thoravent in the last 24 hours. On sounds reveal diminished breath sounds on the right, patient is working on her incentive spirometer, but she is only able to achieve 500 mL on the today. These labs have been reviewed, showing red blood cell, 14.9, hemoglobin of 14.6. No BMP was done. Sputum culture showed no growth. He remains on oral prednisone, antibiotics, breathing treatments. On 09/23/2018 patient seen in follow-up on medical surgical floor. She is resting in bed, remains on 10 L of oxygen, with a pulse ox of 96%, will wean the oxygen. Right-sided Thoravent remains in place, to wall suction, and follow-up chest x-ray today shows increasing right apical pneumothorax, measuring 3.2 cm from the lung apex, from previously 1.4 cm on yesterday's exam. No air leak, there has been 10 mL from the thoravent , and no drainage from the Pleurx catheter over the last 24 hours. No worsening dyspnea, though composite chest pain, lung sounds reveal diminished breath sounds over right lower lobe, and lower crackles over left base. No significant rhonchi or wheezing, remains on oral prednisone, breathing treatments, today's labs reviewed. Patient is scheduled to undergo MRI of the abdomen with and without contrast, patient has been evaluated by the GI service for possibility of EGD to determine primary origin of malignant pleural effusion. On 09/25/2018 patient seen in follow-up on medical surgical floor. She is awake and alert, in no acute distress, she is resting quietly in bed, currently on 6 L of oxygen with a pulse ox of 93 percent. Afebrile, hemodynamically stable, today's chest x-ray shows no definite pneumothorax, and improvement in the size of the patient's right-sided pleural effusion. Right chest Thoravent and right Pleurix in place to suction, no airleak, and there has been no output from the Pleurx catheter, and 79 mL of serous fluid from the right anterior chest thoravent. Sputum culture showed no growth. Still has a congested cough, and she is quite weak, and is difficult for her to clear any secretions. Mucinex has been added, antibiotic coverage in the form of Levaquin. On 09/26/2018 patient seen in follow-up on medical surgical floor. She is awake and alert, in no acute distress, she sits up in the recliner, currently on 5 L of oxygen with a pulse ox of 91%, afebrile, hemodynamically she stable, Pleurx catheter has had no output in the last 3 days, however there is some drainage from the right Thoravent, in the order of 79 mL of serous fluid. Patient has been able to ambulate in the hallway, tolerated activity fairly well, her incentive spirometer effort is still suboptimal, but patient is compliant with that, achieving about 500 mL on it, lung sounds are diminished on the right, today's chest x-ray shows new right upper lung opacity that is likely related to increasing pleural effusion or atelectasis. His labs have been reviewed, with blood cell count is 19.3, hemoglobin is 13.2, sputum culture showed no growth, CT surgery is following, and plan on The Pleurx catheter, and placing the Thora vent to waterseal. Objective - Vital Signs Vital signs: Vital Signs Temp 97.6 F 09/26/18 07:24 Pulse 101 H 09/26/18 08:58 Resp 16 09/26/18 07:24 BP 113/74 09/26/18 07:24 Pulse Ox 91 L 09/26/18 08:32 Intake & Output 09/25/18 09/26/18 09/26/18 18:59 06:59 18:59 Intake Total 560 Output Total 1220 650 Balance -1220 -90 Weight 46.7 kg Intake: Oral 560 Output: Chest Tube Drainage 20 0 Pleural Catheter Right 0 0 Lower Anterior Chest Thora-Vent Right Upper 20 0 Anterior Chest Urine 1200 650 Other: Voiding Method Indwelling Catheter ABP, PAP, CO, CI - Last Documented Arterial Blood Pressure 129/70 - Exam GENERAL EXAM: Alert, very pleasant cachectic 57-year-old white female on 5 L of oxygen comfortable in no apparent distress. HEAD: Normocephalic/atraumatic. EYES: Normal reaction of pupils, equal size. Conjunctiva pink, sclera white. NOSE: Clear with pink turbinates. THROAT: No erythema or exudates. NECK: No masses, no JVD, no thyroid enlargement, no adenopathy. CHEST: No chest wall deformity. Symmetrical expansion. right upper chest Thoravent in place to Pleur-evac and wall suction, with no air leak, right sided Pleurix catheter in place, to Pleur-evac and wall suction and serous drainage in the Pleur-evac LUNGS: Equal air entry with scattered rhonchi CVS: Regular rate and rhythm, normal S1 and S2, no gallops, no murmurs, no rubs ABDOMEN: Soft, nontender. No hepatosplenomegaly, normal bowel sounds, no guarding or rigidity. EXTREMITIES: No clubbing, no edema, no cyanosis, 2+ pulses and upper and lower extremities. MUSCULOSKELETAL: Muscle strength and tone normal. SPINE: No scoliosis or deformity SKIN: No rashes CENTRAL NERVOUS SYSTEM: Alert and oriented -3. No focal deficits, tone is normal in all 4 extremities. PSYCHIATRIC: Alert and oriented -3. Appropriate affect. Intact judgment and insight. - Labs CBC & Chem 7: 09/26/18 07:26 09/21/18 10:01 Labs: Abnormal Lab Results - Last 24 Hours (Table) 09/26/18 Range/Units 07:26 WBC 19.3 H (3.8-10.6) k/uL MCV 101.4 H (80.0-100.0) fL MCHC 30.9 L (31.0-37.0) g/dL Neutrophils # 17.5 H (1.3-7.7) k/uL Lymphocytes # 0.9 L (1.0-4.8) k/uL Assessment and Plan Plan: 1 acute on chronic hypoxic respiratory failure, and the patient is post intubation mechanical ventilation and ventilatory dependent respiratory failure from which she has recovered 2 right-sided pneumothorax post Thoravent insertion. 3 stage IV non-small cell lung cancer with an unknown primary poorly differentiated, with a positive pleural fluid. 4 malignant right-sided pleural effusion postthoracentesis subsequent Pleurx catheter insertion 5 severe cachexia and malnourishment 6 COPD exacerbation. 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 Pleurx catheter is in place. 13 episodic confusion/altered mentation, improved 14 metabolic alkalosis, currently on Diamox Plan: Continue encouraging deep breathing and coughing, ambulation, aggressive pulmonary toileting, today's chest x-ray shows right upper lung opacity, likely representing loculated portion of an increasing pleural effusion or atelectasis. FiO2 is down to 5 L, dissipate Flovent to be placed to waterseal. We'll continue to follow. Patient possibly could be considered for EGD or MRCP, however there is still a chance of patient ending up on the ventilator during the procedure. I performed a history & physical examination of the patient and discussed their management with my nurse practitioner, Linda Macias. I reviewed the nurse practitioner's note and agree with the documented findings and plan of care. Lung sounds are positive for diminished breath sounds on the right. The findings and the impression was discussed with the patient. I attest to the documentation by the nurse practitioner. Time with Patient: Less than 30
--- NOTE | 2018-09-26 12:57 | P.PN ---
Subjective 57-year-old admitted with the respiratory failure secondary to right-sided pneumothorax and pleural effusion Malman pleural effusion effusion appears to be coming from adenocarcinoma unknown primary probable GI primary. Patient's has 2 chest tubes were connected to the forearm and the other one is for pleural effusion patient appears to have increased effusion today., Pulmonology and carotid thoracic surgery evaluated the patient. Plan is to do a bronchoscopy or endoscopy whenever discharged she she is bit stable. Patient's saturations has gone down today. Chest x-rays looking showing worsening effusion. Constitutional: Denied any fatigue denied any fever. Cardio vascular: denied any chest pain, palpitations Gastrointestinal denied any nausea vomiting Pulmonary: No significant change in his respiratory status compared to yesterday . Neurologic denied any new focal deficits All inpatient medications were reviewed and appropriate changes in these medications as dictated in the interval history and assessment and plan. Objective - Vital Signs Vital signs: Vital Signs Temp 97.6 F 09/26/18 07:24 Pulse 90 09/26/18 12:34 Resp 16 09/26/18 08:45 BP 113/74 09/26/18 07:24 Pulse Ox 91 L 09/26/18 08:32 Intake & Output 09/25/18 09/26/18 09/26/18 18:59 06:59 18:59 Intake Total 560 Output Total 1220 650 0 Balance -1220 -90 0 Weight 46.7 kg Intake: Oral 560 Output: Chest Tube Drainage 20 0 0 Pleural Catheter Right 0 0 0 Lower Anterior Chest Thora-Vent Right Upper 20 0 0 Anterior Chest Urine 1200 650 Other: Voiding Method Indwelling Catheter Indwelling Catheter ABP, PAP, CO, CI - Last Documented Arterial Blood Pressure 129/70 - Exam PHYSICAL EXAMINATION: GENERAL: The patient is alert and oriented x3, not in any acute distress. Thin built HEENT: Pupils are round and equally reacting to light. EOMI. No scleral icterus. No conjunctival pallor. Normocephalic, atraumatic. No pharyngeal erythema. No thyromegaly. CARDIOVASCULAR: S1 and S2 present. No murmurs, rubs, or gallops. PULMONARY: Very minimal breath sounds on the right side 2 chest tubes on the right side. ABDOMEN: Soft, nontender, nondistended, normoactive bowel sounds. No palpable organomegaly. MUSCULOSKELETAL: No joint swelling or deformity. EXTREMITIES: No cyanosis, clubbing, or pedal edema. NEUROLOGICAL: Gross neurological examination did not reveal any focal deficits. SKIN: No rashes. - Labs CBC & Chem 7: 09/26/18 07:26 09/21/18 10:01 Labs: Abnormal Lab Results - Last 24 Hours (Table) 09/26/18 Range/Units 07:26 WBC 19.3 H (3.8-10.6) k/uL MCV 101.4 H (80.0-100.0) fL MCHC 30.9 L (31.0-37.0) g/dL Neutrophils # 17.5 H (1.3-7.7) k/uL Lymphocytes # 0.9 L (1.0-4.8) k/uL Assessment and Plan Plan: - Acute on chronic hypoxic respiratory failure, and the patient is post intubation mechanical ventilation and ventilatory dependent respiratory failure from which she has recovered , respiratory failure secondary to valvular and pleural effusion and the pneumothorax for which patient has 2 chest tubes as mentioned above -Right-sided pneumothorax/ Pleural Effusin post Thoravent insertion. 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 - Malignant right-sided pleural effusion postthoracentesis subsequent Pleurx catheter insertion -. Severe cachexia and malnourishment -COPD with exacerbation on this hospitalization patient the presently doesn't have any COPD exacerbation History of AML post chemotherapy with subsequent bone marrow transplantation ba ck in 2014 CODE STATUS full
--- NOTE | 2018-09-26 16:45 | P.PN ---
Subjective Progress Note Date: 09/26/18 Principal diagnosis: Hypoxia, altered mental status Patient and requested family meeting today. Patient is sitting up in the chair, she is eating her lunch, her breathing seems stable, she has no additional complaints at this time. Objective - Vital Signs Vital signs: Vital Signs Temp 97.9 F 09/26/18 14:09 Pulse 84 09/26/18 14:09 Resp 16 09/26/18 14:09 BP 110/71 09/26/18 14:09 Pulse Ox 92 L 09/26/18 14:09 Intake & Output 09/25/18 09/26/18 09/26/18 18:59 06:59 18:59 Intake Total 560 Output Total 1220 650 550 Balance -1220 -90 -550 Weight 46.7 kg Intake: Oral 560 Output: Chest Tube Drainage 20 0 0 Pleural Catheter Right 0 0 0 Lower Anterior Chest Thora-Vent Right Upper 20 0 0 Anterior Chest Urine 1200 650 550 Uretheral (Bellamy) 550 Other: Voiding Method Indwelling Catheter Indwelling Catheter ABP, PAP, CO, CI - Last Documented Arterial Blood Pressure 129/70 - Constitutional General appearance: Present: mild distress, thin - EENT Eyes: Present: anicteric sclerae, EOMI ENT: Present: hearing grossly normal - Respiratory Details: Moderately labored respirations, O2 dependent - Cardiovascular Heart sounds: normal: S1, S2 Abnormal Heart Sounds: Absent: systolic murmur, diastolic murmur, rub, S3 Gallop, S4 Gallop, click, other - Peripheral edema leg Peripheral Edema: bilateral: None - Gastrointestinal General gastrointestinal: Present: normal bowel sounds, scaphoid, soft - Musculoskeletal Musculoskeletal: Present: generalized weakness - Psychiatric Psychiatric Comment(s): Patient does not always stand topic with the conversation, she is scattered in her thoughts. - Labs CBC & Chem 7: 09/26/18 07:26 09/21/18 10:01 Labs: Abnormal Lab Results - Last 24 Hours (Table) 09/26/18 Range/Units 07:26 WBC 19.3 H (3.8-10.6) k/uL MCV 101.4 H (80.0-100.0) fL MCHC 30.9 L (31.0-37.0) g/dL Neutrophils # 17.5 H (1.3-7.7) k/uL Lymphocytes # 0.9 L (1.0-4.8) k/uL Assessment and Plan (1) Pleural effusion Narrative/Plan: Chest tubes in place, Cardiothoracic mgmt. Pleural fluid confirmed malignant, non-small cell of unknown primary Current Visit: Yes Status: Acute Priority: High Code(s): J90 - PLEURAL EFFUSION, NOT ELSEWHERE CLASSIFIED SNOMED Code(s): 56043853 (2) Respiratory failure Current Visit: Yes Status: Resolved Priority: High Code(s): J96.90 - RESPIRATORY FAILURE, UNSP, UNSP W HYPOXIA OR HYPERCAPNIA SNOMED Code(s): 834964735 (3) AML (acute myelogenous leukemia) Current Visit: No Status: Chronic Priority: Low Code(s): C92.00 - ACUTE MYELOBLASTIC LEUKEMIA, NOT HAVING ACHIEVED REMISSION SNOMED Code(s): 70901209 (4) History of allogeneic bone marrow transplant Current Visit: No Status: Chronic Priority: Medium Code(s): Z94.81 - BONE MARROW TRANSPLANT STATUS SNOMED Code(s): 354308542 Plan: We reviewed all of the details of patient's case up to this point. We reviewed results of the MRI, unfortunately did not reveal any mass or target for biopsy. Now pending pt to be deemed stable for endoscopy procedures. We discussed the potential that even if patient does have the endoscopy the results could still be nondiagnostic. Which case the patient would be treated as an unknown primary, typically treated with a the [place] and/or taxane. Reinforced stage IV malignancy of unknown primary. Intent of treatment would be palliation of symptoms with prolongation of life. Patient decided that she would like to pursue testing. As stated, MRI did not reveal a targetable mass. GI has seen pt. Needing pt to be more stable for procedure.
[2018-09-26] MEDS: SODIUM CHLORIDE 0.9% 1,000 ML IV SCH (19:49)
[2018-09-26] MEDS: LEVOFLOXACIN 750 MG TAB PO SCH (20:09)
[2018-09-26 20:31] LABS: Glucose,Whole Blood 116 mg/dL (75-99)
[2018-09-27] MEDS: traMADol 50 MG TAB PO PRN ×2 (01:22→09:23)
[2018-09-27 07:17] LABS: Glucose,Whole Blood 101 mg/dL (75-99)
[2018-09-27 08:03] LABS: Basophils % (A) 0 %; Eosinophils # (A) 0.1 k/uL (0-0.7); Eosinophils % (A) 0 %; HCT 47.3 % (34.0-46.0); HGB 14.3 gm/dL (11.4-16.0); Hypochromasia Slight; Lymphocytes # (A) 0.9 k/uL (1.0-4.8); Lymphocytes % (A) 4 %; MCH 31.5 pg (25.0-35.0); MCHC 30.2 g/dL (31.0-37.0); MCV 104.3 fL (80.0-100.0); Macrocytosis Slight; Mean Platelet Volume 7.4; Monocytes # (A) 0.6 k/uL (0-1.0); Monocytes % (A) 3 %; Neutrophils # (A) 19.8 k/uL (1.3-7.7); Neutrophils % (A) 92 %; Platelet Count 385 k/uL (150-450); RBC 4.53 m/uL (3.80-5.40); RDW 13.7 % (11.5-15.5); WBC 21.5 k/uL (3.8-10.6)
[2018-09-27] MEDS: BUDESONIDE 0.5 MG/2 ML NEBU INHALATION SCH ×2 (08:43→19:32)
[2018-09-27] MEDS: IPRATROPIUM-ALBUTEROL 3 ML NEB INHALATION PRN (08:43)
[2018-09-27] MEDS: FORMOTEROL FUMARATE 20 MCG/2 ML NEBU INHALATION SCH ×2 (08:43→19:33)
[2018-09-27] MEDS ORDERED: ALPRAZolam 0.25 MG TAB PO PRN (09:16)
[2018-09-27] MEDS: POLYETHYLENE GLYCOL 3350 17 GM POWD.PACK PO SCH (09:22)
[2018-09-27] MEDS: METOPROLOL TARTRATE 25 MG TAB PO SCH (09:26)
[2018-09-27] MEDS: ENOXAPARIN 40 MG/0.4 ML SYRINGE SQ SCH (09:26)
[2018-09-27] MEDS: predniSONE 10 MG TAB PO SCH (09:26)
[2018-09-27] MEDS: NICOTINE 14MG/24HR PATCH TRANSDERM SCH (09:26)
[2018-09-27] MEDS: guaiFENesin 600 MG TABLET.ER PO SCH (09:26)
[2018-09-27] MEDS: PANTOPRAZOLE 40 MG TABLET PO SCH (09:26)
--- NOTE | 2018-09-27 10:10 | XR ---
EXAMINATION TYPE: XR chest 2V DATE OF EXAM: 09/27/2018 COMPARISON: Prior chest x-ray 09/26/2018 HISTORY: Pleural effusion, chest tube placement TECHNIQUE: Frontal and lateral views of the chest are obtained. FINDINGS: Thoracic vent is present coursing over the right upper chest. Hydropneumothorax is increas ed in size in the interval. Parenchymal density persists in the right lower lung. Subcutaneous emphys paxton again noted. Heart size is likely stable, there are overlying cardiac leads. Right-sided chest tu be is again seen. IMPRESSION: Right hydropneumothorax. Parenchymal density at the right lung base again seen.
--- NOTE | 2018-09-27 11:15 | P.PN ---
Subjective Progress Note Date: 09/27/18 Principal diagnosis: Stage IV malignancy of unknown primary. The patient is seen today 09/27/2018 in follow-up on the regular medical floor. She is currently sitting up in a chair at the bedside. Awake and alert in no acute distress. Somewhat more short of breath today compared to yesterday she continues with a loose nonproductive cough. Maintaining O2 saturations in the h igh 80s on 5 L high flow nasal cannula. Afebrile. Hemodynamically stable. Today's chest x-ray reveals increased right hydropneumothorax. Continued density in the right lung base. White count 21.5. Hemoglobin 14.3. She remains on DuoNeb inhalations, Pulmicort and Perforomist inhalations, oral prednisone. Antibiotics in the form of Levaquin. NicoDerm patches in place. Objective - Vital Signs Vital signs: Vital Signs Temp 97.7 F 09/27/18 07:00 Pulse 106 H 09/27/18 09:08 Resp 16 09/27/18 07:00 BP 119/79 09/27/18 07:00 Pulse Ox 88 L 09/27/18 08:46 Intake & Output 09/26/18 09/27/18 09/27/18 18:59 06:59 18:59 Intake Total 200 Output Total 850 600 1 Balance -850 -400 -1 Weight 46.9 kg Intake: Oral 200 Output: Chest Tube Drainage 0 0 Pleural Catheter Right 0 0 Lower Anterior Chest Thora-Vent Right Upper 0 0 Anterior Chest Urine 850 600 Uretheral (Bellamy) 850 Stool 1 Other: Voiding Method Indwelling Catheter Indwelling Catheter # Bowel Movements 1 ABP, PAP, CO, CI - Last Documented Arterial Blood Pressure 129/70 - Exam GENERAL EXAM: Alert, very pleasant cachectic 57-year-old female on 5 L of oxygen comfortable in no apparent distress. HEAD: Normocephalic/atraumatic. EYES: Normal reaction of pupils, equal size. Conjunctiva pink, sclera white. NOSE: Clear with pink turbinates. THROAT: No erythema or exudates. NECK: No masses, no JVD, no thyroid enlargement, no adenopathy. CHEST: No chest wall deformity. Symmetrical expansion. right upper chest Thoravent in place LUNGS: Equal air entry with scattered rhonchi CVS: Regular rate and rhythm, normal S1 and S2, no gallops, no murmurs, no rubs ABDOMEN: Soft, nontender. No hepatosplenomegaly, normal bowel sounds, no guarding or rigidity. EXTREMITIES: No clubbing, no edema, no cyanosis, 2+ pulses and upper and lower extremities. MUSCULOSKELETAL: Muscle strength and tone normal. SPINE: No scoliosis or deformity SKIN: No rashes CENTRAL NERVOUS SYSTEM: No focal deficits, tone is normal in all 4 extremities. PSYCHIATRIC: Alert and oriented -3. Appropriate affect. Intact judgment and insight. - Labs CBC & Chem 7: 09/27/18 07:24 09/21/18 10:01 Labs: Abnormal Lab Results - Last 24 Hours (Table) 09/26/18 09/27/18 09/27/18 Range/Units 20:29 07:12 07:24 WBC 21.5 H (3.8-10.6) k/uL Hct 47.3 H (34.0-46.0) % MCV 104.3 H (80.0-100.0) fL MCHC 30.2 L (31.0-37.0) g/dL Neutrophils # 19.8 H (1.3-7.7) k/uL Lymphocytes # 0.9 L (1.0-4.8) k/uL POC Glucose (mg/dL) 116 H 101 H (75-99) mg/dL Assessment and Plan Assessment: Impression: 1 acute on chronic hypoxic respiratory failure, and the patient is post intubation mechanical ventilation and ventilatory dependent respiratory failure from which she has recovered 2 right-sided pneumothorax post Thoravent insertion. 3 stage IV non-small cell lung cancer, poorly differentiated, with a positive pleural fluid. Unknown primary. 4 malignant right-sided pleural effusion postthoracentesis subsequent Pleurx catheter insertion 5 severe cachexia and malnourishment 6 COPD exacerbation. 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 Pleurx catheter is in place. 13 episodic confusion/altered mentation, improved 14 metabolic alkalosis, currently on Diamox Plan: The patient was seen and evaluated by Dr. Orr. Chest x-ray and labs reviewed. Recurrent right-sided hydropneumothorax. Thoracic catheter put back to suction. The patient continues with a loose cough and congestion. Dr. Orr did discuss with her the possibility of a bronchoscopy with BAL, however the patient is high risk for requiring intubation and mechanical ventilatory support during or after the procedure. She and her are discussing this and let us know tomorrow if they choose to proceed. Continue to encourage increased use the incentive spirometer and cough and deep breathing exercises. Increase her activity as tolerated. We'll continue to follow. I, the cosigning physician, performed a history & physical examination of the patient. Lungs sounds with crackles in the right posterior base, diminished. Maintaining good O2 saturations in the 90s on 5 L high flow nasal cannula. I discussed the assessment and plan of care with my nurse practitioner, Olga Farias. I attest to the above note as dictated by her.
[2018-09-27 11:42] LABS: Glucose,Whole Blood 119 mg/dL (75-99)
--- NOTE | 2018-09-27 12:15 | P.PN ---
Subjective Progress Note Date: 09/27/18 Principal diagnosis: Non-small cell carcinoma primary unknown Sitting at bedside with spouse. Pulmonology has evaluated patient today tentative plans for possible bronchoscopy . MRI abdomen no acute abnormality within the abdomen and pelvis. Objective - Vital Signs Vital signs: Vital Signs Temp 97.7 F 09/27/18 07:00 Pulse 106 H 09/27/18 09:08 Resp 16 09/27/18 07:00 BP 119/79 09/27/18 07:00 Pulse Ox 88 L 09/27/18 08:46 Intake & Output 09/26/18 09/27/18 09/27/18 18:59 06:59 18:59 Intake Total 200 Output Total 850 600 1 Balance -850 -400 -1 Weight 46.9 kg Intake: Oral 200 Output: Chest Tube Drainage 0 0 Pleural Catheter Right 0 0 Lower Anterior Chest Thora-Vent Right Upper 0 0 Anterior Chest Urine 850 600 Uretheral (Bellamy) 850 Stool 1 Other: Voiding Method Indwelling Catheter Indwelling Catheter # Bowel Movements 1 ABP, PAP, CO, CI - Last Documented Arterial Blood Pressure 129/70 - Exam General appearance: The patient is alert, oriented, in no acute distress. HET: Head is normocephalic and atraumatic. Pupils are equal and reactive. Or opharynx is clear without lesions. Neck: Supple without lymphadenopathy. Trachea midline. Heart: S1 S2. Regular rate and rhythm. Lungs: No crackles or wheezes are heard. Diminished bilaterally right greater than left. Right-sided Pleurx catheter, thoravent present. Abdomen: Soft, nontender, nondistended with bowel sounds. No peritoneal signs. No palpable organomegaly or masses. - Labs CBC & Chem 7: 09/27/18 07:24 09/21/18 10:01 Labs: Abnormal Lab Results - Last 24 Hours (Table) 09/26/18 09/27/18 09/27/18 Range/Units 20:29 07:12 07:24 WBC 21.5 H (3.8-10.6) k/uL Hct 47.3 H (34.0-46.0) % MCV 104.3 H (80.0-100.0) fL MCHC 30.2 L (31.0-37.0) g/dL Neutrophils # 19.8 H (1.3-7.7) k/uL Lymphocytes # 0.9 L (1.0-4.8) k/uL POC Glucose (mg/dL) 116 H 101 H (75-99) mg/dL 09/27/18 Range/Units 11:38 WBC (3.8-10.6) k/uL Hct (34.0-46.0) % MCV (80.0-100.0) fL MCHC (31.0-37.0) g/dL Neutrophils # (1.3-7.7) k/uL Lymphocytes # (1.0-4.8) k/uL POC Glucose (mg/dL) 119 H (75-99) mg/dL Assessment and Plan (1) Malignant pleural effusion Narrative/Plan: 57-year-old female admitted with acute respiratory hypoxemic failure pneumothorax with malignant pleural effusion unknown primary possible GI possible pancreaticobiliary in origin. MRI abdomen no evidence of acute abdominal pelvic pathology. Current Visit: Yes Status: Acute Code(s): J91.0 - MALIGNANT PLEURAL EFFUSION SNOMED Code(s): 42480841 (2) AML (acute myelogenous leukemia) Current Visit: No Status: Chronic Priority: Low Code(s): C92.00 - ACUTE MYELOBLASTIC LEUKEMIA, NOT HAVING ACHIEVED REMISSION SNOMED Code(s): 06847194 Plan: 1. Oncology has requested possible EGD to help assist with primary origin of m alignant pleural effusion. At this time patient is tentatively scheduled for bronchoscopy pending her clinical status. Inpatient EGD is not planned at this time she is an increased risk secondary to her underlying pulmonary status do not want to risk pulmonary decompensation pursuing EGD. Agree with pulmonology's recommendation to pursue possible bronchoscopy , if bronchoscopy reveals no clear identifiable source of her underlying non-small cell carcinoma will discuss inpatient EGD with oncology and consult staff before discharge if clinically stable. 2. We'll continue to follow. Assessment and plan a care discussed with Dr. Ball
[2018-09-27] MEDS: KETOROLAC 30 MG/ML 1 ML VIAL IVP SCH ×2 (12:18→17:07)
--- NOTE | 2018-09-27 13:19 | P.PN ---
Subjective 57-year-old admitted with the respiratory failure secondary to right-sided pneumothorax and pleural effusion Malman pleural effusion effusion appears to be coming from adenocarcinoma unknown primary probable GI primary. Patient's has 2 chest tubes were connected to the forearm and the other one is for pleural effusion patient appears to have increased effusion today., Pulmonology and carotid thoracic surgery evaluated the patient. Plan is to do a bronchoscopy or endoscopy whenever discharged she she is bit stable. Patient's saturations has gone down today. Chest x-rays looking showing worsening effusion. 09/27/2018 Patient right-sided chest tube is still draining quite a bit. Patient respiratory status is bit worse no significant improvement improvement in her overall clinical condition is bit tachycardic leukocytosis bit worse. Patient appears to be fatigued Constitutional: denied any fever. Cardio vascular: denied any chest pain, palpitations Gastrointestinal denied any nausea vomiting Pulmonary: Her respiratory distress is bit worse compared to yesterday. Neurologic denied any new focal deficits All inpatient medications were reviewed and appropriate changes in these medications as dictated in the interval history and assessment and plan. Objective - Vital Signs Vital signs: Vital Signs Temp 97.7 F 09/27/18 07:00 Pulse 106 H 09/27/18 09:08 Resp 16 09/27/18 07:00 BP 119/79 09/27/18 07:00 Pulse Ox 88 L 09/27/18 08:46 Intake & Output 09/26/18 09/27/18 09/27/18 18:59 06:59 18:59 Intake Total 200 Output Total 850 600 1 Balance -850 -400 -1 Weight 46.9 kg Intake: Oral 200 Output: Chest Tube Drainage 0 0 Pleural Catheter Right 0 0 Lower Anterior Chest Thora-Vent Right Upper 0 0 Anterior Chest Urine 850 600 Uretheral (Bellamy) 850 Stool 1 Other: Voiding Method Indwelling Catheter Indwelling Catheter Indwelling Catheter # Bowel Movements 1 ABP, PAP, CO, CI - Last Documented Arterial Blood Pressure 129/70 - Exam PHYSICAL EXAMINATION: GENERAL: The patient is alert and oriented x3, Thin built appears to be fatigued and appears to be in bit of respiratory distress HEENT: Pupils are round and equally reacting to light. EOMI. No scleral icterus. No conjunctival pallor. Normocephalic, atraumatic. No pharyngeal erythema. No thyromegaly. CARDIOVASCULAR: S1 and S2 present. No murmurs, rubs, or gallops. PULMONARY: Very minimal breath sounds on the right side 2 chest tubes on the right side. ABDOMEN: Soft, nontender, nondistended, normoactive bowel sounds. No palpable organomegaly. MUSCULOSKELETAL: No joint swelling or deformity. EXTREMITIES: No cyanosis, clubbing, or pedal edema. NEUROLOGICAL: Gross neurological examination did not reveal any focal deficits. SKIN: No rashes. - Labs CBC & Chem 7: 09/27/18 07:24 09/21/18 10:01 Labs: Abnormal Lab Results - Last 24 Hours (Table) 09/26/18 09/27/18 09/27/18 Range/Units 20:29 07:12 07:24 WBC 21.5 H (3.8-10.6) k/uL Hct 47.3 H (34.0-46.0) % MCV 104.3 H (80.0-100.0) fL MCHC 30.2 L (31.0-37.0) g/dL Neutrophils # 19.8 H (1.3-7.7) k/uL Lymphocytes # 0.9 L (1.0-4.8) k/uL POC Glucose (mg/dL) 116 H 101 H (75-99) mg/dL 09/27/18 Range/Units 11:38 WBC (3.8-10.6) k/uL Hct (34.0-46.0) % MCV (80.0-100.0) fL MCHC (31.0-37.0) g/dL Neutrophils # (1.3-7.7) k/uL Lymphocytes # (1.0-4.8) k/uL POC Glucose (mg/dL) 119 H (75-99) mg/dL Assessment and Plan Plan: - Acute on chronic hypoxic respiratory failure, and the patient is post intubation mechanical ventilation and ventilatory dependent respiratory failure from which she has recovered , respiratory failure secondary to valvular and pleural effusion and the pneumothorax for which patient has 2 chest tubes as mentioned above patient continues to have increased effusion ration has recurrent pleural effusions for malignancy patient will undergo drainage of right-sided pleural effusion again. Her overall prognosis is extremely poor whenever it's stable patient will undergo bronchoscopy. Multiple consultants including her pulmonary condition thoracic surgery and the oncologist following the patient -Right-sided pneumothorax/ Pleural Effusion post Thoravent insertion. 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 - Malignant right-sided pleural effusion postthoracentesis subsequent Pleurx catheter insertion -. Severe cachexia and malnourishment -COPD with exacerbation on this hospitalization patient the presently doesn't have any COPD exacerbation History of AML post chemotherapy with subsequent bone marrow transplantation in 2014 CODE STATUS full
--- NOTE | 2018-09-27 14:10 | P.PN ---
Subjective Progress Note Date: 09/27/18 Principal diagnosis: Right-sided pneumothorax, status post thoravent placement by pulmonology. 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 The patient is currently sitting up in bed in no acute distress, was up in the chair this morning. She was more short of breath this morning, and her CXR demonstrated worsening of her pneumothorax. Her Thora-vent was placed back to suction. Thoravent site continues to drain serous fluid. She does exhibit a lot of loose congestion, however her cough is not forceful enough to expectorate. Objective - Vital Signs Vital signs: Vital Signs Temp 97.7 F 09/27/18 07:00 Pulse 106 H 09/27/18 09:08 Resp 16 09/27/18 07:00 BP 119/79 09/27/18 07:00 Pulse Ox 88 L 09/27/18 08:46 Intake & Output 09/26/18 09/27/18 09/27/18 18:59 06:59 18:59 Intake Total 200 Output Total 850 600 1 Balance -850 -400 -1 Weight 46.9 kg Intake: Oral 200 Output: Chest Tube Drainage 0 0 Pleural Catheter Right 0 0 Lower Anterior Chest Thora-Vent Right Upper 0 0 Anterior Chest Urine 850 600 Uretheral (Bellamy) 850 Stool 1 Other: Voiding Method Indwelling Catheter Indwelling Catheter Indwelling Catheter # Bowel Movements 1 ABP, PAP, CO, CI - Last Documented Arterial Blood Pressure 129/70 - Constitutional General appearance: Present: cooperative, no acute distress - Respiratory Details: Lungs sounds diminished on the right. Respirations even, nonlabored. Remains on 5 L nasal cannula, with oxygen saturation this morning at 88%, up to 92% with second evaluation. Only able to achieve 500 mL on her incentive spirometry. Right sided thoravent placed back on continuous wall suction, drained 150 mL thin serous fluid in the last 24 hours, no air leak present in atrium, no fluctuation of the right diaphragm. Right-sided Pleurx catheter present, capped. - Cardiovascular Details: S1, S2 present. Tachycardia but regular rate and rhythm, sinus tach on telemetry. Palpable peripheral pulses bilaterally. No edema present. No calf pain or tenderness noted. - Gastrointestinal Gastrointestinal Comment(s): Abdomen soft, nontender, nondistended. Active bowel sounds present 4 quadrants. Tolerating diet minimally. - Genitourinary Genitourinary Comment(s): Bellamy present draining clear, yellow urine. - Integumentary Integumentary Comment(s): Skin is warm and dry with evidence of good perfusion. - Neurologic Neurologic: Present: CNII-XII intact - Musculoskeletal Musculoskeletal: Present: generalized weakness, strength equal bilaterally - Psychiatric Psychiatric Comment(s): Slightly more irritated, frustrated today Psychiatric: Present: A&O x's 3, intact judgment & insight - Allied health notes Allied health notes reviewed: nursing - Labs CBC & Chem 7: 09/27/18 07:24 09/21/18 10:01 Labs: Abnormal Lab Results - Last 24 Hours (Table) 09/26/18 09/27/18 09/27/18 Range/Units 20:29 07:12 07:24 WBC 21.5 H (3.8-10.6) k/uL Hct 47.3 H (34.0-46.0) % MCV 104.3 H (80.0-100.0) fL MCHC 30.2 L (31.0-37.0) g/dL Neutrophils # 19.8 H (1.3-7.7) k/uL Lymphocytes # 0.9 L (1.0-4.8) k/uL POC Glucose (mg/dL) 116 H 101 H (75-99) mg/dL 09/27/18 Range/Units 11:38 WBC (3.8-10.6) k/uL Hct (34.0-46.0) % MCV (80.0-100.0) fL MCHC (31.0-37.0) g/dL Neutrophils # (1.3-7.7) k/uL Lymphocytes # (1.0-4.8) k/uL POC Glucose (mg/dL) 119 H (75-99) mg/dL - Imaging and Cardiology Chest x-ray: report reviewed, image reviewed Assessment and Plan Assessment: 1. Acute on chronic respiratory failure, post intubation with mechanical ventilator support. 2. Persistent right-sided pneumothorax status post Thoravent insertion 3. Stage IV non-small cell lung cancer poorly differentiated, with positive pleural fluid 4. Malignant recurrent right-sided pleural effusion, status post thoracentesis and Pleurx catheter insertion 5. Severe cachexia and malnutrition 6. Chronic obstructive pulmonary disease 7. History of AML post chemotherapy with subsequent bone marrow transplantation in 2014 8. Previous CVA/TIA 9. History of cervical spine fusion back in 2005 10. Current everyday nicotine dependence Plan: 1. Continue thoravent to continuous wall suction with Pleur-evac system. Attempted to drain Pleurx catheter, no more than drops for output. 2. Will continue to monitor daily x-rays. 3. Wean O2 as tolerated. Encourage incentive spirometry 10 times every hour while awake. Patient needs to cough to clear secretions. 4. Increase activity, up in chair, ambulate as tolerated. 5. Bronchodilators, steroids, antibiotics per pulmonology. Possible bronchoscopy tomorrow per pulmonology if patient and agreeable. 6. Medical management per primary care service. 7. More recommendations to follow to based on patient's progress. Time with Patient: Greater than 30
[2018-09-27 14:19] VITALS: BMI 16.7
--- NOTE | 2018-09-27 16:29 | XR ---
EXAMINATION TYPE: XR chest 1V portable DATE OF EXAM: 09/27/2018 COMPARISON: 09/27/2018 HISTORY: Shortness of breath TECHNIQUE: Single frontal view of the chest is obtained. FINDINGS: Right axillary subcutaneous emphysema is again noted. The right apical pneumothorax measur es at least 5.2 cm of apical pleural separation, similar from the prior of 09/27/2018. There is increas ing confluence of the right hemithorax. There are 2 thoracostomy tubes on the right again noted. Left lung remains well aerated. Mediastinum is slightly shifted to the left secondary to the mass effect on the right. Cervical fusion device is seen. Generalized osseous demineralization is mild. IMPRESSION: Increasing opacification of the right hemithorax may represent new atelectasis, pneumoni a, or increasing pleural effusion. Right-sided pneumothorax is similar to the prior of 09/27/2018 at 7: 15 AM.
[2018-09-27 17:16] LABS: Glucose,Whole Blood 128 mg/dL (75-99)
[2018-09-27 18:50] LABS: Glucose,Whole Blood 136 mg/dL (75-99)
[2018-09-27 20:11] LABS: Glucose,Whole Blood 135 mg/dL (75-99)
[2018-09-27] MEDS ORDERED: HYDROmorphone 1 MG/ML 1 ML SYRINGE IVP PRN (21:05)
[2018-09-27] MEDS ORDERED: LORazepam 2 MG/ML INJ IV PRN ×2 (21:05)
[2018-09-27] MEDS: HYDROmorphone 0.5 MG/0.5 ML SYRINGE IVP PRN (21:30)
[2018-09-27] MEDS: SODIUM CHLORIDE 0.9% 1,000 ML IV SCH (21:32)
[2018-09-27] MEDS ORDERED: SCOPOLAMINE 1.5MG/72HR PATCH TRANSDERM PRN (21:38)
--- NOTE | 2018-09-27 22:29 | PN ---
PROGRESS NOTE HISTORY: This is a 57-year-old female with a history of malignancy. This patient was seen by myself today in followup. She has a history of stage IV malignancy of unknown primary. The pleural effusion was positive for non-small cell a non-small cell cancer, poorly differentiated with an unknown primary. It is suspected that it might be pancreatic or biliary or even related to the lung. Anyway, I had a long discussion with the patient today in the room and also her . We talked about code status and life support such as intubation and mechanical ventilation. She was adamant that as he was that she would not want intubation and mechanical ventilation. She apparently developed respiratory failure on the floor. An A team was called. The patient was intubated because there had no there had not been a code status change. The patient is currently on the ventilator. We are going to move her down to the intensive care unit. Once she is more awake after receiving sedation for the intubation, we will go ahead and extubate her. I have confirmed again with the that she would not want to be on life support. He acknowledged that he did not want intubation or mechanical ventilation as she did not want it as well. I actually came in to see the patient and talked to the in person. He was in total agreement with this. The patient was moved from the 4th floor down to the ICU. When she is more awake, we will see if we cannot get her extubated. We will extubate her to BiPAP. Her overall prognosis remains very poor. Additional recommendations and suggestions are forthcoming. NEWTON / JIMENEZ: [id number] /
[2018-09-28] MEDS: KETOROLAC 30 MG/ML 1 ML VIAL IVP SCH ×3 (02:37→11:53)
[2018-09-28] MEDS: HYDROmorphone 0.5 MG/0.5 ML SYRINGE IVP PRN (05:16)
[2018-09-28 05:27] LABS: HCT 48.1 % (34.0-46.0); HGB 14.8 gm/dL (11.4-16.0); Hypochromasia Slight; MCH 31.9 pg (25.0-35.0); MCHC 30.7 g/dL (31.0-37.0); MCV 103.8 fL (80.0-100.0); Macrocytosis Slight; Mean Platelet Volume 7.8; Platelet Count 300 k/uL (150-450); RBC 4.63 m/uL (3.80-5.40); RDW 14.5 % (11.5-15.5); WBC 29.3 k/uL (3.8-10.6)
[2018-09-28 05:35] LABS: African American GFR (CKD) >90 (>60 ml/min/1.73 sqM); Blood Urea Nitrogen 19 mg/dL (7-17); Chloride 85 mmol/L (98-107); Glucose 93 mg/dL (74-99); Potassium 5.6 mmol/L (3.5-5.1); Sodium 136 mmol/L (137-145)
[2018-09-28 05:43] LABS: Anion Gap 7 mmol/L
[2018-09-28 05:56] LABS: Carbon Dioxide 44 mmol/L (22-30)
[2018-09-28] MEDS ORDERED: SODIUM CHLORIDE 0.9% 500 ML 500 ML IV ONE (06:02)
[2018-09-28 06:21] LABS: Band Neutrophils % 2 %; Eosinophils # (M) 0.29 k/uL (0-0.7); Lymphocytes # (M) 0.59 k/uL (1.0-4.8); Monocytes # (M) 1.17 k/uL (0-1.0); Neutrophils % (M) 91 %; Nucleated Red Blood Cells 0 /100 WBC (0-0); Total Cells Counted 100
--- NOTE | 2018-09-28 07:08 | XR ---
EXAMINATION TYPE: XR chest 1V portable DATE OF EXAM: 09/28/2018 COMPARISON: 09/27/2018 HISTORY: Pneumothorax. Follow-up exam. TECHNIQUE: Single frontal view of the chest is obtained. FINDINGS: There appears to be slight improvement of the right hematoma pneumothorax measuring approx imately 4.1 cm in greatest apical pleural separation and previously measuring 5.2 cm. There is also i mproved aeration of the right upper lung with stable moderate pleural effusion and basilar consolidat ion, likely atelectasis. Left lung remains clear. 2 thoracostomy tubes are unchanged. Partial visuali zation of a cervical fusion device. Cardiomediastinal silhouette is again partially secure but appear s overall stable. IMPRESSION: Slightly improved right apical and improved aeration of the right upper lobe.
--- NOTE | 2018-09-28 08:47 | P.PN ---
Subjective Progress Note Date: 09/28/18 Principal diagnosis: Right-sided pneumothorax, status post thoravent placement by pulmonology. 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 Acute hypoxic respiratory failure requiring BiPAP The patient is currently laying in the intensive care unit on BiPAP in no acute distress. Last night she became unresponsive and a CODE BLUE was called. She was intubated and brought to the intensive care unit, however the patient and 's wishes were for no intubation, sedation was weaned off and the patient was extubated to BiPAP. Her CODE STATUS was officially changed to no code. Per nursing she has not regained consciousness. She remains tachycardic. Attempted to drain the Pleurx catheter yesterday with minimal drainage. Objective - Vital Signs Vital signs: Vital Signs Temp 97.2 F L 09/28/18 08:00 Pulse 115 H 09/28/18 08:00 Resp 19 09/28/18 08:00 BP 109/69 09/28/18 08:00 Pulse Ox 94 L 09/28/18 08:00 Intake & Output 09/27/18 09/28/18 09/28/18 18:59 06:59 18:59 Intake Total 110 20 Output Total 1 950 35 Balance -1 -840 -15 Weight 46.9 kg 46.5 kg Intake: IV 110 20 Sodium Chloride 0.9% 1, 110 20 000 ml @ 10 mls/hr IV . Q24H [facility] Rx#:[id number] Output: Chest Tube Drainage 0 55 Thora-Vent Right Upper 0 55 Anterior Chest Urine 895 35 Stool 1 Other: Voiding Method Indwelling Catheter Indwelling Catheter # Voids 1 ABP, PAP, CO, CI - Last Documented Arterial Blood Pressure 129/70 - Constitutional Constitutional Comment(s): Generally ill appearing on BiPAP in the intensive care unit - Respiratory Details: Lungs sounds coarse on the right. Respirations even, but slightly tachypneic. Currently on BiPAP, FiO2 75%, IPap 12, EPAP 6 with oxygen saturation 95%. Right sided thoravent present to continuous wall suction, drained 55 mL thin serous fluid in the last 24 hours, no air leak present in atrium, no fluctuation of the right diaphragm. Right-sided Pleurx catheter present, capped. - Cardiovascular Details: S1, S2 present. Tachycardia but regular rate and rhythm, sinus tach on telemetry. Palpable peripheral pulses bilaterally. No edema present. No calf pain or tenderness noted. - Gastrointestinal Gastrointestinal Comment(s): Abdomen soft, nontender, nondistended. Active bowel sounds present 4 quadrants. Currently NPO. - Genitourinary Genitourinary Comment(s): Bellamy present draining clear, yellow urine. - Integumentary Integumentary Comment(s): Skin is warm and dry with evidence of good perfusion. - Neurologic Neurologic Comment(s): Pupils 3 mm and equal, round, and reactive to light. Patient withdraws to painful stimuli only. - Allied health notes Allied health notes reviewed: nursing - Labs CBC & Chem 7: 09/28/18 04:48 09/28/18 04:48 Labs: Abnormal Lab Results - Last 24 Hours (Table) 09/27/18 09/27/18 09/27/18 Range/Units 11:38 17:14 18:30 WBC (3.8-10.6) k/uL Hct (34.0-46.0) % MCV (80.0-100.0) fL MCHC (31.0-37.0) g/dL Neutrophils # (Manual) (1.3-7.7) k/uL Lymphocytes # (Manual) (1.0-4.8) k/uL Monocytes # (Manual) (0-1.0) k/uL Sodium (137-145) mmol/L Potassium (3.5-5.1) mmol/L Chloride (98-107) mmol/L Carbon Dioxide (22-30) mmol/L BUN (7-17) mg/dL Creatinine (0.52-1.04) mg/dL POC Glucose (mg/dL) 119 H 128 H 136 H (75-99) mg/dL 09/27/18 09/28/18 09/28/18 Range/Units 20:00 04:48 04:48 WBC 29.3 H (3.8-10.6) k/uL Hct 48.1 H (34.0-46.0) % MCV 103.8 H (80.0-100.0) fL MCHC 30.7 L (31.0-37.0) g/dL Neutrophils # (Manual) 27.20 H (1.3-7.7) k/uL Lymphocytes # (Manual) 0.59 L (1.0-4.8) k/uL Monocytes # (Manual) 1.17 H (0-1.0) k/uL Sodium 136 L (137-145) mmol/L Potassium 5.6 H (3.5-5.1) mmol/L Chloride 85 L (98-107) mmol/L Carbon Dioxide 44 H* (22-30) mmol/L BUN 19 H (7-17) mg/dL Creatinine 0.19 L (0.52-1.04) mg/dL POC Glucose (mg/dL) 135 H (75-99) mg/dL - Imaging and Cardiology Chest x-ray: report reviewed, image reviewed Assessment and Plan Assessment: 1. Acute on chronic respiratory failure, post intubation with mechanical ventilator support. Reintubated, re-extubated, placed on BiPAP last night. 2. Persistent right-sided pneumothorax status post Thoravent insertion, slightly decreased from yesterday 3. Stage IV non-small cell lung cancer poorly differentiated, with positive pleural fluid, unknown primary source 4. Malignant recurrent right-sided pleural effusion, status post thoracentesis and Pleurx catheter insertion 5. Severe cachexia and malnutrition 6. Chronic obstructive pulmonary disease 7. History of AML post chemotherapy with subsequent bone marrow transplantation in 2014 8. Previous CVA/TIA 9. History of cervical spine fusion back in 2005 10. Current everyday nicotine dependence Plan: 1. Patient made no CODE STATUS, remains on BiPAP. Dr. Orr to have discussion with family today regarding possible hospice. Agree, appropriate. 2. Continue thoravent to continuous wall suction with Pleur-evac system. 3. BiPAP management per Dr. Orr. 4. Bronchodilators, steroids, antibiotics per pulmonology. 5. Medical management per primary care service. 6. More recommendations to follow. Time with Patient: Greater than 30
[2018-09-28] MEDS ORDERED: PANTOPRAZOLE 40 MG/10 ML VIAL IVP SCH (09:00)
[2018-09-28] MEDS: NICOTINE 14MG/24HR PATCH TRANSDERM SCH (09:28)
[2018-09-28] MEDS: SODIUM CHLORIDE 0.9% 1,000 ML IV SCH (09:28)
--- NOTE | 2018-09-28 09:36 | PN ---
PROGRESS NOTE DATE OF SERVICE: 09/28/2018 This is a 57-year-old female that we have been following. She has a history of malignancy. She has a poorly differentiated non-small cell cancer. The primary site is not currently known. Anyway yesterday, she developed worsening respiratory distress. Because at that point, she was still a FULL CODE, A-Team was called and she was intubated in the room. I had a chance to speak to the . The patient yesterday was adamant about not being intubated. The concurred. We moved her to the ICU. We allowed her to come off a sedation and we extubated her to BiPAP. Currently, her overall situation is very poor. She is on BiPAP at 12 and 6 and 75%. She is getting a 0.9 IV at 10 mL an hour. I did ask the nurses to give the patient a 500 mL fluid bolus to see if it improved her blood pressure and her tachycardia. I am going to talk to the today about hospice referral. The patient did not want intubation. We have yet to actually identify the primary source of her cancer. It could be a GI and/or lung. We were planning to think about doing a bronchoscopy on her, but obviously that is out of the question at this time. She is very unstable. She is currently resting in room 258 in the ICU. She is poorly responsive. BiPAP mask in place. Current vital signs are reviewed. Her temperature is 98 degrees, her heart rate 116, blood pressure 138/83, her respiratory rate is probably about mid to high 20s, and her saturations are at 90%-92% on the BiPAP at 12 and 6 and 75%. She is poorly responsive. HEENT: Examination is grossly unremarkable. BiPAP mask is noted. NECK: Supple. Full range of motion. No adenopathy, thyromegaly or neck vein distention. CARDIOVASCULAR: Examination reveals tachycardia. It is regular. Heart rate about 115 beats per minute. S1, S2 normal. Heart sounds are distant. LUNGS: Reveal coarse bilateral breath sounds. Breath sounds are a better on the left side. No wheezes. No crackles. ABDOMEN: Soft and scaphoid. Bowel sounds are noted. EXTREMITIES: Intact. No edema. SKIN: Without rash. NEUROLOGIC: Examination is difficult to assess. LABS: Reviewed. White count 29.3, hemoglobin 14.8, hematocrit 48.1, platelet count 300,000. Sodium 136, potassium 5.6, chloride 85, CO2 is 44, anion gap is 7, BUN and creatinine were 19 and 0.19. Chest x-ray shows a left lung which is mostly clear. The right lung shows diffuse infiltrates. There is likely either infiltrate, atelectasis or effusion at the right base. There is a persistent right apical pneumothorax. MEDICATIONS: Reviewed. Her medications include Tylenol, Pulmicort, Lovenox, formoterol, Dilaudid, DuoNeb, Toradol, Ativan, magnesium replacement, Narcan, nicotine patch, Protonix, scopolamine patch, potassium replacement, and her basic IV. ASSESSMENT: 1. Acute respiratory decline with intubation and subsequent extubation as the patient apparently was a NO CODE. The reason for intubation was acute hypoxemic respiratory failure. 2. Previous episode of intubation and mechanical ventilation. 3. Right-sided pneumothorax, status post Thora Vent insertion and persistent right apical pneumothorax. 4. Stage IV non-small cell cancer, poorly differentiated, primary unknown. 5. Malignant right-sided pleural effusion. 6. Anorexia cachexia syndrome. 7. Severe chronic obstructive pulmonary disease. 8. Chronic hypoxemic and hypercapnic respiratory failure. 9. History of acute myeloid leukemia, status post chemotherapy and subsequent bone marrow transplantation, 2015. 10.Previous history of cerebrovascular accident. 11.History of cervical spine fusion. 12.Previous history of heavy tobacco use. 13.Mental status changes. PLAN: The patient's medications will be reviewed. Unnecessary medications will be discontinued. Overall prognosis remains poor. I actually came in last night to see the patient and talk to the . We confirmed the fact that he did not want her to be on life support. She was extubated here in the ICU when she awoke from her sedation. She is currently on BiPAP. Overall prognosis remains very poor. I am going to talk to the today about hospice referral. Will continue to follow. MMODL / IJN: [id number] /
[2018-09-28] MEDS: ENOXAPARIN 40 MG/0.4 ML SYRINGE SQ SCH (11:49)
[2018-09-28 12:08] VITALS: TEMP 97.1
[2018-09-28] MEDS ORDERED: MORPHINE SULFATE 4 MG/ML SYRINGE IVP ONE (12:28)
[2018-09-28] MEDS ORDERED: ARTIFICIAL TEARS-HYPROMELLOSE DROPS 15 ML BTL BOTH EYES PRN (12:28)
[2018-09-28] MEDS ORDERED: ONDANSETRON 4 MG/2 ML VIAL IVP PRN (12:28)
--- NOTE | 2018-09-28 12:40 | P.PN ---
Subjective 57-year-old admitted with the respiratory failure secondary to right-sided pneumothorax and pleural effusion Giancarlo pleural effusion effusion appears to be coming from adenocarcinoma unknown primary probable GI primary. Patient's has 2 chest tubes were connected to the forearm and the other one is for pleural effusion patient appears to have increased effusion today., Pulmonology and carotid thoracic surgery evaluated the patient. Plan is to do a bronchoscopy or endoscopy whenever discharged she she is bit stable. Patient's saturations has gone down today. Chest x-rays looking showing worsening effusion. 09/27/2018 Patient right-sided chest tube is still draining quite a bit. Patient respiratory status is bit worse no significant improvement improvement in her overall clinical condition is bit tachycardic leukocytosis bit worse. Patient appears to be fatigued. 09/28/2018 Patient had a cardiorespiratory arrest, pulseless electrical activity yesterday evening patient was briefly intubated and was subsequently extubated the request of the family patient was a terminal wean. Patient will be hospice. Discussed with the family her overall prognosis is extremely poor because of her recurrent pleural effusion pneumothorax not getting better along with the metastatic stage IV cancer with unknown primary. Constitutional: denied any fever. Cardio vascular: denied any chest pain, palpitations Gastrointestinal denied any nausea vomiting Pulmonary: Her respiratory distress is bit worse compared to yesterday. Neurologic denied any new focal deficits All inpatient medications were reviewed and appropriate changes in these medications as dictated in the interval history and assessment and plan. Objective - Vital Signs Vital signs: Vital Signs Temp 97.1 F L 09/28/18 12:00 Pulse 116 H 09/28/18 12:00 Resp 17 09/28/18 12:00 BP 104/65 09/28/18 12:00 Pulse Ox 95 09/28/18 12:00 Intake & Output 09/27/18 09/28/18 09/28/18 18:59 06:59 18:59 Intake Total 110 100 Output Total 1 950 205 Balance -1 -840 -105 Weight 46.9 kg 46.5 kg Intake: IV 110 100 Sodium Chloride 0.9% 1, 110 100 000 ml @ 10 mls/hr IV . Q24H [facility] Rx#:[id number] Output: Chest Tube Drainage 0 55 Thora-Vent Right Upper 0 55 Anterior Chest Urine 895 205 Stool 1 Other: Voiding Method Indwelling Catheter Indwelling Catheter Indwelling Catheter # Voids 1 ABP, PAP, CO, CI - Last Documented Arterial Blood Pressure 129/70 - Exam PHYSICAL EXAMINATION: GENERAL: Patient is on BiPAP on and not in respiratory distress wakes up with the pain. HEENT: Pupils are constricted CARDIOVASCULAR: S1 and S2 present. No murmurs, rubs, or gallops. PULMONARY: Very minimal breath sounds on the right side 2 chest tubes on the right side. Bilateral wheezing ABDOMEN: Soft, nontender, nondistended, normoactive bowel sounds. No palpable organomegaly. MUSCULOSKELETAL: No joint swelling or deformity. EXTREMITIES: No cyanosis, clubbing, or pedal edema. NEUROLOGICAL: Unable to assess SKIN: No rashes. - Labs CBC & Chem 7: 09/28/18 04:48 09/28/18 04:48 Labs: Abnormal Lab Results - Last 24 Hours (Table) 09/27/18 09/27/18 09/27/18 Range/Units 17:14 18:30 20:00 WBC (3.8-10.6) k/uL Hct (34.0-46.0) % MCV (80.0-100.0) fL MCHC (31.0-37.0) g/dL Neutrophils # (Manual) (1.3-7.7) k/uL Lymphocytes # (Manual) (1.0-4.8) k/uL Monocytes # (Manual) (0-1.0) k/uL Sodium (137-145) mmol/L Potassium (3.5-5.1) mmol/L Chloride (98-107) mmol/L Carbon Dioxide (22-30) mmol/L BUN (7-17) mg/dL Creatinine (0.52-1.04) mg/dL POC Glucose (mg/dL) 128 H 136 H 135 H (75-99) mg/dL 09/28/18 09/28/18 Range/Units 04:48 04:48 WBC 29.3 H (3.8-10.6) k/uL Hct 48.1 H (34.0-46.0) % MCV 103.8 H (80.0-100.0) fL MCHC 30.7 L (31.0-37.0) g/dL Neutrophils # (Manual) 27.20 H (1.3-7.7) k/uL Lymphocytes # (Manual) 0.59 L (1.0-4.8) k/uL Monocytes # (Manual) 1.17 H (0-1.0) k/uL Sodium 136 L (137-145) mmol/L Potassium 5.6 H (3.5-5.1) mmol/L Chloride 85 L (98-107) mmol/L Carbon Dioxide 44 H* (22-30) mmol/L BUN 19 H (7-17) mg/dL Creatinine 0.19 L (0.52-1.04) mg/dL POC Glucose (mg/dL) (75-99) mg/dL Assessment and Plan Plan: - Acute on chronic hypoxic respiratory failure, secondary to malignant pleural effusion patient is status post cardiorespiratory arrest. Hospice will be consulted patient will be initiated on comfort measures only -Right-sided pneumothorax/ Pleural Effusion post Thoravent insertion. 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 - Malignant right-sided pleural effusion postthoracentesis subsequent Pleurx catheter insertion -. Severe cachexia and malnourishment -COPD History of AML post chemotherapy with subsequent bone marrow transplantation in 2014 CODE STATUS DO NOT RESUSCITATE, comfort measures only
[2018-09-28] MEDS ORDERED: MORPHINE SULFATE (100 MG/2 ML) 100 MG in SODIUM CHLORIDE 0.9% 100 ML IV SCH (13:00)
[2018-09-28 14:07] VITALS: BP 112/74; PULSE 110; RESP 25
--- NOTE | 2018-10-01 15:00 | P.DS ---
Providers Date of admission: 09/13/18 17:33 Expected date of discharge: 09/30/18 Attending physician: Lokesh Scruggs Consults: 09/13/18 16:58 Consult Physician Urgent Consulting Provider: Leticia Wiggins Consult Reason/Comments: dyspnea Do you want consulting provider notified?: Already Contacted 09/13/18 17:32 Consult Physician Urgent Consulting Provider: Rios Garcia Consult Reason/Comments: Oncological care Do you want consulting provider notified?: Yes 09/14/18 07:13 Consult Physician Urgent Consulting Provider: Mechelle Ashley Consult Reason/Comments: elevated troponin Do you want consulting provider notified?: Yes 09/23/18 11:37 Consult Physician Routine Consulting Provider: Merle Clark Consult Reason/Comments: right pneumothorax Do you want consulting provider notified?: Yes Primary care physician: Kristi Silvestre [facility] Course: Patient on 09/29/2018 please refer to nursing documentation for exact time of . Pulmonary cause of is metastatic adenocarcinoma unknown primary Patient Condition at Discharge: Critical Plan - Discharge Summary Discharge Rx Participant: No New Discharge Prescriptions: No Action Multivitamin/Iron/Folic Acid [Centrum Complete Multivit Tab] 1 tab PO DAILY@0800 Ibuprofen [Motrin] 800 mg PO Q8H PRN PRN Reason: Pain Pentoxifylline [TRENtal] 400 mg PO BID@0800,1700 LORazepam [Ativan] 0.5 mg PO Q46H PRN PRN Reason: Anxiety Ipratropium/Albuterol Sulfate [Combivent Respimat Inhaler] 1 puff INHALATION RT-BID PRN PRN Reason: Wheezing Vitamin E (Dl,Tocopheryl Acet) [Vitamin E] 400 unit PO BID@0800,1700 Gabriel/D3/Mag11/Zinc/Charge Machine Operator/Kashif/Bor [Caltrate 600+D Plus Tablet] 1 tab PO BID@0800 ,1700 Hydrocortisone 10 mg PO DAILY@1700 Hydrocortisone 20 mg PO DAILY@0800 Megestrol [Megace] 40 mg PO TID Discharge Medication List Multivitamin/Iron/Folic Acid [Centrum Complete Multivit Tab] 1 tab PO DAILY@0800 11/06/15 [History] Gabriel/D3/Mag11/Zinc/Charge Machine Operator/Kashif/Bor [Caltrate 600+D Plus Tablet] 1 tab PO BID@0800,1700 09/04/18 [History] Hydrocortisone 10 mg PO DAILY@17009/04/18 [History] Hydrocortisone 20 mg PO DAILY@0800 09/04/18 [History] Ibuprofen [Motrin] 800 mg PO Q8H PRN 09/04/18 [History] Ipratropium/Albuterol Sulfate [Combivent Respimat Inhaler] 1 puff INHALATION RT- BID PRN 09/04/18 [History] LORazepam [Ativan] 0.5 mg PO Q46H PRN 09/04/18 [History] Pentoxifylline [TRENtal] 400 mg PO BID@0800,17009/04/18 [History] Vitamin E (Dl,Tocopheryl Acet) [Vitamin E] 400 unit PO BID@0800,169909/04/18 [History] Megestrol [Megace] 40 mg PO TID 09/13/18 [History] Follow up Appointment(s)/Referral(s): Kristi Silvestre DO [Primary Care Provider] - 1-2 days [facility], [NON-STAFF] - As Needed Discharge Disposition: - Preliminary Cause of Preliminary Cause of : Metastatic adenocarcinoma with unknown primary
== END 2018-09-28 14:53 | disposition expired | DRG 208 ==
LOC: EC 15:18 → 2SICU 17:33 → 4SSUR 09-19 15:49 → 2SICU 09-27 19:47
PROVIDERS: ADMIT Hospitalist; ATTEND Hospitalist
PROC: 0BH17EZ Insertion of Endotracheal Airway into Trachea, Via Natural or Artificial Opening (ICD-10-PCS; principal; 2018-09-13)
PROC: 5A1945Z Respiratory Ventilation, 24-96 Consecutive Hours (ICD-10-PCS; principal; 2018-09-13)
PROC: 02HV33Z Insertion of Infusion Device into Superior Vena Cava, Percutaneous Approach (ICD-10-PCS; 2018-09-13)
PROC: 03HY32Z Insertion of Monitoring Device into Upper Artery, Percutaneous Approach (ICD-10-PCS; 2018-09-13)
PROC: 0W9930Z Drainage of Right Pleural Cavity with Drainage Device, Percutaneous Approach (ICD-10-PCS; 2018-09-17)
PROC: 5A09457 Assistance with Respiratory Ventilation, 24-96 Consecutive Hours, Continuous Positive Airway Pressure (ICD-10-PCS; 2018-09-17)
PROC: 0BH17EZ Insertion of Endotracheal Airway into Trachea, Via Natural or Artificial Opening (ICD-10-PCS; 2018-09-27)
PROC: 5A1935Z Respiratory Ventilation, Less than 24 Consecutive Hours (ICD-10-PCS; 2018-09-27)
DX: J96.21 Acute and chronic respiratory failure with hypoxia (principal); I21.4 Non-ST elevation (NSTEMI) myocardial infarction; J69.0 Pneumonitis due to inhalation of food and vomit; J93.83 Other pneumothorax; J91.0 Malignant pleural effusion; C92.00 Acute myeloblastic leukemia, not having achieved remission; E44.0 Moderate protein-calorie malnutrition; G93.1 Anoxic brain damage, not elsewhere classified; J44.1 Chronic obstructive pulmonary disease with (acute) exacerbation; R64 Cachexia; C34.91 Malignant neoplasm of unspecified part of right bronchus or lung; E87.3 Alkalosis; J98.11 Atelectasis; Z94.84 Stem cells transplant status; Z99.11 Dependence on respirator [ventilator] status; Z68.1 Body mass index [BMI] 19.9 or less, adult; Z94.81 Bone marrow transplant status; Z66 Do not resuscitate; I07.1 Rheumatic tricuspid insufficiency; I46.9 Cardiac arrest, cause unspecified; F41.9 Anxiety disorder, unspecified; J96.22 Acute and chronic respiratory failure with hypercapnia; F17.200 Nicotine dependence, unspecified, uncomplicated; Z51.5 Encounter for palliative care; I27.20 Pulmonary hypertension, unspecified; Z88.1 Allergy status to other antibiotic agents; Z88.0 Allergy status to penicillin; Z88.8 Allergy status to other drugs, medicaments and biological substances; Z87.01 Personal history of pneumonia (recurrent); Z98.51 Tubal ligation status; Z80.1 Family history of malignant neoplasm of trachea, bronchus and lung; Z82.5 Family history of asthma and other chronic lower respiratory diseases; Z86.73 Personal history of transient ischemic attack (TIA), and cerebral infarction without residual deficits; Z85.3 Personal history of malignant neoplasm of breast; Z92.21 Personal history of antineoplastic chemotherapy; Z80.49 Family history of malignant neoplasm of other genital organs; Z98.1 Arthrodesis status; Z98.890 Other specified postprocedural states
CPT/HCPCS: 31500; 36415; 36600; 70450; 71045; 71046; 71275; 74183; 80048; 80053; 80306; 81001; 82550; 82805; 83735; 84100; 84132; 84484; 85025; 85027; 85610; 85730; 87070; 87205; 93005; 93306; 94002; 94003; 94640; 94660; 94760; 96360; 96361; 96374; 99291